=== PATIENT | male | born 1955 | race Caucasian/White ===

== ENCOUNTER → 2020-02-05 15:03 | Outpatient (BNVA) | payer BC, SELFPAY | PROVIDERS: Family Provider Family Medicine; PCP Family Medicine; Visit Provider Nurse Practitioner Family | DX: I50.9 Heart failure, unspecified (principal); J44.9 Chronic obstructive pulmonary disease, unspecified; R09.02 Hypoxemia; J98.11 Atelectasis | CPT/HCPCS: 71046; 80053; 85025 ==

== ENCOUNTER → 2020-03-11 09:00 | Outpatient (BNVA) | payer MEDICARE, SELFPAY | PROVIDERS: Family Provider Family Medicine; PCP Family Medicine; Visit Provider Nurse Practitioner Family | DX: I50.9 Heart failure, unspecified (principal); J44.9 Chronic obstructive pulmonary disease, unspecified | CPT/HCPCS: 80053; 80061 ==

== ENCOUNTER → 2020-03-19 08:54 | Outpatient (BNVA) | payer BC, MEDICARE, SELFPAY | PROVIDERS: Family Provider Family Medicine; PCP Family Medicine; Visit Provider Nurse Practitioner Family | DX: R73.09 Other abnormal glucose (principal) | CPT/HCPCS: 83036 ==

== ENCOUNTER → 2020-06-26 09:47 | Outpatient (BNVA) | payer MEDICARE, SELFPAY | PROVIDERS: Family Provider Family Medicine; PCP Family Medicine; Visit Provider Family Medicine | DX: J44.9 Chronic obstructive pulmonary disease, unspecified (principal); I50.9 Heart failure, unspecified; R06.02 Shortness of breath; R09.02 Hypoxemia | CPT/HCPCS: 36415; 80053; 85025 ==

== ENCOUNTER 2020-10-31 14:25 | Inpatient (IN) | payer MEDICARE, MEDICAID, SELFPAY ==
[2020-10-31] VITALS (8 sets, daily range): BP systolic 121–149; BP diastolic 65–108; PULSE 87–101; RESP 15–21; TEMP 36.8; O2SAT 93–100; BMI 44.3
--- NOTE | 2020-10-31 14:56 | PC.NURSE ---
UA collected and sent to lab.
[2020-10-31] MEDS: vancomycin 1,500 MG/300 ML PIGGYBACK 200 MG IV (15:46)
[2020-10-31 15:57] LABS: Basophils # 0.1 10^3/uL (0.0-0.1); Basophils % 1.4 %; Eosinophils # 0.3 10^3/uL (0.0-0.8); Eosinophils % 5.6 %; Hematocrit 31.1 % (42.0-52.0); Hemoglobin 8.8 g/dL (11.7-16.6); Lymphocytes # 1.1 10^3/uL (0.8-4.8); Lymphocytes % 22.2 %; Mean Corpuscular HGB Conc 28.3 g/dL (30.0-36.0); Mean Platelet Volume 9.7 fL (7.4-10.4); Monocytes # 0.7 10^3/uL (0.2-0.9); Neutrophils # 2.74 10^3/uL (1.8-7.7); Nucleated Red Blood Cells % 0 %; Platelet Count 332 10^3/cmm (130-400); Red Blood Count 3.14 10^6/uL (4.1-5.3); Red Cell Distribution Width 18.6 % (12.1-15.1)
--- NOTE | 2020-10-31 16:23 | ED_ITS ---
HPI - Wound/Laceration General: Chief Complaint: Wound/Laceration Stated Complaint: BLE PAIN/ CELLULITIS Time Seen by Provider: 10/31/20 14:26 Source: patient Mode of arrival: EMS Limitations: no limitations History of Present Illness: HPI narrative: Patient is a 65-year-old male who is a assisted resident and has bilateral lower extremity wounds that mixed pressure ulcers versus venous ulcers. He has recently been in the hospital for cellulitis. The wound care nurse practitioner evaluated the patient yesterday at the assisted and his wounds appear to be worsening. He is in a lot of pain and they are unable to do proper wound dressing. He denies a fever, admits to severe lower extremity pain, swelling, weeping of his wounds. He is here for wound evaluation and possible admission and debridement in the OR Associated symptoms: Denies chills, fever(s), nausea or vomiting Review of Systems General: Reports: 10 or more systems reviewed and unremarkable except in HPI and below Const: Denies: fever(s), chills or body aches Eyes: Denies: change in vision or blurry vision ENMT: Denies: throat pain, enlarged tonsils, odynophagia, hoarseness, mouth pain or swelling of lips/tongue Card: Denies: palpitations, irregular heart rhythm, edema or swelling of feet/ankles Resp: Denies: dyspnea, productive cough or non-productive cough GI: Denies: abdominal pain, nausea or vomiting : Denies: flank pain, dysuria, urinary frequency, urinary urgency or urinary hesitancy Musc: Denies: neck pain, back pain or extremity swelling Skin/Breast: Denies: rash, pruritus or erythema Neuro: Denies: headache(s), numbness in extremities or weakness in extremities Endo: Denies: polyuria, polydipsia or tired all the time PFSH ED PFSH: Medical History (Reviewed 10/31/20 @ 17:27 by Taina Bear MD, [facility] [place]) CHF (congestive heart failure) DVT (deep venous thrombosis) Hypoxia Social History (Reviewed 10/31/20 @ 17:27 by Taina Bear MD, [facility] [place]) Smoking and tobacco status: former smoker Quit status (tobacco): has quit using tobacco Year quit tobacco: 2019 Alcohol intake: never Physical Exam Const: COMMON NORMALS: no acute distress, average body habitus, patient oriented x3, no limitations, healthy appearing, alert and well nourished HENMT: COMMON NORMALS: normocephalic, atraumatic and moist oral mucous membranes HEAD & SCALP: normocephalic and atraumatic Neck/C-Spine: COMMON NORMALS: no meningeal signs and no JVD Resp: COMMON NORMALS: normal respiratory effort, No retractions, No use of accessory muscles, clear to auscultation bilaterally and percussion normal AUSCULTATION: clear to auscultation bilaterally PERCUSSION: percussion normal Cardio: COMMON NORMALS: no JVD, regular rate, regular rhythm, S1 normal heart sound present, S2 normal heart sound present, No gallops present (Cardio), No clicks present (Cardio), No murmurs present (Cardio), No rub (Cardio) and Peripheral pulses 2+ throughout RATE: regular rate RHYTHM: regular rhythm HEART SOUNDS: S1 normal heart sound present and S2 normal heart sound present PERIPHERAL PULSES: Peripheral pulses 2+ throughout GI: COMMON NORMALS: Normal to inspection, nondistended, normoactive bowel sounds present, Soft to palpation, non-tender, No hepatosplenomegaly present, no masses and no bruits PALPATION: Yes Soft to palpation and Yes No hepatosplenomegaly present Extremity: COMMON NORMALS: full ROM, capillary refill normal and no calf tenderness OTHER: Both lower extremities edematous with venous stasis changes. He has extensive wounds to the posterior lower legs that are weeping. He has extreme tenderness even to light touch. The legs are warm. Neuro: COMMON NORMALS: patient oriented x3 SENSORIUM/ORIENTATION: Yes alert MENINGEAL SIGNS: Yes no meningeal signs Skin: COMMON NORMALS: no rashes or lesions noted, no wounds, turgor normal, no jaundice, no petechiae and no mottling GENERAL SKIN EXAM: no rashes or lesions noted and turgor normal Course Consultations: Consultation #1: Discussed the patient with Dr. Bowie, sanitizer and he will evaluate the patient and if he is appropriate will take him to the OR for debridement. Time: 15:43 Consultation #2: Discussed the patient with Dr. Larsen, hospitalist and he kindly accepted the patient to his service. Time: 16:46 Vital Signs: Vital signs: Vital Signs Temperature 98.2 F 10/31/20 14:27 Pulse Rate 87 10/31/20 17:00 Respiratory Rate 20 H 10/31/20 17:00 Blood Pressure 124/108 10/31/20 17:00 Pulse Oximetry 100 10/31/20 17:00 MDM - Wound/Laceration MDM Narrative: Medical decision making narrative: 65-year-old male with chronic leg ulcers and cellulitis. He is being admitted to the hospital for further evaluation and management. Medical Records: Attestation: I reviewed the patient's medical records. Lab Data: Attestation: I reviewed the patient's lab results. Labs: Lab Results 10/31/20 10/31/20 10/31/20 Range/Units 15:27 15:27 15:27 WBC 5.0 (4.0-10.0) 10^3/ uL RBC 3.14 L (4.1-5.3) 10^6/u L Hgb 8.8 L (11.7-16.6) g/dL Hct 31.1 L (42.0-52.0) % MCV 99.0 H (80-94) fL MCH 28.0 (28.0-34.0) pg MCHC 28.3 L (30.0-36.0) g/dL RDW 18.6 H (12.1-15.1) % Plt Count 332 (130-400) 10^3/c mm MPV 9.7 (7.4-10.4) fL Neut % (Auto) 55.0 % Lymph % (Auto) 22.2 % [place] % (Auto) 14.0 % Eos % (Auto) 5.6 % Baso % (Auto) 1.4 % Neut # (Auto) 2.74 (1.8-7.7) 10^3/u L Lymph # (Auto) 1.1 (0.8-4.8) 10^3/u L [place] # (Auto) 0.7 (0.2-0.9) 10^3/u L Eos # (Auto) 0.3 (0.0-0.8) 10^3/u L Baso # (Auto) 0.1 (0.0-0.1) 10^3/u L Nucleated RBC % (a uto) 0 % Nucleated RBCs # 0.0 /100WBC Sodium 138 (136-145) mmol/L Potassium 3.5 (3.5-5.1) mmol/L Chloride 98 (98-107) mmol/L Carbon Dioxide 31 H (22-29) mmol/L Anion Gap 12.5 (5-19) BUN 10 (8-23) mg/dL Creatinine 0.8 (0.7-1.2) mg/dL GFR Calculation 97.6 (90-130) mL/min Glucose 137 H (65-115) mg/dL Calculated Osmolal ity 287 (285-295) mOsm/k g Lactate 2.2 (0.5-2.2) mmol/L Calcium 8.0 L (8.5-10.5) mg/dL Total Bilirubin 0.2 (0.15-1.2) mg/dL AST 18 (0-40) U/L ALT 14 (0-41) U/L Alkaline Phosphata se 60 (40-130) IU/L C-Reactive Protein 26.5 H (0.0-4.9) mg/L Total Protein 6.7 (6.6-8.7) g/dL Albumin 2.2 L (3.5-5.2) g/dL Globulin 4.5 (1.3-4.6) g/dL Discharge Plan Discharge Patient Disposition: Admitted As Inpatient Clinical Impression: Cellulitis and abscess of lower extremity, Decubitus ulcer Condition: Stable Prescriptions: No Action aspirin [Adult Aspirin Regimen] 81 mg tablet,delayed release (DR/EC) 81 mg PO DAILY RF: 0 Triad Wound Dressing Paste 1 applic TOPICAL BID Qty: 1 RF: 2 pantoprazole 40 mg tablet,delayed release (DR/EC) 40 mg PO DAILY Qty: 30 RF: 11 bumetanide 2 mg tablet 2 mg PO DAILY Qty: 30 RF: 11 budesonide-formoterol 160-4.5 mcg/actuation HFA aerosol inhaler 2 puff INHALATION BID Qty: 10.2 RF: 11 acetaminophen 325 mg Tablet 650 mg PO Q4H PRN (Reason: Pain) RF: 0 Cipro 250 mg Tablet 750 mg PO BID RF: 0 Milk of Magnesia 400 mg/5 mL Suspension 30 ml PO DAILY PRN (Reason: Constipation) RF: 0 Dulcolax (bisacodyl) 10 mg Suppository 10 mg MA DAILY PRN (Reason: Constipation) RF: 0 Fleet Enema 19-7 gram/118 mL Enema 118 ml MA DAILY PRN (Reason: Constipation) RF: 0 bisacodyl 5 mg Tablet 20 mg PO DAILY PRN (Reason: Constipation) RF: 0 tramadol 50 mg tablet 50 mg PO BID PRN (Reason: Pain) RF: 0 hydrocodone-acetaminophen 5-325 mg Tablet 1 - 2 tab PO BID PRN (Reason: Pain) RF: 0 Referrals: Willie Mario DO [Primary Care Provider] - Coding Level of Care Code ED Disability Coordinator for g Han
[2020-10-31 16:51] LABS: Alanine Aminotransferase 14 U/L (0-41); Albumin Level 2.2 g/dL (3.5-5.2); Alkaline Phosphatase 60 IU/L (40-130); Anion Gap 12.5 (5-19); Aspartate Amino Transferase 18 U/L (0-40); Blood Urea Nitrogen 10 mg/dL (8-23); C Reactive Protein 26.5 mg/L (0.0-4.9); Carbon Dioxide 31 mmol/L (22-29); Chloride 98 mmol/L (98-107); Globulin 4.5 g/dL (1.3-4.6); Glomerular Filtration Rate 97.6 mL/min (90-130); Glucose 137 mg/dL (65-115); Osmolality Calculated 287 mOsm/kg (285-295); Potassium 3.5 mmol/L (3.5-5.1); Sodium 138 mmol/L (136-145); Total Bilirubin 0.2 mg/dL (0.15-1.2); Total Protein 6.7 g/dL (6.6-8.7)
[2020-10-31 16:52] LABS: Lactate (Lactic Acid level) 2.2 mmol/L (0.5-2.2)
--- NOTE | 2020-10-31 17:33 | P.HP_ITS ---
Providers/Chief Complaint Primary Care Provider: Willie Mario DO Chief Complaint: BLE PAIN/ CELLULITIS History of Present Illness Willie Perez is a 65 year old male, resident of nursing facility was brought to ER for severe bilateral lower extremity pains and swelling as well as venous ulcers. Patient reports that pain is still severe and he cannot get his both legs up. He was able to walk minimal distance last Tuesday with help. Reports that his legs been swollen for the last 1 year or so. Reports that in the last 1 month it became severe. He admits drinking large amount of fluid. Reports that his diuretics being changed multiple times without significant improvement. He denies being diabetic. Reports having heart failure but denies previous cardiac intervention. He has chronic 3-1/2 L of oxygen dependent COPD and quit smoking approximately [address] Bear discussed case with Dr. Bowie who will see patient in a.m. for evaluation for debridement. Review of Systems Narrative: Except as mentioned in HPI Const: Denies: fever(s) or chills Eyes: Denies: change in vision ENMT: Denies: throat pain or change in hearing Card: Reports: edema; Denies: chest pain or lightheadedness Resp: Reports: dyspnea (Chronic, with exertion. Cannot lay flat as he gets immediately short of br); Denies: productive cough GI: Denies: abdominal pain, nausea, vomiting, dysphagia, diarrhea, constipation, hematochezia or melena : Denies: difficulty urinating Musc: Denies: joint pain or joint swelling Skin/Breast: Denies: rash or erythema Neuro: Denies: headache(s) or weakness in extremities Psych: Denies: depression or suicidal ideation Endo: Denies: excessive sweating Best/Lymph: Denies: easy bleeding or tender lymph nodes All/Imm: Denies: throat swelling Medications/Allergies Home Medications Medication Instructions Recorded Confirmed Last Taken Type aspirin 81 mg tablet,delayed 81 mg PO DAILY 09/26/19 10/31/20 Unknown History release wound dressings 1 applic TOPICAL BID #1 tube 03/03/20 10/31/20 Unknown Rx budesonide-formoterol HFA 160 2 puff INHALATION BID #10.2 gm 05/13/20 10/31/20 Unknown Rx mcg-4.5 mcg/actuation aerosol inhaler bumetanide 2 mg tablet 2 mg PO DAILY #30 tab 02/08/21 03/05/21 Unknown Rx pantoprazole 40 mg tablet,delayed 40 mg PO DAILY #30 tab 10/06/20 10/31/20 Unkn own Rx release acetaminophen 650 mg PO Q4H PRN 10/31/20 10/31/20 Unknown History bisacodyl 20 mg PO DAILY PRN 10/31/20 10/31/20 Unknown History bisacodyl [Dulcolax (bisacodyl)] 10 mg [place] DAILY PRN 10/31/20 10/31/20 Unknown History ciprofloxacin HCl [Cipro] 750 mg PO BID 10/31/20 10/31/20 Unknown History hydrocodone-acetaminophen 1 - 2 tab PO BID PRN 10/31/20 10/31/20 10/31/20 Histor y magnesium hydroxide [Milk of 30 ml PO DAILY PRN 10/31/20 10/31/20 Unknown History Magnesia] sodium phosphates [Fleet Enema] 118 ml [place] DAILY PRN 10/31/20 10/31/20 Unknown History tramadol 50 mg PO BID PRN 10/31/20 10/31/20 Unknown History Allergies Allergy/AdvReac Type Severity Reaction Status Date / Time No Known Allergies Allergy Verified 10/06/20 10:03 PFSH Acute PFSH: Medical History (Updated 10/31/20 @ 17:45 by Chai Larsen MD) Bleeding ulcer CHF (congestive heart failure) Chronic respiratory failure with hypoxia COPD (chronic obstructive pulmonary disease) DVT (deep venous thrombosis) Hypoxia Morbid obesity with BMI of 40.0-44.9, adult Family History (Updated 10/31/20 @ 17:39 by Chai Larsen MD) Mother Diabetes Father Cancer skin Social History Smoking and tobacco status: former smoker Quit status (tobacco): has quit using tobacco Year quit tobacco: 2019 Alcohol intake: never Vitals/I&O/Wt Last Vital Signs Temp 98.2 F 10/31/20 14:27 Pulse 87 10/31/20 17:00 Resp 20 H 10/31/20 17:00 BP 124/108 10/31/20 17:00 Pulse Ox 100 10/31/20 17:00 Weight last 48 hrs Weight 136.078 kg Physical Exam Const: COMMON NORMALS: no acute distress, patient oriented x3 and alert HENMT: COMMON NORMALS: normocephalic and atraumatic HEAD & SCALP: normocephalic and atraumatic Eye: COMMON NORMALS: EOMs intact bilaterally, conjunctivae normal and no scleral icterus CONJUNCTIVA: Yes conjunctivae normal Neck/C-Spine: COMMON NORMALS: no lymphadenopathy and no meningeal signs Lymph: LYMPHATIC: no lymphadenopathy noted Chest: COMMONS NORMALS: normal palpation of entire chest wall Resp: COMMON NORMALS: No use of accessory muscles and clear to auscultation bilaterally (But overall decreased air movement throughout.) AUSCULTATION: clear to auscultation bilaterally Cardio: COMMON NORMALS: regular rate, regular rhythm and No murmurs present (Cardio) RATE: regular rate RHYTHM: regular rhythm OTHER: 3+ lower extremity edema bilaterally GI: COMMON NORMALS: Soft to palpation and non-tender PALPATION: Yes Soft to palpation RECTAL EXAM: Yes deferred : COMMON NORMALS: Yes no CVA tenderness BLADDER/KIDNEY EXAM: Yes no CVA tenderness Back/Pelvis: COMMON NORMALS: no CVA tenderness and thoracic and lumbar spine normal to inspection Extremity: COMMON NORMALS: normal to inspection and capillary refill normal Neuro: COMMON NORMALS: patient oriented x3 and no focal motor deficits SENSORIUM/ORIENTATION: Yes alert MENINGEAL SIGNS: Yes no meningeal signs Psych: COMMON NORMALS: mental status grossly normal, Normal thought process present and cooperative THOUGHT PROCESS: Normal thought process present Skin: NARRATIVE SKIN EXAM: Both lower extremities are very swollen with chronic stasis dermatitis changes and superficial large venous ulcers mostly in the calf areas. Some concerning left heel ulcer noted. Data : 10/31/20 15:27 10/31/20 15:27 Micro: Microbiology 10/31/20 15:47 Blood Culture - Preliminary Blood SPECIMEN COLLECTED 10/31/20 15:27 Blood Culture - Preliminary Blood SPECIMEN COLLECTED A&P Assessment and plan (1) COPD (chronic obstructive pulmonary disease): Not in exacerbation Status: Acute Qualifiers: COPD type: unspecified COPD Qualified Code(s): J44.9 - Chronic obstructive pulmonary disease, unspecified (2) Venous stasis ulcers of both lower extremities: Status: Acute (3) Chronic respiratory failure with hypoxia: Status: Acute (4) CHF (congestive heart failure): Status: Acute Qualifiers: Heart failure type: unspecified Heart failure chronicity: chronic Qualified Code(s): I50.9 - Heart failure, unspecified (5) Morbid obesity with BMI of 40.0-44.9, adult: Status: Acute (6) History of bleeding ulcers: Status: Acute Additional A&P Information PLAN: Given patient's severe pain and extensive swelling we will admit patient for close monitoring and treatment including IV diuresis. We will perform bilateral lower extremity venous and arterial ultrasounds and echocardiogram I have discussed extensively regarding importance of fluid restriction as this appears to be the major problem. Patient voiced understanding. At this point I do not see any evidence of cellulitis requiring antibiotics. Hold aspirin and continue Protonix. Attestations Medical Necessity Statement*: Patient with severe bilateral lower extremity swelling and pain requires close inpatient monitoring and treatment including IV diuresis. I expect patient will require more than 2 midnights. Time Spent in Patient Care: Greater than 35 minutes Coding Level of Care Code Acute Planer Operator / Grader for [facility] Fwd Diagnoses COPD (chronic obstructive pulmonary disease) J44.9 COPD type: unspecified COPD Venous stasis ulcers of both lower extremities I83.019; I83.029; L97.919; L97.929 Chronic respiratory failure with hypoxia J96.11 CHF (congestive heart failure) I50.9 Heart failure type: unspecified Heart failure chronicity: chronic Morbid obesity with BMI of 40.0-44.9, adult E66.01; Z68.41 History of bleeding ulcers Z87.11
[2020-10-31] MEDS: acetaminophen 500 mg Tablet 1000 MG PO (18:42)
[2020-10-31] MEDS: potassium chloride ER 20 mEq Tablet PO (19:34)
[2020-10-31] MEDS: HYDROcodone-acetaminophen 5-325 mg Tablet 2 TAB PO (19:35)
[2020-10-31] MEDS: FUROsemide 10 mg/mL SDV 10mL 60 MG IVP (19:36)
[2020-10-31] MEDS: sennosides 8.6 mg Tablet 17.2 MG PO (20:29)
--- NOTE | 2020-10-31 21:56 | PC.NURSE ---
Chronic pain in the lower extremities, patient explained pain to be at baseline around 12/06
[2020-11-01] VITALS (10 sets, daily range): BP systolic 115–138; BP diastolic 55–83; PULSE 82–95; RESP 18–22; TEMP 36.8–37.1; O2SAT 94–98
[2020-11-01] MEDS: acetaminophen 325 mg Tablet 650 MG PO (04:41)
[2020-11-01] MEDS: FUROsemide 10 mg/mL SDV 10mL 60 MG IVP ×2 (06:16→18:42)
--- NOTE | 2020-11-01 06:45 | PC.NURSE ---
Dressing change provided to patient's LEs with assist of SHARON
[2020-11-01 06:49] LABS: Basophils # 0.1 10^3/uL (0.0-0.1); Basophils % 1.6 %; Eosinophils # 0.3 10^3/uL (0.0-0.8); Eosinophils % 5.4 %; Hematocrit 28.7 % (42.0-52.0); Lymphocytes # 1.3 10^3/uL (0.8-4.8); Mean Corpuscular HGB Conc 27.9 g/dL (30.0-36.0); Mean Corpuscular Hemoglobin 27.3 pg (28.0-34.0); Mean Platelet Volume 9.3 fL (7.4-10.4); Monocytes # 0.7 10^3/uL (0.2-0.9); Monocytes % 12.5 %; Neutrophils # 3.08 10^3/uL (1.8-7.7); Neutrophils % 55.1 %; Nucleated Red Blood Cells % 0 %; Platelet Count 326 10^3/cmm (130-400); Red Blood Count 2.93 10^6/uL (4.1-5.3); Red Cell Distribution Width 18.6 % (12.1-15.1); White Blood Count 5.6 10^3/uL (4.0-10.0)
[2020-11-01 07:14] LABS: NT Pro B Type Natriuretic Pept 194 pg/mL (0-125); Procalcitonin 0.14 ng/mL (0-0.5); Thyroid Stimulating Hormone 3.07 uIU/mL (0.27-4.20)
--- NOTE | 2020-11-01 07:17 | PM.CONSULT ---
Providers/Reason For Consult Consulting Physican/Specialty*: Mike Bowie D.P.M. Reason for Consult*: Venous insufficiency and venous ulceration bilateral legs Attending Physician: Chai Larsen MD Primary Care Provider: Willie Mario DO History of Present Illness History of Present Illness Willie Perez is a 65 year old male with venous stasis ulcerations bilateral legs with increasing pain, he was directed to the emergency department from his [facility] in [place]. Patient states that usp has been performing leg wraps and that prior to his admission to a usp he had home health doing wraps on his legs 3 times a week. He endorses severe pain to his left and right legs. Patient denies any nausea, vomiting, fever, chills or chest pain at this time. Review of Systems General: Reports: 10 or more systems reviewed and unremarkable except in HPI and below Const: Denies: fever(s) or chills Card: Denies: chest pain or palpitations Resp: Denies: productive cough GI: Denies: abdominal pain, nausea or vomiting : Denies: flank pain Musc: Reports: extremity swelling, joint pain, joint stiffness, limited range of motion and deformity Skin/Breast: Reports: skin tenderness, sores, nail changes and change in hair; Denies: rash Neuro: Reports: difficulty walking; Denies: numbness in extremities Psych: Denies: suicidal ideation Best/Lymph: Denies: easy bruising Meds/Allergies Home Medications and Allergies Home Medications Medication Instructions Recorded Confirmed Last Taken Type aspirin 81 mg tablet,delayed 81 mg PO DAILY 09/26/19 10/31/20 Unknown History release wound dressings 1 applic TOPICAL BID #1 tube 03/03/20 10/31/20 Unknown Rx budesonide-formoterol HFA 160 2 puff INHALATION BID #10.2 gm 05/13/20 10/31/20 Unknown Rx mcg-4.5 mcg/actuation aerosol inhaler bumetanide 2 mg tablet 2 mg PO DAILY #30 tab 10/06/20 10/31/20 Unknown Rx pantoprazole 40 mg tablet,delayed 40 mg PO DAILY #30 tab 10/06/20 10/31/20 Unknown Rx release acetaminophen 650 mg PO Q4H PRN 10/31/20 10/31/20 Unknown History bisacodyl 20 mg PO DAILY PRN 10/31/20 10/31/20 Unknown History bisacodyl [Dulcolax (bisacodyl)] 10 mg [place] DAILY PRN 10/31/20 10/31/20 Unknown History ciprofloxacin HCl [Cipro] 750 mg PO BID 10/31/20 10/31/20 Unknown History hydrocodone-acetaminophen 1 - 2 tab PO BID PRN 10/31/20 10/31/20 10/31/20 History magnesium hydroxide [Milk of 30 ml PO DAILY PRN 10/31/20 10/31/20 Unknown History Magnesia] sodium phosphates [Fleet Enema] 118 ml [place] DAILY PRN 10/31/20 10/31/20 Unknown History tramadol 50 mg PO BID PRN 10/31/20 10/31/20 Unknown History Allergies Allergy/AdvReac Type Severity Reaction Status Date / Time No Known Allergies Allergy Verified 10/06/20 10:03 Current Medications Current Medications Generic Name Dose Route Start Last Admin Trade Name Freq PRN Reason Stop Dose Admin Acetaminophen 650 mg 10/31/20 19:16 11/01/20 04:41 Acetaminophen 325 Mg Tablet PO 650 mg Q4H PRN Administration Pain Hydrocodone Bitart/Acetaminophen 2 tab 10/31/20 19:16 10/31/20 19:35 Hydrocodone-Acetaminophen 5-325 Mg Tablet PO 2 tab BID PRN Administration Pain Furosemide 60 mg 10/31/20 19:16 11/01/20 06:16 Furosemide 10 Mg/Ml Sdv 10ml IVP 60 mg Q12H TAYLOR Administration Potassium Chloride 20 meq 10/31/20 19:16 10/31/20 19:34 Potassium Chloride Er 20 Meq Tablet PO 20 meq BID TAYLOR Administration Fluticasone/Salmeterol 1 puff 10/31/20 20:00 10/31/20 20:59 Fluticasone-Salmeterol 500-50 Diskus INHALATION 1 puff BID.RESPIRATORY TAYLOR Administration Senna 17.2 mg 10/31/20 21:00 10/31/20 20:29 Sennosides 8.6 Mg Tablet PO 17.2 mg BEDTIME TAYLOR Administration PFSH Acute PFSH: Medical History (Updated 10/31/20 @ 17:45 by Chai Larsen MD) Bleeding ulcer CHF (congestive heart failure) Chronic respiratory failure with hypoxia COPD (chronic obstructive pulmonary disease) DVT (deep venous thrombosis) Hypoxia Morbid obesity with BMI of 40.0-44.9, adult Family History (Updated 10/31/20 @ 17:40 by Chai Larsen MD) Mother Diabetes Father Cancer skin Social History Smoking and tobacco status: former smoker Quit status (tobacco): has quit using tobacco Year quit tobacco: 2019 Alcohol intake: never Vitals/I&O/Wt Last Vital Signs Temp 98.8 F 11/01/20 04:00 Pulse 82 11/01/20 04:00 Resp 22 H 11/01/20 04:00 BP 138/80 11/01/20 04:00 Pulse Ox 97 11/01/20 04:00 10/31/20 11/01/20 11/01/20 22:59 06:59 14:59 Intake Total 540 / 540 340 / 880 Output Total 1250 / 1250 260 / 1510 300 / 300 Balance -710 / -710 80 / -630 -300 / -300 Weight last 48 hrs Weight 300 lb Physical Exam Narrative: EXAM NARRATIVE: GENERAL: Patient is alert and oriented ?3 and in no acute distress. The following is a focused bilateral lower extremity exam. VASCULAR: Dorsalis pedis palpable posterior tibial arteries palpable. Capillary refill time less than 3 seconds to the distal hallux bilaterally. Calf is supple and nontender proximally and distally. Decreased hair growth at legs and feet bilaterally, +2 pitting edema to the lower extremities. NEUROLOGICAL: Protective sensation intact 10/10 sites, tested with Antler Shruthi monofilament to bilateral feet. DERMATOLOGICAL: Patient has geographic ulcerations at the posterior legs bilaterally limited to breakdown of skin with epithelialized margin, serous drainage, no proximal lymphangitic streaking or warmth or purulence appreciated. He has indurated skin and chronic skin pigmentation changes of bilateral legs in a gaiter distribution consistent with hemosiderin deposits. Dry skin feet at feet bilaterally. MUSCULOSKELETAL: Visit tenderness to palpation of bilateral legs. Able to wiggle toes on command. Muscle strength 5 out of 5 in all 3 cardinal planes. Data Micro: Micro: Microbiology 10/31/20 15:47 Blood Culture - Pr eliminary Blood SPECIMEN [facility] 10/31/20 15:27 Blood Culture - Pr eliminary Blood SPECIMEN [facility] A&P Additional A&P Information Mr. Perez is a 65-year-old male with congestive heart and peripheral vascular disease he has venous insufficiency and venous ulcerations bilateral legs that are clinically stable. He is afebrile, no leukocytosis. I evaluated bilateral leg venous ulcerations these are extensive in size and limited to breakdown of skin without clinical signs of infection, performed mechanical debridement of the wounds this required 2 mg of morphine IV push in order for patient to tolerate this, he had pain during debridement and dressing changes. I performed mechanical debridement to bilateral leg wounds, I did not appreciate any purulence or full-thickness wound down to fat layer. Pictures loaded and exam portion. Dressing change consisted of Unna boot, Kerlix, ABD pad, 4 x 4 and Ayden wrap. I recommend decongestive therapy and continuation of compression therapy at the lower extremities this is something that can be managed at his nursing facility, I do not have any indications for surgical debridement during his hospitalization patient okay for transfer from podiatry standpoint. Consult Attestations Medical Necessity Statement: This insufficiency Coding Level of Care Code Acute Hospice Spiritual Care Coordinator for Gretta Short
[2020-11-01 07:26] LABS: Alanine Aminotransferase 11 U/L (0-41); Albumin Level 2.3 g/dL (3.5-5.2); Alkaline Phosphatase 53 IU/L (40-130); Anion Gap 11.4 (5-19); Aspartate Amino Transferase 14 U/L (0-40); Blood Urea Nitrogen 12 mg/dL (8-23); Calcium 8.1 mg/dL (8.5-10.5); Carbon Dioxide 32 mmol/L (22-29); Chloride 98 mmol/L (98-107); Glomerular Filtration Rate 113.9 mL/min (90-130); Glucose 98 mg/dL (65-115); Magnesium 1.7 mg/dL (1.7-2.3); Osmolality Calculated 286 mOsm/kg (285-295); Potassium 3.4 mmol/L (3.5-5.1); Sodium 138 mmol/L (136-145); Total Bilirubin 0.2 mg/dL (0.15-1.2); Total Protein 6.3 g/dL (6.6-8.7)
[2020-11-01] MEDS: morphine 4 mg/mL SDV 1 mL 2 MG IVP (08:13)
[2020-11-01] MEDS: pantoprazole DR 40 mg Tablet PO ×2 (08:14→18:42)
[2020-11-01] MEDS: potassium chloride ER 20 mEq Tablet PO ×2 (08:14→18:42)
--- NOTE | 2020-11-01 12:17 | P.PN_ITS ---
Subjective Subjective: Interval history: Patient had mechanical debridement today but did not require surgical debridement. He denies any shortness of breath or chest pain this morning. He had no episodes of GI bleed after he had his bleeding ulcer cauterized approximate 3 months ago. He understands risks and benefits of anticoagulation including potentially life-threatening GI bleed and okay to continue with treatment of blood clot that was found in his left popliteal vein. He is eating okay Vitals/I&O/Wt Last Vital Signs Temp 98.5 F 11/01/20 11:21 Pulse 92 11/01/20 11:21 Resp 18 11/01/20 11:21 BP 135/73 11/01/20 11:21 Pulse Ox 97 11/01/20 11:21 10/31/20 11/01/20 11/01/20 22:59 06:59 14:59 Intake Total 540 / 540 340 / 880 Output Total 1250 / 1250 260 / 1510 1075 / 1075 Balance -710 / -710 80 / -630 -1075 / -1075 Weight last 48 hrs Weight 136.078 kg Physical Exam Narrative: EXAM NARRATIVE: Lungs are clear and heart is regular. Abdomen is soft and nontender with positive bowel sounds. Data : 11/01/20 06:33 11/01/20 06:33 Micro: Microbiology 10/31/20 15:47 Blood Culture - Preliminary Blood SPECIMEN COLLECTED 10/31/20 15:27 Blood Culture - Preliminary Blood SPECIMEN COLLECTED A&P Assessment and plan (1) COPD (chronic obstructive pulmonary disease): Not in exacerbation Status: Acute Qualifiers: COPD type: unspecified COPD Qualified Code(s): J44.9 - Chronic obstructive pulmonary disease, unspecified (2) Venous stasis ulcers of both lower extremities: Status: Acute (3) Chronic respiratory failure with hypoxia: Status: Acute (4) CHF (congestive heart failure): Status: Acute Qualifiers: Heart failure type: unspecified Heart failure chronicity: chronic Qualified Code(s): I50.9 - Heart failure, unspecified (5) Morbid obesity with BMI of 40.0-44.9, adult: Status: Acute (6) History of bleeding ulcers: Status: Acute (7) Macrocytic anemia: Appears to be chronic and likely after recent episode of GI bleed Status: Acute (8) DVT (deep venous thrombosis): Left popliteal vein Status: Acute Additional A&P Information PLAN: Continue aggressive diuresis. Start patient on Lovenox, therapeutic anticoagulation for DVT. Monitor vitals and hemoglobin/platelets. We will proceed with initial anemia work-up. Should patient show evidence of GI bleed then we will have to proceed with IVC filter placement Attestations Medical Necessity Statement*: Patient with DVT and severe bilateral lower extremity swelling as well as risk for GI bleed requires close inpatient monitoring and treatment until deemed safe for discharge. 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
[2020-11-01] MEDS: HYDROcodone-acetaminophen 5-325 mg Tablet 2 TAB PO (12:29)
[2020-11-01] MEDS: enoxaparin 40 mg/0.4 mL Syringe SUBCUT (12:29)
[2020-11-01] MEDS: enoxaparin 100 mg/mL Syringe SUBCUT (12:29)
--- NOTE | 2020-11-01 19:16 | USR_ITS ---
PROCEDURE INFORMATION: Exam: US Duplex Lower Extremity Arteries Exam date and time: 11/01/2020 6:21 AM Age: 65 years old Clinical indication: Other: Lower extremity ulcerations; Additional info: Swelling and venous ulcers TECHNIQUE: Imaging protocol: Real-time ultrasound scan of the arteries of the bilateral lower extremities with 2-D chandra scale, color Doppler flow and spectral waveform analysis. Images documented and saved. COMPARISON: No relevant prior studies available. FINDINGS: Right common femoral artery: No occlusion or significant stenosis. Borderline waveform pattern possibly technical. Right superficial femoral artery: No occlusion or significant stenosis. Normal waveform. Right popliteal artery: Abnormal monophasic waveform. Flow velocity 136.7 cm/second. Right calf/foot arteries: Monophasic abnormal waveform posterior tibial artery and dorsalis pedis artery. Left common femoral artery: No occlusion or significant stenosis. Normal waveform. Left superficial femoral artery: No occlusion or significant stenos. Biphasic waveform within the mid superficial femoral artery. Left popliteal artery: No occlusion. Dampened monophasic waveform. Peak flow velocity 78.9 cm/second. Left calf/foot arteries: Abnormal dampened monophasic waveform pattern in the posterior tibial and dorsalis pedis distribution distally with turbulence of flow. Soft tissues: Dressings position over the distal lower extremities. Ankle brachial indices are unable to be obtained. US/[place] [id number] IMPRESSION: 1. Abnormal monophasic waveform pattern distally from the level of the popliteal arteries involving posterior tibial and dorsalis pedis distribution implies significant peripheral atherosclerotic small-vessel occlusive changes. 2. There is no significant flow velocity discrepancies or flow velocity elevation the proximal to mid left lower extremity to suggest significant occlusive changes. 3. Questionable partially dampened flow borderline monophasic versus biphasic waveform pattern in the right common femoral artery. This finding could be technical with no dominant vessel narrowing or atherosclerotic plaque demonstrated on cine color flow series..
--- NOTE | 2020-11-01 19:16 | USCV_ITS ---
Willie Perez Age: 65 Gender: M : 1955 Exam Date: 11/01/2020 10:14 Ordering Phys: Chai Larsen MD Technologist: Myranda Duran Exam Location: [facility] [place] Indication: CHF BP: 138 / 80 HR: 94 Rhythm: Sinus Technical Quality: Very technically difficult study MEASUREMENTS (Male / Female) Normal Values 2D ECHO LV Diastolic Diameter PLAX 2.9 cm 4.2 - 5.9 / 3.9 - 5.3 cm LV Systolic Diameter PLAX 1.8 cm LV Chamber Size 3.8 cm IVS Diastolic Thickness 1.5 cm 0.6 - 1.0 / 0.6 - 0.9 cm IVS Systolic Thickness 1.8 cm LVPW Diastolic Thickness 1.3 cm 0.6 - 1.0 / 0.6 - 0.9 cm LVPW Systolic Thickness 1.3 cm RV Chamber Size 2.9 cm LVOT Diameter 2.0 cm LV Ejection Fraction 2D Teich 68.5 % LA Diameter 3.3 cm LA Width 3.2 cm LA Height 6.1 cm RA Width 3.7 cm RA Height 4.8 cm Aorta at Sinotubular Diameter 2.9 cm M-MODE Aortic Annulus Diameter 3.5 cm LA Ao Ratio MM 1.2 DOPPLER AV Peak Velocity 124.0 cm/s LVOT Peak Velocity 101.0 cm/s AV Area Cont Eq vti 2.7 cm squared AV Area Cont Eq pk 2.6 cm squared MV Area PHT 2.1 cm squared Mitral E to A Ratio 0.6 MV E' Velocity 29.0 cm/s Mitral E to MV E' Ratio 5.9 Mitral E to LV E' Lateral Ratio 5.9 Mitral E to LV E' Septal Ratio 5.9 TV Peak E Velocity 33.0 cm/s FINDINGS Left Ventricle Normal left ventricular cavity size. Normal left ventricular systolic function. Left ventricular ejection fraction is estimated at 60 %. Right Ventricle The right ventricle is normal in size and function. Right Atrium The right atrium is normal in size. Left Atrium The left atrium is normal in size. Mitral Valve Structurally normal mitral valve without significant stenosis or prolapse. There is no mitral regurgitation. Aortic Valve Aortic valve not well visualized. Tricuspid Valve Tricuspid valve not well visualized. Pulmonic Valve Pulmonic valve not well visualized. Pericardium Normal pericardium without effusion. Aorta Normal ascending aorta dimension. CONCLUSIONS 1-Normal left ventricular cavity size. Normal left ventricular systolic function. Left ventricular ejection fraction is estimated at 60 %. 2-Structurally normal mitral valve without significant stenosis or prolapse. There is no mitral regurgitation. 3-Rest of other valves including aortic, tricuspid and pulmonic were not visualized may be normal 4-There is no pericardial effusion. 5-There are no prior echocardiogram studies to compare. Sara Dixon MD (Electronically Signed) Final Date: 01 November 2020 16:32 S
--- NOTE | 2020-11-01 19:16 | USR_ITS ---
PROCEDURE INFORMATION: Exam: US Duplex Lower Extremity Veins, Bilateral Exam date and time: 11/01/2020 6:21 AM Age: 65 years old Clinical indication: Swelling (edema) of limb; Lower extremity, bilateral TECHNIQUE: Imaging protocol: Real-time duplex ultrasound of the extremities with 2-D chandra scale, color Doppler flow and spectral waveform analysis with image documentation. Complete exam focused on the bilateral lower extremity veins. COMPARISON: No relevant prior studies available. FINDINGS: Right deep veins: No deep venous thrombosis in the visualized right common femoral, profunda femoris, superficial femoral, popliteal, or peroneal veins. Right superficial veins: Saphenofemoral junction is patent without thrombus. Left deep veins: No deep venous thrombosis in the visualized left common femoral, profunda femoris, or superficial femoral veins. Deep venous thrombosis in the left popliteal vein. Left superficial veins: Superficial thrombus in the left saphenous vein. Lymph nodes: Fatty replaced left inguinal lymph node. Soft tissues: Subcutaneous edema. US/CV venous duplex [facility] [id number] IMPRESSION: 1. No deep venous thrombosis in the visualized right lower extremity. 2. Deep venous thrombosis in the left popliteal vein.
[2020-11-01] MEDS: sennosides 8.6 mg Tablet 17.2 MG PO (20:37)
[2020-11-02] VITALS (7 sets, daily range): BP systolic 113–119; BP diastolic 62–70; PULSE 85–101; RESP 16–18; TEMP 36.7–37; O2SAT 94–98
[2020-11-02] MEDS: enoxaparin 100 mg/mL Syringe SUBCUT ×2 (01:35→14:43)
[2020-11-02] MEDS: enoxaparin 40 mg/0.4 mL Syringe SUBCUT ×2 (01:35→14:44)
[2020-11-02] MEDS: FUROsemide 10 mg/mL SDV 10mL 60 MG IVP (06:20)
[2020-11-02 06:21] LABS: Basophils # 0.1 10^3/uL (0.0-0.1); Basophils % 0.9 %; Eosinophils # 0.4 10^3/uL (0.0-0.8); Eosinophils % 5.5 %; Hematocrit 31.2 % (42.0-52.0); Hemoglobin 8.5 g/dL (11.7-16.6); Lymphocytes # 1.4 10^3/uL (0.8-4.8); Lymphocytes % 21.3 %; Mean Corpuscular HGB Conc 27.2 g/dL (30.0-36.0); Mean Corpuscular Hemoglobin 27.3 pg (28.0-34.0); Mean Corpuscular Volume 100.3 fL (80-94); Mean Platelet Volume 9.7 fL (7.4-10.4); Monocytes # 0.7 10^3/uL (0.2-0.9); Monocytes % 11.3 %; Neutrophils # 3.84 10^3/uL (1.8-7.7); Neutrophils % 60.1 %; Nucleated Red Blood Cells % 0 %; Platelet Count 346 10^3/cmm (130-400); Red Blood Count 3.11 10^6/uL (4.1-5.3); Red Cell Distribution Width 18.6 % (12.1-15.1); White Blood Count 6.4 10^3/uL (4.0-10.0)
[2020-11-02 06:52] LABS: Alanine Aminotransferase 11 U/L (0-41); Albumin Level 2.5 g/dL (3.5-5.2); Alkaline Phosphatase 55 IU/L (40-130); Anion Gap 14.4 (5-19); Aspartate Amino Transferase 16 U/L (0-40); Blood Urea Nitrogen 13 mg/dL (8-23); Carbon Dioxide 30 mmol/L (22-29); Chloride 100 mmol/L (98-107); Globulin 3.6 g/dL (1.3-4.6); Glomerular Filtration Rate 113.9 mL/min (90-130); Glucose 101 mg/dL (65-115); Magnesium 1.9 mg/dL (1.7-2.3); Osmolality Calculated 290 mOsm/kg (285-295); Potassium 4.4 mmol/L (3.5-5.1); Sodium 140 mmol/L (136-145); Total Bilirubin 0.2 mg/dL (0.15-1.2); Total Protein 6.1 g/dL (6.6-8.7)
[2020-11-02] MEDS: pantoprazole DR 40 mg Tablet PO (09:54)
[2020-11-02] MEDS: potassium chloride ER 20 mEq Tablet PO (09:54)
--- NOTE | 2020-11-02 11:34 | PM.DCS ---
Discharge Providers Date of Admission: 10/31/20 16:54 Date of Discharge: November 02, 2020 Attending Provider at Admission: Chai Larsen MD Attending Provider at Discharge: Chai Larsen MD Primary Care Provider: Willie Mario DO Diagnoses at Discharge Discharge Diagnosis (1) COPD (chronic obstructive pulmonary disease): Status: Acute Qualifiers: COPD type: unspecified COPD Qualified Code(s): J44.9 - Chronic obstructive pulmonary disease, unspecified (2) Venous stasis ulcers of both lower extremities: Status: Acute (3) Chronic respiratory failure with hypoxia: Status: Acute (4) CHF (congestive heart failure): Status: Acute Qualifiers: Heart failure type: unspecified Heart failure chronicity: chronic Qualified Code(s): I50.9 - Heart failure, unspecified (5) Morbid obesity with BMI of 40.0-44.9, adult: Status: Acute (6) History of bleeding ulcers: Status: Acute (7) Macrocytic anemia: Status: Acute (8) DVT (deep venous thrombosis): Status: Acute Reason for Visit Reason for Visit: BLE PAIN/ CELLULITIS Hospital Course Hospital Course Patient presented with severe bilateral lower extremity pain secondary to swelling. Patient had venous ulcers that were mechanically debrided. He had aggressive diuresis and his lower extremities swelling nicely improved and this morning patient denies any pain. He was found to have left popliteal vein DVT. He was started on anticoagulation with Lovenox and tolerated it well. His hemoglobin remained stable. We had discussion regarding risks and benefits of anticoagulation including potentially life-threatening GI bleed. Patient agreed to proceed. He did have previous history of bleeding ulcer therefore I will switch patient to Eliquis but without initial 10 mg twice daily for a week. He will be discharged on 5 mg twice daily. I will request repeat lab work in several days to make sure his numbers within normal limit. I will also increase his Bumex to twice daily and add potassium. CMP in 3 days will also be requested for check with results sent to primary care physician. Because of high risk of GI bleed I will increase Protonix to twice daily for now. We have discussed that if patient shows evidence of GI bleed then we will have to consider placing IVC filter. Patient voiced understanding and agreed with treatment plan. Outpatient follow-up with Dr. Bowie will be requested. Ultimately we need to make sure his lower extremities are not swollen. Patient will need to have fluid restriction to avoid bilateral lower extremity swelling. This morning patient reports that his lower extremities are not in pain anymore. He denies any shortness of breath or chest pain. Has good appetite and oral intake. Had normal bowel movement earlier today without evidence of melena or hematochezia. Physical Exam Narrative: EXAM NARRATIVE: Lungs are clear and heart is regular. Abdomen soft and nontender with positive bowel sounds. Lower extremities are dressed. Discharge Data Data Completed and Pending: Completed Studies During Hospitalization Category Date Time [place] [id number] Rout ine Ultrasound 11/01/20 19:16 Completed CV echo complete* [id number] Routine Ultrasound 11/01/20 19:16 [place] [id number] Routin e Ultrasound 11/01/20 19:16 Completed Pending at discharge Category Date Time Status Blood Culture Sta t Lab 10/31/20 15:47 Results Complete Blood Co unt w/Auto AM LABS Lab 11/03/20 04:00 Ordered Comprehensive Met abolic Panel AM LA BS Lab 11/02/20 05:47 Results Comprehensive Met abolic Panel AM LA BS Lab 11/03/20 04:00 Ordered Ferritin Timed Lab 11/02/20 05:47 Results Folate Level AM L ABS Lab 11/02/20 05:47 Received Magnesium AM LABS Lab 11/02/20 05:47 Results Magnesium AM LABS Lab 11/03/20 04:00 Ordered Total Iron Bindin g Capacity Timed Lab 11/02/20 05:47 Results Vitamin B12 Timed Lab 11/02/20 05:47 Results Labs from last 24 hours 11/02/20 11/02/20 11/02/20 05:47 05:47 05:47 WBC 6.4 RBC 3.11 L Hgb 8.5 L Hct 31.2 L MCV 100.3 H MCH 27.3 L MCHC 27.2 L RDW 18.6 H Plt Count 346 MPV 9.7 Neut % (Auto) 60.1 Lymph % (Auto) 21.3 [place] % (Auto) 11.3 Eos % (Auto) 5.5 Baso % (Auto) 0.9 Neut # (Auto) 3.84 Lymph # (Auto) 1.4 [place] # (Auto) 0.7 Eos # (Auto) 0.4 Baso # (Auto) 0.1 Nucleated RBC % (a uto) 0 Nucleated RBCs # 0.0 Sodium 140 Potassium 4.4 Chloride 100 Carbon Dioxide 30 H Anion Gap 14.4 BUN 13 Creatinine 0.7 GFR Calculation 113.9 Glucose 101 Calculated Osmolal ity 290 Calcium 8.0 L Magnesium 1.9 Iron Pending TIBC Pending % Saturation Pending Unsat Iron Binding Pending Ferritin Pending Total Bilirubin 0.2 AST 16 ALT 11 Alkaline Phosphata se 55 Total Protein 6.1 L Albumin 2.5 L Globulin 3.6 Vitamin B12 Pending Folate Pending Vitals: Last Vital Signs Temp 98.3 F 11/02/20 08:00 Pulse 86 11/02/20 08:03 Resp 18 11/02/20 08:02 BP 113/70 11/02/20 08:00 Pulse Ox 95 11/02/20 08:02 Discharge Plan Discharge Patient Disposition: Xfer SNF Condition: Stable Prescriptions: New apixaban 5 mg tablet 5 mg PO BID Qty: 60 RF: 0 potassium chloride [Klor-Con M20] 20 mEq Tablet,Er Particles/Crystals 20 meq PO BID Qty: 60 RF: 0 pantoprazole 40 mg Tablet,Delayed Release (Dr/Ec) 40 mg PO BID Qty: 60 RF: 0 Continued aspirin [Adult Aspirin Regimen] 81 mg tablet,delayed release (DR/EC) 81 mg PO DAILY RF: 0 Triad Wound Dressing Paste 1 applic TOPICAL BID Qty: 1 RF: 2 budesonide-formoterol 160-4.5 mcg/actuation HFA aerosol inhaler 2 puff INHALATION BID Qty: 10.2 RF: 11 acetaminophen 325 mg Tablet 650 mg PO Q4H PRN (Reason: Pain) RF: 0 Milk of Magnesia 400 mg/5 mL Suspension 30 ml PO DAILY PRN (Reason: Constipation) RF: 0 Dulcolax (bisacodyl) 10 mg Suppository 10 mg ND DAILY PRN (Reason: Constipation) RF: 0 Fleet Enema 19-7 gram/118 mL Enema 118 ml ND DAILY PRN (Reason: Constipation) RF: 0 bisacodyl 5 mg Tablet 20 mg PO DAILY PRN (Reason: Constipation) RF: 0 tramadol 50 mg tablet 50 mg PO BID PRN (Reason: Pain) RF: 0 hydrocodone-acetaminophen 5-325 mg Tablet 1 - 2 tab PO BID PRN (Reason: Pain) RF: 0 Changed bumetanide 2 mg tablet 2 mg PO BID Qty: 60 RF: 11 Discontinued pantoprazole 40 mg tablet,delayed release (DR/EC) 40 mg PO DAILY Qty: 30 RF: 11 Cipro 250 mg Tablet 750 mg PO BID RF: 0 Discharge Orders: Discharge Order (Routine); Ordered 11/02/20 Ordered By: Chai Larsen Other Ambulatory Orders: Complete Blood Count w/Auto (Routine) Timeframe: 3 Days Location: Determined by Patient Ordered By: Chai Larsen Comprehensive Metabolic Panel (Routine) Timeframe: 3 Days Facility: [facility] - Location: Lab - Main Lab Ordered By: Chai Larsen Referrals: Mike Bowie DPM [Physician] - 1 week Willie Mario DO [Primary Care Provider] - 4-7 days Discharge Diet: Advance as tolerated Discharge Activity: Increase activity as tolerated Activity Restrictions/Additional Instructions: Please call your doctor or present to emergency department if your condition worsens or you develop diarrhea, lightheadedness, fatigue or see blood in your stool or black stool. Please limit fluid intake to 6605-4559 mL per day. Please discuss with your doctor to review initial anemia work-up labs as they are still pending. 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
[2020-11-02 13:24] LABS: Folate Level 10.4 ng/mL (4.5-32.2)
[2020-11-02 14:14] LABS: Ferritin 265 ng/mL (30-400); Iron 26 ug/dL (59-158); Percent Saturation 14.2 % (20-50); Total Iron Binding Capacity 182 mcg/dl; Unsaturated Iron Binding 156 ug/dL (112-347)
[2020-11-02 14:29] LABS: Vitamin B12 239 pg/mL (232-1245)
--- NOTE | 2020-11-03 20:01 | PC.RESP ---
Pulmonary Rehab information sent to patient.
== END 2020-11-02 16:40 | disposition skilled nursing facility (03) | DRG 593 ==
LOC: ER 17:34 → MEDSURG 17:38
PROVIDERS: Admitting Provider Internal Medicine; Emergency Provider Family Medicine; Family Provider Family Medicine; PCP Family Medicine; Visit Provider Internal Medicine
DX: L97.921 Non-pressure chronic ulcer of unspecified part of left lower leg limited to breakdown of skin (principal); J96.11 Chronic respiratory failure with hypoxia; Z68.41 Body mass index [BMI] 40.0-44.9, adult; I82.432 Acute embolism and thrombosis of left popliteal vein; L97.911 Non-pressure chronic ulcer of unspecified part of right lower leg limited to breakdown of skin; I87.8 Other specified disorders of veins; I50.9 Heart failure, unspecified; Z99.81 Dependence on supplemental oxygen; J44.9 Chronic obstructive pulmonary disease, unspecified; Z87.891 Personal history of nicotine dependence; Z86.718 Personal history of other venous thrombosis and embolism; E66.01 Morbid (severe) obesity due to excess calories; I73.9 Peripheral vascular disease, unspecified; D53.9 Nutritional anemia, unspecified; Z79.82 Long term (current) use of aspirin; Z79.891 Long term (current) use of opiate analgesic
CPT/HCPCS: 36415; 80053; 82607; 82728; 82746; 83540; 83550; 83605; 83735; 83880; 84145; 84443; 85025; 86140; 87040; 93306; 93925; 93970; 94640; 96372; 97161; 97167; 99285; J1650; J1940; J2270; J3370

== ENCOUNTER 2020-11-04 13:45 | Outpatient (CLI) | payer MEDICARE, SELFPAY | END 2020-11-04 13:46 | disposition home or self-care (01) | LOC: WOUND 13:46 | PROVIDERS: Family Provider Family Medicine; PCP Family Medicine; Visit Provider Thoracic Surgery (Cardiothoracic Vascular Surgery) | DX: L89.893 Pressure ulcer of other site, stage 3 (principal) | CPT/HCPCS: 99214 ==

== ENCOUNTER 2021-01-14 18:19 | Emergency (ER) | payer MEDICARE, MEDICAID, SELFPAY ==
[2021-01-14 18:35] VITALS: BP 163/69; PULSE 65; RESP 15; TEMP 36.3; O2SAT 99; BMI 41.5
--- NOTE | 2021-01-14 18:36 | XRR_ITS ---
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 Views: 3 or more views. COMPARISON: [place] [id number] 11/01/2020 6:37 AM FINDINGS: Bones/joints: There is severe osteopenia. There is hallux valgus and metatarsus adductus. The outer cortical line of the posterior calcaneus deep to the ulcer is indistinct concerning for early bony destruction of osteomyelitis. No bony destruction or definite osteomyelitis is identified in the remaining foot. There is sclerosis of the calcaneus in flattening of Boehler's angle compatible probable old calcaneal fracture. No acute fracture or dislocation. There is calcaneal enthesopathy. Soft tissues: There is diffuse soft tissue edema. There is a large ulcer posterior to the calcaneus. XR/XR foot LT min 3V* [id number] IMPRESSION: 1. The outer cortical line of the posterior calcaneus deep to the ulcer is indistinct concerning for early bony destruction of osteomyelitis. A large ulcer is present posterior to the calcaneus. 2. No acute fracture or dislocation.
--- NOTE | 2021-01-14 18:38 | W.ED.WOUNDLC ---
HPI - Wound/Laceration General: Chief Complaint: Wound/Laceration Stated Complaint: LEFT HEEL WOUND Time Seen by Provider: 01/14/21 18:23 History of Present Illness: HPI narrative: Patient is a 65-year-old male comes to the ED via EMS for left heel wound. Patient has a past medical history of COPD, heart failure, diabetes and peripheral neuropathy. Patient had a DVT in his left leg approximately a month ago and they put him on apixaban. Patient also states that he is on 2 L of oxygen via nasal cannula continuously at skilled nursing. He currently lives in a skilled nursing in [place]. The wound on his left heel started approximately 5 months ago and he has wound care that comes in to the skilled nursing treat wound. Today the left heel wound continued to bleed and they were unable to stop it from bleeding at the skilled nursing so they sent him here to the ED for further evaluation. Associated symptoms: Denies chills, fever(s), nausea or vomiting Review of Systems Const: Denies: fever(s), chills or fatigue Eyes: Denies: change in vision or eye discomfort ENMT: Denies: throat pain, odynophagia, nasal discharge or nasal congestion Card: Denies: chest pain, palpitations, edema, swelling of feet/ankles, dyspnea on exertion or orthopnea Resp: Denies: dyspnea, productive cough or non-productive cough GI: Denies: abdominal pain, nausea, vomiting, diarrhea, constipation or hematochezia : Denies: flank pain, difficulty urinating, dysuria or hematuria Musc: Denies: neck pain, back pain or extremity swelling Skin/Breast: Reports: non-healing lesions (Chronic diabetic ulcer on left foot just above heel.); Denies: rash Neuro: Denies: headache(s), numbness in extremities or weakness in extremities PFS ED PFSH: Medical History Bleeding ulcer CHF (congestive heart failure) Chronic respiratory failure with hypoxia COPD (chronic obstructive pulmonary disease) DVT (deep venous thrombosis) History of bleeding ulcers Hypoxia Morbid obesity with BMI of 40.0-44.9, adult Family History Mother Diabetes Father Cancer skin Social History Smoking and tobacco status: former smoker Quit status (tobacco): has quit using tobacco Year quit tobacco: 2019 Former quit date comment: Hx of 2 PPD x 50 Years Second hand smoke exposure: Yes Smoking risk assessment/counseling performed?: Yes Alcohol intake: never Counseling given: No Counseling given: No Caregiver/support person: Yes Lives independently: No Housing: Alf Marital status: Current occupational status: disabled Pets and animals: No History of recent travel: No Current gender identity: Male Physical Exam Const: COMMON NORMALS: no acute distress, patient oriented x3 and alert GENERAL APPEARANCE: cooperative and comfortable NUTRITIONAL APPEARANCE: obese HENMT: COMMON NORMALS: normocephalic HEAD & SCALP: normocephalic MOUTH: Normal oral and palatal mucosa present THROAT: posterior oropharynx normal and uvula midline Neck/C-Spine: COMMON NORMALS: supple GENERAL: Yes normal visual inspection Resp: COMMON NORMALS: normal respiratory effort, No retractions, No use of accessory muscles and clear to auscultation bilaterally AUSCULTATION: clear to auscultation bilaterally Cardio: COMMON NORMALS: regular rate, regular rhythm, S1 normal heart sound present, S2 normal heart sound present, No gallops present (Cardio), No clicks present (Cardio), No murmurs present (Cardio) and Peripheral pulses 2+ throughout RATE: regular rate RHYTHM: regular rhythm HEART SOUNDS: S1 normal heart sound present and S2 normal heart sound present PERIPHERAL PULSES: Peripheral pulses 2+ throughout GI: COMMON NORMALS: Normal to inspection, nondistended, normoactive bowel sounds present, Soft to palpation, non-tender and no masses PALPATION: Yes Soft to palpation : COMMON NORMALS: Yes no CVA tenderness BLADDER/KIDNEY EXAM: Yes no CVA tenderness Back/Pelvis: COMMON NORMALS: no CVA tenderness Extremity: NARRATIVE EXTREMITY EXAM: Left foot?pressure ulcer stage III on back of left lower extremity just superior to heel. There is some surrounding warmth but no erythema of the skin. It is nontender to palpation. No active bleeding or purulent drainage. GENERAL: Yes normal exam except as noted and Yes edema (2+ bilateral lower extremity edema up to knee.) Neuro: COMMON NORMALS: patient oriented x3 and moves all extremities SENSORIUM/ORIENTATION: Yes alert Skin: NARRATIVE SKIN EXAM: Left foot?pressure ulcer stage III on back of left lower extremity just superior to heel. There is some surrounding warmth but no erythema of the skin. It is nontender to palpation. No active bleeding or purulent drainage. GENERAL SKIN EXAM: dry skin Course Consultations: Consultation #1: I contacted Dr. Monteiro about patient case and the x-ray of left foot findings of some early bone destruction indicating osteomyelitis. She recommended to have patient follow-up outpatient with Dr. Bowie to evaluate left foot ulcer. Time: 22:01 Vital Signs: Vital signs: Vital Signs Temperature 98.8 F 01/14/21 21:01 Pulse Rate 53 L 01/15/21 03:25 Respiratory Rate 15 01/15/21 03:25 Blood Pressure 144/85 01/15/21 03:25 Pulse Oximetry 96 01/15/21 03:25 MDM - Wound/Laceration MDM Narrative: Medical decision making narrative: Patient is a 65-year-old male comes to the ED with chronic diabetic ulcer on left heel. Patient's past medical history of heart failure, COPD and type 2 diabetes with peripheral neuropathy. Patient lives at skilled nursing in [place] and wound care comes to the skilled nursing to help manage ulcer. Patient was sent here to the ED due to worsening ulcer and continued active bleeding. Patient denies any fever, chills, nausea/vomiting. Here in the ED patient is ulcer on left foot is a stage III diabetic pressure ulcer. There is some surrounding warmth to the ulcer and no purulent drainage or bleeding seen. White blood cell count 9.8 and hemoglobin 10.8 which is an increase from 8.5 on November 12, 2020. CMP unremarkable. CRP 5.6. X-ray of left foot showed some early bone destruction showing signs of osteomyelitis. I contacted Dr. Monteiro told her about patient case she recommended patient have outpatient follow-up with Dr. Bowie and wound care. While here in the ED patient was given IV vancomycin. I placed an order with case management for patient to be referred to the [facility] Dr. Bowie and wound care to help manage ulcer and early development of osteomyelitis. Patient was discharged and sent with a prescription for clindamycin. Return to ED precautions given. Patient understood agree with plan. Lab Data: Attestation: I reviewed the patient's lab results. Labs: Lab Results 01/14/21 01/14/21 Range/Units 19:42 19:42 WBC 9.8 (4.0-10.0) 10^3/ uL RBC 4.03 L (4.1-5.3) 10^6/u L Hgb 10.8 L (11.7-16.6) g/dL Hct 36.2 L (42.0-52.0) % MCV 89.8 (80-94) fL MCH 26.8 L (28.0-34.0) pg MCHC 29.8 L (30.0-36.0) g/dL RDW 18.2 H (12.1-15.1) % Plt Count 254 (130-400) 10^3/c mm MPV 10.4 (7.4-10.4) fL Neut % (Auto) 68.2 % Lymph % (Auto) 19.7 % Garrett % (Auto) 8.9 % Eos % (Auto) 1.8 % Baso % (Auto) 0.5 % Neut # (Auto) 6.65 (1.8-7.7) 10^3/u L Lymph # (Auto) 1.9 (0.8-4.8) 10^3/u L Garrett # (Auto) 0.9 (0.2-0.9) 10^3/u L Eos # (Auto) 0.2 (0.0-0.8) 10^3/u L Baso # (Auto) 0.1 (0.0-0.1) 10^3/u L Nucleated RBC % (a uto) 0 % Nucleated RBCs # 0.0 /100WBC Sodium 142 (136-145) mmol/L Potassium 4.6 (3.5-5.1) mmol/L Chloride 106 (98-107) mmol/L Carbon Dioxide 26 (22-29) mmol/L Anion Gap 14.6 (5-19) BUN 16 (8-23) mg/dL Creatinine 0.8 (0.7-1.2) mg/dL GFR Calculation 97.6 (90-130) mL/min Glucose 113 (65-115) mg/dL Calculated Osmolal ity 296 H (285-295) mOsm/k g Calcium 8.8 (8.5-10.5) mg/dL Total Bilirubin 0.2 (0.15-1.2) mg/dL AST 13 (0-40) U/L ALT 14 (0-41) U/L Alkaline Phosphata se 50 (40-130) IU/L C-Reactive Protein 5.6 H (0.0-4.9) mg/L Total Protein 6.8 (6.6-8.7) g/dL Albumin 3.7 (3.5-5.2) g/dL Globulin 3.1 (1.3-4.6) g/dL Imaging Data^: Xray Ortho: Attestation: I personally reviewed and interpreted this imaging study as follows: Radiologist's impression: [employer] [place] [address] XRay Report Signed Patient: Willie Perez Unit #: [id number] : 1955 Age/Sex: 65 / M ADM Date: 01/14/21 Loc: ER Room/Bed: Attending Dr: Ordering Provider/Ordering MD: Sung Price Date of Service: 01/14/21 Procedure(s): XR foot LT min 3V* [id number] Accession Number(s): [id number] Report Number: [id number] PROCEDURE INFORMATION: Exam: XR Left Foot Exam date and time: 01/14/2021 7:10 PM Age: 65 years old Clinical indication: Swelling, leg or foot; Patient HX: Diabetic ulcer on left heel, swelling, edema; Additional info: Diabetic ulcer on heel TECHNIQUE: Imaging protocol: XR Left foot. Views: 3 or more views. COMPARISON: [place] [id number] 11/01/2020 6:37 AM FINDINGS: Bones/joints: There is severe osteopenia. There is hallux valgus and metatarsus adductus. The outer cortical line of the posterior calcaneus deep to the ulcer is indistinct concerning for early bony destruction of osteomyelitis. No bony destruction or definite osteomyelitis is identified in the remaining foot. There is sclerosis of the calcaneus in flattening of Boehler's angle compatible probable old calcaneal fracture. No acute fracture or dislocation. There is calcaneal enthesopathy. Soft tissues: There is diffuse soft tissue edema. There is a large ulcer posterior to the calcaneus. XR/XR foot LT min 3V* [id number] IMPRESSION: 1. The outer cortical line of the posterior calcaneus deep to the ulcer is indistinct concerning for early bony destruction of osteomyelitis. A large ulcer is present posterior to the calcaneus. 2. No acute fracture or dislocation. Dictated By: Deanne Mcgee Signed By: Deanne Mcgee Signed Date/Time: 01/14/211955 DD/ 52 Discharge Plan Discharge Patient Disposition: Home Clinical Impression: Osteomyelitis Qualifiers: Osteomyelitis type: unspecified type Osteomyelitis location: foot Laterality: left Qualified Code(s): M86.9 - Osteomyelitis, unspecified Decubitus ulcer Qualifiers: Pressure injury location: heel Pressure injury stage: stage 3 Laterality: left Qualified Code(s): L89.623 - Pressure ulcer of left heel, stage 3 Condition: Stable Prescriptions: New clindamycin HCl 150 mg capsule 300 mg PO QID 10 Days Qty: 80 RF: 0 No Action aspirin [Adult Aspirin Regimen] 81 mg tablet,delayed release (DR/EC) 81 mg PO DAILY@0800 RF: 0 Triad Wound Dressing Paste 1 applic TOPICAL BID Qty: 1 RF: 2 sertraline 50 mg tablet 50 mg PO DAILY@0800 RF: 0 ascorbic acid (vitamin C) 500 mg tablet 500 mg PO DAILY@0800 RF: 0 cholecalciferol (vitamin D3) 125 mcg (5,000 unit) capsule 125 mcg PO DAILY@0800 RF: 0 zinc 50 mg tablet 50 mg PO DAILY@0800 RF: 0 hydrocodone-acetaminophen 10-325 mg tablet 1 tab PO Q4H PRN (Reason: Pain) RF: 0 acetaminophen 325 mg Tablet 650 mg PO Q4H PRN (Reason: Pain) RF: 0 magnesium hydroxide [Milk of Magnesia] 400 mg/5 mL Suspension 30 ml PO DAILY PRN (Reason: Constipation) RF: 0 bisacodyl [Dulcolax (bisacodyl)] 10 mg Suppository 10 mg KS DAILY PRN (Reason: Constipation) RF: 0 Fleet Enema 19-7 gram/118 mL Enema 118 ml KS DAILY PRN (Reason: Constipation) RF: 0 bisacodyl 5 mg Tablet 20 mg PO DAILY PRN (Reason: Constipation) RF: 0 tramadol 50 mg tablet 50 mg PO BID PRN (Reason: Pain) RF: 0 Ventolin HFA 90 mcg/actuation Hfa Aerosol Inhaler 2 puff INHALATION Q6H PRN (Reason: Shortness Of Breath) RF: 0 bumetanide 2 mg tablet 2 mg PO BID@0800,1700 RF: 0 Klor-Con M20 20 mEq tablet,ER particles/crystals 20 meq PO BID@0800,1700 RF: 0 pantoprazole 40 mg tablet,delayed release (DR/EC) 40 mg PO BID@0800,1700 RF: 0 budesonide-formoterol 160-4.5 mcg/actuation HFA aerosol inhaler 2 puff INHALATION BID@0800,1700 RF: 0 apixaban 5 mg tablet 5 mg PO BID@0800,1700 RF: 0 Discharge Orders: Discharge ED (Routine); Ordered 01/14/21 Ordered By: Sung Price Referrals: Willie Mario DO [Primary Care Provider] - Discharge Diet: Regular Discharge Activity: Increase activity as tolerated Patient Instructions: Osteomyelitis (ED), Diabetic Foot Ulcers (ED) Activity Restrictions/Additional Instructions: Follow-up with medical provider as directed. Case management will be contacting you in the next several days to set up an appointment with the [facility] Dr. Bowie. Take medications as prescribed. Return to the ER or your medical provider if condition worsens. Please read and understand discharge instructions. Thank you for choosing [facility] for your healthcare needs today. Please realize this is an emergency room and that we are providing you with a medical screening exam and this may not be complete and all inclusive of all the testing and or work up that you may need to determine your ailment or severity of your illness. It is very important that you follow up as instructed or that you return to the Emergency Department should you have concerns or if your condition changes or worsens in any way. Coding Level of Care Code ED Combination Presser for Gretta Fwd Exam Comprehensive
[2021-01-14 20:04] LABS: Basophils # 0.1 10^3/uL (0.0-0.1); Basophils % 0.5 %; Eosinophils # 0.2 10^3/uL (0.0-0.8); Eosinophils % 1.8 %; Hematocrit 36.2 % (42.0-52.0); Hemoglobin 10.8 g/dL (11.7-16.6); Lymphocytes # 1.9 10^3/uL (0.8-4.8); Lymphocytes % 19.7 %; Mean Corpuscular HGB Conc 29.8 g/dL (30.0-36.0); Mean Corpuscular Hemoglobin 26.8 pg (28.0-34.0); Mean Corpuscular Volume 89.8 fL (80-94); Mean Platelet Volume 10.4 fL (7.4-10.4); Monocytes # 0.9 10^3/uL (0.2-0.9); Monocytes % 8.9 %; Neutrophils # 6.65 10^3/uL (1.8-7.7); Neutrophils % 68.2 %; Nucleated Red Blood Cells % 0 %; Platelet Count 254 10^3/cmm (130-400); Red Blood Count 4.03 10^6/uL (4.1-5.3); Red Cell Distribution Width 18.2 % (12.1-15.1); White Blood Count 9.8 10^3/uL (4.0-10.0)
[2021-01-14 20:23] LABS: Alanine Aminotransferase 14 U/L (0-41); Albumin Level 3.7 g/dL (3.5-5.2); Alkaline Phosphatase 50 IU/L (40-130); Anion Gap 14.6 (5-19); Aspartate Amino Transferase 13 U/L (0-40); Blood Urea Nitrogen 16 mg/dL (8-23); C Reactive Protein 5.6 mg/L (0.0-4.9); Calcium 8.8 mg/dL (8.5-10.5); Carbon Dioxide 26 mmol/L (22-29); Chloride 106 mmol/L (98-107); Globulin 3.1 g/dL (1.3-4.6); Glomerular Filtration Rate 97.6 mL/min (90-130); Glucose 113 mg/dL (65-115); Osmolality Calculated 296 mOsm/kg (285-295); Potassium 4.6 mmol/L (3.5-5.1); Sodium 142 mmol/L (136-145); Total Bilirubin 0.2 mg/dL (0.15-1.2); Total Protein 6.8 g/dL (6.6-8.7)
[2021-01-14 21:01] VITALS: BP 122/78; PULSE 70; RESP 18; TEMP 37.1; O2SAT 100
[2021-01-14] MEDS: vancomycin 1,500 MG/300 ML PIGGYBACK 200 MG IV (21:20)
[2021-01-15 01:54] VITALS: BP 136/79; PULSE 54; RESP 16; O2SAT 95
[2021-01-15 03:25] VITALS: BP 144/85; PULSE 53; RESP 15; O2SAT 96
[2021-01-15 05:05] VITALS: BP 163/78; PULSE 56; RESP 14; O2SAT 96
--- NOTE | 2021-01-15 07:34 | PC.NURSE ---
pt given breakfast tray. pt is alert and oriented at this time. no needs at this time. call light within reach
--- NOTE | 2021-01-15 10:21 | DCPLANNER ---
information technology audit manager had message to schedule a follow up appointment for patient with ortho. information technology audit manager called the ortho clinic, spoke with Berna, gave clinic patients information. information technology audit manager was told that patients information would be printed and reviewed. Clinic will call patient with appointment information.
--- NOTE | 2021-01-15 10:42 | DCPLANNER ---
manager land had message to schedule a follow up appointment with Wound Care. manager land called Wound Care, spoke with Yola, gave clinic patients information. manager land was told that patient is having Wound Care, completed in house at the [facility].
--- NOTE | 2021-01-20 15:18 | DCPLANNER ---
Patient had a follow up appointment scheduled for 01.19.[address] Bowie at [facility] - patient did attend appointment.
== END 2021-01-15 10:38 | disposition home or self-care (01) ==
PROVIDERS: Emergency Provider Physician Assistant; PCP Family Medicine
DX: L89.623 Pressure ulcer of left heel, stage 3 (principal); M86.9 Osteomyelitis, unspecified; Z79.82 Long term (current) use of aspirin; I50.9 Heart failure, unspecified; J44.9 Chronic obstructive pulmonary disease, unspecified; Z87.891 Personal history of nicotine dependence
CPT/HCPCS: 73630; 80053; 85025; 86140; 87040; 96365; 99283; J3370

== ENCOUNTER → 2021-01-19 12:25 | Outpatient (BNVA) | payer MEDICARE, SELFPAY | PROVIDERS: PCP Family Medicine; Referring Provider Physician Assistant; Visit Provider Podiatrist Foot & Ankle Surgery | DX: L97.422 Non-pressure chronic ulcer of left heel and midfoot with fat layer exposed (principal); I73.9 Peripheral vascular disease, unspecified | CPT/HCPCS: 87070; 87075; 87205 ==

== ENCOUNTER 2021-04-06 10:44 | Outpatient (CLI) | payer MEDICARE, MEDICAID, SELFPAY ==
--- NOTE | 2021-04-06 10:53 | CT_ITS ---
WS: [id number] LDCT LUNG CANCER SCREENING TECHNIQUE: Noncontrast CT of the chest with coronal and sagittal reformatted images. CLINICAL INFORMATION: Z87.891 - Personal history of nicotine dependenc COMPARISON: None. DLP: 51.81 mGy.cm DIvol: 1.[address] scans at [facility] use at least one of these dose optimization techniques: automat ed exposure control; mA and/or kV adjustment per patient size (includes targeted exams where dose is matched to clinical indication); or iterative reconstruction. FINDINGS: Some images are limited due to body habitus. Mild chronic emphysematous changes. No acute pulmonary infiltrates. No focal pneumonia or pleural flu id. Subsegmental atelectasis in the lung bases and lingula. Noncalcified nodule left lower lobe measu ring 5 mm. Noncalcified nodule right upper lobe measuring 5 mm. Moderate thoracic kyphosis. Chronic appearing anterior wedging in the mid and upper thoracic spine. No mediastinal or hilar lymphadenopathy. Mild coronary calcification. Small esophageal hiatal hernia. CT/CT lung screening [id number] IMPRESSION: LUNG-RADS: 3-Probably Benign FOLLOW UP: 6 Month LDCT
== END 2021-04-06 10:45 | disposition home or self-care (01) ==
PROVIDERS: PCP Family Medicine; Visit Provider Internal Medicine Critical Care Medicine
DX: Z12.2 Encounter for screening for malignant neoplasm of respiratory organs (principal); Z87.891 Personal history of nicotine dependence
CPT/HCPCS: 71271

== ENCOUNTER → 2023-08-03 14:12 | Outpatient (BNVA) | payer MEDICARE, MEDICAID, SELFPAY | PROVIDERS: PCP Nurse Practitioner Family; Visit Provider Nurse Practitioner Family | DX: R35.0 Frequency of micturition (principal) | CPT/HCPCS: 81000; 81003; 87086 ==

== ENCOUNTER → 2023-09-08 08:40 | Outpatient (BNVA) | payer MEDICARE, MEDICAID, SELFPAY | PROVIDERS: PCP Nurse Practitioner Family; Visit Provider Dermatology | DX: D48.5 Neoplasm of uncertain behavior of skin (principal); I87.2 Venous insufficiency (chronic) (peripheral); R22.0 Localized swelling, mass and lump, head | CPT/HCPCS: 11104; 99203 ==

== ENCOUNTER → 2023-09-22 08:18 | Outpatient (BNVA) | payer MEDICARE, MEDICAID, SELFPAY | PROVIDERS: PCP Nurse Practitioner Family; Visit Provider Dermatology | DX: D23.4 Other benign neoplasm of skin of scalp and neck (principal); L72.0 Epidermal cyst; R22.41 Localized swelling, mass and lump, right lower limb; D48.5 Neoplasm of uncertain behavior of skin; Z48.02 Encounter for removal of sutures; D22.5 Melanocytic nevi of trunk; I87.2 Venous insufficiency (chronic) (peripheral) | CPT/HCPCS: 11102; 99213 ==

== ENCOUNTER → 2023-11-14 08:36 | Outpatient (BNVA) | payer MEDICARE, MEDICAID, SELFPAY | PROVIDERS: PCP Nurse Practitioner Family; Visit Provider Dermatology | DX: D23.9 Other benign neoplasm of skin, unspecified (principal); C44.01 Basal cell carcinoma of skin of lip | CPT/HCPCS: 13152; 17311; 99212 ==

== ENCOUNTER → 2023-11-24 15:48 | Outpatient (BNVA) | payer MEDICARE, MEDICAID, SELFPAY | PROVIDERS: PCP Nurse Practitioner Family; Visit Provider Nurse Practitioner Family | DX: R05.9 Cough, unspecified (principal) | CPT/HCPCS: 87420 ==

== ENCOUNTER 2024-08-06 15:30 | Inpatient (IN) | payer MEDICARE, MEDICAID, SELFPAY ==
[2024-08-06] VITALS (9 sets, daily range): BP systolic 102–123; BP diastolic 59–85; PULSE 86–95; RESP 18–22; TEMP 36.7; O2SAT 91–94; BMI 41.5
--- NOTE | 2024-08-06 15:38 | XR_ITS ---
WS: [id number] Exam: XR hip LT 2-3V wo/w pel* [id number] Date/Time of Exam: 08/06/2024 3:41 PM Reason For Exam: injury There is a comminuted fracture of the upper metadiaphysis of the femur. Displaced butterfly fragment along the medial aspect of the fracture. No other fractures are seen. Severe degeneration of the hip joint with [id number] and marked deformity of the femoral head. IMPRESSION1. Displaced comminuted fracture of the proximal metadiaphysis of the femur.
--- NOTE | 2024-08-06 15:38 | XR_ITS ---
WS: [id number] Exam: XR knee LT 3V* [id number] Date/Time of Exam: 08/06/2024 3:41 PM Reason For Exam: injury No obvious acute fracture however some images are underpenetrated for optimal detail. Mild degenerati ve change of the medial joint compartment. No obvious joint effusion. IMPRESSION1. No obvious fracture however some images underpenetrated for good detail.
--- NOTE | 2024-08-06 15:53 | ED_ITS ---
HPI - Extremity Problem General: Chief complaint: Extremity Injury, Lower Stated complaint: left leg pain Time Seen by Provider: 08/06/24 15:31 Source: patient and EMS Mode of arrival: EMS Limitations: no limitations History of Present Illness: 69-year-old male who is here from [facility] patient is typically bedbound they were transferring him and he fell when on his left hip on Tuesday has been having left hip pain since then. States that pain sharp he rates an 8 out of 10 denies any other injuries denies hitting his head. Associated symptoms: Deny chest pain, fever(s) or rash Related Data Home Medications Medication Instructions Recorded Confirmed aspirin 81 mg tablet,delayed 81 mg PO DAILY@0800 09/26/19 04/18/24 release (Adult Aspirin Regimen) acetaminophen 325 mg tablet 650 mg PO Q4H PRN Pain 10/31/20 04/18/24 bisacodyl 10 mg rectal suppository 10 mg [place] DAILY PRN Constipation 10/31/20 04/18/24 (Dulcolax (bisacodyl)) bisacodyl 5 mg tablet 20 mg PO DAILY PRN Constipation 10/31/20 04/18/24 cholecalciferol (vitamin D3) 125 125 mcg PO DAILY@0800 12/10/20 04/18/24 mcg (5,000 unit) capsule sertraline 50 mg tablet 50 mg PO DAILY@0800 12/10/20 04/18/24 albuterol sulfate 90 mcg/actuation 2 puff inhalation Q6H PRN 01/14/21 04/18/24 aerosol inhaler (Ventolin HFA) Shortness Of Breath apixaban 5 mg tablet 5 mg PO BID@0800,1700 01/14/21 04/18/24 budesonide-formoterol HFA 160 2 puff inhalation BID@0800,1700 01/14/21 04/18/24 mcg-4.5 mcg/actuation aerosol inhaler bumetanide 2 mg tablet 2 mg PO BID@0800,1700 01/14/21 04/18/24 potassium chloride 20 mEq 20 meq PO BID@0800,1700 01/14/21 04/18/24 tablet,extended release(part/cryst) (Klor-Con M) bismuth subsalicylate 262 mg/15 mL 524 mg PO DAILY PRN 07/10/23 04/18/24 oral suspension (Pepto-Bismol) famotidine 20 mg tablet (Pepcid) 20 mg PO DAILY 07/10/23 04/18/24 loperamide 2 mg tablet 2 mg PO .COMPLEX PRN 07/10/23 04/18/24 (Anti-Diarrheal (loperamide)) menthol 4 % topical gel (Biofreeze 1 applic topical Q6H PRN 07/10/23 04/18/24 (menthol)) multivitamin 1 tab PO DAILY 07/10/23 04/18/24 sodium phosphates 19 gram-7 118 ml [place] DAILY PRN 07/10/23 04/18/24 gram/118 mL enema Previous Rx's Medication Instructions Recorded tiotropium bromide 18 mcg capsule 1 cap inhalation DAILY #30 03/11/21 with inhalation device (Spiriva inhalations with HandiHaler) hydrocodone 5 mg-acetaminophen 325 See Rx Instructions PO Q8H PRN 08/03/24 mg tablet pain 30 days #180 tabs Allergies Allergy/AdvReac Type Severity Reaction Status Date / Time No Known Allergies Allergy Verified 11/08/23 16:09 Review of Systems Const: Denies: fever(s), chills, body aches or change in appetite ENMT: Denies: throat pain or dental pain Card: Denies: chest pain Resp: Denies: dyspnea GI: Denies: abdominal pain, nausea, vomiting or diarrhea Musc: Reports: extremity pain; Denies: neck pain or back pain Skin/Breast: Denies: rash Neuro: Denies: headache(s) PFSH ED PFSH: Medical History Muscle weakness (generalized) Personal history of other venous thrombosis and embolism Personal history of COVID-19 Duodenal ulcer, unspecified as acute or chronic, without hemorrhage or perforation 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 History of bleeding ulcers Morbid obesity with BMI of 40.0-44.9, adult Chronic respiratory failure with hypoxia COPD (chronic obstructive pulmonary disease) Bleeding ulcer DVT (deep venous thrombosis) Hypoxia CHF (congestive heart failure) Family History Mother Diabetes Father Cancer skin Social History Smoking and tobacco/nicotine status: unknown if used tobacco/nicotine Quit status (tobacco/nicotine): has quit using Year quit tobacco: 2019 Former quit date comment: Hx of 2 PPD x 50 Years Second hand smoke exposure: Yes Alcohol intake: never Substance/Drug Use: never Caregiver/support person: Yes Lives independently: No Housing: Shelter Marital status: Current occupational status: disabled Pets and animals: No Do you think of yourself as: Straight/Heterosexual Current gender identity: Male Physical Exam Const: COMMON NORMALS: no acute distress, patient oriented x3 and healthy appearing HENMT: COMMON NORMALS: normocephalic and atraumatic HEAD & SCALP: normocephalic and atraumatic Eye: COMMON NORMALS: conjunctivae normal CONJUNCTIVA: Yes conjunctivae normal Neck/C-Spine: COMMON NORMALS: full ROM and supple Chest: COMMONS NORMALS: normal inspection of the chest Resp: COMMON NORMALS: normal respiratory effort, No retractions, No use of accessory muscles and clear to auscultation bilaterally AUSCULTATION: clear to auscultation bilaterally Cardio: COMMON NORMALS: regular rate, regular rhythm and No murmurs present (Cardio) RATE: regular rate RHYTHM: regular rhythm GI: COMMON NORMALS: Normal to inspection, nondistended, normoactive bowel sounds present, Soft to palpation, non-tender and no masses PALPATION: Yes Soft to palpation Extremity: NARRATIVE EXTREMITY EXAM: Obvious deformity to left hip and femur tender to touch Neuro: COMMON NORMALS: patient oriented x3, moves all extremities and no focal motor deficits Psych: COMMON NORMALS: mental status grossly normal, Normal thought process pr esent and cooperative THOUGHT PROCESS: Normal thought process present Skin: COMMON NORMALS: no rashes or lesions noted and no wounds GENERAL SKIN EXAM: no rashes or lesions noted Course Vital Signs: Vital signs: Vital Signs Temperature 98.0 F 08/06/24 15:33 Pulse Rate 95 08/06/24 15:33 Respiratory Rate 18 08/06/24 15:33 Blood Pressure 117/61 08/06/24 15:33 Pulse Oximetry 92 08/06/24 15:33 Oxygen Delivery Me thod Nasal Cannula 08/06/24 15:33 Oxygen Flow Rate 2 08/06/24 15:33 MDM - Extremity (Nontraumatic) Medical Decision Making Patient presents here with a left proximal femur fracture from a fall I spoke to hospitalist and orthopedist will admit at this time Medical Records I reviewed the patient's medical records. XR interpretation done by ED provider, pending radiology final review EKG Data EKG 1: I personally reviewed and interpreted this EKG as follows: EKG interpretation date: 08/06/24 EKG interpretation time: 16:07 Interpretation: nsr hr [address] elevation qrs 127 qtc 428 Discharge Plan Discharge Patient Disposition: Admitted As Inpatient Clinical Impression: Femur fracture, left Condition: Stable Prescriptions: No Action aspirin [Adult Aspirin Regimen] 81 mg tablet,delayed release (DR/EC) 81 mg PO DAILY@0800 Spiriva with HandiHaler 18 mcg capsule, w/inhalation device 1 cap inhalation DAILY Qty: 30 3RF Rx Instructions: puncture 1 cap using device; one dose = 2 inhalations sertraline 50 mg tablet 50 mg PO DAILY@0800 cholecalciferol (vitamin D3) 125 mcg (5,000 unit) capsule 125 mcg PO DAILY@0800 Biofreeze (menthol) 4 % gel 1 applic topical Q6H PRN bismuth subsalicylate [Pepto-Bismol] 262 mg/15 mL suspension 524 mg PO DAILY PRN sodium phosphates 19-7 gram/118 mL enema 118 ml [place] DAILY PRN loperamide [Anti-Diarrheal (loperamide)] 2 mg tablet 2 mg PO .COMPLEX PRN Rx Instructions: 2 mg orally give 2 tab for diarreah and one tab for lose stool -max 4 in one day PRN; until patient has gone 12 hours without a bowel movement famotidine [Pepcid] 20 mg tablet 20 mg PO DAILY multivitamin Tablet 1 tab PO DAILY hydrocodone-acetaminophen 5-325 mg tablet See Rx Instructions PO Q8H PRN (Reason: pain) 30 Days Qty: 180 0RF Rx Instructions: 1-2 tabs PO q8h as needed for pain. acetaminophen 325 mg Tablet 650 mg PO Q4H PRN (Reason: Pain) bisacodyl [Dulcolax (bisacodyl)] 10 mg Suppository 10 mg [place] DAILY PRN (Reason: Constipation) bisacodyl 5 mg Tablet 20 mg PO DAILY PRN (Reason: Constipation) Ventolin HFA 90 mcg/actuation Hfa Aerosol Inhaler 2 puff INHALATION Q6H PRN (Reason: Shortness Of Breath) bumetanide 2 mg tablet 2 mg PO BID@0800,1700 Klor-Con M20 20 mEq tablet,ER particles/crystals 20 meq PO BID@0800,1700 budesonide-formoterol 160-4.5 mcg/actuation HFA aerosol inhaler 2 puff INHALATION BID@0800,1700 apixaban 5 mg tablet 5 mg PO BID@0800,1700 Referrals: Odalis Stewart ADOBE FLEX DEVELOPER [Primary Care Provider] - Coding Level of Care Code ED Closet Organizer for Gretta Short
--- NOTE | 2024-08-06 15:58 | XRR_ITS ---
PROCEDURE INFORMATION: Exam: XR Chest Exam date and time: 08/06/2024 4:08 PM Age: 69 years old Clinical indication: Injury or trauma; Fall; Blunt trauma (contusions or hematomas) TECHNIQUE: Imaging protocol: Radiologic exam of the chest. Views: 1 view. COMPARISON: CT lung screening [id number] 04/06/2021 12:29 PM FINDINGS: Lungs: Patchy bibasilar opacities. No focal consolidation. Pleural spaces: Unremarkable. No pleural effusion. No pneumothorax. Heart/Mediastinum: Heart appears prominent, though accentuated by low lung volumes and portable technique. Vasculature: Atherosclerotic aortic calcifications. Bones/joints: Unremarkable. XR/XR chest 1V portable [id number] IMPRESSION: Bibasilar atelectasis. Otherwise no definite acute findings.
--- NOTE | 2024-08-06 15:58 | ECG_ITS ---
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
--- NOTE | 2024-08-06 16:10 | CTR_ITS ---
PROCEDURE INFORMATION: Exam: CT Left Lower Extremity, Thigh Exam date and time: 08/06/2024 4:48 PM Age: 69 years old Clinical indication: Injury or trauma; Fall; Blunt trauma; Thigh or upper leg; Left; Injury date: 08/04/2024 TECHNIQUE: Imaging protocol: CT of the left lower extremity without contrast was performed. Exam focused on the thigh. Radiation optimization: All CT scans at this facility use at least one of these dose optimization techniques: automated exposure control; mA and/or kV adjustment per patient size (includes targeted exams where dose is matched to clinical indication); or iterative reconstruction. COMPARISON: CT pelvis wo con [id number] 08/06/2024 4:45 PM RADIATION DOSE METRICS: Total DLP (mGy-cm): 1287.91 FINDINGS: Bones/joints: Redemonstrated comminuted fracture of the proximal femoral diaphysis with a proximally 1 shaft width medial/posterior displacement of the distal fragment relative the proximal femur. Approximately 6 cm foreshortening. Severe degenerative changes of the left hip. No dislocation. The knee appears grossly intact. Ill-defined hematoma in the anterior compartment musculature of the thigh surrounding the femur fracture. Mild subcutaneous soft tissue edema and fat stranding along the lateral and anterior thigh. Ill-defined complex collections in the lateral soft tissues of the hip and upper thigh likely represent small posttraumatic hematomas. Soft tissues: Partially visualized lower abdominal ventral hernia. Vasculature: Vascular calcifications. CT/CT femur LT wo con* [id number] IMPRESSION: Displaced comminuted proximal femoral diaphysis fracture with surrounding intramuscular hematoma and mild subcutaneous fat stranding/edema.
[2024-08-06 16:40] LABS: Basophils # 0.1 10^3/uL (0.0-0.1); Basophils % 0.6 %; Eosinophils # 0.3 10^3/uL (0.0-0.8); Eosinophils % 1.9 %; Hematocrit 31.7 % (37-53); Lymphocytes % 7.1 %; Mean Corpuscular HGB Conc 30.9 g/dL (30-55); Mean Corpuscular Hemoglobin 27.4 pg (27-33); Mean Corpuscular Volume 88.5 fl (82-101); Mean Platelet Volume 9.9 fL (7.4-10.4); Monocytes # 1.5 10^3/uL (0.2-0.9); Monocytes % 10.7 %; Neutrophils # 10.82 10^3/uL (1.8-7.7); Nucleated Red Blood Cells % 0 %; Platelet Count 284 10^3/cmm (157-399); Red Blood Count 3.58 10^6/uL (3.85-5.65); Red Cell Distribution Width 18.7 % (12.1-15.1); White Blood Count 13.88 10^3/uL (3.29-11.43)
--- NOTE | 2024-08-06 16:44 | CTR_ITS ---
PROCEDURE INFORMATION: Exam: CT Pelvis Without Contrast, Skeleton Exam date and time: 08/06/2024 4:45 PM Age: 69 years old Clinical indication: Injury or trauma; Fall; Blunt trauma (contusions or hematomas); Left; Hip; Injury date: 08/04/2024 TECHNIQUE: Imaging protocol: Computed tomography of the pelvis without contrast. Exam focused on the skeleton. Radiation optimization: All CT scans at this facility use at least one of these dose optimization techniques: automated exposure control; mA and/or kV adjustment per patient size (includes targeted exams where dose is matched to clinical indication); or iterative reconstruction. COMPARISON: CR XR hip LT 2-3V wo/w pel* [id number] 08/06/2024 3:47 PM RADIATION DOSE METRICS: Total DLP (mGy-cm): 914.64 FINDINGS: Vasculature: Scattered vascular calcifications. Bones/joints: Partially imaged left proximal femur fracture, better assessed on accompanying CT lower extremity, reported separately. Severe degenerative changes of the left hip with joint space narrowing and subcortical sclerosis and cystic changes. Moderate to severe degenerative changes of the right hip similar findings. Diffuse osseous demineralization. Areas of hematoma again seen within the musculature of the left thigh surrounding the femur fracture. Soft tissues: Diastasis recti within the visualized anterior abdominal wall with a lower abdominal ventral hernia containing nonobstructed loops of colon and fat. The hernia measures 6.2 x 9.7 x 7.9 cm with the neck measuring [address]/CT pelvis wo con [id number] IMPRESSION: 1. Proximal left femur fracture partially imaged and better assessed on accompanying CT lower extremity, reported separately. 2. Otherwise no acute findings within the pelvis. 3. Severe left and moderate to severe right hip degenerative changes. 4. Lower abdominal ventral hernia containing nonobstructed colonic loops.
--- NOTE | 2024-08-06 16:48 | PM.HP ---
Providers/Chief Complaint Primary Care Provider: Odalis Stewart NP Chief Complaint: left leg pain History of Present Illness Willie Perez is a 69 year old male resident of [facility], history of preserved action fraction heart failure, DVT, on Eliquis, bedbound secondary to lower extremity edema, gets compression stockings compression wraps, presented after sustaining a fall on Tuesday. Patient is stating that he tried to get up by the bedside to clean himself in order to get ready for his dinner on Tuesday night when he lost balance and fell. He did not seek medical attention right away, patient is not sure about his medications but stating that he probably got his medications as scheduled. He has not experienced any chest pain, syncope, recent diarrhea or urinary frequency or incontinence. In the ER he has been diagnosed with proximal left femur fracture, Dr. Monteiro consulted. Patient not complaining of active pain, does not want Cage catheter placement stating that he would use urinal Patient has umbilical hernia without any active signs of obstruction. Review of records: Patient is DNR I called [facility] from [facility] to get more information: As per the nursing staff patient is very resistant to care, he does have sacral ulcers, nursing staff mostly helps him to change position, he is a Lisbet lift dependent resident at [place], As per the nursing staff his last dose of Eliquis was in the morning today 8 AM 08/06/2024 Review of Systems Const: Denies: fever(s) Eyes: Denies: change in vision ENMT: Denies: throat pain Card: Denies: chest pain Resp: Denies: dyspnea GI: Denies: abdominal pain : Denies: flank pain Musc: Denies: neck pain Medications/Allergies Home Medications Medication Instructions Recorded Confirmed Last Taken Type aspirin 81 mg tablet,delayed 81 mg PO DAILY@0800 09/26/19 04/18/24 01/14/21 History release (Adult Aspirin Regimen) acetaminophen 325 mg tablet 650 mg PO Q4H PRN Pain 10/31/20 04/18/24 01/03/21 History bisacodyl 10 mg rectal suppository 10 mg [place] DAILY PRN Constipation 10/31/20 04/18/24 Unknown History (Dulcolax (bisacodyl)) bisacodyl 5 mg tablet 20 mg PO DAILY PRN Constipation 10/31/20 04/18/24 Unknown History cholecalciferol (vitamin D3) 125 125 mcg PO DAILY@0800 12/10/20 04/18/24 01/14/21 History mcg (5,000 unit) capsule sertraline 50 mg tablet 50 mg PO DAILY@0800 12/10/20 04/18/24 01/14/21 History albuterol sulfate 90 mcg/actuation 2 puff inhalation Q6H PRN 01/14/21 04/18/24 Unknown History aerosol inhaler (Ventolin HFA) Shortness Of Breath apixaban 5 mg tablet 5 mg PO BID@0800,1700 01/14/21 04/18/24 01/14/21 History budesonide-formoterol HFA 160 2 puff inhalation BID@0800,1700 01/14/21 04/18/24 01/14/21 History mcg-4.5 mcg/actuation aerosol inhaler bumetanide 2 mg tablet 2 mg PO BID@0800,1700 01/14/21 04/18/24 01/14/21 History potassium chloride 20 mEq 20 meq PO BID@0800,1700 01/14/21 04/18/24 01/14/21 History tablet,extended release(part/cryst) (Klor-Con M) tiotropium bromide 18 mcg capsule 1 cap inhalation DAILY #30 03/11/21 04/18/24 Unknown Rx with inhalation device (Spiriva inhalations with HandiHaler) bismuth subsalicylate 262 mg/15 mL 524 mg PO DAILY PRN 07/10/23 04/18/24 Unknown History oral suspension (Pepto-Bismol) famotidine 20 mg tablet (Pepcid) 20 mg PO DAILY 07/10/23 04/18/24 Unknown History loperamide 2 mg tablet 2 mg PO .COMPLEX PRN 07/10/23 04/18/24 Unknown History (Anti-Diarrheal (loperamide)) menthol 4 % topical gel (Biofreeze 1 applic topical Q6H PRN 07/10/23 04/18/24 Unknown History (menthol)) multivitamin 1 tab PO DAILY 07/10/23 04/18/24 Unknown History sodium phosphates 19 gram-7 118 ml [place] DAILY PRN 07/10/23 04/18/24 Unknown History gram/118 mL enema hydrocodone 5 mg-acetaminophen 325 See Rx Instructions PO Q8H PRN 08/03/24 Unknown Rx mg tablet pain 30 days #180 tabs Allergies Allergy/AdvReac Type Severity Reaction Status Date / Time No Known Allergies Allergy Verified 11/08/23 16:09 PFSH Acute PFSH: Medical History Muscle weakness (generalized) Personal history of other venous thrombosis and embolism Personal history of COVID-19 Duodenal ulcer, unspecified as acute or chronic, without hemorrhage or perforation 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 [facility] (current) use of aspirin History of bleeding ulcers Morbid obesity with BMI of 40.0-44.9, adult Chronic respiratory failure with hypoxia COPD (chronic obstructive pulmonary disease) Bleeding ulcer DVT (deep venous thrombosis) Hypoxia CHF (congestive heart failure) Family History Mother Diabetes Father Cancer skin Social History Smoking and tobacco/nicotine status: unknown if used tobacco/nicotine Quit status (tobacco/nicotine): has quit using Year quit tobacco: 2018 Former quit date comment: Hx of 2 PPD x 50 Years Second hand smoke exposure: Yes Alcohol intake: never Substance/Drug Use: never Caregiver/support person: Yes Lives independently: No Housing: Custodial Marital status: Current occupational status: disabled Pets and animals: No Do you think of yourself as: Straight/Heterosexual Current gender identity: Male Vitals/I&O/Wt Last Vital Signs Temp 98.0 F 08/06/24 15:33 Pulse 95 08/06/24 15:33 Resp 18 08/06/24 15:33 BP 117/61 08/06/24 15:33 Pulse Ox 92 08/06/24 15:33 O2 Del Method Nasal Cannula 08/06/24 15:33 O2 Flow Rate 2 08/06/24 15:33 Weight last 48 hrs Weight 131.542 kg Physical Exam Narrative: Morbidly obese Sign of fluid overload present Compression stockings S1, S2 variable Awake and alert Nonfocal neuroexam No active pain Currently on 2 L GCS 15 No neurovascular compromise of lower extremity I do not see change of color of toes bilaterally Data 08/06/24 16:37 08/06/24 16:37 A&P Assessment and plan (1) Major depressive disorder, recurrent, moderate: (2) CHF (congestive heart failure): Qualifiers: Heart failure type: unspecified Heart failure chronicity: chronic Qualified Code(s): I50.9 - Heart failure, unspecified (3) PVD (peripheral vascular disease): (4) DVT (deep venous thrombosis): (5) Morbid obesity with BMI of 40.0-44.9, adult: (6) Femur fracture, left: Qualifiers: Encounter type: initial encounter Fracture type: closed (7) Chronic osteoarthritis: (8) Decubitus ulcer: Qualifiers: Laterality: left Pressure injury location: heel Pressure injury stage: stage 3 Qualified Code(s): L89.623 - Pressure ulcer of left heel, stage 3 (9) Venous stasis ulcers of both lower extremities: (10) COPD (chronic obstructive pulmonary disease): Qualifiers: COPD type: unspecified COPD Qualified Code(s): J44.9 - Chronic obstructive pulmonary disease, unspecified (11) Obstructive sleep apnea (adult) (pediatric): (12) DNR (do not resuscitate): Plan Mechanical fall:- Proximal left femur fracture History of present ejection fraction heart failure without significant decompensation at this point Sleep apnea and COPD, use 2 L of oxygen at nighttime Patient is not sure about his last dose of Eliquis We will keep him n.p.o., Dr. Alfonso planning to intervene by tomorrow Patient does not want Cage catheter placement Opioids with bowel regimen Patient has compression wraps on his legs bilaterally As per the [facility] patient received Eliquis last dose was in the morning around 8 AM I will inform Dr. Monteiro Continue 2 L of oxygen for chronic hypoxia Hold off on Eliquis would use SCDs Lisbet lift dependent at the [facility] DNR/DNI as per the records Attestations Medical Necessity Statement*: More than 2 midnights anticipated Diagnoses Major depressive disorder, recurrent, moderate F33.1 Chronic congestive heart failure, unspecified heart failure type I50.9 Heart failure type: unspecified Heart failure chronicity: chronic PVD (peripheral vascular disease) I73.9 DVT (deep venous thrombosis) I82.409 Morbid obesity with BMI of 40.0-44.9, adult E66.01; Z68.41 Femur fracture, left S72.92XA Encounter type: initial encounter Fracture type: closed Chronic osteoarthritis M19.90 Decubitus ulcer L89.623 Laterality: left Pressure injury location: heel Pressure injury stage: stage 3 Venous stasis ulcers of both lower extremities I83.019; I83.029; L97.919; L97.929 Chronic obstructive pulmonary disease, unspecified COPD type J44.9 COPD type: unspecified COPD Obstructive sleep apnea (adult) (pediatric) G47.33 DNR (do not resuscitate) Z66
[2024-08-06 16:55] LABS: INR 1.33 (0.8-1.2)
[2024-08-06 16:58] LABS: Alanine Aminotransferase 15 U/L (0-41); Albumin Level 3.1 g/dL (3.5-5.2); Alkaline Phosphatase 67 U/L (40-130); Anion Gap 15.4 (5-19); Aspartate Amino Transferase 28 U/L (0-40); Blood Urea Nitrogen 31 mg/dL (8-23); Calcium 8.9 mg/dL (8.5-10.5); Carbon Dioxide 26 mmol/L (22-29); Chloride 95 mmol/L (98-107); Creatinine Clr Calc Pharmacy 81.4633; Globulin 3.7 g/dL (1.3-4.6); Glomerular Filtration Rate 60.4 mL/min (90-130); Glucose 149 mg/dL (65-115); Osmolality Calculated 283 mOsm/kg (285-295); Potassium 4.4 mmol/L (3.5-5.1); Sodium 132 mmol/L (136-145); Total Bilirubin 0.4 mg/dL (0.15-1.2); Total Protein 6.8 g/dL (6.6-8.7)
[2024-08-06] MEDS: HYDROmorphone 1 mg/mL INJ 1 mL IVP (17:57)
[2024-08-06 18:12] LABS: Add Urine Microscopic? NO
[2024-08-06 18:18] LABS: Bilirubin Urine Negative (Negative); Blood Urine Negative (Negative); Glucose Urine UA Negative (Normal); Ketones Urine Negative (Negative); Leukocyte Esterase Urine Negative (Negative); Nitrate Urine Negative (Negative); Protein Urine Negative (Negative); Specific Gravity, Urine 1.015 (1.005-1.030); Urine Appearance Clear (CLEAR); Urine Color Yellow (Yellow); pH Urine 5.5 (5-7)
[2024-08-06 18:19] LABS: Add Urine Culture? No; Charge for UA Resulting for Rev
[2024-08-07] VITALS (54 sets, daily range): BP systolic 63–178; BP diastolic 43–99; PULSE 67–103; RESP 14–31; TEMP 35.9–36.4; O2SAT 90–100
--- NOTE | 2024-08-07 | XR_ITS ---
WS: [id number] Exam: XR hip LT 2-3V wo/w pel* [id number] Date/Time of Exam: 08/07/2024 12:00 AM Reason For Exam: LEX PICS Intraoperative C-arm images of the LEFT hip are submitted for evaluation. Images depict internal fixa tion involving a comminuted fracture of the upper femur with an intramedullary tracy and femoral neck s crew. Images obtained for intraoperative purposes.
[2024-08-07 03:37] LABS: Basophils # 0.1 10^3/uL (0.0-0.1); Basophils % 0.5 %; Eosinophils # 0.6 10^3/uL (0.0-0.8); Eosinophils % 4.3 %; Hematocrit 28.6 % (37-53); Lymphocytes % 7.3 %; Mean Corpuscular HGB Conc 31.1 g/dL (30-55); Mean Corpuscular Hemoglobin 27.8 pg (27-33); Mean Corpuscular Volume 89.4 fl (82-101); Mean Platelet Volume 9.7 fL (7.4-10.4); Monocytes # 1.4 10^3/uL (0.2-0.9); Monocytes % 10.5 %; Neutrophils # 9.98 10^3/uL (1.8-7.7); Neutrophils % 75.8 %; Nucleated Red Blood Cells % 0 %; Platelet Count 263 10^3/cmm (157-399); Red Cell Distribution Width 18.6 % (12.1-15.1); White Blood Count 13.18 10^3/uL (3.29-11.43)
[2024-08-07 03:59] LABS: Anion Gap 14.2 (5-19); Blood Urea Nitrogen 31 mg/dL (8-23); Calcium 8.7 mg/dL (8.5-10.5); Carbon Dioxide 27 mmol/L (22-29); Chloride 100 mmol/L (98-107); Creatinine Clr Calc Pharmacy 81.4633; Glomerular Filtration Rate 60.4 mL/min (90-130); Glucose 163 mg/dL (65-115); Magnesium 2.2 mg/dL (1.7-2.3); Osmolality Calculated 294 mOsm/kg (285-295); Potassium 4.2 mmol/L (3.5-5.1); Sodium 137 mmol/L (136-145)
[2024-08-07] MEDS: morphine 4 mg/mL SDV 1 mL 2 MG IVP (06:31)
[2024-08-07] MEDS: ondansetron 2 mg/ML SDV 2 mL 4 MG IVP (06:31)
--- NOTE | 2024-08-07 06:39 | PC.NURSE ---
Pt refused catheter stated he will use the urinal. Pt was informed he would have to have one place prior to surgery.
--- NOTE | 2024-08-07 08:35 | PC.NURSE ---
attempt to place catheter was made, when catheter tip was inserted pt started yelling and said 'i cant take that, pull it out'. pt was educated on the need for catheter for surgery. pt states 'cant they just do it over there, just put me out'.
--- NOTE | 2024-08-07 08:58 | P.PN_ITS ---
Subjective 2 Subjective: Edward reports he is having some pain. He suffered a mechanical fall with a left hip fracture. No chest discomfort. Medications: Reviewed: Yes Vitals/I&O/Wt Last Vital Signs Temp 98.0 F 08/06/24 15:33 Pulse 95 08/07/24 06:37 Resp 18 08/07/24 06:37 BP 104/62 08/07/24 06:37 Pulse Ox 92 08/07/24 06:37 O2 Del Method Nasal Cannula 08/07/24 06:37 O2 Flow Rate 2 08/07/24 06:37 Weight last 48 hrs Weight 131.542 kg Physical Exam 2 Narrative: General Exam is a white male, reporting some hip pain Neck is supple Cardiovascular regular rate and rhythm Lungs clear Abdomen soft, obese, hernias noted Extremities 1+ edema bilaterally, dressings in place Data 08/07/24 03:32 08/07/24 03:32 A&P Assessment and plan (1) Femur fracture, left: Hip surgery anticipated today Appreciate orthopedic consultation I was called by anesthesia. They have ended up giving him some blood for acute postoperative blood anemia, complicated by chronic anemia. Hold anticoagulation currently Qualifiers: Encounter type: initial encounter Fracture type: closed (2) DVT (deep venous thrombosis): Patient with history of DVT, currently on apixaban Will resume anticoagulation as soon as possible (3) CHF (congestive heart failure): Currently compensated Qualifiers: Heart failure type: unspecified Heart failure chronicity: chronic Qualified Code(s): I50.9 - Heart failure, unspecified (4) COPD (chronic obstructive pulmonary disease): Budesonide twice daily DuoNeb every 6 hours as needed Qualifiers: COPD type: unspecified COPD Qualified Code(s): J44.9 - Chronic obstructive pulmonary disease, unspecified Plan Multiple other comorbidities, complicating hospital course Allow natural SCDs for DVT prophylaxis, pharmacologic will have to be held secondary to anemia initially but will resume as soon as possible. Attestations 2 Medical Necessity Statement*: Needs continued hospitalization for definitive care of his hip fracture. Diagnoses Femur fracture, left S72.92XA Encounter type: initial encounter Fracture type: closed DVT (deep venous thrombosis) I82.409 Chronic congestive heart failure, unspecified heart failure type I50.9 Heart failure type: unspecified Heart failure chronicity: chronic Chronic obstructive pulmonary disease, unspecified COPD type J44.9 COPD type: unspecified COPD Time Spent (min) 32
[2024-08-07] MEDS: sodium chloride 0.9% 1,000 ML 30 ML IV (10:13)
[2024-08-07] MEDS: acetaminophen 1,000 MG/100 ML PIGGYBACK 400 MG IV (10:17)
[2024-08-07] MEDS: gabapentin 300 mg Capsule PO (10:18)
[2024-08-07] MEDS: CELEcoxib 200 mg Capsule 400 MG PO (10:19)
--- NOTE | 2024-08-07 10:35 | ANES.PREANE2 ---
Pre-Anesthetic Assessment Height/Weight: Height 5 ft 10 in Weight 290 lb Temp Pulse Resp BP Pulse Ox O2 Del Method O2 Flow Rate 97.4 F L 92 18 140/75 93 Nasal Cannula 3 08/07/24 09:48 08/07/24 09:48 08/07/24 09:48 08/07/24 09:48 08/07/24 09:48 08/07/24 09:48 08/07/24 09:48 Preop Diagnosis: Femoral fracture Operation Date: 08/07/24 13:50 Proposed Procedures p Trochanteric Femoral Nail(Left) - Justine Alfonso MD Was Beta Gopal taken within 24 hours: N/A Was Clonidine taken within 24 hours: N/A Social No alcohol and No tobacco Quit smoking a few years ago Exam alert, oriented x 3, clear to auscultation bilaterally and regular rate & rhythm Airway Submandibular: within normal limits Cervical ROM: within normal limits Mallampati: Class III Comments: Comments: Multiple missing teeth, patient has thick phlegm in the back of his throat Anesthetic Plan ASA status: 3 Anesthesia: General Other: No prior issues with anesthesia NPO since yesterday History of sleep apnea and COPD, uses 2 L O2 at nighttime Not sure about his last dose of Eliquis, on chronic blood thinners for prior DVTs Patient is bedbound Labs reviewed, hemoglobin 8.9 this morning EKG sinus rhythm Plan for general anesthesia Medications/Allergies Home Medications Medication Instructions Recorded Confirmed Last Taken Type aspirin 81 mg tablet,delayed 81 mg PO DAILY@0800 09/26/19 08/07/24 08/06/24 History release (Adult Aspirin Regimen) acetaminophen 325 mg tablet 650 mg PO Q4H PRN Pain 10/31/20 08/07/24 01/03/21 History bisacodyl 10 mg rectal suppository 10 mg MA DAILY PRN Constipation 10/31/20 08/07/24 Unknown History (Dulcolax (bisacodyl)) bisacodyl 5 mg tablet 20 mg PO DAILY PRN Constipation 10/31/20 08/07/24 Unknown History cholecalciferol (vitamin D3) 125 125 mcg PO DAILY@0800 12/10/20 08/07/24 08/06/24 History mcg (5,000 unit) capsule sertraline 50 mg tablet 50 mg PO DAILY@0800 12/10/20 08/07/2408/06/24 History albuterol sulfate 90 mcg/actuation 2 puff inhalation Q6H PRN 01/14/21 08/07/24 08/06/24 History aerosol inhaler (Ventolin HFA) Shortness Of Breath apixaban 5 mg tablet 5 mg PO BID@0800,1700 01/14/21 08/07/24 08/06/24 History bumetanide 2 mg tablet 2 mg PO BID@0800,1700 01/14/21 08/07/24 08/06/24 History potassium chloride 20 mEq 20 meq PO BID@0800,1700 01/14/21 08/07/24 08/06/24 History tablet,extended release(part/cryst) (Klor-Con M) tiotropium bromide 18 mcg capsule 1 cap inhalation DAILY #30 03/11/21 08/07/24 08/06/24 Rx with inhalation device (Spiriva inhalations with HandiHaler) bismuth subsalicylate 262 mg/15 mL 524 mg PO DAILY PRN Nausea 07/10/23 08/07/24 Unknown History oral suspension (Pepto-Bismol) loperamide 2 mg tablet 2 mg PO .COMPLEX PRN Diarrhea 07/10/23 08/07/24 Unknown History (Anti-Diarrheal (loperamide)) multivitamin 1 tab PO DAILY 07/10/23 08/07/24 08/06/24 History sodium phosphates 19 gram-7 118 ml MA DAILY PRN Constipation 07/10/23 08/07/24 Unknown History gram/118 mL enema clotrimazole-betamethasone 1 1 applic topical BID PRN rash 08/07/24 08/07/24 Unknown History %-0.05 % topical cream fluticasone propionate 115 2 puff inhalation Q6H PRN wheezing 08/07/24 08/07/24 Unknown History mcg-salmeterol 21 mcg/actuation HFA inhaler (Advair HFA) hydrocodone 5 mg-acetaminophen 325 1 - 2 tab PO Q8H PRN pain 08/07/24 08/07/24 08/06/24 History mg tablet lidocaine 4 % topical cream 1 applic topical DAILY PRN Pain 08/07/24 08/07/24 Unknown History magnesium hydroxide 400 mg/5 mL 30 ml PO Q24H PRN constipation 08/07/24 08/07/24 Unknown History oral suspension (Milk of Magnesia) medroxyprogesterone 5 mg tablet 5 mg PO DAILY 08/07/24 08/07/24 08/06/24 History menthol 4 % topical gel (Biofreeze 1 applic topical QID PRN knee pain 08/07/24 08/07/24 Unknown History (menthol)) tramadol 50 mg tablet 50 mg PO Q12H PRN peripheral 08/07/24 08/07/24 Unknown History vascular disease Allergies Allergy/AdvReac Type Severity Reaction Status Date / Time No Known Allergies Allergy Verified 11/08/23 16:09 Current Medications Generic Name Dose Route Start Last Admin Trade Name Freq PRN Reason Stop Dose Admin Sodium Chloride 1,000 mls @ 30 mls/hr 08/07/24 09:45 08/07/24 10:13 Sodium Chloride 0.9% IV 08/08/24 09:44 30 mls/hr .Q24H TAYLOR Administration Morphine Sulfate 2 mg 08/06/24 21:32 08/07/24 06:31 Morphine 4 Mg/Ml Sdv 1 Ml IVP 2 mg Q4H PRN Administration SEVERE PAIN Ondansetron HCl 4 mg 08/06/24 21:32 08/07/24 06:31 Ondansetron 2 Mg/Ml Sdv 2 Ml IVP 4 mg Q6H PRN Administration NAUSEA AND VOMITING PFSH Anesthesia Medical History Muscle weakness (generalized) Personal history of other venous thrombosis and embolism Personal history of COVID-19 Duodenal ulcer, unspecified as acute or chronic, without hemorrhage or perforation History of falling FDC (current) use of inhaled steroids FDC (current) use of aspirin History of bleeding ulcers Morbid obesity with BMI of 40.0-44.9, adult Chronic respiratory failure with hypoxia COPD (chronic obstructive pulmonary disease) Bleeding ulcer DVT (deep venous thrombosis) Hypoxia CHF (congestive heart failure) Family History Mother Diabetes Father Cancer skin Social History Smoking and tobacco/nicotine status: unknown if used tobacco/nicotine Quit status (tobacco/nicotine): has quit using Year quit tobacco: 2019 Former quit date comment: Hx of 2 PPD x 50 Years Second hand smoke exposure: Yes Alcohol intake: never Substance/Drug Use: never Caregiver/support person: Yes Lives independently: No Housing: Correction Marital status: Current occupational status: disabled Pets and animals: No Do you think of yourself as: Straight/Heterosexual Current gender identity: Male Data Anesthesia 08/07/24 03:32 08/07/24 03:32 Short CBC 08/06/24 08/07/24 Range/Units 16:37 03:32 WBC 13.88 H 13.18 H (3.29-11.43) 10^3/uL Hgb 9.80 L 8.90 L (11.27-16.99) g/dL Hct 31.7 L 28.6 L (37-53) % MCV 88.5 89.4 (82-101) fl Plt Count 284 263 (157-399) 10^3/cmm Neut % (Auto) 78.0 75.8 % Neut # (Auto) 10.82 H 9.98 H (1.8-7.7) 10^3/uL BMP 08/06/24 08/07/24 16:37 03:32 Sodium 132 L 137 Potassium 4.4 4.2 Chloride 95 L 100 Carbon Dioxide 26 27 BUN 31 H 31 H Creatinine 1.2 1.2 Glucose 149 H 163 H Calcium 8.9 8.7 Liver Function 08/06/24 Range/Units 16:37 Total Bilirubin 0.4 (0.15-1.2) mg/dL AST 28 (0-40) U/L ALT 15 (0-41) U/L Alkaline Phosphatase 67 (40-130) U/L Albumin 3.1 L (3.5-5.2) g/dL Urine 08/06/24 Range/Units 18:00 Urine Color Yellow (Yellow) Urine Appearance Clear (CLEAR) Urine pH 5.5 (5-7) Ur Specific [place] 1.015 (1.005-1.030) Urine Protein Negative (Negative) Urine Glucose (UA) Negative (Normal) Urine Ketones Negative (Negative) Urine Nitrate Negative (Negative) Urine Bilirubin Negative (Negative) Ur Leukocyte Esterase Negative (Negative) Coags 08/06/24 16:37 PT 16.90 H INR 1.33 H Cardiac Studies: Echocardiogram Ultrasound 11/01/20
--- NOTE | 2024-08-07 11:00 | PM.CONSULT ---
Providers/Reason For Consult Consulting Physician/Specialty*: Justine Alfonso MD Reason for Consult*: Left subtrochanteric hip fracture, comminuted Requesting Physician: Chepe Randhawa MD Attending Physician: Michael Arias MD Primary Care Provider: Odalis Stewart NP History of Present Illness History of Present Illness Willie Perez is a 69 year old male who normally resides at [facility]. He has multiple medical issues including heart failure, DVT for which she is on Eliquis, lymphedema which causes him to be bedbound. He is chronically treated with compression stockings and compression wraps. Patient attempted to get himself up to the bedside to clean himself to get ready for dinner on and and he lost his balance and fell. He did not ask for medical attention right away, and he is uncertain but feels that he received his medications as scheduled. He was diagnosed with a comminuted subtrochanteric femur fracture and I was consulted. He presents for surgical intervention with regards to this fracture. Review of Systems Const: Denies: fever(s), chills, body aches or change in appetite Eyes: Denies: change in vision ENMT: Denies: throat pain, enlarged tonsils or dental pain Card: Denies: chest pain Resp: Denies: dyspnea GI: Denies: abdominal pain, nausea, vomiting or diarrhea : Denies: flank pain Musc: Reports: extremity pain; Denies: neck pain or back pain Skin/Breast: Denies: rash Neuro: Denies: headache(s) All/Imm: Denies: acute wheezing Medications/Allergies Home Medications Medication Instructions Recorded Confirmed Last Taken Type aspirin 81 mg tablet,delayed 81 mg PO DAILY@0800 09/26/19 08/07/24 08/06/24 History release (Adult Aspirin Regimen) acetaminophen 325 mg tablet 650 mg PO Q4H PRN Pain 10/31/20 08/07/24 01/03/21 History bisacodyl 10 mg rectal suppository 10 mg FL DAILY PRN Constipation 10/31/20 08/07/24 Unknown History (Dulcolax (bisacodyl)) bisacodyl 5 mg tablet 20 mg PO DAILY PRN Constipation 10/31/20 08/07/24 Unknown History cholecalciferol (vitamin D3) 125 125 mcg PO DAILY@0800 12/10/20 08/07/24 08/06/24 History mcg (5,000 unit) capsule sertraline 50 mg tablet 50 mg PO DAILY@0800 12/10/20 08/07/24 08/06/24 History albuterol sulfate 90 mcg/actuation 2 puff inhalation Q6H PRN 01/14/21 08/07/24 08/06/24 History aerosol inhaler (Ventolin HFA) Shortness Of Breath apixaban 5 mg tablet 5 mg PO BID@0800,1700 01/14/21 08/07/24 08/06/24 History bumetanide 2 mg tablet 2 mg PO BID@0800,1700 01/14/21 08/07/24 08/06/24 History potassium chloride 20 mEq 20 meq PO BID@0800,1700 01/14/21 08/07/24 08/06/24 History tablet,extended release(part/cryst) (Klor-Con M) tiotropium bromide 18 mcg capsule 1 cap inhalation DAILY #30 03/11/21 08/07/24 08/06/24 Rx with inhalation device (Spiriva inhalations with HandiHaler) bismuth subsalicylate 262 mg/15 mL 524 mg PO DAILY PRN Nausea 07/10/23 08/07/24 Unknown History oral suspension (Pepto-Bismol) loperamide 2 mg tablet 2 mg PO .COMPLEX PRN Diarrhea 07/10/23 08/07/24 Unknown History (Anti-Diarrheal (loperamide)) multivitamin 1 tab PO DAILY 07/10/23 08/07/24 08/06/24 History sodium phosphates 19 gram-7 118 ml FL DAILY PRN Constipation 07/10/23 08/07/24 Unknown History gram/118 mL enema clotrimazole-betamethasone 1 1 applic topical BID PRN rash 08/07/24 08/07/24 Unknown History %-0.05 % topical cream fluticasone propionate 115 2 puff inhalation Q6H PRN wheezing 08/07/24 08/07/24 Unknown History mcg-salmeterol 21 mcg/actuation HFA inhaler (Advair HFA) hydrocodone 5 mg-acetaminophen 325 1 - 2 tab PO Q8H PRN pain 08/07/24 08/07/24 08/06/24 History mg tablet lidocaine 4 % topical cream 1 applic topical DAILY PRN Pain 08/07/24 08/07/24 Unknown History magnesium hydroxide 400 mg/5 mL 30 ml PO Q24H PRN constipation 08/07/24 08/07/24 Unknown History oral suspension (Milk of Magnesia) medroxyprogesterone 5 mg tablet 5 mg PO DAILY 08/07/24 08/07/24 08/06/24 History menthol 4 % topical gel (Biofreeze 1 applic topical QID PRN knee pain 08/07/24 08/07/24 Unknown History (menthol)) tramadol 50 mg tablet 50 mg PO Q12H PRN peripheral 08/07/24 08/07/24 Unknown History vascular disease Allergies Allergy/AdvReac Type Severity Reaction Status Date / Time No Known Allergies Allergy Verified 11/08/23 16:09 Current Medications Generic Name Dose Route Start Last Admin Trade Name Freq PRN Reason Stop Dose Admin Sodium Chloride 1,000 mls @ 30 mls/hr 08/07/24 09:45 08/07/24 10:13 Sodium Chloride 0.9% IV 08/08/24 09:44 30 mls/hr .Q24H TAYLOR Administration Morphine Sulfate 2 mg 08/06/24 21:32 08/07/24 06:31 Morphine 4 Mg/Ml Sdv 1 Ml IVP 2 mg Q4H PRN Administration SEVERE PAIN Ondansetron HCl 4 mg 08/06/24 21:32 08/07/24 06:31 Ondansetron 2 Mg/Ml Sdv 2 Ml IVP 4 mg Q6H PRN Administration NAUSEA AND VOMITING PFSH Acute PFSH: Medical History Muscle weakness (generalized) Personal history of other venous thrombosis and embolism Personal history of COVID-19 Duodenal ulcer, unspecified as acute or chronic, without hemorrhage or perforation 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 History of bleeding ulcers Morbid obesity with BMI of 40.0-44.9, adult Chronic respiratory failure with hypoxia COPD (chronic obstructive pulmonary disease) Bleeding ulcer DVT (deep venous thrombosis) Hypoxia CHF (congestive heart failure) Family History Mother Diabetes Father Cancer skin Social History Smoking and tobacco/nicotine status: unknown if used tobacco/nicotine Quit status (tobacco/nicotine): has quit using Year quit tobacco: 2019 Former quit date comment: Hx of 2 PPD x 50 Years Second hand smoke exposure: Yes Alcohol intake: never Substance/Drug Use: never Caregiver/support person: Yes Lives independently: No Housing: Intermediate Marital status: Current occupational status: disabled Pets and animals: No Do you think of yourself as: Straight/Heterosexual Current gender identity: Male Dietary Habits: Current diet type/program: regular Caffeine: Yes Caffeine intake frequency: coffee Number of coffee servings: 1 Vitals/I&O/Wt Last Vital Signs Temp 97.4 F L 08/07/24 09:48 Pulse 92 08/07/24 09:48 Resp 18 08/07/24 09:48 BP 140/75 08/07/24 09:48 Pulse Ox 93 08/07/24 09:48 O2 Del Method Nasal Cannula 08/07/24 09:48 O2 Flow Rate 3 08/07/24 09:48 Weight last 48 hrs Weight 290 lb Physical Exam Const: COMMON NORMALS: no acute distress, patient oriented x3 and alert GENERAL APPEARANCE: comfortable NUTRITIONAL APPEARANCE: obese ORIENTATION/CONSCIOUSNESS: Yes awake HENMT: COMMON NORMALS: normocephalic and atraumatic HEAD & SCALP: normocephalic and atraumatic Eye: GENERAL EYE: appearance normal, both eyes and all related structures Chest: COMMONS NORMALS: normal inspection of the chest Resp: COMMON NORMALS: normal respiratory effort EFFORT & INSPECTION: Yes able to speak in complete sentences and Yes symmetric chest movement Extremity: NARRATIVE EXTREMITY EXAM: Patient extremities are wrapped in compression wraps. There is lymphedema, and the patient describes weeping from his legs routinely. Any range of motion is painful. The left lower extremity is externally rotated and is not moved. The patient is able to move his toes. Neuro: COMMON NORMALS: patient oriented x3 SENSORIUM/ORIENTATION: Yes alert Psych: COMMON NORMALS: mental status grossly normal APPEARANCE: Yes grossly normal ATTITUDE: Yes calm and Yes engaged ATTENTION/CONCENTRATION: Yes attention grossly intact Skin: COMMON NORMALS: no rashes or lesions noted GENERAL SKIN EXAM: no rashes or lesions noted Data 08/07/24 03:32 08/07/24 03:32 Xray Ortho: My impression: X-rays are interpreted by me. The images demonstrate comminuted subtrochanteric left femur fracture. There is a large soft tissue envelope. The bones are osteopenic with very thin cortices. A&P Assessment and plan (1) Subtrochanteric fracture of left femur: This morbidly obese patient with history of lymphedema and 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 Patient states the injury occurred on August 04, but he neglected to tell anybody or seek medical attention until yesterday, August 06. On evaluation, there is a comminuted subtrochanteric femur fracture which is displaced. On physical examination, the patient is morbidly obese. The thigh is very large and grossly edematous. He has chronic lymphedema as well. Qualifiers: Encounter type: initial encounter Fracture type: closed Fracture alignment: displaced Qualified Code(s): S72.22XA - Displaced subtrochanteric fracture of left femur, initial encounter for closed fracture (2) Chronic embolism and thrombosis of left femoral vein: (3) Obesity, Class III, BMI 40-49.9 (morbid obesity): Consult Attestations Medical Necessity Statement: Per hospitalist team Coding Level of Care Code Acute Code for Chg Fwd Diagnoses Closed displaced subtrochanteric fracture of left femur, initial encounter S72.22XA Encounter type: initial encounter Fracture type: closed Fracture alignment: displaced Chronic embolism and thrombosis of left femoral vein I82.512 Obesity, Class III, BMI 40-49.9 (morbid obesity) E66.01
[2024-08-07] MEDS: ceFAZolin 3,000 MG in sodium chloride 0.9% (plus) 100 ML 200 MG IV (11:26)
[2024-08-07] MEDS: VANCOMYCIN ADD-Vantage 1,000 MG in 0.9% NaCl ADD-Vantage 250 ML 250 MG IV (13:43)
[2024-08-07] MEDS: ceFAZolin 1,000 mg SDV 1000 MG IRRIGATION (14:14)
[2024-08-07 15:05] LABS: ABG PCO2 44.8 mmHg (35-45); Alveolar-Arterial Oxygen Gradi 15.6 mmHg (5-10); Arterial Blood Gas Hematocrit 24.7 % (42-52); Base Excess ABG -10.8 mmol/L (-2.0-2.0); Blood Gas Operator Identificat CAK; Blood Gas Sample Site ALINE; Blood Gas Sample Type Arterial; Carboxyhemoglobin 1.1 %THgb (0.4-20.1); HCO3 ABG 16.8 mmol/L (22-26); HGB O2 Sat 98.1 % (95-100); Methemoglobin 0.6 % (0.4-1.5); Oxygen Device VENT; Oxygen Saturation ABG > 99.1; PO2 FiO2 Ratio Arterial Blood 483; Potassium Level - ABG 4.6 mmol/L (3.5-5.0); Total Hemoglobin 8.1 g/dL (14-18)
[2024-08-07] MEDS: ceFAZolin 2,000 mg SDV 2000 MG IVP (15:46)
[2024-08-07] MEDS: ceFAZolin 1,000 mg SDV 1000 MG IVP (15:47)
[2024-08-07 15:55] LABS: ABG PH Result 7.18 (7.35-7.45)
--- NOTE | 2024-08-07 16:00 | ANES.PROC ---
Anesthesia Procedures Procedure/Date: 08/08/24 Central Venous Insert: Time Out Performed: Yes Consent: requested by attending/covering physician Central Line: New Anesthesia monitors: pulse oximetry, EKG, BP cuff and oxygen Vein cannulated: left internal jugular Ultrasound used: to identify patency to vessel and to visualize needle entry to vein Post procedure: Obtain Chest X-Ray
--- NOTE | 2024-08-07 16:44 | ANE.PACU2 ---
Inpatient post-anesthesia follow up: Airway intact: Yes (ETT in place) Vital signs: Temperature 99.4 F Pulse Rate 110 Respiratory Rate 19 Blood Pressure 107/59 Pulse Oximetry 92 Oxygen Delivery Me thod Mechanical Ventila tion Oxygen Flow Rate 3 Fraction of Inspir ed Oxygen 30 Hydration adequate: Yes Nausea and vomiting: No Pain level: Other (intubated and sedated)
[2024-08-07] MEDS: norepinephrine 4 MG/250 ML BAG 75 MG IV ×3 (17:00→23:45)
--- NOTE | 2024-08-07 17:02 | XRR_ITS ---
PROCEDURE INFORMATION: Exam: XR Chest Exam date and time: 08/07/2024 5:13 PM Age: 69 years old Clinical indication: Device placement; Other: Og; Additional info: Og placement TECHNIQUE: Imaging protocol: Radiologic exam of the chest. Views: 1 view. COMPARISON: CR (CHEST, ) 08/06/2024 4:08 PM FINDINGS: Tubes, catheters and devices: Interval placement of an endotracheal tube with the tip 5.8 cm above the paul. Interval placement of a left internal jugular central line with the tip in the upper superior vena cava. Interval placement of an enteric tube, the tip of the enteric tube is not included in the image. However, the tube is seen extending into the fundus of the stomach. Lungs: Patchy bilateral lower lobe atelectasis. Pleural spaces: Interval development of small bilateral pleural effusions. Heart/Mediastinum: Stable moderate enlargement of the cardiac silhouette. Mediastinal contours are unremarkable. Vasculature: Stable vascular calcifications in the aorta. Bones/joints: Unremarkable for age. XR/XR chest 1V portable [id number] IMPRESSION: 1. Patchy bilateral lower lobe atelectasis. 2. Interval development of small bilateral pleural effusions. 3. Interval placement of an endotracheal tube with the tip 5.8 cm above the paul. 4. Interval placement of a left internal jugular central line with the tip in the upper superior vena cava. 5. Interval placement of an enteric tube, the tip of the enteric tube is not included in the image. However, the tube is seen extending into the fundus of the stomach. 6. Incidental/nonacute findings are listed in the report.
[2024-08-07] MEDS: vasopressin 40 UNIT/100 ML PREMIX IV (17:04)
--- NOTE | 2024-08-07 17:07 | PM.OP ---
Operative Report Date of procedure: August 07, 2024 Pre-op diagnosis: Left subtrochanteric with extension into the proximal femoral shaft with long spiral femoral shaft fracture Post-op diagnosis: Left subtrochanteric with extension into the proximal femoral shaft with long spiral femoral shaft fracture Post-op findings: Fracture was irreducible with traction. The patient had to be transferred from the regular fracture table to the [place] table secondary to his size and instability of the table. Once he was transferred to the [place] table, with traction, we were still unable to reduce the fracture. The decision had to be made at that point to open the fracture site. Attempt was made for open reduction internal fixation. Even with traction, we could not acquire the full length to the fracture. There was noted to be large clots as though the fracture was older than described upon presentation to the emergency department. Procedure done: Open reduction internal fixation left subtrochanteric and proximal third femur fracture, complicated by morbid obesity, with intramedullary fixation of both fractures following open reduction and placement of bone clamps to hold the fracture during the reduction along the proximal femur Implants: [employer] gamma nail system with a long gamma 3 nail left size 13 mm x 400 mm x 125 degree, proximal lag screw size 10.5 mm x 105 mm, distal locking screw size 5 mm x 55 mm Specimens removed/disposition: None Pathology: None Surgeon: Justine Alfonso MD Parts Salesman: Rosalind Stiles, nurse practitioner, whose services were required for positioning, retraction during this complex surgical procedure, fracture reduction, and closure. Anesthesia: General (Intubated, ASA 3) Estimated blood loss (mL): 2,150 IV fluids (mL): 2,000 (Crystalloid +500 mL of albumin) Urine output (mL): 200 Complications: None Findings: Morbid obesity, sacral decubitus ulcer, large pannus with skin breakdown in the folds of the pannus, lymphedema with venous stasis ulcerations. Long spiral irreducible left femur fracture Brief History: This 69-year-old gentleman who resides at [facility] presented through the emergency department after a fall which he reported occurring on August 04. The patient states he did not immediately seek medical help. He presented to the emergency department yesterday, August 06, and was admitted for definitive treatment. He was admitted to the medical service as he has multiple medical comorbidities including heart failure, DVT for which he is on Eliquis, lymphedema which causes him to be bedbound and which is treated chronically with compression stockings and wraps. Upon entry to the operating room, he was found to have a sacral decubitus ulcer as well as significant skin breakdown along the fatty skin folds of his abdomen and pannus. Preoperatively, risks and complications of the surgery were discussed with the patient. Consents were signed and questions were answered. Procedure: Patient is brought to the operating theater. After undergoing adequate general anesthesia with intubation, ASA 3, the patient was transferred to the fracture table, positioned on the table and fluoroscopic guidance obtained throughout the surgical procedure. There was significant difficulty positioning the patient on the table secondary to the patient's size. The patient was felt to be unsafe on the standard fracture table. There was discussion regarding possible transfer to a larger facility secondary to the fracture table and how the patient fitted on this table. Plans, however, prior to transfer were to try to place him on the [place] table for greater stability. We transferred to the [place] table, we were unable to fully reduce the fracture closed, or for that fact open, but he was felt to be more stable and the surgical procedure proceeded. Patient was prepped and draped after attempt was made at reduction using a supplemental crutch as well as significant traction. We also utilized the femoral straight pin making machine operator as part of the [place] table and were unable to reduce the fracture. We were unable to get the fracture into an acceptable position and spite of multiple reduction attempts. For this reason, the decision was made to proceed with open reduction internal fixation of the subtrochanteric fracture utilizing the gamma trochanteric nail and also proceeding with open reduction at the fracture site which was a long spiral fracture of the proximal femur. The patient had significant soft tissues, and the fracture was marked using fluoroscopy prior to prepping and draping. Prior to the commencement of the surgical procedure, a surgical pause was performed. At the time of the surgical pause, we confirmed the site and side of surgery as well as preoperative surgical markings and appropriate and timely administration of IV antibiotics, Ancef 3 g. Availability of equipment was also confirmed. This included cerclage wires as well as the long gamma trochanteric nail and appropriate reduction clamps for the open reduction internal fixation. Fluoroscopy was used to confirm the fracture was appropriately reduced in both AP and lateral planes. Cerclage wires were available but were not used during the surgical procedure. Attention was initially addressed to the femoral shaft fracture. Attempt at manipulation had been accomplished with the use of traction and rotation, but the fracture fragments were so widely and impacted into the muscle, it was felt that we could not reduce this fracture without opening it. Also, we could not obtain length either open or closed. The extents of the fracture were marked, and an incision was made over the patient's lateral femur. Dissection continued through skin and soft tissues using a scalpel hemostasis was obtained using electrocautery. There was substantial soft tissue envelope causing significant difficulty in reduction and an exposure. Both surgical technicians from the operating room were required for retraction of the soft tissues. The bone was isolated with some difficulty. We were then able to place Gustavo and [place] clamps over the fracture site. With these, we were able to partially reduce the fracture, but full length could not be obtained and spite of traction from the [place] table and direct visualization and manipulation. These clamps were left in place during the remainder of the procedure. An incision was then made slightly above the greater trochanter to allow access to the greater trochanter. An awl was used to enter the greater trochanter and a guidewire was subsequently placed. Once the guidewire was confirmed to be in appropriate position in AP and lateral planes, reaming was accomplished over this to allow for the proximal diameter of the nail. Guidewire was then removed and a long guidewire was placed through the proximal femur, across the fracture site, and down to the knee. This wire was passed with significant difficulty. This was visualized fluoroscopically during this process. After the guidewire was noted to be in appropriate position, reaming was begun. We reamed initially for a size 11 nail which was to a size 13, but we had not achieved chatter until we had minimal chatter at size 13. Therefore, the decision was made to go to a size 13 now requiring reaming to a size 15. This reaming was accomplished without difficulty. Reamer was monitored as it passed through the fracture site. The wire lengths was measured prior to reaming, and the appropriate length nail was 400 mm. Therefore, after reaming, the chosen nail was a 13 mm x 400 mm x 125 degree gamma 3 long left trochanteric nail. This nail was placed into appropriate position with positioning being confirmed in AP and lateral planes on the x-ray. It passed with some difficulty. Guidewire was then passed through the jigging system into the femoral head. We wanted to be center or slightly inferior and posterior to center. With the nail in place, the fracture was noted to be stable following intramedullary tracy placement. Once the guidewire was in appropriate position and this position was confirmed by x-ray. This was then measured and we chose a 10.5 mm x 105 mm lag screw. We reamed to allow for the lag screw to be placed. The 105 mm lag screw was then passed into the femoral head through the trochanteric nail. This was passed uneventfully and again position was confirmed in AP and lateral planes. The set screw was then placed in position, and tightened completely. Once the screw was in position, we confirmed appropriate placement of the components, and we removed the jigging system. Perfect little shell tribe technique was used to determine appropriate placement for the distal screw. This was placed in position without difficulty. Screw length was determined by depth gauge measurement and confirmed with fluoroscopy. The appropriate length screw was then obtained and placed in position without difficulty. Attention was then directed to closure. The hip was copiously irrigated with normal saline with antibiotics. Following this it was dried and closed. Tensor fascia more was closed proximally with 0 Vicryl in an interrupted fashion. Subcutaneous tissues were closed with combination of 0 Vicryl and 2-0 Monocryl, and the skin was closed with skin shazia. This was then covered with Silverlon dressing. The patient was removed from the fracture table and transferred to the ICU as intraoperatively, he required pressors and other significant medical treatments. There were no specimens obtained. Related Problem List Diagnoses (1) Subtrochanteric fracture of left femur: (2) Chronic embolism and thrombosis of left femoral vein:
--- NOTE | 2024-08-07 17:12 | PC.NURSE ---
spoke with to update on patients current condition and obtain admission information.
--- NOTE | 2024-08-07 17:13 | W.PM.EVENTAC ---
Event Note Event Note: Received patient back from surgery. Had significant blood loss. Got 3 units of blood and currently transfusing a fourth secondary to significant hypotension. Consistent with hemorrhagic shock. Placed on norepinephrine, vasopressin. These are maxed out on adding epinephrine. Checking an ABG to determine if bicarb is needed. Chest x-ray reviewed. Appropriate central line placement, endotracheal tube will advance a couple of centimeters. No significant decub on the back. No evidence of infection currently. Will repeat hemoglobin following this next transfusion. Check ABG. Overall, ICU care was provided in this patient acutely ill with chance of significant worsening and . 70 minutes of additional care, all ICU, at bedside. Discussed case with and she confirms that it is okay to do what we are currently doing, but would not want CPR done which the patient has had this preference as well. ABG has returned and will give some bicarb, 1 amp secondary to low blood pressure. Hold pharmacologic DVT prophylaxis until tomorrow, to reevaluate secondary to concern of blood loss and ongoing transfusion.
[2024-08-07 17:33] LABS: ABG PCO2 42.9 mmHg (35-45); Arterial Blood Gas Hematocrit 27.5 % (42-52); Base Excess ABG -18.7 mmol/L (-2.0-2.0); Blood Gas Sample Type Arterial; HCO3 ABG 11.2 mmol/L (22-26)
[2024-08-07 17:34] LABS: ABG PH Result 7.02 (7.35-7.45); Blood Gas Operator Identificat WALCI; Oxygen Device VENT; PO2 FiO2 Ratio Arterial Blood 334
[2024-08-07] MEDS: sodium bicarbonate 8.4% 1 mEq/mL 50mL Syr 100 MEQ IVP (17:42)
--- NOTE | 2024-08-07 18:01 | PC.NURSE ---
RBC was brought down in a cooler by anesthesia team. RBC was given emergently to the patient.
--- NOTE | 2024-08-07 18:06 | PC.NURSE ---
Patient was brought down from the OR with Levophed at a rate of 20 mcg/min. MAR was updated to reflect that. Patient had to emergently have vasopressin titrated up to 0.1 due to MAP not being above 60 MAR was updated to reflect this.
[2024-08-07 18:07] LABS: Blood Gas Sample Site ARTLINE
[2024-08-07 18:09] LABS: Hematocrit 27.8 % (37-53)
[2024-08-07 18:27] LABS: INR 1.86 (0.8-1.2)
[2024-08-07] MEDS: EPINEPHrine 2.5 MG in sodium chloride 0.9% 250 ML 6.06 MG IV (18:34)
[2024-08-07] MEDS: sodium bicarbonate 8.4% 1 mEq/mL 50mL Syr 50 MEQ IVP (18:59)
[2024-08-07] MEDS: sodium chloride 0.9% 1,000 ML 999 ML IV (19:50)
[2024-08-07] MEDS: hydrocortisone 100 mg/2 mL SDV IVP (20:06)
[2024-08-07] MEDS: budesonide 0.5 mg/2 mL Neb INHALATION (20:16)
[2024-08-07 20:53] LABS: Hematocrit 28.4 % (37-53)
[2024-08-07] MEDS: ceFAZolin 3,000 MG in sodium chloride 0.9% (100 ml) 100 ML 200 MG IV (21:03)
[2024-08-07 21:36] LABS: ABG PCO2 38.6 mmHg (35-45); Arterial Blood Gas Hematocrit 28.7 % (42-52); Base Excess ABG -14.1 mmol/L (-2.0-2.0); Blood Gas Operator Identificat JDB; Blood Gas Sample Site Not specified; Blood Gas Sample Type Arterial; HCO3 ABG 13.7 mmol/L (22-26); Oxygen Device VENT; PO2 FiO2 Ratio Arterial Blood 250
[2024-08-07 21:37] LABS: ABG PH Result 7.16 (7.35-7.45)
[2024-08-07] MEDS: sodium bicarbonate 150 MEQ in dextrose 5% 1,000 ML 100 MEQ IV ×2 (23:06→23:08)
[2024-08-07] MEDS: vasopressin 40 UNIT/100 ML PREMIX 15 UNIT IV (23:26)
[2024-08-07] MEDS: fentaNYL 1,000 MCG/100 ML BAG 2.5 MCG IV (23:27)
[2024-08-08] VITALS (86 sets, daily range): BP systolic 73–140; BP diastolic 37–77; PULSE 94–116; RESP 17–24; TEMP 36.4–39.4; O2SAT 90–100
[2024-08-08 01:27] LABS: Lactate (Lactic Acid level) 13.2 mmol/L (0.5-2.2)
[2024-08-08] MEDS: EPINEPHrine 2.5 MG in sodium chloride 0.9% 250 ML 36.36 MG IV (02:45)
[2024-08-08] MEDS: norepinephrine 4 MG/250 ML BAG 75 MG IV ×7 (02:50→21:03)
[2024-08-08 04:42] LABS: ABG PCO2 34.5 mmHg (35-45); ABG PH Result 7.26 (7.35-7.45); Arterial Blood Gas Hematocrit 12.3 % (42-52); Base Excess ABG -10.4 mmol/L (-2.0-2.0); Blood Gas Operator Identificat JDB; Blood Gas Sample Site Not specified; Blood Gas Sample Type Arterial; HCO3 ABG 15.6 mmol/L (22-26); Oxygen Device VENT; PO2 ABG 87.9 mmHg (80.0-100.0); PO2 FiO2 Ratio Arterial Blood 219
[2024-08-08 05:03] LABS: Basophils # 0.1 10^3/uL (0.0-0.1); Basophils % 0.4 %; Eosinophils # 0.1 10^3/uL (0.0-0.8); Eosinophils % 0.3 %; Hematocrit 26.4 % (37-53); Lymphocytes # 1.6 10^3/uL (0.8-4.8); Lymphocytes % 4.6 %; Mean Corpuscular HGB Conc 32.2 g/dL (30-55); Mean Corpuscular Hemoglobin 28.9 pg (27-33); Mean Corpuscular Volume 89.8 fl (82-101); Monocytes % 5.8 %; Neutrophils # 28.25 10^3/uL (1.8-7.7); Neutrophils % 84.3 %; Nucleated Red Blood Cells # 0.2 /100WBC; Nucleated Red Blood Cells % 0.5 %; Platelet Count 267 10^3/cmm (157-399); Red Blood Count 2.94 10^6/uL (3.85-5.65); Red Cell Distribution Width 17.4 % (12.1-15.1)
[2024-08-08] MEDS: ceFAZolin 3,000 MG in sodium chloride 0.9% (100 ml) 100 ML 200 MG IV ×2 (05:05→15:11)
[2024-08-08] MEDS: vasopressin 40 UNIT/100 ML PREMIX 15 UNIT IV ×2 (05:06→11:11)
[2024-08-08 05:08] LABS: White Blood Count 33.56 10^3/uL (3.29-11.43)
[2024-08-08 05:31] LABS: Alanine Aminotransferase 168 U/L (0-41); Albumin Level 2.3 g/dL (3.5-5.2); Alkaline Phosphatase 64 U/L (40-130); Anion Gap 28.9 (5-19); Aspartate Amino Transferase 288 U/L (0-40); Blood Urea Nitrogen 37 mg/dL (8-23); Calcium 7.3 mg/dL (8.5-10.5); Carbon Dioxide 14 mmol/L (22-29); Chloride 105 mmol/L (98-107); Creatinine Clr Calc Pharmacy 51.4505; Globulin 2.1 g/dL (1.3-4.6); Glomerular Filtration Rate 35.5 mL/min (90-130); Glucose 395 mg/dL (65-115); Magnesium 2.2 mg/dL (1.7-2.3); Osmolality Calculated 321 mOsm/kg (285-295); Potassium 4.9 mmol/L (3.5-5.1); Sodium 143 mmol/L (136-145); Total Protein 4.4 g/dL (6.6-8.7)
--- NOTE | 2024-08-08 06:20 | USCV_ITS ---
Willie Perez Age: 69 Gender: M : 1955 Exam Date: 08/08/2024 22:12 Ordering Phys: Michael Arias MD Technologist: AMARILIS [place]am Location[place] [facility] [place]ication: hypotension, s/p LEFT hip ORIF, morbid obesity, on ventilator in ICU-10. BP: 108 / 77 HR: 100 Rhythm: Sinus Technical Quality: Technically difficult study MEASUREMENTS (Male / Female) Normal Values 2D ECHO LV Diastolic Diameter PLAX 4.6 cm 4.2 - 5.9 / 3.9 - 5.3 cm IVS Diastolic Thickness 1.7 cm 0.6 - 1.0 / 0.6 - 0.9 cm IVS Systolic Thickness 2.2 cm LVPW Diastolic Thickness 1.2 cm 0.6 - 1.0 / 0.6 - 0.9 cm LVPW Systolic Thickness 2.1 cm LVOT Diameter 2.1 cm LV Ejection Fraction 2D Teich 56.2 % LV Ejection Fraction MOD 4C 59.5 % LV Ejection Fraction MOD 2C 61.9 % LV Ejection Fraction 2C AL 61.1 % LA Diameter 3.3 cm Aorta at Sinotubular Diameter 2.9 cm IVC Diameter 1.9 cm M-MODE LA Ao Ratio MM 1.0 AV Cusp Separation MM 3.0 cm DOPPLER AV Peak Velocity 148.0 cm/s LVOT Peak Velocity 100.0 cm/s AV Area Cont Eq vti 2.7 cm squared AV Area Cont Eq pk 2.4 cm squared MV Peak Velocity 79.0 cm/s MV Area PHT 3.7 cm squared Mitral E to A Ratio 0.7 TV Peak E Velocity 77.0 cm/s PV Peak Velocity 166.0 cm/s FINDINGS Left Ventricle Technically limited quality echocardiogram because of poor ultrasonic windows. Grossly LV systolic function is normal. Right Ventricle Grossly normal Right Atrium Grossly normal Left Atrium Dilated Mitral Valve Grossly normal. Aortic Valve Grossly normal Tricuspid Valve Not well visualized Pulmonic Valve Not well visualized Pericardium Normal Aorta Normal in size IVC Appears to be normal CONCLUSIONS Technically limited quality echocardiogram because of poor ultrasonic windows. Grossly LV systolic function is normal. No gross valvular abnormalities. Sid Rao MD (Electronically Signed) Final Date: 09 August 2024 08:02 S
--- NOTE | 2024-08-08 06:20 | ECG_ITS ---
[facility] Test Date: 2024-08-08 Pat Name: Willie Perez Department: Room: ICU10 Gender: Male Sample Paster: : 1955 Requested By: Michael Philippe Order Number: [id number] William MD: Sid Rao M.D. Measurements Intervals [place] Rate: 115 P: 38 [place]: 167 QRS: -24 QRSD: 89 T: 66 QT: 336 QTc: 465 Interpretive Statements SINUS TACHYCARDIA BORDERLINE LEFT AXIS DEVIATION [QRS AXIS < -20] LOW QRS VOLTAGE IN PRECORDIAL LEADS [QRS DEFLECTION < 1.0 mV IN CHEST LEADS] PATTERN CONSISTENT WITH PULMONARY DISEASE Compared to ECG 08/06/2024 16:07:42 Low QRS voltage now present Sinus rhythm no longer present Myocardial infarct finding no longer present Electronically Signed On 08-10-2024 22:20:21 [employer] by Sid Rao M.D. [id number]
--- NOTE | 2024-08-08 07:00 | XRR_ITS ---
PROCEDURE INFORMATION: Exam: XR Chest Exam date and time: 08/08/2024 5:46 AM Age: 69 years old Clinical indication: Other: Resp failure TECHNIQUE: Imaging protocol: Radiologic exam of the chest. Views: 1 view. COMPARISON: CR (CHEST, ) 08/07/2024 5:13 PM FINDINGS: Tubes, catheters and devices: Stable life support device positioning. Lungs: Unremarkable. No consolidation. Pleural spaces: Unremarkable. No pleural effusion. No pneumothorax. Heart/Mediastinum: Unremarkable. No cardiomegaly. Bones/joints: Unremarkable. XR/XR chest 1V portable [id number] IMPRESSION: No acute chest pathology identified.
[2024-08-08] MEDS: budesonide 0.5 mg/2 mL Neb INHALATION ×2 (07:38→21:01)
--- NOTE | 2024-08-08 08:08 | PC.OT ---
OT EVAL HELD DUE TO INTUBATION. WILL CONTINUE TO FOLLOW CHART AND EVALUATE WHEN APPROPRIATE.
[2024-08-08] MEDS: linezolid premix 600 MG/300 ML PREMIX 300 MG IV ×2 (08:46→17:43)
[2024-08-08] MEDS: albumin 25 G/100 ML BAG 60 G IV ×3 (08:46→22:16)
[2024-08-08] MEDS: sertraline 50 mg Tablet PO (08:47)
[2024-08-08] MEDS: piperacillin-tazobactam 3.375 GM in sodium chloride 0.9% (plus) 50 ML IV ×3 (08:47→22:16)
[2024-08-08] MEDS: sennosides-docusate Tablet 1 TAB PO (08:47)
[2024-08-08] MEDS: EPINEPHrine 2.5 MG in sodium chloride 0.9% 250 ML 60.6 MG IV (09:08)
--- NOTE | 2024-08-08 10:43 | P.PN_ITS ---
Subjective 2 Subjective: Alert this morning. Communicative. Maxed out on epinephrine, vasopressin, norepinephrine. Decreased urine output. Medications: Reviewed: Yes Vitals/I&O/Wt Last Vital Signs Temp 99.4 F 08/08/24 09:06 Pulse 112 H 08/08/24 09:30 Resp 18 08/08/24 08:49 BP 105/73 08/08/24 09:30 Pulse Ox 99 08/08/24 09:30 O2 Del Method Mechanical Ventilation 08/08/24 07:38 O2 Flow Rate 3 08/07/24 09:48 FiO2 40 08/08/24 08:49 08/07/24 08/08/24 08/08/24 22:59 06:59 14:59 Intake Total 2332.657 / 3232.657 1214.413 / 4447.070 787.858 / 787.858 Output Total 350 / 350 300 / 650 Balance 1982.657 / 2882.657 914.413 / 3797.070 787.858 / 787.858 Weight last 48 hrs Weight 132 kg Weight 131.542 kg Physical Exam 2 Narrative: General Exam alert and communicative Neck is supple Cardiovascular regular rate and rhythm Lungs clear Abdomen soft, obese, hernias noted Stage I decub on sacrum Extremities dressing left hip, some soft tissue fullness Wound noted lower extremities, left likely with some exposed tendon Urinary Catheter Management: Cage: Cath Placed During This Visit: yes Reason for Continuing Indwelling Catheter: Accurate Measurement of Urinary Output in Critically Ill Patients Urinary Catheter Date of Insertion: 08/07/24 Urinary Catheter Time of Insertion: 11:45 Data 08/08/24 04:25 08/08/24 04:25 Micro: Microbiology 08/08/24 09:22 Blood Culture - Preliminary Blood SPECIMEN COLLECTED 08/08/24 08:11 Blood Culture - Preliminary Blood SPECIMEN COLLECTED A&P Assessment and plan (1) Femur fracture, left: Postoperative day #1 Acute postoperative blood loss anemia Hypotension following surgery with significant metabolic acidosis During surgery received several liters of fluid, ultimately 4 units of blood including that given in the ICU, albumin, bicarb Qualifiers: Encounter type: initial encounter Fracture type: closed (2) Acute blood loss as cause of postoperative anemia: Patient has significant acute blood loss anemia. As he had his fracture on Tuesday, some of the blood evacuated with surgery did appear to be old blood. He has received 4 units of packed red blood cells. Hemoglobin this afternoon Check INR in the morning (3) Hypotension: Significant hypotension following surgery. Multifactorial. Check cortisol level Check TSH Continue hydrocortisone Currently maximum doses of epinephrine, norepinephrine, vasopressin. Will wean as tolerated Continue bicarb drip Continue albumin Check echocardiogram EKG reviewed. Sinus tachycardia, left axis deviation. Nonspecific ST-T wave changes (4) Metabolic acidosis: Significant metabolic acidosis Currently on a bicarb drip Continue to monitor with BMP, repeat this afternoon (5) Respiratory failure: Came back from the OR with respiratory failure Not stable for extubation currently secondary to his metabolic acidosis Continue to monitor Chest x-ray ABG tomorrow (6) Acute kidney injury: Acute kidney injury secondary to hypotension Continue to monitor output through Cage Creatinine tomorrow (7) Transaminitis: Significant transaminitis secondary to hypotension Repeat tomorrow (8) Leukocytosis: significant leukocytosis Empiric linezolid, Zosyn Blood cultures (9) DVT (deep venous thrombosis): Patient with past history of DVT. On apixaban previously. Initiate heparin tonight. Will want to make sure he is significantly stabilized prior to reintroducing apixaban (10) CHF (congestive heart failure): Will likely have significant fluid overload following degree of quantity blood products and fluid received. Continue to monitor. Qualifiers: Heart failure type: unspecified Heart failure chronicity: chronic Qualified Code(s): I50.9 - Heart failure, unspecified (11) COPD (chronic obstructive pulmonary disease): Continue to monitor. Qualifiers: COPD type: unspecified COPD Qualified Code(s): J44.9 - Chronic obstructive pulmonary disease, unspecified Plan Elevated glucose. This was not significantly elevated on admission, around 150. Will check hemoglobin A1c. Doubt DKA but will keep in mind. Likely an effect of stress response as well as hydrocortisone. Will add mild sliding scale insulin and continue to monitor closely. Multiple other medical problems as outlined in past medical history including COPD DNR Will initiate heparin this afternoon for DVT prophylaxis as does not appear to be currently actively losing blood. Attestations 2 Medical Necessity Statement*: The high probability of a clinically significant, sudden or life threatening deterioration of the patient's [renal, neurologic, respiratory, orthopedic, vascular] system(s) required my full and direct attention, intervention and personal management. The critical care time is as shown. This time is in addition to time spent performing any reported procedures but includes the following: [x] Data and vital sign review and interpretation [x] Patient assessment, examination and intervention [x] Documentation [x] Medication orders and management Critical Care Time: Critical Care Time (min): 42 Coding Level of Care Code Critical Care >/= 30 minutes Critical care time (in minutes): 42 The high probability of a clinically significant, sudden or life threatening deterioration, as referenced in this documentation, required my full and direct attention, intervention and personal management. The critical care time shown is in addition to time spent performing any reported separately billable procedures and includes the following: [x] Data and vital sign review and interpretation [x ] Patient assessment, examination and intervention [x] Medication orders and management [x] Patient/Family updates as able [x] Care Coordination and Documentation. Diagnoses Femur fracture, left S72.92XA Encounter type: initial encounter Fracture type: closed Acute blood loss as cause of postoperative anemia D62 Hypotension I95.9 Metabolic acidosis E87.20 Respiratory failure J96.90 Acute kidney injury N17.9 Transaminitis R74.01 Leukocytosis D72.829 DVT (deep venous thrombosis) I82.409 Chronic congestive heart failure, unspecified heart failure type I50.9 Heart failure type: unspecified Heart failure chronicity: chronic Chronic obstructive pulmonary disease, unspecified COPD type J44.9 COPD type: unspecified COPD
[2024-08-08] MEDS: heparin 5,000 unit/mL INJ 1 mL 5000 UNIT SUBCUT (11:13)
[2024-08-08] MEDS: hydrocortisone 100 mg/2 mL SDV IVP ×2 (11:13→18:17)
[2024-08-08] MEDS: insulin lispro 100 unit/1 mL SUBCUT ×3 (11:17→21:15)
[2024-08-08 11:21] LABS: Glucose Point of Care 393 mg/dL (70-110)
--- NOTE | 2024-08-08 12:02 | PC.SOCIAL ---
IMM Update Pg. 2 of IMM updated. Initialed, dated, and timed, copy provided at bedside, patient intubated at this time.
[2024-08-08 12:25] LABS: Thyroid Stimulating Hormone 2.21 uIU/mL (0.27-4.20)
--- NOTE | 2024-08-08 12:46 | PC.NURSE ---
MTS referral done.
--- NOTE | 2024-08-08 14:28 | P.PN_ITS ---
Subjective 2 Subjective: Patient continues this time in the ICU. He is being monitored by the medical service. He continues to have some drainage from his incision, particularly when he is moved. I have advised staff that this is normal given the type of incision and fracture that the patient had. They will continue to work with him and monitor for increased bleeding or other issues of concern. Medications: Reviewed: Yes Vitals/I&O/Wt Last Vital Signs Temp 99.4 F 08/08/24 09:06 Pulse 112 H 08/08/24 12:30 Resp 21 H 08/08/24 13:22 BP 106/68 08/08/24 12:30 Pulse Ox 93 08/08/24 13:22 O2 Del Method Mechanical Ventilation 08/08/24 07:38 O2 Flow Rate 3 08/07/24 09:48 FiO2 30 08/08/24 13:22 08/07/24 08/08/24 08/08/24 22:59 06:59 14:59 Intake Total 2332.657 / 3232.657 1214.413 / 4447.070 1334.286 / 1334.286 Output Total 350 / 350 300 / 650 Balance 1982.657 / 2882.657 914.413 / 3797.070 1334.286 / 1334.286 Weight last 48 hrs Weight 291 lb 0.163 oz Weight 290 lb Physical Exam 2 Const: COMMON NORMALS: no acute distress, patient oriented x3 and alert G ENERAL APPEARANCE: comfortable NUTRITIONAL APPEARANCE: obese O RIENTATION/CONSCIOUSNESS: Yes awake HENMT: COMMON NORMALS: normocephalic and atraumatic HEAD & SCALP: n ormocephalic and atraumatic Eye: GENERAL EYE: appearance normal, both eyes and all related structures Chest: COMMONS NORMALS: normal inspection of the chest Resp: COMMON NORMALS: normal respiratory effort EFFORT & INSPECTION: Yes able to speak in complete sentences and Yes symmetric chest movement Extremity: NARRATIVE EXTREMITY EXAM: Patient's bilateral lower extremities demonstrate changes of significant venous stasis. There is an ulcer on the anterior aspect of the left ankle which is the operative leg. There are multiple blisters and areas where the skin is open. There is no obvious evidence of infection, however. Dressings have been changed and reinforced. The patient is still intubated. Neuro: COMMON NORMALS: patient oriented x3 SENSORIUM/ORIENTATION: Yes alert Psych: COMMON NORMALS: mental status grossly normal APPEARANCE: Yes grossly normal ATTITUDE: Yes calm and Yes engaged ATTENTION/CONCENTRATION: Yes attention grossly intact Skin: COMMON NORMALS: no rashes or lesions noted GENERAL SKIN EXAM: no rashes or lesions noted Urinary Catheter Management: Cage: Cath Placed During This Visit: yes Reason for Continuing Indwelling Catheter: Accurate Measurement of Urinary Output in Critically Ill Patients Urinary Catheter Date of Insertion: 08/07/24 Urinary Catheter Time of Insertion: 11:45 Data 08/09/24 04:41 08/09/24 04:41 Micro: Microbiology 08/07/24 16:45 Gram Stain - Final Sputum - Endotracheal Tube Aspirate Sputum Culture - Preliminary 08/08/24 09:22 Blood Culture - Preliminary Blood SPECIMEN COLLECTED 08/08/24 08:11 Blood Culture - Preliminary Blood SPECIMEN COLLECTED A&P Assessment and plan (1) Subtrochanteric fracture of left femur: This morbidly obese patient with history of lymphedema and 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 Patient states the injury occurred on August 04, but he neglected to tell anybody or seek medical attention until yesterday, August 06. The patient underwent open reduction internal fixation of his very complex subtrochanteric fracture. He was transferred to the ICU directly from the operating room secondary to multiple medical issues. He continues to be monitored, and his therapy is very limited secondary to his medical comorbidities. He remains intubated at this time. Qualifiers: Encounter type: initial encounter Fracture type: closed Fracture alignment: displaced Qualified Code(s): S72.22XA - Displaced subtrochanteric fracture of left femur, initial encounter for closed fracture (2) Chronic embolism and thrombosis of left femoral vein: Attestations 2 Medical Necessity Statement*: Per hospitalist team. Coding Level of Care Code Acute Code for [facility] Fwd Diagnoses Closed displaced subtrochanteric fracture of left femur, initial encounter S72.22XA Encounter type: initial encounter Fracture type: closed Fracture alignment: displaced Chronic embolism and thrombosis of left femoral vein I82.512
[2024-08-08 15:04] LABS: Estmated Average Glucose 105; Hemoglobin A1C 5.3 % (4.0-6.0)
[2024-08-08] MEDS: sodium bicarbonate 150 MEQ in dextrose 5% 1,000 ML 100 MEQ IV (15:12)
[2024-08-08 15:26] LABS: Cortisol Random 27.82 ug/dL (2.47-19.5)
[2024-08-08 17:17] LABS: Basophils % 0.2 %; Lymphocytes # 1.4 10^3/uL (0.8-4.8); Lymphocytes % 7.4 %; Mean Corpuscular HGB Conc 32.1 g/dL (30-55); Mean Corpuscular Hemoglobin 28.4 pg (27-33); Mean Corpuscular Volume 88.5 fl (82-101); Mean Platelet Volume 11.1 fL (7.4-10.4); Monocytes # 1.8 10^3/uL (0.2-0.9); Monocytes % 9.3 %; Neutrophils # 15.39 10^3/uL (1.8-7.7); Neutrophils % 80.9 %; Nucleated Red Blood Cells # 0.2 /100WBC; Nucleated Red Blood Cells % 0.9 %; Platelet Count 188 10^3/cmm (157-399); Red Blood Count 2.18 10^6/uL (3.85-5.65); Red Cell Distribution Width 17.6 % (12.1-15.1); White Blood Count 19.01 10^3/uL (3.29-11.43)
[2024-08-08] MEDS: acetaminophen 500 mg Tablet PO (17:25)
[2024-08-08 17:30] LABS: Anion Gap 16.5 (5-19); Blood Urea Nitrogen 43 mg/dL (8-23); Calcium 6.9 mg/dL (8.5-10.5); Carbon Dioxide 27 mmol/L (22-29); Chloride 102 mmol/L (98-107); Glomerular Filtration Rate 37.8 mL/min (90-130); Glucose 275 mg/dL (65-115); Osmolality Calculated 313 mOsm/kg (285-295); Potassium 4.5 mmol/L (3.5-5.1); Sodium 141 mmol/L (136-145)
[2024-08-08 17:47] LABS: Glucose Point of Care 323 mg/dL (70-110)
[2024-08-08 17:51] LABS: Hematocrit 19.3 % (37-53)
--- NOTE | 2024-08-08 18:19 | PC.NURSE ---
Patient saturated two island dressings in about [address] Alfonso aware and gave instructions to change and reinforce dressings as needed.
[2024-08-08] MEDS: pantoprazole 40 mg SDV IVP (18:50)
--- NOTE | 2024-08-08 19:50 | PC.NURSE ---
Bed used to turn patient, for pressure relief on buttocks. Still on iv pressors for maintaining blood pressure- poor activity tolerance. Abrasion noted to buttocks with old healed pressure injury noted.
[2024-08-08] MEDS: ipratropium-albuterol 3 mL Neb INHALATION (21:01)
[2024-08-08] MEDS: fentaNYL 1,000 MCG/100 ML BAG 5 MCG IV (21:02)
[2024-08-08 21:29] LABS: Glucose Point of Care 332 mg/dL (70-110)
[2024-08-09] VITALS (85 sets, daily range): BP systolic 83–160; BP diastolic 34–109; PULSE 64–97; RESP 14–23; TEMP 37.3–38.9; O2SAT 95–100
[2024-08-09] MEDS: hydrocortisone 100 mg/2 mL SDV 50 MG IVP ×2 (00:34→07:46)
[2024-08-09] MEDS: norepinephrine 4 MG/250 ML BAG 75 MG IV ×2 (00:36→03:45)
[2024-08-09 03:29] LABS: ABG PCO2 42.1 mmHg (35-45); ABG PH Result 7.46 (7.35-7.45); Arterial Blood Gas Hematocrit 20.1 % (42-52); Base Excess ABG 5.5 mmol/L (-2.0-2.0); Blood Gas Sample Site A-LINE; Blood Gas Sample Type Arterial; HCO3 ABG 29.8 mmol/L (22-26); PO2 ABG 71.5 mmHg (80.0-100.0)
[2024-08-09 03:30] LABS: Blood Gas Operator Identificat ED; Oxygen Device VENT; PO2 FiO2 Ratio Arterial Blood 204
[2024-08-09] MEDS: sodium bicarbonate 150 MEQ in dextrose 5% 1,000 ML 100 MEQ IV (03:30)
--- NOTE | 2024-08-09 05:16 | PC.NURSE ---
Patient with poor tolerance to any activity ie lowering head of bed to pull patient up or assisted turn on bed. Requiring use of pressor agents to maintain bp.
[2024-08-09] MEDS: acetaminophen 500 mg Tablet PO (05:31)
[2024-08-09] MEDS: piperacillin-tazobactam 3.375 GM in sodium chloride 0.9% (plus) 50 ML IV (05:32)
[2024-08-09] MEDS: albumin 25 G/100 ML BAG 60 G IV ×3 (05:33→22:20)
[2024-08-09] MEDS: linezolid premix 600 MG/300 ML PREMIX 300 MG IV ×2 (05:33→17:18)
[2024-08-09 05:39] LABS: Basophils % 0.1 %; Lymphocytes # 1.3 10^3/uL (0.8-4.8); Lymphocytes % 9.6 %; Mean Corpuscular HGB Conc 31.9 g/dL (30-55); Mean Corpuscular Hemoglobin 28.8 pg (27-33); Mean Corpuscular Volume 90.4 fl (82-101); Mean Platelet Volume 11.2 fL (7.4-10.4); Monocytes # 1.5 10^3/uL (0.2-0.9); Monocytes % 11.1 %; Neutrophils # 10.49 10^3/uL (1.8-7.7); Neutrophils % 77.4 %; Nucleated Red Blood Cells # 0.1 /100WBC; Nucleated Red Blood Cells % 0.9 %; Platelet Count 151 10^3/cmm (157-399); Red Blood Count 2.08 10^6/uL (3.85-5.65); White Blood Count 13.57 10^3/uL (3.29-11.43)
[2024-08-09 05:48] LABS: INR 1.56 (0.8-1.2)
[2024-08-09 05:58] LABS: Hematocrit 18.8 % (37-53)
[2024-08-09 06:00] LABS: Lactate (Lactic Acid level) 1.9 mmol/L (0.5-2.2)
[2024-08-09 06:15] LABS: Alanine Aminotransferase 23 U/L (0-41); Albumin Level 2.9 g/dL (3.5-5.2); Alkaline Phosphatase 51 U/L (40-130); Anion Gap 15.8 (5-19); Aspartate Amino Transferase 212 U/L (0-40); Blood Urea Nitrogen 45 mg/dL (8-23); Calcium 7.1 mg/dL (8.5-10.5); Carbon Dioxide 28 mmol/L (22-29); Chloride 101 mmol/L (98-107); Creatinine Clr Calc Pharmacy 61.6493; Globulin 1.5 g/dL (1.3-4.6); Glomerular Filtration Rate 43.3 mL/min (90-130); Glucose 226 mg/dL (65-115); Osmolality Calculated 311 mOsm/kg (285-295); Potassium 3.8 mmol/L (3.5-5.1); Sodium 141 mmol/L (136-145); Total Bilirubin 3.7 mg/dL (0.15-1.2); Total Protein 4.4 g/dL (6.6-8.7)
--- NOTE | 2024-08-09 07:00 | XRR_ITS ---
PROCEDURE INFORMATION: Exam: XR Chest Exam date and time: 08/09/2024 7:06 AM Age: 69 years old Clinical indication: Shortness of breath; Additional info: Resp failure TECHNIQUE: Imaging protocol: Radiologic exam of the chest. Views: 1 view. COMPARISON: CR (CHEST, ) 08/08/2024 5:46 AM FINDINGS: Tubes, catheters and devices: Endotracheal tube is present with its tip 4.7 cm above the paul. Nasogastric tube is present with its tip overlying the fundus of the stomach. Central venous catheter seen on the left with its tip overlying the distal left brachiocephalic vein/SVC junction. Lungs: There may be minimal central vascular congestion. Hazy opacity at the left lung base may reflect a small amount of pleural fluid and atelectasis. Pleural spaces: Suspect small left pleural effusion. No pneumothorax is identified. Heart/Mediastinum: The heart is enlarged. There is calcified plaque involving the aorta. Bones/joints: Unremarkable. XR/XR chest 1V portable [id number] IMPRESSION: 1. Cardiomegaly with minimal central vascular congestion. 2. Hazy opacity at the left lung base may reflect a small amount of layering pleural fluid and atelectasis.
--- NOTE | 2024-08-09 07:17 | CT_ITS ---
WS: [id number] CT CHEST, ABDOMEN AND PELVIS NONCONTRAST. HISTORY: fever TECHNIQUE: Contiguous 5 mm axial imaging performed through the chest, abdomen and pelvis without IV c ontrast, oral contrast has not been provided. Coronal and sagittal reformats chest. Coronal and sagit tima reformats through the abdomen and pelvis. All CT scans at [facility] use at least one of these dose optimization techniques: automated exposure control; mA and/or kV adjustment per patient s ize (includes targeted exams where dose is matched to clinical indication); or iterative reconstructi on. CONTRAST: Omnipaque 350; 100 mL IV. DLP: 2468.02 mGy.cm COMPARISON: Pelvis CT 08/06/[address]: Patient is intubated. Breathing motion artifact. There is also a nasogastric tube terminati ng in the stomach. Bilateral subsegmental atelectasis at the lung bases. Very small bilateral pleural effusions. No pneumothorax. Heart is normal size to slightly enlarged. No adenopathy appreciated. Mi ld atherosclerosis aorta. Abdomen CT: Extensive streak artifact through the chest, abdomen and pelvis from patient's body habit us. Liver is slightly enlarged. Normal size spleen. Gallbladder is not identified. May've been surgically removed or contracted. There is an isodense area adjacent to the adjacent liver which could be a flu id-filled gallbladder. No adjacent inflammation. Bile ducts are obscured by body habitus. Mild atroph y of the pancreas. No renal obstruction. Mild atherosclerosis aorta. No ascites or adenopathy. No GI tract obstruction. No colitis identified. Large infraumbilical abdomi nal wall hernia contains a loop of GI tract. This does appear to be part of the colon. No fluid in th e hernia sac. No definite strangulation. Pelvic CT: No free fluid in the pelvis. Cage catheter in a nondistended bladder. Postsurgical air an d edema in the soft tissues surrounding the LEFT hip from the recent surgery. Patient's undergone rep air of the LEFT femur fracture since the prior exam. Advanced degenerative changes at each hip joint. Multiple compression fractures in the mid thoracic s pine without retropulsion. CT/[place] [id number] IMPRESSION: 1. Quality of this examination is compromised by body habitus. 2. Bibasilar atelectasis with very small bilateral pleural effusions. 3. Endotracheal tube in good position. 4. Nasogastric tube in good position. 5. Gallbladder not identified. May be surgically absent, contracted or isodens e to the adjacent liver. 6. No GI tract obstruction. 7. Infraumbilical hernia containing a loop of colon with no obstruction at thi s time. 8. No ascites or free air identified.
--- NOTE | 2024-08-09 07:17 | CT_ITS ---
WS: [id number] CT LEFT FOOT, NONCONTRAST HISTORY: include left ankle, exposed tendon Technique: All CT scans at [facility] use at least one of these dose optimization techniques: automated exposure control; mA and/or kV adjustment per patient size (includes targeted exams where dose is matched to clinical indication); or iterative reconstruction. DLP: 172.97 mGy.cm COMPARISON: None available. Bones are extensively osteopenic. Partial healed fracture mid fifth metatarsal diaphysis. Mild flatte joshua of the normal arch of the foot. Additional deformities involving the second through fourth metat arsal heads may be from prior healed fractures. Hammertoe deformities. Subtalar joint space narrowing . Large calcaneal spur. Large amount soft tissue edema surrounding the foot and visualized ankle. There is air in the soft ti ssues anterior, adjacent to the anterior tibialis tendon. The extensor hallucis longus and extensor d igitorum longus tendons are noted surrounded by edema but remain intact. CT/CT foot LT wo con* [id number] IMPRESSION: 1. Superficial soft tissue defect with air closely associated with the anterio r tibialis tendon. Edema associated with the soft tissue laceration. The tendon does not appear to be completely torn by noncontrast CT. 2. Severe osteopenia. 3. Partially healed fracture mid fifth metatarsal diaphysis.
[2024-08-09 07:19] LABS: Glucose Point of Care 264 mg/dL (70-110)
[2024-08-09] MEDS: norepinephrine 4 MG/250 ML BAG 67.5 MG IV (07:27)
[2024-08-09] MEDS: sertraline 50 mg Tablet PO (07:46)
[2024-08-09] MEDS: sennosides-docusate Tablet 1 TAB PO (07:46)
[2024-08-09] MEDS: insulin lispro 100 unit/1 mL SUBCUT ×4 (07:46→20:39)
[2024-08-09] MEDS: ipratropium-albuterol 3 mL Neb INHALATION ×2 (08:51→20:43)
[2024-08-09] MEDS: budesonide 0.5 mg/2 mL Neb INHALATION ×2 (08:51→20:43)
[2024-08-09] MEDS: meropenem 1,000 mg SDV 1000 MG IVP ×2 (09:48→16:36)
[2024-08-09] MEDS: norepinephrine 4 MG/250 ML BAG 60 MG IV (11:03)
--- NOTE | 2024-08-09 11:25 | PC.OT ---
OT EVALUATION HELD PATIENT IS STILL ON VENT
--- NOTE | 2024-08-09 11:52 | P.PN_ITS ---
Subjective 2 Subjective: Has weaned off pressor further. Has developed significant fever. Some oozing from left hip incision site. Patient alert on ventilator. Medications: Reviewed: Yes Vitals/I&O/Wt Last Vital Signs Temp 101.1 F H 08/09/24 08:11 Pulse 80 08/09/24 09:30 Resp 17 08/09/24 11:28 BP 157/75 08/09/24 09:30 Pulse Ox 95 08/09/24 11:28 O2 Del Method Mechanical Ventilation 08/09/24 08:00 O2 Flow Rate 3 08/07/24 09:48 FiO2 35 08/09/24 11:28 08/08/24 08/09/24 08/09/24 22:59 06:59 14:59 Intake Total 1645.792 / 4180.078 1811.525 / 5991.603 880.292 / 880.292 Output Total 350 / 350 400 / 750 Balance 1295.792 / 3830.078 1411.525 / 5241.603 880.292 / 880.292 Weight last 48 hrs Weight 133.719 kg Weight 132 kg Physical Exam 2 Narrative: General Exam alert and communicative Neck is supple Cardiovascular regular rate and rhythm Lungs clear Abdomen soft, obese, hernias noted Stage I decub on sacrum Extremities dressing left hip, some soft tissue fullness Wound noted lower extremities, left with some exposed tendon and some erythema surrounding but no obvious pus Urinary Catheter Management: Cage: Cath Placed During This Visit: yes Reason for Continuing Indwelling Catheter: Accurate Measurement of Urinary Output in Critically Ill Patients Urinary Catheter Date of Insertion: 08/07/24 Urinary Catheter Time of Insertion: 11:45 Data 08/09/24 04:41 08/09/24 04:41 Micro: Microbiology 08/08/24 09:22 Blood Culture - Preliminary Blood NEGATIVE TO DATE 08/08/24 08:11 Blood Culture - Preliminary Blood NEGATIVE TO DATE 08/07/24 16:45 Gram Stain - Final Sputum - Endotracheal Tube Aspirate Sputum Culture - Preliminary A&P Assessment and plan (1) Femur fracture, left: Postoperative day #2 Acute postoperative blood loss anemia Hypotension following surgery with significant metabolic acidosis During surgery received several liters of fluid, ultimately 4 units of blood including that given in the ICU, albumin, bicarb Qualifiers: Encounter type: initial encounter Fracture type: closed (2) Acute blood loss as cause of postoperative anemia: Patient has significant acute blood loss anemia. As he had his fracture on Tuesday, some of the blood evacuated with surgery did appear to be old blood. He has received 4 units of packed red blood cells near OR time. Has received 2 more units over the last 24 hours Check hemoglobin this afternoon following transfusion this morning INR improved (3) Hypotension: Significant hypotension following surgery. Multifactorial. Cortisol level not low, TSH normal Stop hydrocortisone at this point Epinephrine and vasopressin is off. Continue to wean norepinephrine. Discontinue bicarbonate drip Continue albumin for now Echocardiogram pending (4) Metabolic acidosis: Significant metabolic acidosis Currently on a bicarb drip. Discontinue at this time. Continue to monitor with BMP, repeat this afternoon (5) Respiratory failure: Came back from the OR with respiratory failure Some fluid overload and fever today. IV antibiotics added consisting of linezolid and Zosyn. Changed to meropenem. Chest x-ray ABG tomorrow (6) Acute kidney injury: Acute kidney injury secondary to hypotension Continue to monitor output through Cage Improving (7) Transaminitis: Significant transaminitis secondary to hypotension Enzymes improved, bilirubin higher. Suspect he will be recovering from this. INR high but correcting (8) Leukocytosis: significant leukocytosis Empiric linezolid, Zosyn Blood cultures Now with fever. Cultures negative to date. CT chest abdomen pelvis as well as left foot. CT of lower extremity demonstrates some edema, soft tissue defect but no pus. Chest abdomen pelvis with bibasilar atelectasis with small effusions, no real acute findings. Cannot rule out pneumonia (9) DVT (deep venous thrombosis): Patient with past history of DVT. On apixaban previously. Initiate heparin tonight. Will want to make sure he is significantly stabilized prior to reintroducing apixaban (10) CHF (congestive heart failure): Will likely have significant fluid overload following degree of quantity blood products and fluid received. Continue to monitor. Reducing fluids as tolerated Qualifiers: Heart failure type: unspecified Heart failure chronicity: chronic Qualified Code(s): I50.9 - Heart failure, unspecified (11) COPD (chronic obstructive pulmonary disease): Continue to monitor. Qualifiers: COPD type: unspecified COPD Qualified Code(s): J44.9 - Chronic obstructive pulmonary disease, unspecified Plan Elevated glucose. This was not significantly elevated on admission, around 150. Will check hemoglobin A1c. Doubt DKA but will keep in mind. Likely an effect of stress response as well as hydrocortisone. Will add mild sliding scale insulin and continue to monitor closely. Multiple other medical problems as outlined in past medical history including COPD Left ankle exposed tendon. Will consult podiatry. DNR Will initiate heparin this afternoon for DVT prophylaxis as does not appear to be currently actively losing blood. Attestations 2 Medical Necessity Statement*: Needs continued hospital stay for IV antibiotics secondary to fever, Critical Care Time: The high probability of a clinically significant, sudden or life threatening deterioration of the patient's [renal, infectious disease, hepatic] system(s) required my full and direct attention, intervention and personal management. The critical care time is as shown. This time is in addition to time spent performing any reported procedures but includes the following: [x] Data and vital sign review and interpretation [x] Patient assessment, examination and intervention [x] Documentation [x] Medication orders and management Critical Care Time (min): 40 Coding Level of Care Code Critical Care >/= 30 minutes Critical care time (in minutes): 40 The high probability of a clinically significant, sudden or life threatening deterioration, as referenced in this documentation, required my full and direct attention, intervention and personal management. The critical care time shown is in addition to time spent performing any reported separately billable procedures and includes the following: [x] Data and vital sign review and interpretation [x ] Patient assessment, examination and intervention [x] Medication orders and management [x] Patient/Family updates as able [x] Care Coordination and Documentation. Diagnoses Femur fracture, left S72.92XA Encounter type: initial encounter Fracture type: closed Acute blood loss as cause of postoperative anemia D62 Hypotension I95.9 Metabolic acidosis E87.20 Respiratory failure J96.90 Acute kidney injury N17.9 Transaminitis R74.01 Leukocytosis D72.829 DVT (deep venous thrombosis) I82.409 Chronic congestive heart failure, unspecified heart failure type I50.9 Heart failure type: unspecified Heart failure chronicity: chronic Chronic obstructive pulmonary disease, unspecified COPD type J44.9 COPD type: unspecified COPD
--- NOTE | 2024-08-09 12:26 | XR_ITS ---
WS: [id number] Exam: XR ankle LT min 3V* [id number] Date/Time of Exam: 08/09/2024 12:41 PM Reason For Exam: L ankle wound Comparison 01/14/2021. No acute ankle fracture. Mild degenerative change. Osteopenia. Soft tissue swelling about the ankle. Incidentally noted is a recent appearing midshaft fracture of the fifth metatarsal. XR/XR ankle LT min 3V* [id number] IMPRESSION: 1. No acute ankle fracture. Soft tissue swelling osteopenia. 2. Recent appearing midshaft fracture of the fifth metatarsal.
[2024-08-09] MEDS: FUROsemide 10 mg/mL SDV 2mL 20 MG IVP (12:28)
--- NOTE | 2024-08-09 12:31 | PM.CONSULT ---
Providers/Reason For Consult Consulting Physician/Specialty*: Mike Bowie D.P.M. Reason for Consult*: Left lower extremity wounds Attending Physician: Michael Arias MD Primary Care Provider: Odalis Stewart NP History of Present Illness History of Present Illness Willie Perez is a 69 year old male presenting with evaluation and management of lower extremity wounds. The presentation of these conditions follows a history of left hip fracture after a fall during a transfer on August 06, 2024. The subsequent open reduction and internal fixation of the left subtrochanteric and proximal third femur fracture was performed on August 07, 2024. The patient is currently bedbound in a usp. The patient's past medical history is significant for chronic venous insufficiency with venous ulceration, morbid obesity, and lower extremity edema. There is also a history of deep vein thrombosis, for which he is on long-term anticoagulation therapy with Eliquis. Additional relevant medical conditions include heart failure with preserved ejection fraction, obstructive sleep apnea, and coronary artery disease. Notably, the patient has a decubitus ulcer and ulcers on the left leg. Review of Systems General: Reports: 10 or more systems reviewed and unremarkable except in HPI and below Const: Denies: fever(s) or chills Eyes: Denies: change in vision Card: Denies: chest pain or palpitations Resp: Denies: dyspnea or productive cough GI: Denies: abdominal pain, nausea or vomiting : Denies: flank pain Musc: Reports: extremity swelling, joint stiffness and deformity Skin/Breast: Reports: erythema, sores, changes in skin color, dry skin, nail changes and change in hair Neuro: Reports: numbness in extremities, sensory changes and difficulty walking Psych: Denies: suicidal ideation Endo: Denies: change in body appearance Best/Lymph: Denies: tender lymph nodes Medications/Allergies Home Medications Medication Instructions Recorded Confirmed Last Taken Type aspirin 81 mg tablet,delayed 81 mg PO DAILY@0800 09/26/19 08/07/24 08/06/24 History release (Adult Aspirin Regimen) acetaminophen 325 mg tablet 650 mg PO Q4H PRN Pain 10/31/20 08/07/24 01/03/21 History bisacodyl 10 mg rectal suppository 10 mg MT DAILY PRN Constipation 10/31/20 08/07/24 Unknown History (Dulcolax (bisacodyl)) bisacodyl 5 mg tablet 20 mg PO DAILY PRN Constipation 10/31/20 08/07/24 Unknown History cholecalciferol (vitamin D3) 125 125 mcg PO DAILY@0800 12/10/20 08/07/24 08/06/24 History mcg (5,000 unit) capsule sertraline 50 mg tablet 50 mg PO DAILY@0800 12/10/20 08/07/24 08/06/24 History albuterol sulfate 90 mcg/actuation 2 puff inhalation Q6H PRN 01/14/21 08/07/24 08/06/24 History aerosol inhaler (Ventolin HFA) Shortness Of Breath apixaban 5 mg tablet 5 mg PO BID@0800,1700 01/14/21 08/07/24 08/06/24 History bumetanide 2 mg tablet 2 mg PO BID@0800,1700 01/14/21 08/07/24 08/06/24 History potassium chloride 20 mEq 20 meq PO BID@0800,1700 01/14/21 08/07/24 08/06/24 History tablet,extended release(part/cryst) (Klor-Con M) tiotropium bromide 18 mcg capsule 1 cap inhalation DAILY #30 03/11/21 08/07/24 08/06/24 Rx with inhalation device (Spiriva inhalations with HandiHaler) bismuth subsalicylate 262 mg/15 mL 524 mg PO DAILY PRN Nausea 07/10/23 08/07/24 Unknown History oral suspension (Pepto-Bismol) loperamide 2 mg tablet 2 mg PO .COMPLEX PRN Diarrhea 07/10/23 08/07/24 Unknown History (Anti-Diarrheal (loperamide)) multivitamin 1 tab PO DAILY 07/10/23 08/07/24 08/06/24 History sodium phosphates 19 gram-7 118 ml MT DAILY PRN Constipation 07/10/23 08/07/24 Unknown History gram/118 mL enema clotrimazole-betamethasone 1 1 applic topical BID PRN rash 08/07/24 08/07/24 Unknown History %-0.05 % topical cream fluticasone propionate 115 2 puff inhalation Q6H PRN wheezing 08/07/24 08/07/24 Unknown History mcg-salmeterol 21 mcg/actuation HFA inhaler (Advair HFA) hydrocodone 5 mg-acetaminophen 325 1 - 2 tab PO Q8H PRN pain 08/07/24 08/07/24 08/06/24 History mg tablet lidocaine 4 % topical cream 1 applic topical DAILY PRN Pain 08/07/24 08/07/24 Unknown History magnesium hydroxide 400 mg/5 mL 30 ml PO Q24H PRN constipation 08/07/24 08/07/24 Unknown History oral suspension (Milk of Magnesia) medroxyprogesterone 5 mg tablet 5 mg PO DAILY 08/07/24 08/07/24 08/06/24 History menthol 4 % topical gel (Biofreeze 1 applic topical QID PRN knee pain 08/07/24 08/07/24 Unknown History (menthol)) tramadol 50 mg tablet 50 mg PO Q12H PRN peripheral 08/07/24 08/07/24 Unknown History vascular disease Allergies Allergy/AdvReac Type Severity Reaction Status Date / Time No Known Allergies Allergy Verified 11/08/23 16:09 Current Medications Generic Name Dose Route Start Last Admin Trade Name Freq PRN Reason Stop Dose Admin Acetaminophen 500 mg 08/06/24 21:32 08/09/24 05:31 Acetaminophen 500 Mg Tablet PO 500 mg Q4H PRN Administration fever Albuterol/Ipratropium 3 ml 08/06/24 21:32 08/09/24 08:51 Ipratropium-Albuterol 3 Ml Neb INHALATION 3 ml Q6H PRN Administration SHORTNESS OF BREATH Budesonide 0.5 mg 08/07/24 20:00 08/09/24 08:51 Budesonide 0.5 Mg/2 Ml Neb INHALATION 0.5 mg BID.RESPIRATORY TAYLOR Administration Fentanyl 1,000 mcg in 100 mls @ 0 mls/hr 08/07/24 17:15 08/09/24 11:04 Sublimaze IV 75 mcg/hr .Q0M TAYLOR 7.5 mls/hr Titration Protocol Per Protocol Norepinephrine Bitartrate 4 mg in 250 mls @ 0 mls/hr 08/07/24 17:15 08/09/24 11:03 Levophed IV 16 mcg/min .Q0M TAYLOR 60 mls/hr Administration Protocol Per Protocol Linezolid 600 mg in 300 mls @ 300 mls/hr 08/08/24 06:30 08/09/24 07:02 Zyvox Premix IV Infused Q12H TAYLOR Infusion Protocol Albumin Human 25 g in 100 mls @ 60 mls/hr 08/08/24 06:30 08/09/24 05:33 Albumin IV 60 mls/hr Q8H TAYLOR Administration Insulin Human Lispro 0 unit 08/08/24 12:00 08/09/24 12:28 Insulin Lispro 100 Unit/1 Ml SUBCUT 4 unit WM&BEDTIME TAYLOR Administration Protocol Meropenem 1,000 mg 08/09/24 08:15 08/09/24 09:48 Meropenem 1,000 Mg Sdv IVP 1,000 mg Q8H TAYLOR Administration Protocol Ondansetron HCl 4 mg 08/06/24 21:32 08/07/24 06:31 Ondansetron 2 Mg/Ml Sdv 2 Ml IVP 4 mg Q6H PRN Administration NAUSEA AND VOMITING Pantoprazole Sodium 40 mg 08/08/24 18:45 08/08/24 18:50 Pantoprazole 40 Mg Sdv IVP 40 mg Q24H TAYLOR Administration Senna/Docusate Sodium 1 tab 08/07/24 09:00 08/09/24 07:46 Sennosides-Docusate Tablet PO 1 tab DAILY TAYLOR Administration Sertraline HCl 50 mg 08/08/24 08:00 08/09/24 07:46 Sertraline 50 Mg Tablet PO 50 mg DAILY@0800 TAYLOR Administration PFSH Acute PFSH: Medical History Muscle weakness (generalized) Personal history of other venous thrombosis and embolism Personal history of COVID-19 Duodenal ulcer, unspecified as acute or chronic, without hemorrhage or perforation 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 FPC (current) use of aspirin History of bleeding ulcers Morbid obesity with BMI of 40.0-44.9, adult Chronic respiratory failure with hypoxia COPD (chronic obstructive pulmonary disease) Bleeding ulcer DVT (deep venous thrombosis) Hypoxia CHF (congestive heart failure) Family History Mother Diabetes Father Cancer skin Social History Smoking and tobacco/nicotine status: unknown if used tobacco/nicotine Quit status (tobacco/nicotine): has quit using Year quit tobacco: 2019 Former quit date comment: Hx of 2 PPD x 50 Years Second hand smoke exposure: Yes Alcohol intake: never Substance/Drug Use: never Caregiver/support person: Yes Lives independently: No Housing: Longterm Marital status: Current occupational status: disabled Pets and animals: No Do you think of yourself as: Straight/Heterosexual Current gender identity: Male Vitals/I&O/Wt Last Vital Signs Temp 101.1 F H 08/09/24 08:11 Pulse 80 08/09/24 09:30 Resp 17 08/09/24 11:28 BP 157/75 08/09/24 09:30 Pulse Ox 95 08/09/24 11:28 O2 Del Method Mechanical Ventilation 08/09/24 08:00 O2 Flow Rate 3 08/07/24 09:48 FiO2 35 08/09/24 11:28 08/08/24 08/09/24 08/09/24 22:59 06:59 14:59 Intake Total 1645.792 / 4180.078 1811.525 / 5991.603 880.292 / 880.292 Output Total 350 / 350 400 / 750 Balance 1295.792 / 3830.078 1411.525 / 5241.603 880.292 / 880.292 Weight last 48 hrs Weight 294 lb 12.8 oz Weight 291 lb 0.163 oz Physical Exam Narrative: - Vascular- Diminished pedal pulses, diminished dorsalis pedis, and posterior tibial arteries bilaterally; pitting edema in bilateral lower extremity graded as +1; capillary refill time <5 seconds in distal hallux bilaterally. - Neurological- Diminished protective sensation in lower extremities. - Dermatological- Wound on left anterior ankle measuring 1.3 cm x 1.7 cm with exposed tibialis anterior tendon; bruising around wound; no purulent drainage or erythema. Stable, healing wound on left posterior leg. Chronic skin pigmentation changes consistent with hemosiderin staining in a gaiter distribution bilateral legs. - Musculoskeletal- No crepitus with palpation of soft tissues in bilateral lower extremity. Urinary Catheter Management: Cage: Cath Placed During This Visit: yes Reason for Continuing Indwelling Catheter: Accurate Measurement of Urinary Output in Critically Ill Patients Urinary Catheter Date of Insertion: 08/07/24 Urinary Catheter Time of Insertion: 11:45 Data 08/09/24 14:46 08/09/24 04:41 Micro: Microbiology 08/08/24 09:22 Blood Culture - Preliminary Blood NEGATIVE TO DATE 08/08/24 08:11 Blood Culture - Preliminary Blood NEGATIVE TO DATE 08/07/24 16:45 Gram Stain - Final Sputum - Endotracheal Tube Aspirate Sputum Culture - Preliminary A&P Assessment and plan (1) Chronic venous insufficiency: (2) Open wound of left ankle with tendon involvement: Qualifiers: Encounter type: initial encounter Qualified Code(s): S91.002A - Unspecified open wound, left ankle, initial encounter; S96.902A - Unspecified injury of unspecified muscle and tendon at ankle and foot level, left foot, initial encounter Plan 69-year-old male with a history of chronic venous insufficiency and obesity, presenting with lower extremity wounds. The primary site of concern is the left anterior ankle wound with tendon exposure, but presently shows no signs of infection. The patient's condition is likely exacerbated by his chronic venous insufficiency and immobility. Given the appearance of the exposed tendon and surrounding tissue, there is no current indication for surgical debridement. At the time of this examination, specific attention was given to the wound on his left anterior ankle, which measures 1.3 x 1.7 cm, with exposure of the tibialis anterior tendon. The tendon appears viable with appropriate coloration and no signs of devitalization. The surrounding tissue is bruised but without purulent drainage, erythema, cellulitis, or lymphangitic streaking. A secondary wound on the left posterior leg is noted as stable and healing without acute signs of infection. Wound care recommendations: - Change wound dressing once daily as instructed using hydrofera blue and Kerlix. Order placed for wound care dressings in patient's chart and discussed with his nurse in the ICU. - Watch for signs of infection, such as increasing redness, heat, swelling, or drainage. Coding Level of Care Code Acute Code for Chg Fwd Diagnoses Chronic venous insufficiency I87.2 Open wound of left ankle with tendon involvement, initial encounter S91.002A; S96.902A Encounter type: initial encounter
[2024-08-09 12:42] LABS: Glucose Point of Care 189 mg/dL (70-110)
--- NOTE | 2024-08-09 13:10 | PM.PN ---
Subjective Subjective: Patient is still intubated in the ICU. He is having dressing changes and wound care will become involved. He is to have a CT today for elevated temperature. CT will be of the abdomen chest and pelvis. Dressings are being reinforced. Medications: Reviewed: Yes Vitals/I&O/Wt Last Vital Signs Temp 101.1 F H 08/09/24 08:11 Pulse 72 08/09/24 12:30 Resp 17 08/09/24 11:28 BP 135/43 08/09/24 12:30 Pulse Ox 98 08/09/24 12:30 O2 Del Method Mechanical Ventilation 08/09/24 08:00 O2 Flow Rate 3 08/07/24 09:48 FiO2 35 08/09/24 11:28 08/08/24 08/09/24 08/09/24 22:59 06:59 14:59 Intake Total 1645.792 / 4180.078 1811.525 / 5991.603 880.292 / 880.292 Output Total 350 / 350 400 / 750 Balance 1295.792 / 3830.078 1411.525 / 5241.603 880.292 / 880.292 Weight last 48 hrs Weight 294 lb 12.8 oz Weight 291 lb 0.163 oz Physical Exam Const: COMMON NORMALS: no acute distress, patient oriented x3 and alert GENERAL APPEARANCE: comfortable NUTRITIONAL APPEARANCE: obese ORIENTATION/CONSCIOUSNESS: Yes awake HENMT: COMMON NORMALS: normocephalic and atraumatic HEAD & SCALP: normocephalic and atraumatic Eye: GENERAL EYE: appearance normal, both eyes and all related structures Chest: COMMONS NORMALS: normal inspection of the chest Resp: COMMON NORMALS: normal respiratory effort EFFORT & INSPECTION: Yes able to speak in complete sentences and Yes symmetric chest movement Extremity: NARRATIVE EXTREMITY EXAM: Patient's bilateral lower extremities demonstrate changes of significant venous stasis. There is an ulcer on the anterior aspect of the left ankle which is the operative leg. There are multiple blisters and areas where the skin is open. There is no obvious evidence of infection, however. Dressings have been changed and reinforced. The patient is still intubated. Neuro: COMMON NORMALS: patient oriented x3 SENSORIUM/ORIENTATION: Yes alert Psych: COMMON NORMALS: mental status grossly normal APPEARANCE: Yes grossly normal ATTITUDE: Yes calm and Yes engaged ATTENTION/CONCENTRATION: Yes attention grossly intact Skin: COMMON NORMALS: no rashes or lesions noted GENERAL SKIN EXAM: no rashes or lesions noted Urinary Catheter Management: Cage: Cath Placed During This Visit: yes Reason for Continuing Indwelling Catheter: Accurate Measurement of Urinary Output in Critically Ill Patients Urinary Catheter Date of Insertion: 08/07/24 Urinary Catheter Time of Insertion: 11:45 Data 08/09/24 04:41 08/09/24 04:41 Micro: Microbiology 08/07/24 16:45 Gram Stain - Final Sputum - Endotracheal Tube Aspirate Sputum Culture - Preliminary 08/08/24 09:22 Blood Culture - Preliminary Blood NEGATIVE TO DATE 08/08/24 08:11 Blood Culture - Preliminary Blood NEGATIVE TO DATE A&P Assessment and plan (1) Subtrochanteric fracture of left femur: This morbidly obese patient with history of lymphedema and 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 Patient states the injury occurred on August 04, but he neglected to tell anybody or seek medical attention until yesterday, August 06. The patient underwent open reduction internal fixation of his very complex subtrochanteric fracture. He was transferred to the ICU directly from the operating room secondary to multiple medical issues. He continues to be monitored, and his therapy is very limited secondary to his medical comorbidities. He remains intubated at this time. There has been very little change in his status orthopedically. Qualifiers: Encounter type: initial encounter Fracture type: closed Fracture alignment: displaced Qualified Code(s): S72.22XA - Displaced subtrochanteric fracture of left femur, initial encounter for closed fracture (2) Chronic embolism and thrombosis of left femoral vein: Attestations Medical Necessity Statement*: Per medical service. Coding Level of Care Code Acute Code for [facility] Fwd Diagnoses Closed displaced subtrochanteric fracture of left femur, initial encounter S72.22XA Encounter type: initial encounter Fracture type: closed Fracture alignment: displaced Chronic embolism and thrombosis of left femoral vein I82.512
[2024-08-09] MEDS: fentaNYL 1,000 MCG/100 ML BAG 7.5 MCG IV (14:38)
[2024-08-09 15:27] LABS: Hematocrit 19.7 % (37-53)
[2024-08-09] MEDS: sodium chloride 0.9% 100 mL Bag 50 ML IV (16:33)
[2024-08-09 16:36] LABS: Glucose Point of Care 178 mg/dL (70-110)
[2024-08-09] MEDS: pantoprazole 40 mg SDV IVP (17:18)
[2024-08-09] MEDS: norepinephrine 4 MG/250 ML BAG 30 MG IV (17:18)
[2024-08-09 20:31] LABS: Glucose Point of Care 159 mg/dL (70-110)
[2024-08-09 22:06] LABS: Hematocrit 21.2 % (37-53)
[2024-08-10] VITALS (109 sets, daily range): BP systolic 94–148; BP diastolic 41–73; PULSE 57–91; RESP 11–21; TEMP 36.6–37.7; O2SAT 90–100
[2024-08-10] MEDS: fentaNYL 1,000 MCG/100 ML BAG 7.5 MCG IV (00:05)
[2024-08-10] MEDS: meropenem 1,000 mg SDV 1000 MG IVP ×4 (00:20→23:20)
[2024-08-10] MEDS: ipratropium-albuterol 3 mL Neb INHALATION ×2 (02:26→07:57)
[2024-08-10 02:35] LABS: ABG PCO2 41.5 mmHg (35-45); ABG PH Result 7.46 (7.35-7.45); Arterial Blood Gas Hematocrit 19.9 % (42-52); Base Excess ABG 5.1 mmol/L (-2.0-2.0); Blood Gas Operator Identificat ED; Blood Gas Sample Site A-LINE; Blood Gas Sample Type Arterial; HCO3 ABG 29.4 mmol/L (22-26); Oxygen Device VENT; PO2 ABG 86.2 mmHg (80.0-100.0); PO2 FiO2 Ratio Arterial Blood 246
[2024-08-10 03:24] LABS: Basophils % 0.1 %; Eosinophils # 0.1 10^3/uL (0.0-0.8); Eosinophils % 0.6 %; Lymphocytes # 1.3 10^3/uL (0.8-4.8); Lymphocytes % 13.2 %; Mean Corpuscular HGB Conc 32.5 g/dL (30-55); Mean Corpuscular Hemoglobin 29.1 pg (27-33); Mean Corpuscular Volume 89.4 fl (82-101); Mean Platelet Volume 10.9 fL (7.4-10.4); Monocytes % 9.8 %; Neutrophils # 7.44 10^3/uL (1.8-7.7); Neutrophils % 74.4 %; Nucleated Red Blood Cells # 0.1 /100WBC; Nucleated Red Blood Cells % 0.6 %; Platelet Count 108 10^3/cmm (157-399); Red Blood Count 2.27 10^6/uL (3.85-5.65); Red Cell Distribution Width 16.2 % (12.1-15.1)
[2024-08-10 03:56] LABS: Alanine Aminotransferase 21 U/L (0-41); Alkaline Phosphatase 51 U/L (40-130); Anion Gap 14.1 (5-19); Aspartate Amino Transferase 149 U/L (0-40); Blood Urea Nitrogen 35 mg/dL (8-23); Calcium 7.4 mg/dL (8.5-10.5); Carbon Dioxide 29 mmol/L (22-29); Chloride 103 mmol/L (98-107); Creatinine Clr Calc Pharmacy 89.6717; Globulin 1.5 g/dL (1.3-4.6); Glomerular Filtration Rate 66.8 mL/min (90-130); Glucose 137 mg/dL (65-115); Magnesium 2.1 mg/dL (1.7-2.3); Osmolality Calculated 306 mOsm/kg (285-295); Potassium 3.1 mmol/L (3.5-5.1); Sodium 143 mmol/L (136-145); Total Bilirubin 5.8 mg/dL (0.15-1.2); Total Protein 4.5 g/dL (6.6-8.7)
[2024-08-10 04:02] LABS: Hematocrit 20.3 % (37-53)
[2024-08-10] MEDS: albumin 25 G/100 ML BAG 60 G IV ×3 (05:40→19:30)
[2024-08-10] MEDS: linezolid premix 600 MG/300 ML PREMIX 300 MG IV ×2 (05:40→18:06)
[2024-08-10] MEDS: norepinephrine 4 MG/250 ML BAG 15 MG IV (05:40)
[2024-08-10] MEDS: sodium chloride 0.9% 50 mL Bag IV (05:41)
--- NOTE | 2024-08-10 07:00 | XR_ITS ---
WS: [id number] Exam: XR chest 1V portable [id number] Date/Time of Exam: 08/10/2024 7:08 AM Reason For Exam: resp failure Comparison 08/09/2024 at 7:06 a.m. Endotracheal tube ends about 6 cm above the paul in good position. A left-sided IJ catheter ends in the lower one third of the SVC. An enteric tube is looped in the expected region of the stomach. The re is consolidating infiltrate in the LEFT retrocardiac region there is also mild patchy infiltrate i n the RIGHT basal region. The heart is enlarged but unchanged in size. The mediastinum is normal in c ontour. Bony elements are intact. Increased pulmonary vascularity. IMPRESSION1. Consolidating infiltrate in the LEFT lower lobe as well as patchy infiltrate in the RIGH T lower lobe. Little change since previous exam. 2. ET tube, enteric tube and IJ central line all in satisfactory location.
[2024-08-10 07:21] LABS: Glucose Point of Care 186 mg/dL (70-110)
[2024-08-10] MEDS: budesonide 0.5 mg/2 mL Neb INHALATION ×2 (07:57→20:37)
[2024-08-10] MEDS: potassium chloride oral liq 20 mEq/15 mL UDC 40 MEQ PO (08:37)
[2024-08-10] MEDS: FUROsemide 10 mg/mL SDV 4mL 40 MG IVP (08:37)
[2024-08-10] MEDS: lidocaine 1% 5 ML in potassium chloride premix 100 ML 26.25 ML IV (08:37)
[2024-08-10] MEDS: sertraline 50 mg Tablet PO (08:38)
[2024-08-10] MEDS: insulin lispro 100 unit/1 mL SUBCUT (08:38)
[2024-08-10] MEDS: sennosides-docusate Tablet 1 TAB PO (08:38)
--- NOTE | 2024-08-10 09:04 | PC.SOCIAL ---
IMM Update pg 2 of IMM Updated and reviewed w/ patients via phone. Copy left @ bedside and copy dated, initialed and placed in chart.
--- NOTE | 2024-08-10 09:49 | P.PN_ITS ---
Subjective 2 Subjective: Awake and alert this morning. Still having some oozing from his left hip. On some pain medication continuous while on the ventilator. 1 unit of blood ordered by bronc buster for this morning. Hemoglobin was less than 7. Medications: Reviewed: Yes Vitals/I&O/Wt Last Vital Signs Temp 99.5 F 08/10/24 08:55 Pulse 68 08/10/24 08:55 Resp 14 08/10/24 08:55 BP 128/49 08/10/24 08:55 Pulse Ox 96 08/10/24 08:55 O2 Del Method Mechanical Ventilation 08/10/24 08:00 O2 Flow Rate 3 08/07/24 09:48 FiO2 35 08/10/24 08:01 08/09/24 08/10/24 08/10/24 22:59 06:59 14:59 Intake Total 2162.25 / 3616.292 707.208 / 4323.500 508.50 / 508.50 Output Total 950 / 950 1075 / 2025 500 / 500 Balance 1212.25 / 2666.292 -367.792 / 2298.500 8.50 / 8.50 Weight last 48 hrs Weight 134.218 kg Weight 133.719 kg Physical Exam 2 Narrative: General Exam alert and communicative Neck is supple Cardiovascular regular rate and rhythm Lungs clear Abdomen soft, obese, hernias noted Stage I decub on sacrum Extremities dressing left hip, some soft tissue fullness Wound noted lower extremities, left with some exposed tendon and some erythema surrounding but no obvious pus Urinary Catheter Management: Cage: Cath Placed During This Visit: yes Reason for Continuing Indwelling Catheter: Accurate Measurement of Urinary Output in Critically Ill Patients Urinary Catheter Date of Insertion: 08/07/24 Urinary Catheter Time of Insertion: 11:45 Data 08/10/24 02:39 08/10/24 02:39 Micro: Microbiology 08/07/24 16:45 Gram Stain - Final Sputum - Endotracheal Tube Aspirate Sputum Culture - Preliminary 08/08/24 09:22 Blood Culture - Preliminary Blood NEGATIVE TO DATE 08/08/24 08:11 Blood Culture - Preliminary Blood NEGATIVE TO DATE A&P Assessment and plan (1) Femur fracture, left: Postoperative day #3 Acute postoperative blood loss anemia Hypotension following surgery with significant metabolic acidosis During surgery received several liters of fluid, ultimately 4 units of blood including that given in the ICU, albumin, bicarb Qualifiers: Encounter type: initial encounter Fracture type: closed (2) Acute blood loss as cause of postoperative anemia: Patient has significant acute blood loss anemia. As he had his fracture on Tuesday, some of the blood evacuated with surgery did appear to be old blood. He has received 4 units of packed red blood cells near OR time. Has received 4 more units since surgery Check hemoglobin this afternoon following transfusion this morning Recheck INR tomorrow INR was correcting, concerned about giving FFP in this patient with history of DVT and on prior anticoagulation with apixaban (3) Hypotension: Significant hypotension following surgery. Multifactorial. Cortisol level not low, TSH normal Hydrocortisone was stopped Epinephrine and vasopressin is off. Norepinephrine nearly weaned off Bicarbonate drip discontinued on the Change albumin to every 12 hours Echocardiogram poor quality, probably normal EF (4) Metabolic acidosis: Significant metabolic acidosis has resolved Now off bicarbonate drip (5) Respiratory failure: Came back from the OR with respiratory failure Some fluid overload and fever today. IV antibiotics added consisting of meropenem and Zosyn. Cultures negative to date. Fevers decreasing Does have some evidence of pneumonia on chest x-ray Possible extubation today (6) Acute kidney injury: Acute kidney injury secondary to hypotension Continue to monitor output through Cage Resolved (7) Transaminitis: Significant transaminitis secondary to hypotension Enzymes improved, bilirubin higher. Suspect he will be recovering from this. INR high but correcting (8) Leukocytosis: Improving Empiric linezolid, meropenem Blood cultures negative to date Less episodes of fever. Cultures negative to date. CT chest abdomen pelvis as well as left foot. CT of lower extremity demonstrates some edema, soft tissue defect but no pus. Chest abdomen pelvis with bibasilar atelectasis with small effusions, no real acute findings. Likely this is attributed to pneumonia. Does have significant open wound with tendon involvement left lower extremity but doubt this is driving fever. Podiatry consult noted (9) DVT (deep venous thrombosis): Patient with past history of DVT. On apixaban previously. Initiate heparin subcutaneous or Lovenox when able, with plan to eventually restart Eliquis. Does still have some postoperative oozing and needing blood transfusion and therefore have not restarted anticoagulation (10) CHF (congestive heart failure): Will likely have significant fluid overload following degree of quantity blood products and fluid received. Continue to monitor. Reduce fluids. Lasix 40 mg IV today Qualifiers: Heart failure type: unspecified Heart failure chronicity: chronic Qualified Code(s): I50.9 - Heart failure, unspecified (11) COPD (chronic obstructive pulmonary disease): Continue to monitor. Qualifiers: COPD type: unspecified COPD Qualified Code(s): J44.9 - Chronic obstructive pulmonary disease, unspecified Plan Hypoglycemia, supplement Elevated glucose. Improved. Hemoglobin A1c not elevated Multiple other medical problems as outlined in past medical history including COPD Left ankle exposed tendon. Appreciate podiatry consult DNR Initiate heparin subcutaneous or other anticoagulation when not requiring transfusion secondary to postoperative oozing Attestations 2 Medical Necessity Statement*: Needs continued hospital stay secondary respiratory failure requiring ventilation, hypotension, pneumonia requiring IV antibiotics Critical Care Time: The high probability of a clinically significant, sudden or life threatening deterioration of the patient's [renal, hepatic, respiratory, infectious disease] system(s) required my full and direct attention, intervention and personal management. The critical care time is as shown. This time is in addition to time spent performing any reported procedures but includes the following: [x] Data and vital sign review and interpretation [x] Patient assessment, examination and intervention [x] Documentation [x] Medication orders and management Critical Care Time (min): 39 Coding Level of Care Code Critical Care >/= 30 minutes Critical care time (in minutes): 39 The high probability of a clinically significant, sudden or life threatening deterioration, as referenced in this documentation, required my full and direct attention, intervention and personal management. The critical care time shown is in addition to time spent performing any reported separately billable procedures and includes the following: [x] Data and vital sign review and interpretation [x ] Patient assessment, examination and intervention [x] Medication orders and management [x] Patient/Family updates as able [x] Care Coordination and Documentation. Diagnoses Femur fracture, left S72.92XA Encounter type: initial encounter Fracture type: closed Acute blood loss as cause of postoperative anemia D62 Hypotension I95.9 Metabolic acidosis E87.20 Respiratory failure J96.90 Acute kidney injury N17.9 Transaminitis R74.01 Leukocytosis D72.829 DVT (deep venous thrombosis) I82.409 Chronic congestive heart failure, unspecified heart failure type I50.9 Heart failure type: unspecified Heart failure chronicity: chronic Chronic obstructive pulmonary disease, unspecified COPD type J44.9 COPD type: unspecified COPD
--- NOTE | 2024-08-10 11:07 | PC.OT ---
HOLD OT EVAL PER DR ORDERS; WILL ATTEMPT AGAIN AT LATER TIME.
--- NOTE | 2024-08-10 11:23 | PC.NURSE ---
Patient was successfully extubated at 1102 by RT.
[2024-08-10 12:00] LABS: Glucose Point of Care 132 mg/dL (70-110)
--- NOTE | 2024-08-10 12:10 | P.PN_ITS ---
Subjective 2 Subjective: Patient is extubated and in his room. He is aware and communicating appropriately. He will be returning to his nursing facility at time of discharge. He is to remain touchdown weightbearing and will work with physical therapy as tolerated. Medications: Reviewed: Yes Vitals/I&O/Wt Last Vital Signs Temp 99.5 F 08/10/24 08:55 Pulse 71 08/10/24 12:00 Resp 14 08/10/24 12:00 BP 121/44 08/10/24 12:00 Pulse Ox 96 08/10/24 12:00 O2 Del Method Nasal Cannula 08/10/24 12:00 O2 Flow Rate 4 08/10/24 12:00 FiO2 35 08/10/24 11:00 08/09/24 08/10/24 08/10/24 22:59 06:59 14:59 Intake Total 2162.25 / 3616.292 707.208 / 4323.500 526.417 / 526.417 Output Total 950 / 950 1075 / 2025 500 / 500 Balance 1212.25 / 2666.292 -367.792 / 2298.500 26.417 / 26.417 Weight last 48 hrs Weight 295 lb 14.4 oz Weight 294 lb 12.8 oz Physical Exam 2 Const: COMMON NORMALS: no acute distress, patient oriented x3 and alert G ENERAL APPEARANCE: comfortable NUTRITIONAL APPEARANCE: obese O RIENTATION/CONSCIOUSNESS: Yes awake HENMT: COMMON NORMALS: normocephalic and atraumatic HEAD & SCALP: n ormocephalic and atraumatic Eye: GENERAL EYE: appearance normal, both eyes and all related structures Chest: COMMONS NORMALS: normal inspection of the chest Resp: COMMON NORMALS: normal respiratory effort EFFORT & INSPECTION: Yes able to speak in complete sentences and Yes symmetric chest movement Extremity: NARRATIVE EXTREMITY EXAM: Patient's bilateral lower extremities demonstrate changes of significant venous stasis. There is an ulcer on the anterior aspect of the left ankle which is the operative leg. There are multiple blisters and areas where the skin is open. There is no obvious evidence of infection, however. Dressings have been changed and reinforced. The patient has been extubated. Treatment for the ankle wound is being determined by Dr. Bowie, and this is not evaluated. Femoral incision, although leaking serous drainage, looks good without evidence of infection. Neuro: COMMON NORMALS: patient oriented x3 SENSORIUM/ORIENTATION: Yes alert Psych: COMMON NORMALS: mental status grossly normal APPEARANCE: Yes grossly normal ATTITUDE: Yes calm and Yes engaged ATTENTION/CONCENTRATION: Yes attention grossly intact Skin: COMMON NORMALS: no rashes or lesions noted GENERAL SKIN EXAM: no rashes or lesions noted Urinary Catheter Management: Cage: Cath Placed During This Visit: yes Reason for Continuing Indwelling Catheter: Accurate Measurement of Urinary Output in Critically Ill Patients Urinary Catheter Date of Insertion: 08/07/24 Urinary Catheter Time of Insertion: 11:45 Data 08/10/24 14:25 08/10/24 02:39 Micro: Microbiology 08/07/24 16:45 Gram Stain - Final Sputum - Endotracheal Tube Aspirate Sputum Culture - Preliminary 08/08/24 09:22 Blood Culture - Preliminary Blood NEGATIVE TO DATE 08/08/24 08:11 Blood Culture - Preliminary Blood NEGATIVE TO DATE A&P Assessment and plan (1) Femur fracture, left: Patient remains in the ICU after open reduction internal fixation of his subtrochanteric and femoral shaft fractures. He is extubated at this time, but was intubated until today. The patient has had limited ability to work with physical therapy. This will begin as tolerated and per hospitalist clearance. Plan is that he would return to [facility] as that is his normal place of residence. He is to be touchdown weightbearing only. He will also need to be taught transfers. Qualifiers: Encounter type: initial encounter Fracture type: closed Fracture alignment: displaced Femur location: shaft Fracture morphology: spiral Qualified Code(s): S72.342A - Displaced spiral fracture of shaft of left femur, initial encounter for closed fracture (2) Subtrochanteric fracture of left femur: Qualifiers: Encounter type: initial encounter Fracture type: closed Fracture alignment: displaced Qualified Code(s): S72.22XA - Displaced subtrochanteric fracture of left femur, initial encounter for closed fracture (3) Chronic venous insufficiency: (4) Chronic embolism and thrombosis of left femoral vein: Attestations 2 Medical Necessity Statement*: Per hospitalist team. Coding Level of Care Code Acute Code for [facility] Fwd Diagnoses Closed displaced spiral fracture of shaft of left femur, initial encounter S72.342A Encounter type: initial encounter Fracture type: closed Fracture alignment: displaced Femur location: shaft Fracture morphology: spiral Closed displaced subtrochanteric fracture of left femur, initial encounter S72.22XA Encounter type: initial encounter Fracture type: closed Fracture alignment: displaced Chronic venous insufficiency I87.2 Chronic embolism and thrombosis of left femoral vein I82.512
--- NOTE | 2024-08-10 14:36 | PC.NURSE ---
Addendum entered by Vic Cowart RN 08/10/24 16:40: witness the waste Original Note: DEON Ho witnessed this nurse waist: Fentanyl- 16.458
[2024-08-10 14:45] LABS: Hematocrit 25.1 % (37-53)
[2024-08-10] MEDS: HYDROmorphone 1 mg/mL INJ 1 mL 0.4 MG IVP ×2 (15:49→23:20)
[2024-08-10 17:30] LABS: Glucose Point of Care 131 mg/dL (70-110)
[2024-08-10 17:45] LABS: MRSA PCR OZH (swab) MRSA Detected (Negative)
[2024-08-10] MEDS: pantoprazole 40 mg SDV IVP (18:06)
[2024-08-10 19:35] LABS: Glucose Point of Care 107 mg/dL (70-110)
[2024-08-11] VITALS (61 sets, daily range): BP systolic 86–136; BP diastolic 46–96; PULSE 58–93; RESP 11–23; TEMP 36.2–37; O2SAT 88–100
[2024-08-11 04:00] LABS: Basophils % 0.3 %; Eosinophils # 0.3 10^3/uL (0.0-0.8); Eosinophils % 4.7 %; Hematocrit 25.8 % (37-53); Lymphocytes % 15.6 %; Mean Corpuscular HGB Conc 32.2 g/dL (30-55); Mean Corpuscular Hemoglobin 30.1 pg (27-33); Mean Corpuscular Volume 93.5 fl (82-101); Mean Platelet Volume 10.9 fL (7.4-10.4); Monocytes # 0.5 10^3/uL (0.2-0.9); Monocytes % 7.3 %; Neutrophils # 4.38 10^3/uL (1.8-7.7); Neutrophils % 68.5 %; Nucleated Red Blood Cells # 0.1 /100WBC; Nucleated Red Blood Cells % 1.4 %; Platelet Count 98 10^3/cmm (157-399); Red Blood Count 2.76 10^6/uL (3.85-5.65); Red Cell Distribution Width 16.6 % (12.1-15.1)
[2024-08-11 04:20] LABS: INR 1.11 (0.8-1.2)
[2024-08-11 04:31] LABS: Alanine Aminotransferase 41 U/L (0-41); Albumin Level 3.3 g/dL (3.5-5.2); Alkaline Phosphatase 59 U/L (40-130); Anion Gap 12.7 (5-19); Aspartate Amino Transferase 147 U/L (0-40); Blood Urea Nitrogen 32 mg/dL (8-23); Calcium 8.2 mg/dL (8.5-10.5); Carbon Dioxide 30 mmol/L (22-29); Chloride 105 mmol/L (98-107); Creatinine Clr Calc Pharmacy 109.8235; Globulin 1.8 g/dL (1.3-4.6); Glomerular Filtration Rate 84.2 mL/min (90-130); Glucose 149 mg/dL (65-115); Magnesium 2.2 mg/dL (1.7-2.3); Osmolality Calculated 308 mOsm/kg (285-295); Potassium 3.7 mmol/L (3.5-5.1); Sodium 144 mmol/L (136-145); Total Bilirubin 3.9 mg/dL (0.15-1.2); Total Protein 5.1 g/dL (6.6-8.7)
--- NOTE | 2024-08-11 05:20 | PC.NURSE ---
Patient was offered bed bath and refused. Patient has also refused turning tonight.
[2024-08-11] MEDS: linezolid premix 600 MG/300 ML PREMIX 300 MG IV ×2 (05:58→18:33)
[2024-08-11 08:01] LABS: Glucose Point of Care 113 mg/dL (70-110)
[2024-08-11] MEDS: albumin 25 G/100 ML BAG 60 G IV ×2 (08:27→19:37)
[2024-08-11] MEDS: sennosides-docusate Tablet 1 TAB PO (08:27)
[2024-08-11] MEDS: sertraline 50 mg Tablet PO (08:27)
[2024-08-11] MEDS: meropenem 1,000 mg SDV 1000 MG IVP ×3 (08:27→23:23)
[2024-08-11] MEDS: budesonide 0.5 mg/2 mL Neb INHALATION ×2 (09:10→19:54)
[2024-08-11] MEDS: ipratropium-albuterol 3 mL Neb INHALATION (09:10)
[2024-08-11] MEDS: HYDROmorphone 1 mg/mL INJ 1 mL 0.4 MG IVP (09:14)
[2024-08-11 11:22] LABS: Glucose Point of Care 136 mg/dL (70-110)
[2024-08-11 12:31] LABS: Vitamin B12 468 pg/mL (232-1245)
[2024-08-11] MEDS: pantoprazole 40 mg SDV IVP ×2 (14:00→23:23)
--- NOTE | 2024-08-11 14:43 | PM.PN ---
Subjective Subjective: Hospital course, labs appreciated. On examination patient lying comfortably in bed, awake and alert. Off pressors. Levophed weaned off around 2 AM. Otherwise has remained hemodynamically stable and afebrile. Currently on minimal oxygen supplementation of up to 1 to 2 L to maintain saturation. Nursing staff noticing superficial peeling of skin on minimal touch along with oozing from the skin. Medications: Reviewed: Yes Vitals/I&O/Wt Last Vital Signs Temp 97.3 F L 08/11/24 12:00 Pulse 80 08/11/24 13:00 Resp 14 08/11/24 13:00 BP 112/55 08/11/24 13:00 Pulse Ox 91 08/11/24 13:00 O2 Del Method Nasal Cannula 08/11/24 13:00 O2 Flow Rate 1.5 08/11/24 13:00 FiO2 35 08/10/24 11:00 08/10/24 08/11/24 08/11/24 22:59 06:59 14:59 Intake Total 845 / 1371.417 112.875 / 1484.292 Output Total 250 / 1450 350 / 1800 Balance 595 / -78.583 -237.125 / -315.708 Weight last 48 hrs Weight 133.719 kg Weight 134.218 kg Physical Exam Narrative: General: No acute distress, AO x3, chronically sick appearing, morbidly obese HEENT: PERRLA, pupils bilaterally equal and reactive Chest: Normal vesicular breath sounds, decreased air entry all over lung sarah CVS: S1-S2 regular, no murmurs, no tachycardia, no gallops, no rubs Abdomen: Soft, nontender, no organomegaly, bowel sounds present Neuro: No focal deficits, no facial deformity, AO x3, power not assessed Skin: Multiple wounds present all over the body of different stage, multiple superficial skin tear Extremity: Skin changes seen on the right leg associated with poor circulation, left leg surgically bandaged with minimal soakage Cage in place Urinary Catheter Management: Cage: Cath Placed During This Visit: yes Reason for Continuing Indwelling Catheter: Accurate Measurement of Urinary Output in Critically Ill Patients Urinary Catheter Date of Insertion: 08/07/24 Urinary Catheter Time of Insertion: 11:45 Data 08/11/24 03:49 08/11/24 03:49 Micro: Microbiology 08/07/24 16:45 Gram Stain - Final Sputum - Endotracheal Tube Aspirate Sputum Culture - Preliminary A&P Assessment and plan (1) Femur fracture, left: Postoperative day #4, Complicated with acute postoperative blood loss anemia Hemorrhagic shock with shock liver and kidney failure. Now resolving. Post 4 unit of blood transfusion. Qualifiers: Encounter type: initial encounter Femur location: shaft Fracture alignment: displaced Fracture morphology: spiral Fracture type: closed Qualified Code(s): S72.342A - Displaced spiral fracture of shaft of left femur, initial encounter for closed fracture (2) Acute blood loss as cause of postoperative anemia: Post monitor blood transfusion. Hold off on home dose of anticoagulation. Given concerns for massive transfusion we will consider giving FFP. INR of 1.11. Not given FFP they will now concerns for history of DVT in the past and currently off anticoagulation. Patient continues to have worsening thrombocytopenia. INR normal today. Transfuse 1 unit of FFP. (3) Hypotension: Resolved. Off pressors. Most likely in setting of hemorrhagic shock. Continue with albumin every 12 hours Echocardiogram poor quality, probably normal EF. Keep mean artery pressure over 65. Levophed accordingly. (4) Metabolic acidosis: Resolved. (5) Respiratory failure: Resolved. MRSA swab positive. Continue with IV meropenem and linezolid. Supplementation keeping saturation over 90%. Pulmicort twice daily, DuoNeb every 6 hours. Repeat x-ray in AM. Check proBNP and Pro-Mikey in AM. Plan for Lasix depending on hemodynamics and x-ray in AM. Aggressive pulmonary toilet with I-S and Acapella. Extubated /13. (6) Acute kidney injury: Acute kidney injury secondary to hypotension Continue to monitor output through Cage Resolved (7) Transaminitis: Significant transaminitis secondary to hypotension Resolving. Abnormality. Continue to monitor daily. (8) Leukocytosis: Antibiotics as above. Monitor cultures. Most likely reactive in setting of shock. Resolved today. CT chest abdomen pelvis as well as left foot. CT of lower extremity demonstrates some edema, soft tissue defect but no pus. Chest abdomen pelvis with bibasilar atelectasis with small effusions, no real acute findings. Likely this is attributed to pneumonia. Does have significant open wound with tendon involvement left lower extremity but doubt this is driving fever. Podiatry consult noted (9) DVT (deep venous thrombosis): Patient with past history of DVT. On apixaban previously. Initiate heparin subcutaneous or Lovenox when able, with plan to eventually restart Eliquis. Does still have some postoperative oozing and needing blood transfusion and therefore have not restarted anticoagulation (10) CHF (congestive heart failure): Will likely have significant fluid overload following degree of quantity blood products and fluid received. Continue to monitor. Hold fluids. proBNP and x-ray in a.m. for possible Lasix. Patient overall 11 L positive Qualifiers: Heart failure type: unspecified Heart failure chronicity: chronic Qualified Code(s): I50.9 - Heart failure, unspecified (11) COPD (chronic obstructive pulmonary disease): Continue to monitor. Qualifiers: COPD type: unspecified COPD Qualified Code(s): J44.9 - Chronic obstructive pulmonary disease, unspecified Plan CODE STATUS: DNR/DNI. skilled nursing resident Dysphagia level 7 cardiac diet. Advance as per speech evaluation Physical therapy. SCD for DVT prophylaxis. Hold off on medical prophylaxis given anemia requiring blood transfusion Attestations Medical Necessity Statement*: Requires further hospitalization for postoperative care post-ORIF complicated by hemorrhagic shock, multiorgan failure, respiratory failure requiring multiple blood transfusion, postextubation care Critical Care Time: The high probability of a clinically significant, sudden or life threatening deterioration of the patient's [cardiac, renal, hematological] system(s) required my full and direct attention, intervention and personal management. The critical care time is as shown. This time is in addition to time spent performing any reported procedures but includes the following: [x] Data and vital sign review and interpretation [x] Patient assessment, examination and intervention [x] Documentation [x] Medication orders and management Critical Care Time (min): 60 Coding Level of Care Code Critical Care >/= 30 minutes Critical care time (in minutes): 60 The high probability of a clinically significant, sudden or life threatening deterioration, as referenced in this documentation, required my full and direct attention, intervention and personal management. The critical care time shown is in addition to time spent performing any reported separately billable procedures and includes the following: [x] Data and vital sign review and interpretation [x] Patient assessment, examination and intervention [x] Medication orders and management [x] Patient/Family updates as able [x] Care Coordination and Documentation. Diagnoses Closed displaced spiral fracture of shaft of left femur, initial encounter S72.342A Encounter type: initial encounter Femur location: shaft Fracture alignment: displaced Fracture morphology: spiral Fracture type: closed Acute blood loss as cause of postoperative anemia D62 Hypotension I95.9 Metabolic acidosis E87.20 Respiratory failure J96.90 Acute kidney injury N17.9 Transaminitis R74.01 Leukocytosis D72.829 DVT (deep venous thrombosis) I82.409 Chronic congestive heart failure, unspecified heart failure type I50.9 Heart failure type: unspecified Heart failure chronicity: chronic Chronic obstructive pulmonary disease, unspecified COPD type J44.9 COPD type: unspecified COPD
[2024-08-11 18:41] LABS: Glucose Point of Care 107 mg/dL (70-110)
[2024-08-11 19:45] LABS: Glucose Point of Care 144 mg/dL (70-110)
[2024-08-11] MEDS: insulin lispro 100 unit/1 mL SUBCUT (20:12)
[2024-08-12] VITALS (24 sets, daily range): BP systolic 91–125; BP diastolic 54–100; PULSE 63–86; RESP 14–24; TEMP 36.6–37.3; O2SAT 85–98
[2024-08-12] MEDS: HYDROmorphone 1 mg/mL INJ 1 mL 0.4 MG IVP ×4 (00:08→21:06)
[2024-08-12 05:32] LABS: Basophils % 0.2 %; Eosinophils # 0.4 10^3/uL (0.0-0.8); Eosinophils % 6.1 %; Hematocrit 26.5 % (37-53); Lymphocytes # 1.1 10^3/uL (0.8-4.8); Lymphocytes % 16.2 %; Mean Corpuscular HGB Conc 30.9 g/dL (30-55); Mean Corpuscular Hemoglobin 29.4 pg (27-33); Mean Platelet Volume 10.4 fL (7.4-10.4); Monocytes # 0.5 10^3/uL (0.2-0.9); Monocytes % 8.1 %; Neutrophils # 4.41 10^3/uL (1.8-7.7); Neutrophils % 67.3 %; Nucleated Red Blood Cells # 0.1 /100WBC; Nucleated Red Blood Cells % 0.8 %; Platelet Count 108 10^3/cmm (157-399); Red Blood Count 2.79 10^6/uL (3.85-5.65); Red Cell Distribution Width 16.5 % (12.1-15.1); White Blood Count 6.55 10^3/uL (3.29-11.43)
[2024-08-12] MEDS: linezolid premix 600 MG/300 ML PREMIX 300 MG IV ×2 (05:43→17:51)
--- NOTE | 2024-08-12 06:00 | XRR_ITS ---
PROCEDURE INFORMATION: Exam: XR Chest Exam date and time: 08/12/2024 8:49 AM Age: 69 years old Clinical indication: Dyspnea and shortness of breath; Additional info: Resp failure TECHNIQUE: Imaging protocol: Radiologic exam of the chest. Views: 1 view. COMPARISON: CR XR chest 1V portable [id number] 08/10/2024 7:22 AM FINDINGS: Tubes, catheters and devices: Central venous catheter tip projects over the superior vena cava. Interval removal of the ET tube. Lungs: Hazy bibasilar opacities. Pleural spaces: Blunting of the costophrenic angles is suggestive of small pleural effusions. Heart/Mediastinum: Heart size not optimally evaluated with a single AP view of the chest. Bones/joints: Unremarkable. XR/XR chest 1V portable [id number] IMPRESSION: 1. Hazy bibasilar opacities are nonspecific. Differential includes atelectasis, pulmonary edema, and/or pneumonia. 2. Blunting of the costophrenic angles is suggestive of small pleural effusions.
[2024-08-12 06:05] LABS: NT Pro B Type Natriuretic Pept 5408 pg/mL (0-125); Procalcitonin 0.38 ng/mL (0-0.5)
--- NOTE | 2024-08-12 06:08 | PC.NURSE ---
Patient continues to refuse repositioning, education provided on the importance of turning and preventing pressure injuries. Patient verbalized understanding but states it is too uncomfortable to be moved.
[2024-08-12 06:15] LABS: Folate Level 14.1 ng/mL (4.5-32.2)
[2024-08-12 06:26] LABS: Alanine Aminotransferase 26 U/L (0-41); Albumin Level 3.3 g/dL (3.5-5.2); Alkaline Phosphatase 62 U/L (40-130); Anion Gap 13.9 (5-19); Aspartate Amino Transferase 63 U/L (0-40); Blood Urea Nitrogen 27 mg/dL (8-23); Calcium 8.2 mg/dL (8.5-10.5); Carbon Dioxide 30 mmol/L (22-29); Chloride 107 mmol/L (98-107); Chol HDL Ratio 5.25 mg/dL (1.0-5.00); Cholesterol 84 mg/dL (0-200); Creatinine Clr Calc Pharmacy 124.0574; Globulin 1.7 g/dL (1.3-4.6); Glomerular Filtration Rate 96.4 mL/min (90-130); Glucose 104 mg/dL (65-115); HDL Cholesterol 16 mg/dL (60-100); LDL Cholesterol Calculated 44 mg/dL (50-129); Magnesium 2.1 mg/dL (1.7-2.3); Osmolality Calculated 309 mOsm/kg (285-295); Potassium 3.9 mmol/L (3.5-5.1); Sodium 147 mmol/L (136-145); Total Bilirubin 2.5 mg/dL (0.15-1.2); Triglycerides 119 mg/dL (0-150); VLDL Cholestrol Calculation 24 mg/dL (0-30)
[2024-08-12] MEDS: albumin 25 G/100 ML BAG 60 G IV ×2 (07:20→20:52)
[2024-08-12] MEDS: sertraline 50 mg Tablet PO (07:37)
[2024-08-12 07:50] LABS: Glucose Point of Care 131 mg/dL (70-110)
[2024-08-12] MEDS: budesonide 0.5 mg/2 mL Neb INHALATION (08:37)
[2024-08-12] MEDS: sennosides-docusate Tablet 1 TAB PO (08:55)
[2024-08-12] MEDS: meropenem 1,000 mg SDV 1000 MG IVP ×3 (08:55→23:28)
--- NOTE | 2024-08-12 11:18 | PC.NURSE ---
Nurse has concerns about positioning, turning frequency/efficacy, and wound cleanliness. Patient usually refuses repositioning, and when he does verbalize he will allow a turn, he still resists nurses attempts by holding onto and pushing against bed rails. Sometimes simply moving a linen without touching the patient will result in him screaming out in pain. Nurse has been unable to assess backside because of this so far today. Incisions on his right hip/leg are located slightly posterior making dressing changes difficult as they require a turn. Patient has oozing from incision sites and weeping from around the skin which causes the dressings to become frequently saturated. Nurse has explained risks of infection related to the saturated dressings staying in place for an extended period of time due to him not allowing care, risk of bed sores from lack of activity, and risk of pneumonia. Nurse asked the patient allow us to move him more frequently and effectively. Nurse has tried pain medication before turning, using the beds tilt feature to help with turns, and try to do multiple tasks at once to eliminate unnecessary turning, but patient continues to be resistant. WHen asked if there is anything else we can do to help him participate in care more, he says you should just kill me . Physician notified of concerns.
--- NOTE | 2024-08-12 11:31 | P.PN_ITS ---
Subjective 2 Subjective: Patient seen and examined with nursing staff was contacted by hospitalist just for evaluation as patient has saturated some dressings. Patient currently resting in ICU. Dressings inspected Vitals/I&O/Wt Last Vital Signs Temp 98.9 F 08/12/24 09:00 Pulse 73 08/12/24 09:00 Resp 18 08/12/24 09:00 BP 119/58 08/12/24 09:00 Pulse Ox 93 08/12/24 09:00 O2 Del Method Nasal Cannula 08/12/24 08:37 O2 Flow Rate 2 08/12/24 08:37 FiO2 35 08/10/24 11:00 08/11/24 08/12/24 08/12/24 22:59 06:59 14:59 Intake Total 736 / 1096 480 / 1576 Output Total 500 / 500 600 / 1100 125 / 125 Balance 236 / 596 -120 / 476 -125 / -125 Weight last 48 hrs Weight 298 lb 1.6 oz Weight 294 lb 12.8 oz Physical Exam 2 Narrative: Examination of the left lower extremity demonstrates normal postoperative swelling and ecchymosis around the left thigh postoperative dressing does have some spot serosanguineous drainage appreciated we did peel this back there was no signs of infection no purulent drainage no foul smell, no erythema. Compartments are soft compressible he is able to wiggle the toes. Left lower extremity is warm well-perfused. Urinary Catheter Management: Cage: Cath Placed During This Visit: yes Reason for Continuing Indwelling Catheter: Accurate Measurement of Urinary Output in Critically Ill Patients Urinary Catheter Date of Insertion: 08/07/24 Urinary Catheter Time of Insertion: 11:45 Data 08/12/24 05:16 08/12/24 05:16 Micro: Microbiology 08/07/24 16:45 Gram Stain - Final Sputum - Endotracheal Tube Aspirate Sputum Culture - Final Haemophilus Influenzae A&P Assessment and plan (1) Femur fracture, left: Patient's status post ORIF subtrochanteric and femoral shaft fracture by my partner Dr. Alfonso. Was contacted over the weekend just for evaluation as patient had some dressing saturations overnight. Was contacted by hospitalist for evaluation I went and saw and evaluated the patient dressings at this point time had spot drainage of serosanguineous fluid. This appears to be normal for the postoperative period as well as given patient's body habitus and BMI. There is no signs of infection his dressing was changed and recommendations for dressing of 4 x 4's ABDs and foam tape if this does continue to saturate. We will continue to follow peripherally if there is any questions pertaining patient's care for free to contact orthopedics. Patient set to follow-up with Dr. Naty rg per recommendations. All questions answered. Qualifiers: Encounter type: initial encounter Femur location: shaft Fracture alignment: displaced Fracture morphology: spiral Fracture type: closed Qualified Code(s): S72.342A - Displaced spiral fracture of shaft of left femur, initial encounter for closed fracture (2) Subtrochanteric fracture of left femur: Qualifiers: Encounter type: initial encounter Fracture type: closed Fracture alignment: displaced Qualified Code(s): S72.22XA - Displaced subtrochanteric fracture of left femur, initial encounter for closed fracture (3) Chronic venous insufficiency: (4) Chronic embolism and thrombosis of left femoral vein: Attestations 2 Medical Necessity Statement*: Ongoing care status post ORIF left subtrochanteric femur shaft fracture Coding Level of Care Code Acute Code for [facility] Fwd Diagnoses Closed displaced spiral fracture of shaft of left femur, initial encounter S72.342A Encounter type: initial encounter Femur location: shaft Fracture alignment: displaced Fracture morphology: spiral Fracture type: closed Closed displaced subtrochanteric fracture of left femur, initial encounter S72.22XA Encounter type: initial encounter Fracture type: closed Fracture alignment: displaced Chronic venous insufficiency I87.2 Chronic embolism and thrombosis of left femoral vein I82.512 Time Spent (min) 10
[2024-08-12] MEDS: pantoprazole 40 mg SDV IVP ×2 (12:31→23:28)
[2024-08-12 12:38] LABS: Glucose Point of Care 131 mg/dL (70-110)
[2024-08-12] MEDS: sodium chloride 0.9% 500 ML IV (13:40)
--- NOTE | 2024-08-12 14:36 | P.PN_ITS ---
Subjective 2 Subjective: No acute events overnight. Has remained stable and afebrile. Has maintained a mean artery pressure in last 24 hours. Off pressors. Remains on 1 to 2 L of supplementation. Nursing staff having difficulty in maintaining mandated surgical site because of patient's pain and tendency to soaked through bandage multiple times during the day. Vitals/I&O/Wt Last Vital Signs Temp 98.9 F 08/12/24 09:00 Pulse 73 08/12/24 09:00 Resp 14 08/12/24 14:29 BP 119/58 08/12/24 09:00 Pulse Ox 98 08/12/24 14:29 O2 Del Method Nasal Cannula 08/12/24 08:37 O2 Flow Rate 2 08/12/24 08:37 FiO2 35 08/10/24 11:00 08/11/24 08/12/24 08/12/24 22:59 06:59 14:59 Intake Total 736 / 1096 480 / 1576 Output Total 500 / 500 600 / 1100 125 / 125 Balance 236 / 596 -120 / 476 -125 / -125 Weight last 48 hrs Weight 135.216 kg Weight 133.719 kg Physical Exam 2 Narrative: General: No acute distress, AO x3, chronically sick appearing, morbidly obese HEENT: PERRLA, pupils bilaterally equal and reactive Chest: Normal vesicular breath sounds, decreased air entry all over lung sarah CVS: S1-S2 regular, no murmurs, no tachycardia, no gallops, no rubs Abdomen: Soft, nontender, no organomegaly, bowel sounds present Neuro: No focal deficits, no facial deformity, AO x3, power not assessed Skin: Multiple wounds present all over the body of different stage, multiple superficial skin tear Extremity: Skin changes seen on the right leg associated with poor circulation, left leg surgically bandaged with minimal soakage Cage in place Urinary Catheter Management: Cage: Cath Placed During This Visit: yes Reason for Continuing Indwelling Catheter: Accurate Measurement of Urinary Output in Critically Ill Patients Urinary Catheter Date of Insertion: 08/07/24 Urinary Catheter Time of Insertion: 11:45 Data 08/12/24 05:16 08/12/24 05:16 Micro: Microbiology 08/07/24 16:45 Gram Stain - Final Sputum - Endotracheal Tube Aspirate Sputum Culture - Final Haemophilus Influenzae A&P Assessment and plan (1) Femur fracture, left: Postoperative day #4, Complicated with acute postoperative blood loss anemia Hemorrhagic shock with shock liver and kidney failure. Now resolving. Post 4 unit of blood transfusion. Qualifiers: Encounter type: initial encounter Femur location: shaft Fracture alignment: displaced Fracture morphology: spiral Fracture type: closed Qualified Code(s): S72.342A - Displaced spiral fracture of shaft of left femur, initial encounter for closed fracture (2) Acute blood loss as cause of postoperative anemia: Post monitor blood transfusion. Hold off on home dose of anticoagulation. Given concerns for massive transfusion we will consider giving FFP. INR of 1.11. Not given FFP they will now concerns for history of DVT in the past and currently off anticoagulation. Patient continues to have worsening thrombocytopenia. INR normal today. Transfuse 1 unit of FFP. (3) Hypotension: Resolved. Off pressors. Most likely in setting of hemorrhagic shock. Continue with albumin every 12 hours Echocardiogram poor quality, probably normal EF. Keep mean artery pressure over 65. Levophed accordingly. (4) Metabolic acidosis: Resolved. (5) Respiratory failure: Resolved. MRSA swab positive. Continue with IV meropenem and linezolid. Supplementation keeping saturation over 90%. Pulmicort twice daily, DuoNeb every 6 hours. Repeat x-ray in AM. Check proBNP and Pro-Mikey in AM. Plan for Lasix depending on hemodynamics and x-ray in AM. Aggressive pulmonary toilet with I-S and Acapella. Extubated /. (6) Acute kidney injury: Acute kidney injury secondary to hypotension Continue to monitor output through Cage Resolved (7) Transaminitis: Significant transaminitis secondary to hypotension Resolving. Abnormality. Continue to monitor daily. (8) Leukocytosis: Antibiotics as above. Monitor cultures. Most likely reactive in setting of shock. Resolved today. CT chest abdomen pelvis as well as left foot. CT of lower extremity demonstrates some edema, soft tissue defect but no pus. Chest abdomen pelvis with bibasilar atelectasis with small effusions, no real acute findings. Likely this is attributed to pneumonia. Does have significant open wound with tendon involvement left lower extremity but doubt this is driving fever. Podiatry consult noted (9) DVT (deep venous thrombosis): Patient with past history of DVT. On apixaban previously. Initiate heparin subcutaneous or Lovenox when able, with plan to eventually restart Eliquis. Does still have some postoperative oozing and needing blood transfusion and therefore have not restarted anticoagulation (10) CHF (congestive heart failure): Will likely have significant fluid overload following degree of quantity blood products and fluid received. Continue to monitor. Hold fluids. proBNP and x-ray in a.m. for possible Lasix. Patient overall 11 L positive Qualifiers: Heart failure chronicity: chronic Heart failure type: unspecified Qualified Code(s): I50.9 - Heart failure, unspecified (11) COPD (chronic obstructive pulmonary disease): Continue to monitor. Qualifiers: COPD type: unspecified COPD Qualified Code(s): J44.9 - Chronic obstructive pulmonary disease, unspecified Plan CODE STATUS: DNR/DNI. [facility] resident Dysphagia level 7 cardiac diet. Advance as per speech evaluation Physical therapy. SCD for DVT prophylaxis. Hold off on medical prophylaxis given anemia requiring blood transfusion Plan for today: Will request patient to be evaluated by orthopedic team again given concerns for soakage through surgical wound. Blood culture negative. Sputum culture growing haemophilus. Continue with IV meropenem for now. Patient on minimal oxygen supplementation. Continue with antibiotics to finish a 5-day course. Continue with diuretic 0.4 every 4 as needed. If needed will add Flexeril. Hesitant to add for now given concerns for recent RUDI. Patient has significant anasarca. IV Lasix 40 mg one-time. Does have mild hypernatremia today. Will encourage patient to increase oral intake. Continue with albumin. Lasix as above. Repeat BMP in evening. Transfer to [facility] floor. Attestations 2 Medical Necessity Statement*: Requires further hospitalization for management of postoperative care, post-ORIF in a patient to develop postoperative anemia, multiorgan failure in setting of hemorrhagic shock anasarca requiring IV diuresis Diagnoses Closed displaced spiral fracture of shaft of left femur, initial encounter S72.342A Encounter type: initial encounter Femur location: shaft Fracture alignment: displaced Fracture morphology: spiral Fracture type: closed Acute blood loss as cause of postoperative anemia D62 Hypotension I95.9 Metabolic acidosis E87.20 Respiratory failure J96.90 Acute kidney injury N17.9 Transaminitis R74.01 Leukocytosis D72.829 DVT (deep venous thrombosis) I82.409 Chronic congestive heart failure, unspecified heart failure type I50.9 Heart failure chronicity: chronic Heart failure type: unspecified Chronic obstructive pulmonary disease, unspecified COPD type J44.9 COPD type: unspecified COPD
[2024-08-12 15:34] LABS: Glucose Point of Care 132 mg/dL (70-110)
[2024-08-12] MEDS: nystatin powder 15 gm Btl 1 APPLIC TOPICAL (17:40)
[2024-08-12] MEDS: FUROsemide 10 mg/mL SDV 4mL 40 MG IVP (17:41)
[2024-08-12 20:40] LABS: Glucose Point of Care 117 mg/dL (70-110)
[2024-08-12 20:54] LABS: Blood Urea Nitrogen 26 mg/dL (8-23); Calcium 8.5 mg/dL (8.5-10.5); Carbon Dioxide 32 mmol/L (22-29); Chloride 105 mmol/L (98-107); Creatinine Clr Calc Pharmacy 124.0574; Glomerular Filtration Rate 96.4 mL/min (90-130); Glucose 116 mg/dL (65-115); Osmolality Calculated 312 mOsm/kg (285-295); Sodium 148 mmol/L (136-145)
--- NOTE | 2024-08-12 21:11 | PC.NURSE ---
Patient educated of need to be turned and repositioned in order for wound on back side to heal. Patient states that it hurts his hips and legs to turn. Patient given PRN Dialudid prior to being turned. Patient yelled when being turned.
--- NOTE | 2024-08-12 21:24 | PC.NURSE ---
Addendum entered by Kirsten Archer RN 08/12/24 21:27: PRN Oxycodone ordered. Original Note: Dr. Mclaughlin contacted for the following: Patient's last blood pressure was 121/78. He yells when you do anything: lift his leg, turn him, wound care, ect. He is oriented and says his whole body just hurts. All his has is PRN IV Dialudid. Could we try something oral PRN for pain?
[2024-08-13] VITALS (8 sets, daily range): BP systolic 102–121; BP diastolic 52–74; PULSE 67–81; RESP 16–20; TEMP 36.4–37.2; O2SAT 94–98
[2024-08-13] MEDS: oxyCODONE 5 mg IR Tab/Cap PO (03:14)
--- NOTE | 2024-08-13 04:24 | PC.NURSE ---
Addendum entered by Kirsten Archer RN 08/13/24 04:34: Correction: Silverlon, not silvercel Patient also has skin tear to right elbow. Optifoam placed. Original Note: Dressings to left hip changed due to being saturated. Two silvercel and two optifoams replaced. Two optifoams to left arm c/d/i and left in place. Dressing to left lower leg has small amount of drainage on dressing. Dressing left in place. Under breasts, abdominal fold/groin/panus area, and buttocks excoriated. Patient currently has interdry under abdominal fold. This was left in place. Smear BM cleansed. Patient's linens changed. Catheter care completed. Stage 2 pressure injury noted to right buttock. Barrier cream applied. Catheter care completed. Bilateral heels elevated on pillows. Patient refuses q2hour turns. Patient educated on the importance of q2hour turns to promote healing of wounds and prevent new wounds.
[2024-08-13] MEDS: linezolid premix 600 MG/300 ML PREMIX 300 MG IV ×2 (05:00→18:21)
[2024-08-13 06:23] LABS: Basophils % 0.4 %; Eosinophils # 0.3 10^3/uL (0.0-0.8); Eosinophils % 5.3 %; Hematocrit 26.4 % (37-53); Lymphocytes # 0.9 10^3/uL (0.8-4.8); Lymphocytes % 17.1 %; Mean Corpuscular HGB Conc 29.9 g/dL (30-55); Mean Corpuscular Hemoglobin 29.7 pg (27-33); Mean Corpuscular Volume 99.2 fl (82-101); Mean Platelet Volume 10.8 fL (7.4-10.4); Monocytes # 0.5 10^3/uL (0.2-0.9); Monocytes % 8.6 %; Neutrophils # 3.63 10^3/uL (1.8-7.7); Neutrophils % 66.8 %; Nucleated Red Blood Cells % 0 %; Platelet Count 122 10^3/cmm (157-399); Red Blood Count 2.66 10^6/uL (3.85-5.65); Red Cell Distribution Width 18.7 % (12.1-15.1); White Blood Count 5.44 10^3/uL (3.29-11.43)
[2024-08-13 06:41] LABS: Alanine Aminotransferase 16 U/L (0-41); Albumin Level 3.3 g/dL (3.5-5.2); Alkaline Phosphatase 53 U/L (40-130); Anion Gap 14.7 (5-19); Aspartate Amino Transferase 34 U/L (0-40); Blood Urea Nitrogen 26 mg/dL (8-23); Calcium 8.4 mg/dL (8.5-10.5); Carbon Dioxide 30 mmol/L (22-29); Chloride 103 mmol/L (98-107); Creatinine Clr Calc Pharmacy 123.8734; Globulin 1.7 g/dL (1.3-4.6); Glomerular Filtration Rate 112.5 mL/min (90-130); Glucose 162 mg/dL (65-115); Osmolality Calculated 306 mOsm/kg (285-295); Potassium 3.7 mmol/L (3.5-5.1); Sodium 144 mmol/L (136-145); Total Bilirubin 1.9 mg/dL (0.15-1.2)
[2024-08-13 06:50] LABS: Glucose Point of Care 152 mg/dL (70-110)
[2024-08-13] MEDS: budesonide 0.5 mg/2 mL Neb INHALATION ×2 (08:39→19:42)
[2024-08-13] MEDS: insulin lispro 100 unit/1 mL SUBCUT ×2 (09:00→11:59)
[2024-08-13] MEDS: sertraline 50 mg Tablet PO (09:01)
[2024-08-13] MEDS: sennosides-docusate Tablet 1 TAB PO (09:01)
[2024-08-13] MEDS: albumin 25 G/100 ML BAG 60 G IV ×2 (09:02→21:54)
[2024-08-13] MEDS: meropenem 1,000 mg SDV 1000 MG IVP ×3 (09:02→23:37)
[2024-08-13] MEDS: nystatin powder 15 gm Btl 1 APPLIC TOPICAL ×2 (09:03→18:22)
[2024-08-13] MEDS: acetaZOLAMIDE 250 mg Tablet PO (09:11)
[2024-08-13 11:29] LABS: Glucose Point of Care 142 mg/dL (70-110)
[2024-08-13] MEDS: pantoprazole 40 mg SDV IVP ×2 (11:59→23:37)
[2024-08-13] MEDS: ondansetron 2 mg/ML SDV 2 mL 4 MG IVP (12:36)
--- NOTE | 2024-08-13 13:12 | P.PN_ITS ---
Subjective 2 Subjective: No acute events overnight. Has remained stable and afebrile. Has maintained a mean artery pressure in last 24 hours. Off pressors. Remains on 1 to 2 L of supplementation. Nursing staff having difficulty in maintaining mandated surgical site because of patient's pain and tendency to soaked through bandage multiple times during the day. Medications: Reviewed: Yes Vitals/I&O/Wt Last Vital Signs Temp 97.6 F 08/13/24 08:45 Pulse 70 08/13/24 08:45 Resp 17 08/13/24 08:45 BP 106/52 08/13/24 08:45 Pulse Ox 94 08/13/24 08:45 O2 Del Method Room Air 08/13/24 08:45 O2 Flow Rate 3 08/13/24 08:39 FiO2 35 08/10/24 11:00 08/12/24 08/13/24 08/13/24 22:59 06:59 14:59 Intake Total 803.417 / 803.417 300 / 1103.417 220 / 220 Output Total 925 / 1425 400 / 1825 675 / 675 Balance -121.583 / -621.583 -100 / -721.583 -455 / -455 Weight last 48 hrs Weight 134.853 kg Weight 135.216 kg Physical Exam 2 Narrative: General: No acute distress, AO x3, chronically sick appearing, morbidly obese HEENT: PERRLA, pupils bilaterally equal and reactive Chest: Normal vesicular breath sounds, decreased air entry all over lung sarah CVS: S1-S2 regular, no murmurs, no tachycardia, no gallops, no rubs Abdomen: Soft, nontender, no organomegaly, bowel sounds present Neuro: No focal deficits, no facial deformity, AO x3, power not assessed Skin: Multiple wounds present all over the body of different stage, multiple superficial skin tear Extremity: Skin changes seen on the right leg associated with poor circulation, left leg surgically bandaged with minimal soakage Cage in place Urinary Catheter Management: Cage: Cath Placed During This Visit: yes Reason for Continuing Indwelling Catheter: Other Urinary Catheter Date of Insertion: 08/07/24 Urinary Catheter Time of Insertion: 11:45 Data 08/13/24 06:00 08/13/24 06:00 Micro: Microbiology 08/08/24 09:22 Blood Culture - Final Blood NO GROWTH AFTER 5 DAYS 08/08/24 08:11 Blood Culture - Final Blood NO GROWTH AFTER 5 DAYS A&P Assessment and plan (1) Femur fracture, left: Postoperative day #4, Complicated with acute postoperative blood loss anemia Hemorrhagic shock with shock liver and kidney failure. Now resolving. Post 4 unit of blood transfusion. Qualifiers: Encounter type: initial encounter Femur location: shaft Fracture alignment: displaced Fracture morphology: spiral Fracture type: closed Qualified Code(s): S72.342A - Displaced spiral fracture of shaft of left femur, initial encounter for closed fracture (2) Acute blood loss as cause of postoperative anemia: Post monitor blood transfusion. Hold off on home dose of anticoagulation. Given concerns for massive transfusion we will consider giving FFP. INR of 1.11. Not given FFP they will now concerns for history of DVT in the past and currently off anticoagulation. Patient continues to have worsening thrombocytopenia. INR normal today. Transfuse 1 unit of FFP. (3) Hypotension: Resolved. Off pressors. Most likely in setting of hemorrhagic shock. Continue with albumin every 12 hours Echocardiogram poor quality, probably normal EF. Keep mean artery pressure over 65. Levophed accordingly. (4) Metabolic acidosis: Resolved. (5) Respiratory failure: Resolved. MRSA swab positive. Continue with IV meropenem and linezolid. Supplementation keeping saturation over 90%. Pulmicort twice daily, DuoNeb every 6 hours. Repeat x-ray in AM. Check proBNP and Pro-Mikey in AM. Plan for Lasix depending on hemodynamics and x-ray in AM. Aggressive pulmonary toilet with I-S and Acapella. Extubated 08/10. (6) Acute kidney injury: Acute kidney injury secondary to hypotension Continue to monitor output through Cage Resolved (7) Transaminitis: Significant transaminitis secondary to hypotension Resolving. Abnormality. Continue to monitor daily. (8) Leukocytosis: Antibiotics as above. Monitor cultures. Most likely reactive in setting of shock. Resolved today. CT chest abdomen pelvis as well as left foot. CT of lower extremity demonstrates some edema, soft tissue defect but no pus. Chest abdomen pelvis with bibasilar atelectasis with small effusions, no real acute findings. Likely this is attributed to pneumonia. Does have significant open wound with tendon involvement left lower extremity but doubt this is driving fever. Podiatry consult noted (9) DVT (deep venous thrombosis): Patient with past history of DVT. On apixaban previously. Initiate heparin subcutaneous or Lovenox when able, with plan to eventually restart Eliquis. Does still have some postoperative oozing and needing blood transfusion and therefore have not restarted anticoagulation (10) CHF (congestive heart failure): Will likely have significant fluid overload following degree of quantity blood products and fluid received. Continue to monitor. Hold fluids. proBNP and x-ray in a.m. for possible Lasix. Patient overall 11 L positive Qualifiers: Heart failure type: unspecified Heart failure chronicity: chronic Qualified Code(s): I50.9 - Heart failure, unspecified (11) COPD (chronic obstructive pulmonary disease): Continue to monitor. Qualifiers: COPD type: unspecified COPD Qualified Code(s): J44.9 - Chronic obstructive pulmonary disease, unspecified Plan CODE STATUS: DNR/DNI. [facility] resident Dysphagia level 7 cardiac diet. Advance as per speech evaluation Physical therapy. SCD for DVT prophylaxis. Hold off on medical prophylaxis given anemia requiring blood transfusion Plan for today: Hemodynamically has remained stable. Hemoglobin has remained stable. Target hemoglobin more than 7. Hemoglobin down to 7.9 today from 8.2 yesterday. For now we will continue to monitor. Will transfuse if trends below 7. Platelet count improving. Continue with meropenem given concerns for haemophilus influenza and sputum culture. Will plan to transition over to oral Augmentin on discharge to finish a 14-day course. Continue with oxycodone IR along with IV Dilaudid for pain. Received Lasix yesterday. As mild contraction alkalosis. Will add Diamox 250 mg one-time. Will receive 1 more dose of Lasix 40 mg today. Repeat BMP in the morning. Will request wound care directions from both orthopedic and podiatry team. Attestations 2 Medical Necessity Statement*: Requires further hospitalization for postoperative care in a patient who underwent ORIF complicated by multiorgan failure in setting of hemorrhagic shock while further wound care is done, anaa Diagnoses Closed displaced spiral fracture of shaft of left femur, initial encounter S72.342A Encounter type: initial encounter Femur location: shaft Fracture alignment: displaced Fracture morphology: spiral Fracture type: closed Acute blood loss as cause of postoperative anemia D62 Hypotension I95.9 Metabolic acidosis E87.20 Respiratory failure J96.90 Acute kidney injury N17.9 Transaminitis R74.01 Leukocytosis D72.829 DVT (deep venous thrombosis) I82.409 Chronic congestive heart failure, unspecified heart failure type I50.9 Heart failure type: unspecified Heart failure chronicity: chronic Chronic obstructive pulmonary disease, unspecified COPD type J44.9 COPD type: unspecified COPD
[2024-08-13] MEDS: FUROsemide 10 mg/mL SDV 4mL 40 MG IVP (14:23)
--- NOTE | 2024-08-13 14:40 | PC.SOCIAL ---
IMM Updated. Updated pt on IMM. No questions voiced. Provided pt a copy. Initialed, dated, & timed copy in chart.
--- NOTE | 2024-08-13 15:45 | PC.OT ---
OT EVALUATION ATTEMPTED IN P.M. PATIENT SLEEPING BUT EASILY AWAKENS. OFFERED ADLS AND PATIENT DECLINED TO PARTICIPATE IN SKILLED OT TREATMENT THIS AFTERNOON.
[2024-08-13 16:38] LABS: Glucose Point of Care 136 mg/dL (70-110)
--- NOTE | 2024-08-13 16:50 | P.PN_ITS ---
Subjective 2 Subjective: Patient is seen in his room. His dressing is dry at the moment. He is neurologically intact. Medications: Reviewed: Yes Vitals/I&O/Wt Last Vital Signs Temp 98.3 F 08/13/24 16:00 Pulse 81 08/13/24 16:00 Resp 16 08/13/24 16:00 BP 118/72 08/13/24 16:00 Pulse Ox 97 08/13/24 16:00 O2 Del Method Room Air 08/13/24 08:45 O2 Flow Rate 3 08/13/24 08:39 FiO2 35 08/10/24 11:00 08/13/24 08/13/24 08/13/24 06:59 14:59 22:59 Intake Total 300 / 1103.417 220 / 220 Output Total 400 / 1825 675 / 675 Balance -100 / -721.583 -455 / -455 Weight last 48 hrs Weight 297 lb 4.8 oz Weight 298 lb 1.6 oz Physical Exam 2 Const: COMMON NORMALS: no acute distress, patient oriented x3 and alert G ENERAL APPEARANCE: comfortable NUTRITIONAL APPEARANCE: obese O RIENTATION/CONSCIOUSNESS: Yes awake HENMT: COMMON NORMALS: normocephalic and atraumatic HEAD & SCALP: n ormocephalic and atraumatic Eye: GENERAL EYE: appearance normal, both eyes and all related structures Chest: COMMONS NORMALS: normal inspection of the chest Resp: COMMON NORMALS: normal respiratory effort EFFORT & INSPECTION: Yes able to speak in complete sentences and Yes symmetric chest movement Extremity: NARRATIVE EXTREMITY EXAM: Patient's bilateral lower extremities demonstrate changes of significant venous stasis. There is an ulcer on the anterior aspect of the left ankle which is the operative leg. There are multiple blisters and areas where the skin is open. There is no obvious evidence of infection, however. Dressings have been changed and reinforced. The patient has been extubated. Treatment for the ankle wound is being determined by Dr. Bowie, and this is not evaluated. Femoral incision, although leaking serous drainage, looks good without evidence of infection. Neuro: COMMON NORMALS: patient oriented x3 SENSORIUM/ORIENTATION: Yes alert Psych: COMMON NORMALS: mental status grossly normal APPEARANCE: Yes grossly normal ATTITUDE: Yes calm and Yes engaged ATTENTION/CONCENTRATION: Yes attention grossly intact Skin: COMMON NORMALS: no rashes or lesions noted GENERAL SKIN EXAM: no rashes or lesions noted Urinary Catheter Management: Cage: Cath Placed During This Visit: yes Reason for Continuing Indwelling Catheter: Other Urinary Catheter Date of Insertion: 08/07/24 Urinary Catheter Time of Insertion: 11:45 Data 08/14/24 06:05 08/14/24 06:05 Micro: Microbiology 08/08/24 09:22 Blood Culture - Final Blood NO GROWTH AFTER 5 DAYS 08/08/24 08:11 Blood Culture - Final Blood NO GROWTH AFTER 5 DAYS A&P Assessment and plan (1) Femur fracture, left: Patient has been transferred to the floor following his open reduction internal fixation of the subtrochanteric and femoral shaft fractures. The patient was in the intensive care unit following initial surgical procedure. The patient dressing is saturated at time secondary to the nature of the fracture. Dressings will be changed as needed. The plan is that the patient would return to [facility] where he lives. He will need to be touchdown weightbearing. He will need to learn transfers with touchdown weightbearing. Dressings may be reinforced as needed. Qualifiers: Encounter type: initial encounter Femur location: shaft Fracture alignment: displaced Fracture morphology: spiral Fracture type: closed Qualified Code(s): S72.342A - Displaced spiral fracture of shaft of left femur, initial encounter for closed fracture (2) Subtrochanteric fracture of left femur: Qualifiers: Encounter type: initial encounter Fracture type: closed Fracture alignment: displaced Qualified Code(s): S72.22XA - Displaced subtrochanteric fracture of left femur, initial encounter for closed fracture (3) Chronic venous insufficiency: (4) Chronic embolism and thrombosis of left femoral vein: Attestations 2 Medical Necessity Statement*: Per hospitalist team Coding Level of Care Code Acute Code for [facility] Fwd Diagnoses Closed displaced spiral fracture of shaft of left femur, initial encounter S72.342A Encounter type: initial encounter Femur location: shaft Fracture alignment: displaced Fracture morphology: spiral Fracture type: closed Closed displaced subtrochanteric fracture of left femur, initial encounter S72.22XA Encounter type: initial encounter Fracture type: closed Fracture alignment: displaced Chronic venous insufficiency I87.2 Chronic embolism and thrombosis of left femoral vein I82.512
[2024-08-13] MEDS: ipratropium-albuterol 3 mL Neb INHALATION (19:42)
[2024-08-13 21:25] LABS: Glucose Point of Care 133 mg/dL (70-110)
[2024-08-14] VITALS: BP 101/57; PULSE 79; RESP 22; TEMP 37.1; O2SAT 93
[2024-08-14 03:55] VITALS: BP 114/50; PULSE 69; RESP 22; TEMP 36.9; O2SAT 99
[2024-08-14] MEDS: linezolid premix 600 MG/300 ML PREMIX 300 MG IV (06:06)
[2024-08-14 06:20] LABS: Basophils % 0.4 %; Eosinophils # 0.3 10^3/uL (0.0-0.8); Hematocrit 26.6 % (37-53); Lymphocytes # 0.8 10^3/uL (0.8-4.8); Mean Corpuscular HGB Conc 30.1 g/dL (30-55); Mean Corpuscular Hemoglobin 30.4 pg (27-33); Mean Corpuscular Volume 101.1 fl (82-101); Mean Platelet Volume 10.5 fL (7.4-10.4); Monocytes # 0.5 10^3/uL (0.2-0.9); Monocytes % 8.8 %; Neutrophils # 3.76 10^3/uL (1.8-7.7); Neutrophils % 70.1 %; Nucleated Red Blood Cells % 0 %; Platelet Count 116 10^3/cmm (157-399); Red Blood Count 2.63 10^6/uL (3.85-5.65); Red Cell Distribution Width 18.9 % (12.1-15.1); White Blood Count 5.36 10^3/uL (3.29-11.43)
[2024-08-14 06:38] LABS: Alanine Aminotransferase 14 U/L (0-41); Albumin Level 3.5 g/dL (3.5-5.2); Alkaline Phosphatase 55 U/L (40-130); Anion Gap 12.8 (5-19); Aspartate Amino Transferase 28 U/L (0-40); Blood Urea Nitrogen 23 mg/dL (8-23); Calcium 8.5 mg/dL (8.5-10.5); Carbon Dioxide 30 mmol/L (22-29); Chloride 106 mmol/L (98-107); Creatinine Clr Calc Pharmacy 110.1097; Globulin 1.9 g/dL (1.3-4.6); Glomerular Filtration Rate 84.2 mL/min (90-130); Glucose 123 mg/dL (65-115); Osmolality Calculated 305 mOsm/kg (285-295); Potassium 3.8 mmol/L (3.5-5.1); Sodium 145 mmol/L (136-145); Total Bilirubin 1.9 mg/dL (0.15-1.2); Total Protein 5.4 g/dL (6.6-8.7)
[2024-08-14 07:14] LABS: Glucose Point of Care 162 mg/dL (70-110)
[2024-08-14 07:54] VITALS: BP 119/63; PULSE 63; RESP 16; TEMP 36.9; O2SAT 97
[2024-08-14] MEDS: budesonide 0.5 mg/2 mL Neb INHALATION (08:08)
[2024-08-14 08:10] VITALS: PULSE 62; RESP 16; O2SAT 97
[2024-08-14] MEDS: sertraline 50 mg Tablet PO (08:29)
[2024-08-14] MEDS: insulin lispro 100 unit/1 mL SUBCUT (08:29)
[2024-08-14] MEDS: sennosides-docusate Tablet 1 TAB PO (08:29)
[2024-08-14] MEDS: meropenem 1,000 mg SDV 1000 MG IVP (08:29)
[2024-08-14] MEDS: albumin 25 G/100 ML BAG 60 G IV (08:30)
[2024-08-14] MEDS: nystatin powder 15 gm Btl 1 APPLIC TOPICAL (08:31)
--- NOTE | 2024-08-14 09:34 | PC.NURSE ---
at approx. 0920 this nurse and clerk carrier entered pts room to turn him and change linens. pt adamantly refused both. educ pt on benefits of turning and risks of not turning. pt still refused.
[2024-08-14 10:45] LABS: Glucose Point of Care 96 mg/dL (70-110)
[2024-08-14 11:43] VITALS: BP 126/76; PULSE 58; RESP 18; TEMP 36.6; O2SAT 95
[2024-08-14 12:08] LABS: SARS Covid-2 Antigen Negative (Negative)
--- NOTE | 2024-08-14 12:09 | PM.DCS ---
Discharge Providers Date of Admission: 08/06/24 17:42 Date of Discharge: August 14, 2024 Attending Provider at Admission: Sara Mclaughlin MD Attending Provider at Discharge: Brice Funes MD Consults: Cardiology: Dr. Alfonso Podiatry: Dr. Bowie Primary Care Provider: Odalis Stewart NP Diagnoses at Discharge Discharge Diagnosis (1) Femur fracture, left: Status: Acute Qualifiers: Encounter type: initial encounter Femur location: shaft Fracture alignment: displaced Fracture morphology: spiral Fracture type: closed Qualified Code(s): S72.342A - Displaced spiral fracture of shaft of left femur, initial encounter for closed fracture (2) Subtrochanteric fracture of left femur: Status: Acute Qualifiers: Encounter type: initial encounter Fracture type: closed Fracture alignment: displaced Qualified Code(s): S72.22XA - Displaced subtrochanteric fracture of left femur, initial encounter for closed fracture (3) Chronic venous insufficiency: Status: Acute (4) Chronic embolism and thrombosis of left femoral vein: Status: Acute Reason for Visit Reason for Visit: left leg pain Brief History: History as per HPI: Willie Perez is a 69 year old male resident of [facility], history of preserved action fraction heart failure, DVT, on Eliquis, bedbound secondary to lower extremity edema, gets compression stockings compression wraps, presented after sustaining a fall on Tuesday. Patient is stating that he tried to get up by the bedside to clean himself in order to get ready for his dinner on Tuesday night when he lost balance and fell. He did not seek medical attention right away, patient is not sure about his medications but stating that he probably got his medications as scheduled. He has not experienced any chest pain, syncope, recent diarrhea or urinary frequency or incontinence. In the ER he has been diagnosed with proximal left femur fracture, Dr. Monteiro consulted. Patient not complaining of active pain, does not want Cage catheter placement stating that he would use urinal Patient has umbilical hernia without any active signs of obstruction. Hospital Course Hospital Course Patient was admitted to the hospital and underwent ORIF on 08/07. His hospitalization was complicated by him developing hemorrhagic shock postoperatively requiring multiple pressors, up to 4 units of PRBC transfusion and 1 unit of FFP transfusion. His home anticoagulation was withheld. Due to hemorrhagic shock patient developed acute kidney injury and acute liver injury which gradually improved. Gradually patient has been coming of vasopressors and was eventually extubated on 08/10. During hospitalization blood culture remain negative though sputum culture was positive for haemophilus. His antibiotics were tapered accordingly. He was also seen by podiatry during hospitalization for open wound of left ankle with tendon involvement. Wound care was done as per the directions from podiatry team. CT of the lower limb was done which showed superficial soft tissue defect at left anterior ankle associated with air close related to tibialis anterior tendon which is suggestive of benign cavernous wound rather than infectious process as per podiatry team. Patient has been hemodynamically stable, on 1 to 2 L of oxygen supplementation for last 2 to 3 days and has been improving gradually with stable hemoglobin, renal and liver functions. His overall care is further complicated by morbid obesity, baseline poor mobility as patient is Lisbet dependent at baseline with third spacing and generalized oozing from his wounds and body. Dressings have been wound care has been done as per orthopedic recommendations. Given significant oozing from the body, baseline health and mobility patient is at high risk of developing infection. He has been discharged back to SNF for further rehabitation on oral Augmentin to finish a 14-day course. Physical Exam Narrative: General: No acute distress, AO x3, chronically sick appearing, morbidly obese HEENT: PERRLA, pupils bilaterally equal and reactive Chest: Normal vesicular breath sounds, decreased air entry all over lung sarah CVS: S1-S2 regular, no murmurs, no tachycardia, no gallops, no rubs Abdomen: Soft, nontender, no organomegaly, bowel sounds present Neuro: No focal deficits, no facial deformity, AO x3, power not assessed Skin: Multiple wounds present all over the body of different stage, multiple superficial skin tear Extremity: Skin changes seen on the right leg associated with poor circulation, left leg surgically bandaged with minimal soakage Cage in place Urinary Catheter Management: Cage: Cath Placed During This Visit: yes Reason for Continuing Indwelling Catheter: Acute Urinary Retention or Obstruction Urinary Catheter Date of Insertion: 08/07/24 Urinary Catheter Time of Insertion: 11:45 Discharge Data Studies Completed and Pending Completed Studies During Hospitalization Category Date Time Status CT chest abdomen pelvis [[place] [id number] Cat Scan 08/09/24 07:17 Completed ] Routine CT femur LT wo con* [id number] Stat Cat Scan 08/06/24 16:[address] foot LT wo con* [id number] Routine Cat Scan 08/09/24 07:[address] pelvis wo con [id number] Stat Cat Scan 08/06/24 16:44 Completed XR ankle LT min 3V* [id number] Routine Exams 08/09/24 12:26 Completed XR chest 1V portable [id number] QAM Exams 08/12/24 06:00 Completed XR chest 1V portable [id number] Routine Exams 08/08/24 07:00 Completed XR chest 1V portable [id number] Routine Exams 08/09/24 07:00 Completed XR chest 1V portable [id number] Routine Exams 08/10/24 07:00 Completed XR chest 1V portable [id number] Stat Exams 08/06/24 15:58 Completed XR chest 1V portable [id number] Stat Exams 08/07/24 17:02 Completed XR hip LT 2-3V wo/w pel* [id number] Routine Exams 08/07/24 00:00 Completed XR hip LT 2-3V wo/w pel* [id number] Stat Exams 08/06/24 15:38 Completed XR knee LT 3V* [id number] Stat Exams 08/06/24 15:38 Completed CV. echo complete* [id number] Routine Ultrasound 08/08/24 06:20 Completed Radiology Impressions Femur CT 08/06/24 16:10 IMPRESSION: Displaced comminuted proximal femoral diaphysis fracture with surrounding intramuscular hematoma and mild subcutaneous fat stranding/edema. Pelvis CT 08/06/24 16:44 IMPRESSION: 1. Proximal left femur fracture partially imaged and better assessed on accompanying CT lower extremity, reported separately. 2. Otherwise no acute findings within the pelvis. 3. Severe left and moderate to severe right hip degenerative changes. 4. Lower abdominal ventral hernia containing nonobstructed colonic loops. Chest/Abdomen/Pelvis CT 08/09/24 07:17 IMPRESSION: 1. Quality of this examination is compromised by body habitus. 2. Bibasilar atelectasis with very small bilateral pleural effusions. 3. Endotracheal tube in good position. 4. Nasogastric tube in good position. 5. Gallbladder not identified. May be surgically absent, contracted or isodense to the adjacent liver. 6. No GI tract obstruction. 7. Infraumbilical hernia containing a loop of colon with no obstruction at this time. 8. No ascites or free air identified. Foot CT 08/09/24 07:17 IMPRESSION: 1. Superficial soft tissue defect with air closely associated with the anterior tibialis tendon. Edema associated with the soft tissue laceration. The tendon does not appear to be completely torn by noncontrast CT. 2. Severe osteopenia. 3. Partially healed fracture mid fifth metatarsal diaphysis. Ankle X-Ray 08/09/24 12:26 IMPRESSION: 1. No acute ankle fracture. Soft tissue swelling osteopenia. 2. Recent appearing midshaft fracture of the fifth metatarsal. Chest X-Ray 08/12/24 06:00 IMPRESSION: 1. Hazy bibasilar opacities are nonspecific. Differential includes atelectasis, pulmonary edema, and/or pneumonia. 2. Blunting of the costophrenic angles is suggestive of small pleural effusions. Echocardiogram: CONCLUSIONS Technically limited quality echocardiogram because of poor ultrasonic windows. Grossly LV systolic function is normal. No gross valvular abnormalities. Sid Rao MD (Electronically Signed) Final Date: 09 August 2024 08:02 Laboratory Results WBC 5.36 10^3/uL (3.29-11.43) 08/14/24 06:05 RBC 2.63 10^6/uL (3.85-5.65) L 08/14/24 06:05 Hgb 8.00 g/dL (11.27-16.99) L 08/14/24 06:05 Hct 26.6 % (37-53) L 08/14/24 06:05 MCV 101.1 fl (82-101) H 08/14/24 06:05 MCH 30.4 pg (27-33) 08/14/24 06:05 MCHC 30.1 g/dL (30-55) 08/14/24 06:05 RDW 18.9 % (12.1-15.1) H 08/14/24 06:05 Plt Count 116 10^3/cmm (157-399) L 08/14/24 06:05 MPV 10.5 fL (7.4-10.4) H 08/14/24 06:05 Neut % (Auto) 70.1 % 08/14/24 06:05 Lymph % (Auto) 14.0 % 08/14/24 06:05 Shasta % (Auto) 8.8 % 08/14/24 06:05 Eos % (Auto) 5.0 % 08/14/24 06:05 Baso % (Auto) 0.4 % 08/14/24 06:05 Neut # (Auto) 3.76 10^3/uL (1.8-7.7) 08/14/24 06:05 Lymph # (Auto) 0.8 10^3/uL (0.8-4.8) 08/14/24 06:05 Shasta # (Auto) 0.5 10^3/uL (0.2-0.9) 08/14/24 06:05 Eos # (Auto) 0.3 10^3/uL (0.0-0.8) 08/14/24 06:05 Baso # (Auto) 0.0 10^3/uL (0.0-0.1) 08/14/24 06:05 Nucleated RBC % (auto) 0 % 08/14/24 06:05 Nucleated RBCs # 0.0 /100WBC 08/14/24 06:05 PT 14.70 SECONDS (12.1-14.9) 08/11/24 03:49 INR 1.11 (0.8-1.2) 08/11/24 03:49 Specimen Type Arterial 08/10/24 02:24 Sample Site A-line 08/10/24 02:24 ABG pH 7.46 (7.35-7.45) H 08/10/24 02:24 ABG pCO2 41.5 mmHg (35-45) 08/10/24 02:24 ABG pO2 86.2 mmHg (80.0-100.0) 08/10/24 02:24 ABG PO2/FiO2 Ratio 246 08/10/24 02:24 ABG HCO3 29.4 mmol/L (22-26) H 08/10/24 02:24 ABG O2 Saturation > 99.1 08/07/24 14:54 ABG Base Excess 5.1 mmol/L (-2.0-2.0) H 08/10/24 02:24 Carroll Test N/a 08/10/24 02:24 A-a O2 Gradient 15.6 mmHg (5-10) H 08/07/24 14:54 Hematocrit 19.9 % (42-52) L 08/10/24 02:24 Hgb O2 Saturation 98.1 % (95-100) 08/07/24 14:54 Carboxyhemoglobin 1.1 %THgb (0.4-20.1) 08/07/24 14:54 Methemoglobin 0.6 % (0.4-1.5) 08/07/24 14:54 Total Hemoglobin 8.1 g/dL (14-18) L 08/07/24 14:54 Sodium 135.0 mmol/L (131-143) 08/07/24 14:54 Potassium 4.6 mmol/L (3.5-5.0) 08/07/24 14:54 Glucose 396.0 mg/dL (70-115) H 08/07/24 14:54 Ionized Calcium 1.0 mmol/L (1.1-1.4) L 08/07/24 14:54 O2 Delivery Device Vent 08/10/24 02:24 FiO2 35.0 % 08/10/24 02:24 Tidal Volume 0.50 08/10/24 02:24 PEEP 6.0 cmH20 08/10/24 02:24 Beef Grader ID Ed 08/10/24 02:24 Sodium 145 mmol/L (136-145) 08/14/24 06:05 Potassium 3.8 mmol/L (3.5-5.1) 08/14/24 06:05 Chloride 106 mmol/L (98-107) 08/14/24 06:05 Carbon Dioxide 30 mmol/L (22-29) H 08/14/24 06:05 Anion Gap 12.8 (5-19) 08/14/24 06:05 BUN 23 mg/dL (8-23) 08/14/24 06:05 Creatinine 0.9 mg/dL (0.7-1.2) 08/14/24 06:05 GFR Calculation 84.2 mL/min (90-130) L 08/14/24 06:05 Glucose 123 mg/dL (65-115) H 08/14/24 06:05 POC Glucose 96 mg/dL (70-110) 08/14/24 10:41 Estimat Average Glucose 105 08/08/24 04:25 Hemoglobin A1c 5.3 % (4.0-6.0) 08/08/24 04:25 Calculated Osmolality 305 mOsm/kg (285-295) H 08/14/24 06:05 Lactate 1.9 mmol/L (0.5-2.2) 08/09/24 04:41 Calcium 8.5 mg/dL (8.5-10.5) 08/14/24 06:05 Magnesium 2.0 mg/dL (1.7-2.3) 08/14/24 06:05 Total Bilirubin 1.9 mg/dL (0.15-1.2) H 08/14/24 06:05 AST 28 U/L (0-40) 08/14/24 06:05 ALT 14 U/L (0-41) 08/14/24 06:05 Alkaline Phosphatase 55 U/L (40-130) 08/14/24 06:05 NT-Pro-B Natriuret Pep 5408 pg/mL (0-125) H 08/12/24 05:16 Total Protein 5.4 g/dL (6.6-8.7) L 08/14/24 06:05 Albumin 3.5 g/dL (3.5-5.2) 08/14/24 06:05 Globulin 1.9 g/dL (1.3-4.6) 08/14/24 06:05 Triglycerides 119 mg/dL (0-150) 08/12/24 05:16 Cholesterol 84 mg/dL (0-200) 08/12/24 05:16 LDL Cholesterol, Calc 44 mg/dL (50-129) L 08/12/24 05:16 Total VLDL Cholesterol 24 mg/dL (0-30) 08/12/24 05:16 HDL Cholesterol 16 mg/dL (60-100) L 08/12/24 05:16 Cholesterol/HDL Ratio 5.25 mg/dL (1.0-5.00) H 08/12/24 05:16 Vitamin B12 468 pg/mL (232-1245) 08/11/24 03:49 Folate 14.1 ng/mL (4.5-32.2) 08/12/24 05:16 Procalcitonin 0.38 ng/mL (0-0.5) 08/12/24 05:16 TSH 2.21 uIU/mL (0.27-4.20) 08/08/24 04:25 Random Cortisol 27.82 ug/dL (2.47-19.5) H 08/08/24 04:25 Urine Color Yellow (Yellow) 08/06/24 18:00 Urine Appearance Clear (CLEAR) 08/06/24 18:00 Urine pH 5.5 (5-7) 08/06/24 18:00 Ur Specific Britt 1.015 (1.005-1.030) 08/06/24 18:00 Urine Protein Negative (Negative) 08/06/24 18:00 Urine Glucose (UA) Negative (Normal) 08/06/24 18:00 Urine Ketones Negative (Negative) 08/06/24 18:00 Urine Blood Negative (Negative) 08/06/24 18:00 Urine Nitrate Negative (Negative) 08/06/24 18:00 Urine Bilirubin Negative (Negative) 08/06/24 18:00 Urine Urobilinogen 1.0 mg/dL (Negative) 08/06/24 18:00 Ur Leukocyte Esterase Negative (Negative) 08/06/24 18:00 Amorphous Sediment Not Reportable 08/06/24 18:00 Nasal MRSA (PCR) Mrsa detected (Negative) A 08/10/24 13:53 SARS-CoV-2 Ag (Rapid) Negative (Negative) 08/14/24 11:33 Blood Type O Positive 08/11/24 15:21 Rho(D) Type Rh positive 08/11/24 15:21 Antibody Screen Negative 08/11/24 15:21 Crossmatch See Detail 08/07/24 10:45 Vitals Last Vital Signs Temp 97.8 F 08/14/24 11:43 Pulse 58 L 08/14/24 11:43 Resp 18 08/14/24 11:43 BP 126/76 08/14/24 11:43 Pulse Ox 95 08/14/24 11:43 O2 Del Method Nasal Cannula 08/14/24 11:43 O2 Flow Rate 2 08/14/24 08:10 FiO2 35 08/10/24 11:00 Discharge Plan Discharge Patient Disposition: Xfer SNF Condition: Stable Prescriptions: New amoxicillin-pot clavulanate 875-125 mg tablet 1 tab PO BID Qty: 20 0RF Continued aspirin [Adult Aspirin Regimen] 81 mg tablet,delayed release (DR/EC) 81 mg PO DAILY@0800 Spiriva with HandiHaler 18 mcg capsule, w/inhalation device 1 cap inhalation DAILY Qty: 30 3RF Rx Instructions: puncture 1 cap using device; one dose = 2 inhalations sertraline 50 mg tablet 50 mg PO DAILY@0800 cholecalciferol (vitamin D3) 125 mcg (5,000 unit) capsule 125 mcg PO DAILY@0800 bismuth subsalicylate [Pepto-Bismol] 262 mg/15 mL suspension 524 mg PO DAILY PRN (Reason: Nausea) sodium phosphates 19-7 gram/118 mL enema 118 ml MN DAILY PRN (Reason: Constipation ) loperamide [Anti-Diarrheal (loperamide)] 2 mg tablet 2 mg PO .COMPLEX PRN (Reason: Diarrhea) Rx Instructions: 2 mg orally give 2 tab for diarrhea and one tab for lose stool -max 4 in one day PRN; until patient has gone 12 hours without a bowel movement multivitamin Tablet 1 tab PO DAILY acetaminophen 325 mg Tablet 650 mg PO Q4H PRN (Reason: Pain) bisacodyl [Dulcolax (bisacodyl)] 10 mg Suppository 10 mg MN DAILY PRN (Reason: Constipation) bisacodyl 5 mg Tablet 20 mg PO DAILY PRN (Reason: Constipation) albuterol sulfate [Ventolin HFA] 90 mcg/actuation Hfa Aerosol Inhaler 2 puff INHALATION Q6H PRN (Reason: Shortness Of Breath) bumetanide 2 mg tablet 2 mg PO BID@0800,1700 potassium chloride [Klor-Con M20] 20 mEq tablet,ER particles/crystals 20 meq PO BID@0800,1700 fluticasone propion-salmeterol [Advair HFA] 115-21 mcg/actuation HFA aerosol inhaler 2 puff inhalation Q6H PRN (Reason: wheezing ) Biofreeze (menthol) 4 % Gel 1 applic TOPICAL QID PRN (Reason: knee pain ) hydrocodone-acetaminophen 5-325 mg tablet 1 - 2 tab PO Q8H PRN (Reason: pain) clotrimazole-betamethasone 1-0.05 % cream 1 applic TOPICAL BID PRN (Reason: rash ) medroxyprogesterone 5 mg tablet 5 mg PO DAILY lidocaine 4 % Cream 1 applic TOPICAL DAILY PRN (Reason: Pain) tramadol 50 mg tablet 50 mg PO Q12H PRN (Reason: peripheral vascular disease ) magnesium hydroxide [Milk of Magnesia] 400 mg/5 mL Suspension 30 ml PO Q24H PRN (Reason: constipation ) Held apixaban 5 mg tablet 5 mg PO BID@0800,1700 Hold Instructions: Resume on 08/28/24. Discharge Orders: Discharge Order (Routine); Ordered 08/14/24 Ordered By: Brice Funes Referrals: Justine Alfonso MD [Physician] - 3 weeks Odalis Stewart NP [Primary Care Provider] - 7-10 days Discharge Diet: As Directed Discharge Activity: Increase activity as tolerated Patient Instructions: Acute Wound Care (DC), Opioid Safety, Post Anesthesia Care Activity Restrictions/Additional Instructions: Dysphagia level 7 diet. Repeat CBC, CMP in 1 week. Change dressing as needed. You may place a compression dressing over the wound if needed. Patient is to remain touchdown weightbearing only for transfers. Dressings to anterior ankle per podiatry service. Remove shzaia 2 weeks from date of surgery. Steri-Strip. Discharge Attestations Time Spent in Discharge Care*: greater than 30 min Specific Discharge Activities: educating patient, discussing with pcp/other providers, discussing with registered nurse hh case manager/social workers/dc planners, documenting/other paperwork and evaluating patient/reviewing data Status at Discharge: Cognitive status at discharge: cognitively intact, Behavioral status at discharge: cooperative, Functional status at discharge: bed bound, Overall status at discharge: patient is back to baseline Quality Metrics Clinical Quality Measures [ No reported AMI, CVA or VTE this stay] Coding Level of Care Code 23927 Total time (in minutes) for Discharge: 70 Diagnoses Closed displaced spiral fracture of shaft of left femur, initial encounter S72.342A Encounter type: initial encounter Femur location: shaft Fracture alignment: displaced Fracture morphology: spiral Fracture type: closed Closed displaced subtrochanteric fracture of left femur, initial encounter S72.22XA Encounter type: initial encounter Fracture type: closed Fracture alignment: displaced Chronic venous insufficiency I87.2 Chronic embolism and thrombosis of left femoral vein I82.512
[2024-08-14] MEDS: pantoprazole 40 mg SDV IVP (12:25)
--- NOTE | 2024-08-14 15:13 | PC.OT ---
OT TREATMENT HELD DUE TO SCHEDULED PATIENT D/C
[2024-08-14 15:19] VITALS: BP 109/65; PULSE 63; RESP 16; TEMP 36.8; O2SAT 97
[2024-08-14 16:40] LABS: Glucose Point of Care 110 mg/dL (70-110)
== END 2024-08-14 17:55 | disposition skilled nursing facility (03) | DRG 480 ==
LOC: ER 17:27 → ER IP 17:43 → MEDSURG 08-07 11:24 → ICU 08-07 15:17 → MEDSURG 08-12 14:30
PROVIDERS: Internal Medicine; Specialist; Admitting Provider Internal Medicine; Emergency Provider Emergency Medicine; PCP Nurse Practitioner Family; Visit Provider Student in an Organized Health Care Education/Training Program
PROC: 0QS906Z Reposition Left Femoral Shaft with Intramedullary Internal Fixation Device, Open Approach (ICD-10-PCS; CPT 27245; principal; 2024-08-07 13:20)
DX: S72.22XA Displaced subtrochanteric fracture of left femur, initial encounter for closed fracture (principal); J96.90 Respiratory failure, unspecified, unspecified whether with hypoxia or hypercapnia; L89.623 Pressure ulcer of left heel, stage 3; T81.19XA Other postprocedural shock, initial encounter; K72.00 Acute and subacute hepatic failure without coma; L97.328 Non-pressure chronic ulcer of left ankle with other specified severity; I82.512 Chronic embolism and thrombosis of left femoral vein; I50.30 Unspecified diastolic (congestive) heart failure; N17.9 Acute kidney failure, unspecified; Z68.41 Body mass index [BMI] 40.0-44.9, adult; F33.1 Major depressive disorder, recurrent, moderate; D62 Acute posthemorrhagic anemia; E87.20 Acidosis, unspecified; E87.0 Hyperosmolality and hypernatremia; W19.XXXA Unspecified fall, initial encounter; S72.342A Displaced spiral fracture of shaft of left femur, initial encounter for closed fracture; Y92.129 Unspecified place in nursing home as the place of occurrence of the external cause; I87.2 Venous insufficiency (chronic) (peripheral); K42.9 Umbilical hernia without obstruction or gangrene; Y83.8 Other surgical procedures as the cause of abnormal reaction of the patient, or of later complication, without mention of misadventure at the time of the procedure; Y79.3 Surgical instruments, materials and orthopedic devices (including sutures) associated with adverse incidents; Y92.234 Operating room of hospital as the place of occurrence of the external cause; E66.01 Morbid (severe) obesity due to excess calories; I73.9 Peripheral vascular disease, unspecified; J44.9 Chronic obstructive pulmonary disease, unspecified; Z66 Do not resuscitate; R06.81 Apnea, not elsewhere classified; I89.0 Lymphedema, not elsewhere classified; E16.2 Hypoglycemia, unspecified; B96.3 Hemophilus influenzae [H. influenzae] as the cause of diseases classified elsewhere; Z79.01 Long term (current) use of anticoagulants; Z74.01 Bed confinement status; Z99.81 Dependence on supplemental oxygen; Z87.891 Personal history of nicotine dependence; Z79.82 Long term (current) use of aspirin
CPT/HCPCS: 36415; 36416; 36430; 36592; 36600; 51702; 71045; 71250; 72192; 73502; 73562; 73610; 73700; 74176; 76000; 80048; 80051; 80053; 80061; 81003; 82330; 82533; 82607; 82746; 82803; 82805; 82962; 83036; 83605; 83735; 83880; 84145; 84443; 85014; 85018; 85025; 85610; 86850; 86900; 86920; 86927; 87040; 87070; 87077; 87205; 87426; 92523; 92610; 93005; 93306; 94002; 94003; 94640; 94799; 96372; 96374; 96376; 97110; 97161; 97165; 99285; C1713; J0131; J0171; J0690; J1171; J1644; J1720; J1815; J1940; J2020; J2185; J2270; J2371; J2405; J2470; J2543; J2598; J2704; J3010; J3370; J3480; J3490; J7030; J7040; J7050; J7070; J7626; P9016; P9017; P9040; P9045; P9046

== ENCOUNTER 2024-08-20 10:32 | Inpatient (IN) | payer MEDICARE, MEDICAID, SELFPAY ==
[2024-08-20] VITALS (72 sets, daily range): BP systolic 72–138; BP diastolic 43–78; PULSE 66–94; RESP 14–31; TEMP 36.2–37.3; O2SAT 83–100; BMI 41.5
--- NOTE | 2024-08-20 10:56 | XRR_ITS ---
PROCEDURE INFORMATION: Exam: XR Chest Exam date and time: 08/20/2024 11:11 AM Age: 69 years old Clinical indication: Cough and dyspnea; Patient HX: Left hip, post op infection; Additional info: Dyspnea/cough TECHNIQUE: Imaging protocol: Radiologic exam of the chest. Views: 1 view. COMPARISON: CR (CHEST, ) 08/12/2024 8:49 AM FINDINGS: Tubes, catheters and devices: None. Lungs: Mild bilateral perihilar and basilar interstitial lung opacities, suggesting pulmonary edema versus infiltrates. The peripheral lungs are otherwise clear. No consolidation. Linear density identified within bilateral lower lungs. Improvement of bilateral lung opacities is demonstrated. Pleural spaces: Minimal volume of pleural fluid is demonstrated within the right side. No other pleural effusion or pneumothorax identified. Heart/Mediastinum: Cardiac silhouette appears [id number] enlarged. Vasculature: Tortuous and ectatic aorta is demonstrated. Mild atherosclerotic calcification demonstrated within the aorta. Bones/joints: Diffusely decreased bone density. Generalized bony degenerative changes. Soft tissues: This study is limited by patient's body habitus. XR/XR chest 1V portable [id number] IMPRESSION: 1. [id number] enlarged cardiac silhouette. 2. Mild interstitial pulmonary edema versus infiltrates. 3. Linear bilateral lower chest pulmonary atelectasis, or scarring. 4. Minimal right pleural effusion.
--- NOTE | 2024-08-20 10:56 | ECG_ITS ---
[facility] Test Date: 2024-08-20 Pat Name: Willie Perez Department: Room: Gender: Male Pharmacy Technician Per Diem: : 1955 Requested By: Chadwick Giang Order Number: [id number] William MD: Sid Rao M.D. Measurements Intervals [place] Rate: 92 P: 50 VT: 156 QRS: 5 QRSD: 89 T: 49 QT: 370 QTc: 459 Interpretive Statements SINUS RHYTHM Compared to ECG 08/08/2024 08:11:46 Sinus tachycardia no longer present Electronically Signed On 08-20-2024 20:03:57 MEATCUTTER by Sid Rao M.D. [email or web address]
--- NOTE | 2024-08-20 10:57 | PC.PHAR ---
Pt is from [facility]
--- NOTE | 2024-08-20 11:01 | W.ED.GENADLT ---
HPI - General Adult General: Chief complaint: General Medical Stated complaint: post op infection Time Seen by Provider: 08/20/24 10:51 History of Present Illness: 69-year-old male presents to the emergency room concerned about swelling and skin breakdown on his left hip. About 2 weeks ago patient had a hip fracture had open reduction internal fixation and now has skin breakdown and swelling in that area no reported fever sweats or chills. Patient is on apixaban. Associated symptoms: Deny chest pain, dyspnea or rash Related Data Home Medications Medication Instructions Recorded Confirmed aspirin 81 mg tablet,delayed 81 mg PO DAILY@0800 09/26/19 08/20/24 release (Adult Aspirin Regimen) acetaminophen 325 mg tablet 650 mg PO Q4H PRN Pain or elevated 10/31/20 08/20/24 temp bisacodyl 10 mg rectal suppository 10 mg NE DAILY PRN Constipation 10/31/20 08/20/24 (Dulcolax (bisacodyl)) bisacodyl 5 mg tablet 20 mg PO DAILY PRN Constipation 10/31/20 08/20/24 cholecalciferol (vitamin D3) 125 125 mcg PO DAILY@0800 12/10/20 08/20/24 mcg (5,000 unit) capsule albuterol sulfate 90 mcg/actuation 2 puff inhalation Q6H PRN 01/14/21 08/20/24 aerosol inhaler (Ventolin HFA) Shortness Of Breath apixaban 5 mg tablet 5 mg PO BID@0800,1700 01/14/21 08/20/24 bumetanide 2 mg tablet 2 mg PO BID@0800,1700 01/14/21 08/20/24 potassium chloride 20 mEq 20 meq PO BID@0800,1700 01/14/21 08/20/24 tablet,extended release(part/cryst) (Klor-Con M) bismuth subsalicylate 262 mg/15 mL 524 mg PO DAILY PRN Nausea 07/10/23 08/20/24 oral suspension (Pepto-Bismol) loperamide 2 mg tablet 2 mg PO .COMPLEX PRN Diarrhea 07/10/23 08/20/24 (Anti-Diarrheal (loperamide)) multivitamin 1 tab PO QAM 07/10/23 08/20/24 sodium phosphates 19 gram-7 118 ml NE DAILY PRN Constipation 07/10/23 08/20/24 gram/118 mL enema clotrimazole-betamethasone 1 1 applic topical BID PRN rash 08/07/24 08/20/24 %-0.05 % topical cream fluticasone propionate 115 2 puff inhalation Q6H PRN wheezing 08/07/24 08/20/24 mcg-salmeterol 21 mcg/actuation HFA inhaler (Advair HFA) hydrocodone 5 mg-acetaminophen 325 See Rx Instructions .Route 08/07/24 08/20/24 mg tablet .COMPLEX PRN pain magnesium hydroxide 400 mg/5 mL 30 ml PO Q24H PRN constipation 08/07/24 08/20/24 oral suspension (Milk [employer]) medroxyprogesterone 5 mg tablet 5 mg PO QAM 08/07/24 08/20/24 menthol 4 % topical gel (Biofreeze 1 applic topical QID PRN knee pain 08/07/24 08/20/24 (menthol)) tramadol 50 mg tablet 50 mg PO Q12H PRN pain from 08/07/24 08/20/24 peripheral vascular disease ammonium lactate 12 % topical cream 1 applic topical Q8H PRN Dry Skin 08/20/24 08/20/24 dextran 70-hypromellose eye drops 1 drp ophthalmic (eye) Q4H PRN 08/20/24 08/20/24 in a dropperette (Artificial Tears cataract surgery (PF) drops in a dropperette) eucalyptus-menthol oral mucosal 3.1 mg mucous membrane Q1H PRN 08/20/24 08/20/24 lozenge Cough hydrocodone 10 mg-acetaminophen 1 tab PO Q6H PRN Pain (Scale Score 08/20/24 08/20/24 325 mg tablet 1-3) sertraline 100 mg tablet 100 mg PO QAM 08/20/24 08/20/24 Previous Rx's Medication Instructions Recorded tiotropium bromide 18 mcg capsule 1 cap inhalation DAILY #30 03/11/21 with inhalation device (Spiriva inhalations with HandiHaler) amoxicillin 875 mg-potassium 1 tab PO BID #20 tabs 08/14/24 clavulanate 125 mg tablet Allergies Allergy/AdvReac Type Severity Reaction Status Date / Time No Known Allergies Allergy Verified 08/20/24 10:54 Review of Systems Const: Denies: fever(s) or chills Card: Denies: chest pain Resp: Denies: dyspnea GI: Denies: abdominal pain : Denies: dysuria, urinary frequency or urinary urgency Musc: Denies: neck pain or back pain Skin/Breast: Denies: rash PFSH ED PFSH: Medical History (Updated 08/20/24 @ 19:22 by Brice Funes MD) Edema GI bleed due to NSAIDs Open wound of left ankle with tendon involvement Subtrochanteric fracture of left femur Obstructive sleep apnea (adult) (pediatric) Muscle weakness (generalized) Personal history of other venous thrombosis and embolism Personal history of COVID-19 Duodenal ulcer, unspecified as acute or chronic, without hemorrhage or perforation History of falling assisted (current) 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 History of bleeding ulcers Morbid obesity with BMI of 40.0-44.9, adult Chronic respiratory failure with hypoxia COPD (chronic obstructive pulmonary disease) Bleeding ulcer DVT (deep venous thrombosis) Hypoxia CHF (congestive heart failure) Surgical History (Updated 08/20/24 @ 19:22 by Brice Funes MD) History of amputation of finger right hand Family History Mother Diabetes Father Cancer skin Social History Smoking and tobacco/nicotine status: former use of tobacco/nicotine Quit status (tobacco/nicotine): has quit using Year quit tobacco: 2019 Former quit date comment: Hx of 2 PPD x 50 Years Second hand smoke exposure: Yes Alcohol intake: never Substance/Drug Use: never Caregiver/support person: Yes Lives independently: No Housing: Long-Term Marital status: Current occupational status: disabled Pets and animals: No Do you think of yourself as: Straight/Heterosexual Current gender identity: Male Physical Exam Const: GENERAL APPEARANCE: cooperative ORIENTATION/CONSCIOUSNESS: Yes awake, Yes oriented to person, Yes oriented to place and Yes oriented to time HENMT: COMMON NORMALS: normocephalic, atraumatic and hearing grossly normal bilaterally HEAD & SCALP: normocephalic and atraumatic Resp: COMMON NORMALS: normal respiratory effort, No retractions, No use of accessory muscles and clear to auscultation bilaterally AUSCULTATION: clear to auscultation bilaterally Cardio: COMMON NORMALS: regular rate, regular rhythm and No murmurs present (Cardio) RATE: regular rate RHYTHM: regular rhythm GI: COMMON NORMALS: Soft to palpation and No hepatosplenomegaly present AUSCULTATION: Yes normoactive bowel sounds PALPATION: Yes Soft to palpation, No Tenderness to palpation present (GI), No Guarding due to palpation present (GI) and Yes No hepatosplenomegaly present Extremity: OTHER: Large fluctuant area on the left hip. There is necrosis of skin suspect due to the pressure in the thigh there is superficial sloughing of the skin. Neuro: SENSORIUM/ORIENTATION: Yes oriented to person, Yes oriented to place and Yes oriented to time Skin: COMMON NORMALS: no rashes or lesions noted GENERAL SKIN EXAM: no rashes or lesions noted Procedures Central Line Placement Right IJ: Time Out Performed: Yes Patient Placed on Monitor/Pulse Ox: Yes MD Prep: mask, gown and gloves Central Line Prep: Chlorhexidine scrub Local Anesthetic: lidocaine 1% Amount of anesthesia used (mL): 5 Ultrasound Used for Placement: Yes Central Line Lumen Inserted: triple Post Procedure: sutured in place, good blood return, all ports aspirated, flushed, capped and sterile dressing applied Post Procedure X-Ray: tip of catheter in good position Patient Tolerated Procedure: well Complications: none Additional Comments: Placement of right IJ after failed attempt at the right subclavian. Was able to cannulate the right IJ and advanced the wire however the wire advanced with significant difficulty. Was able to advance the wire by having the patient inhale and simultaneously advancing the wire after approximately 4 advances as he inhaled each time the wire then moved freely and was able to complete placement of the central line. Chest x-ray done shows no pneumothorax good positioning of the central line. Right SC: Time Out Performed: Yes Patient Placed on Monitor/Pulse Ox: Yes MD Prep: mask, gown and gloves Central Line Prep: Chlorhexidine scrub Local Anesthetic: lidocaine 1% Amount of anesthesia used (mL): 3 Ultrasound Used for Placement: Yes Patient Tolerated Procedure: well Complications: other (Unable to advance wire) Additional Comments: Right subclavian vessel easily visualized on ultrasound but is collapsing with respiration. As patient exhales the vein completely collapses. Was able to cannulate the vein with a needle on 3 separate occasions however was not able to advance the wire and lost placement with the needle as the patient exhaled. Ultimately subclavian approach abandoned and placed a central line in the right IJ Course Vital Signs: Vital signs: Vital Signs Temperature 98.7 F 08/24/24 04:00 Pulse Rate 73 08/24/24 05:44 Respiratory Rate 19 H 08/24/24 04:00 Blood Pressure 133/72 08/24/24 04:00 Pulse Oximetry 93 08/24/24 04:00 Oxygen Delivery Me thod Nasal Cannula 08/24/24 04:00 Oxygen Flow Rate 3 08/24/24 04:00 MDM - General Adult Medical Decision Making CT shows a 10 x 35 cm hematoma. Will admit. Discussed with hospitalist orthopedics consulted. Medical Records I reviewed the patient's medical records. Lab Data I reviewed the patient's lab results. 08/24/24 04:34 08/24/24 04:[address] 08/20/24 11:13 IMPRESSION: 1. Large high density forming collection extends over a length of 35 cm x 10 cm anterior posterior. Collection begins in the lateral upper thigh at the level of the ilium to the distal femoral diaphysis. No foci of air in the collection this is most likely hematoma. 2. Status post intramedullary tracy fixation of a comminuted fracture of the proximal diaphysis. Fracture by 2.7 cm. Chest X-Ray 08/20/24 14:40 IMPRESSION: 1. The right internal jugular vein central venous catheter with the distal tip projecting into the proximal to mid right atrium. 2. Stable cardiomegaly. Abdomen/Pelvis CT 08/20/24 17:50 IMPRESSION: 1. Consolidation versus atelectasis in the posterior aspect of the right lung base. 2. Ventral hernia in the right anterior lower abdominal wall containing a portion of the cecum and appendix measuring 21 mm at the neck. This is similar to the prior examination. 3. Intramedullary tracy with proximal interlocking screw spanning a displaced fracture of the proximal left femur redemonstrated. Extensive subcutaneous fat stranding in the left groin and lateral to the left hip partially visualized within the field of view. 4. No abscess in the abdomen or pelvis. Laboratory Results WBC 21.36 10^3/uL (3.29-11.43) H 08/20/24 11:11 RBC 2.42 10^6/uL (3.85-5.65) L 08/20/24 11:11 Hgb 7.30 g/dL (11.27-16.99) L 08/20/24 11:11 Hct 24.2 % (37-53) L 08/20/24 11:11 MCV 100.0 fl (82-101) 08/20/24 11:11 MCH 30.2 pg (27-33) 08/20/24 11:11 MCHC 30.2 g/dL (30-55) 08/20/24 11:11 RDW 19.9 % (12.1-15.1) H 08/20/24 11:11 Plt Count 398 10^3/cmm (157-399) 08/20/24 11:11 MPV 10.6 fL (7.4-10.4) H 08/20/24 11:11 Neut % (Auto) 85.7 % 08/20/24 11:11 Lymph % (Auto) 5.8 % 08/20/24 11:11 [place] % (Auto) 6.2 % 08/20/24 11:11 Eos % (Auto) 0.1 % 08/20/24 11:11 Baso % (Auto) 0.2 % 08/20/24 11:11 Neut # (Auto) 18.30 10^3/uL (1.8-7.7) H 08/20/24 11:11 Lymph # (Auto) 1.2 10^3/uL (0.8-4.8) 08/20/24 11:11 [place] # (Auto) 1.3 10^3/uL (0.2-0.9) H 08/20/24 11:11 Eos # (Auto) 0.0 10^3/uL (0.0-0.8) 08/20/24 11:11 Baso # (Auto) 0.1 10^3/uL (0.0-0.1) 08/20/24 11:11 Nucleated RBC % (auto) 0.1 % 08/20/24 11:11 Nucleated RBCs # 0.0 /100WBC 08/20/24 11:11 Sodium 139 mmol/L (136-145) 08/20/24 11:11 Potassium 5.8 mmol/L (3.5-5.1) H 08/20/24 11:11 Chloride 99 mmol/L (98-107) 08/20/24 11:11 Carbon Dioxide 26 mmol/L (22-29) 08/20/24 11:11 Anion Gap 19.8 (5-19) H 08/20/24 11:11 BUN 40 mg/dL (8-23) H 08/20/24 11:11 Creatinine 2.8 mg/dL (0.7-1.2) H 08/20/24 11:11 GFR Calculation 22.7 mL/min (90-130) L 08/20/24 11:11 Glucose 177 mg/dL (65-115) H 08/20/24 11:11 POC Glucose 122 mg/dL (70-110) H 08/20/24 15:21 Calculated Osmolality 302 mOsm/kg (285-295) H 08/20/24 11:11 Lactic Acid 3.1 mmol/L (0.5-2.2) H 08/20/24 11:11 Lactic Acid (Sepsis) 2.5 mmol/L (0.5-2.2) H 08/20/24 15:51 Calcium 8.4 mg/dL (8.5-10.5) L 08/20/24 11:11 Total Bilirubin 1.3 mg/dL (0.15-1.2) H 08/20/24 11:11 AST 36 U/L (0-40) 08/20/24 11:11 ALT 19 U/L (0-41) 08/20/24 11:11 Alkaline Phosphatase 125 U/L (40-130) 08/20/24 11:11 Creatine Kinase 81 U/L (39-308) 08/20/24 11:11 Total Protein 6.2 g/dL (6.6-8.7) L 08/20/24 11:11 Albumin 3.2 g/dL (3.5-5.2) L 08/20/24 11:11 Globulin 3.0 g/dL (1.3-4.6) 08/20/24 11:11 Blood Type O Positive 08/20/24 12:23 Rho(D) Type Rh positive 08/20/24 12:23 Antibody Screen Negative 08/20/24 12:23 Antibody Identification Cancelled 08/20/24 12:23 Crossmatch See Detail 08/20/24 12:23 All radiology interpretation(s) finalized by discharge Critical Care Time Critical Care Time: Critical Care Time: Yes Total Critical Care Time: 45 Attestation: The high probability of a clinically significant, sudden or life threatening deterioration of the patient's cardiovascular hematologic renal system(s) required my full and direct attention, intervention and personal management. The critical care time is as shown. This time is in addition to time spent performing any reported procedures but includes the following: [x] Data and vital sign review and interpretation [x] Patient assessment, examination and intervention [x] Documentation [x] Medication orders and management Discharge Plan Discharge Patient Disposition: Admitted As Inpatient Admit Provider: Brice Funes Clinical Impression: Sepsis, Venous stasis ulcers of both lower extremities, Chronic respiratory failure with hypoxia, Morbid obesity with BMI of 40.0-44.9, adult, Acute blood loss as cause of postoperative anemia, Acute kidney injury, Hematoma of left thigh CHF (congestive heart failure) Qualifiers: Heart failure type: unspecified Heart failure chronicity: chronic Qualified Code(s): I50.9 - Heart failure, unspecified COPD (chronic obstructive pulmonary disease) Qualifiers: COPD type: unspecified COPD Qualified Code(s): J44.9 - Chronic obstructive pulmonary disease, unspecified Condition: Stable Coding Level of Care Code ED Fur Stretcher for Gretta Short
--- NOTE | 2024-08-20 11:13 | CT_ITS ---
WS: [id number] CT LEFT FEMUR HISTORY: recent hip Technique: All CT scans at [facility] use at least one of these dose optimization techniques: automated exposure control; mA and/or kV adjustment per patient size (includes targeted exams where dose is matched to clinical indication); or iterative reconstruction. DLP: 684.41 mGy.cm COMPARISON: 08/06/2024 Patient is status post gamma nail intramedullary tracy fixation LEFT femur fracture. Comminuted fractur e involving the proximal diaphysis. This is a complex comminuted fracture. There is still 2.7 cm of s eparation at the fracture site. The distal fracture fragment is displaced medially as compared to the proximal fragment. Severe joint space narrowing LEFT hip. There is a large high density collection beginning over the lateral upper thigh at the level of the i lium and extending contiguously over a length of at least 35 cm into the distal thigh. Mass extends a nterior posterior by 10 cm. This is a multi loculated collection with no air. This is a high density collection deep to the suture line and the fracture. This is probably a hematoma. There is soft tissu e stranding but it is diffuse and not localized to the collection. CT/CT femur LT wo con* [id number] IMPRESSION: 1. Large high density forming collection extends over a length of 35 cm x 10 c m anterior posterior. Collection begins in the lateral upper thigh at the level of the ilium to the distal femoral diaphysis. No foci of air in the collection this is most likely hematoma. 2. Status post intramedullary tracy fixation of a comminuted fracture of the pro ximal diaphysis. Fracture by 2.7 cm.
[2024-08-20] MEDS: sodium chloride 0.9% 1,000 ML 999 ML IV (11:23)
[2024-08-20 11:24] LABS: Basophils # 0.1 10^3/uL (0.0-0.1); Basophils % 0.2 %; Eosinophils % 0.1 %; Hematocrit 24.2 % (37-53); Lymphocytes # 1.2 10^3/uL (0.8-4.8); Lymphocytes % 5.8 %; Mean Corpuscular HGB Conc 30.2 g/dL (30-55); Mean Corpuscular Hemoglobin 30.2 pg (27-33); Mean Platelet Volume 10.6 fL (7.4-10.4); Monocytes # 1.3 10^3/uL (0.2-0.9); Monocytes % 6.2 %; Neutrophils % 85.7 %; Nucleated Red Blood Cells % 0.1 %; Platelet Count 398 10^3/cmm (157-399); Red Blood Count 2.42 10^6/uL (3.85-5.65); Red Cell Distribution Width 19.9 % (12.1-15.1); White Blood Count 21.36 10^3/uL (3.29-11.43)
[2024-08-20 11:40] LABS: Lactic Sepsis W/Reflex 3.1 mmol/L (0.5-2.2)
[2024-08-20 11:41] LABS: Alanine Aminotransferase 19 U/L (0-41); Albumin Level 3.2 g/dL (3.5-5.2); Alkaline Phosphatase 125 U/L (40-130); Anion Gap 19.8 (5-19); Aspartate Amino Transferase 36 U/L (0-40); Blood Urea Nitrogen 40 mg/dL (8-23); Calcium 8.4 mg/dL (8.5-10.5); Carbon Dioxide 26 mmol/L (22-29); Chloride 99 mmol/L (98-107); Creatine Phosphokinase 81 U/L (39-308); Creatinine Clr Calc Pharmacy 34.9128; Glomerular Filtration Rate 22.7 mL/min (90-130); Glucose 177 mg/dL (65-115); Osmolality Calculated 302 mOsm/kg (285-295); Potassium 5.8 mmol/L (3.5-5.1); Sodium 139 mmol/L (136-145); Total Bilirubin 1.3 mg/dL (0.15-1.2); Total Protein 6.2 g/dL (6.6-8.7)
[2024-08-20] MEDS: sodium polystyrene sulfonate 15 gm/60 mL Btl PO (12:43)
[2024-08-20 13:06] LABS: Reflex Lactate Order REFLEX LACTIC ORDERD
[2024-08-20] MEDS: calcium chloride 10% Syr 10 mL 1 GM IVP (13:13)
[2024-08-20 13:15] LABS: Glucose Point of Care 146 mg/dL (70-110)
[2024-08-20] MEDS: albuterol 2.5 mg/3 mL Neb INHALATION (13:16)
[2024-08-20] MEDS: sodium bicarbonate 150 MEQ in dextrose 5% 200 ML 700 MEQ IV (13:27)
[2024-08-20] MEDS: insulin regular-human 100 units/1 mL 10 UNIT IVP (13:29)
--- NOTE | 2024-08-20 14:40 | XRR_ITS ---
PROCEDURE INFORMATION: Exam: XR Chest Exam date and time: 08/20/2024 2:41 PM Age: 69 years old Clinical indication: Device placement; Other: Central line placement TECHNIQUE: Imaging protocol: Radiologic exam of the chest. Views: 1 view. COMPARISON: CR XR chest 1V portable [id number] 08/20/2024 11:11 AM FINDINGS: Tubes, catheters and devices: There is a right internal jugular vein central venous catheter with the distal tip projecting into the proximal to mid right atrium. Lungs: The chest is hypoventilatory but clear. Pleural spaces: Unremarkable. No pleural effusion. No pneumothorax. Heart/Mediastinum: Stable cardiomegaly. Bones/joints: Unremarkable. XR/XR chest 1V [id number] IMPRESSION: 1. The right internal jugular vein central venous catheter with the distal tip projecting into the proximal to mid right atrium. 2. Stable cardiomegaly.
[2024-08-20] MEDS: norepinephrine 4 MG/250 ML BAG 30 MG IV (15:26)
[2024-08-20] MEDS: linezolid premix 600 MG/300 ML PREMIX 300 MG IV (15:29)
[2024-08-20 15:30] LABS: Glucose Point of Care 122 mg/dL (70-110)
[2024-08-20] MEDS: piperacillin-tazobactam 2.25 GM in sodium chloride 0.9% (plus) 50 ML IV (15:35)
[2024-08-20] MEDS: sodium chloride 0.9% 100 mL Bag 50 ML IV (16:07)
[2024-08-20 16:21] LABS: Lactic Acid level (Lactate) 2.5 mmol/L (0.5-2.2)
--- NOTE | 2024-08-20 17:26 | P.CONIM_ITS ---
Providers/Reason For Consult 2 Consulting Physician/Specialty*: Hospitalist Reason for Consult*: Septic shock Primary Care Provider: Odalis Stewart NP History of Present Illness History of Present Illness Willie Perez is a 69 year old male, retirement resident, bedbound, chronic DVT on Eliquis withheld for last 2 weeks, heart failure with preserved ejection fraction, recent ORIF for hip fracture on 08/07 which is postoperatively complicated by hemorrhagic shock along with multiorgan failure requiring multiple blood transfusions, respiratory failure in setting of haemophilus influenza pneumonia was discharged on 08/14 has been sent back to the ER today because of worsening swelling of the leg, worsening pain along with purulent foul-smelling discharge which has been increasing over last 2 days. In the ER on examination patient is awake and alert, complaining of pain in his leg. He was found to have hypotension with blood pressure of 70 systolic and was placed on Levophed after placement of central line. Currently is on Levophed of 6. Review of Systems 2 General: Reports: 10 or more systems reviewed and unremarkable except in HPI and below Const: Denies: fever(s), chills, body aches, change in appetite, change in weight, malaise, night sweats, diaphoresis, change in sleep pattern, daytime sleepiness or snoring Eyes: Denies: change in vision, blurry vision, photophobia, eye discomfort or eye discharge ENMT: Denies: throat pain, enlarged tonsils, hoarseness, mouth pain, oral sores, dry mouth, tinnitus, nasal congestion or post nasal drip Card: Denies: chest pain, palpitations, irregular heart rhythm, edema, swelling of feet/ankles, lightheadedness, syncope, pre-syncope, dyspnea on exertion, orthopnea, leg pain with exertion or acrocyanosis Resp: Denies: dyspnea, productive cough, non-productive cough, wheezing, stridor, pain on inspiration, change in phlegm color, hemoptysis or chest congestion GI: Denies: abdominal pain, nausea, vomiting, hematemesis, coffee ground emesis, dysphagia, heartburn, diarrhea, constipation, bloating, GI cramping, change in bowel habits, pain on defecation, hematochezia or melena : Denies: flank pain, difficulty urinating, dysuria, urinary frequency, urinary urgency, urinary hesitancy, urinary dribbling, difficulty starting urination, change in urine stream, nocturia or hematuria Musc: Denies: neck pain, back pain, extremity pain, joint pain, joint swelling, joint redness, joint stiffness or limited range of motion Neuro: Denies: headache(s), numbness in extremities, weakness in extremities, sensory changes, lack of coordination, difficulty walking, frequent falls, dizziness, vertigo, confusion, Slurred speech present, difficulty communicating thoughts or seizure-like activity Psych: Denies: anxiety, depression, mood swings, panic attacks, hopelessness or irritability Endo: Denies: polyuria, polydipsia, tired all the time, cold intolerance, excessive sweating, flushing or heat intolerance Best/Lymph: Denies: easy bruising or easy bleeding All/Imm: Denies: tongue swelling, facial swelling or acute wheezing Medications/Allergies Home Medications Medication Instructions Recorded Confirmed Last Taken Type aspirin 81 mg tablet,delayed 81 mg PO DAILY@0800 09/26/19 08/20/24 08/20/24 History release (Adult Aspirin Regimen) acetaminophen 325 mg tablet 650 mg PO Q4H PRN Pain or elevated 10/31/20 08/20/24 01/03/21 History temp bisacodyl 10 mg rectal suppository 10 mg TN DAILY PRN Constipation 10/31/20 08/20/24 Unknown History (Dulcolax (bisacodyl)) bisacodyl 5 mg tablet 20 mg PO DAILY PRN Constipation 10/31/20 08/20/24 Unknown History cholecalciferol (vitamin D3) 125 125 mcg PO DAILY@0800 12/10/20 08/20/24 08/20/24 History mcg (5,000 unit) capsule albuterol sulfate 90 mcg/actuation 2 puff inhalation Q6H PRN 01/14/21 08/20/24 08/19/24 History aerosol inhaler (Ventolin HFA) Shortness Of Breath apixaban 5 mg tablet 5 mg PO BID@0800,1700 01/14/21 08/20/24 08/06/24 History bumetanide 2 mg tablet 2 mg PO BID@0800,1700 01/14/21 08/20/24 08/20/24 History potassium chloride 20 mEq 20 meq PO BID@0800,1700 05/08/20/24 08/20/24 History tablet,extended release(part/cryst) (Klor-Con M) tiotropium bromide 18 mcg capsule 1 cap inhalation DAILY #30 03/11/21 08/20/24 08/20/24 Rx with inhalation device (Spiriva inhalations with HandiHaler) bismuth subsalicylate 262 mg/15 mL 524 mg PO DAILY PRN Nausea 07/10/23 08/20/24 Unknown History oral suspension (Pepto-Bismol) loperamide 2 mg tablet 2 mg PO .COMPLEX PRN Diarrhea 07/10/23 08/20/24 Unknown History (Anti-Diarrheal (loperamide)) multivitamin 1 tab PO QAM 07/10/23 08/20/24 08/20/24 History sodium phosphates 19 gram-7 118 ml TN DAILY PRN Constipation 07/10/23 08/20/24 Unknown History gram/118 mL enema clotrimazole-betamethasone 1 1 applic topical BID PRN rash 08/07/24 08/20/24 Unknown History %-0.05 % topical cream fluticasone propionate 115 2 puff inhalation Q6H PRN wheezing 08/07/24 08/20/24 08/20/24 History mcg-salmeterol 21 mcg/actuation HFA inhaler (Advair HFA) hydrocodone 5 mg-acetaminophen 325 See Rx Instructions .Route 08/07/24 08/20/24 08/06/24 History mg tablet .COMPLEX PRN pain magnesium hydroxide 400 mg/5 mL 30 ml PO Q24H PRN constipation 08/07/24 08/20/24 Unknown History oral suspension (Milk of Magnesia) medroxyprogesterone 5 mg tablet 5 mg PO QAM 08/07/24 08/20/24 08/20/24 History menthol 4 % topical gel (Biofreeze 1 applic topical QID PRN knee pain 08/07/24 08/20/24 Unknown History (menthol)) tramadol 50 mg tablet 50 mg PO Q12H PRN pain from 08/07/24 08/20/24 Unknown History peripheral vascular disease amoxicillin 875 mg-potassium 1 tab PO BID #20 tabs 08/14/24 08/20/24 08/20/24 Rx clavulanate 125 mg tablet ammonium lactate 12 % topical cream 1 applic topical Q8H PRN Dry Skin 08/20/24 08/20/24 Unknown History dextran 70-hypromellose eye drops 1 drp ophthalmic (eye) Q4H PRN 08/20/24 08/20/24 08/19/24 History in a dropperette (Artificial Tears cataract surgery (PF) drops in a dropperette) eucalyptus-menthol oral mucosal 3.1 mg mucous membrane Q1H PRN 08/20/24 08/20/24 Unknown History lozenge Cough hydrocodone 10 mg-acetaminophen 1 tab PO Q6H PRN Pain (Scale Score 08/20/24 08/20/24 08/19/24 History 325 mg tablet 1-3) sertraline 100 mg tablet 100 mg PO QAM 08/20/24 08/20/24 08/20/24 History Allergies Allergy/AdvReac Type Severity Reaction Status Date / Time No Known Allergies Allergy Verified 08/20/24 10:54 Current Medications Generic Name Dose Route Start Last Admin Trade Name Freq PRN Reason Stop Dose Admin Norepinephrine Bitartrate 4 mg in 250 mls @ 0 mls/hr 08/20/24 12:45 08/20/24 15:26 Levophed IV 8 mcg/min .Q0M TAYLOR 30 mls/hr Administration Protocol Per Protocol Sodium Chloride 50 ml 08/20/24 12:13 08/20/24 16:07 Sodium Chloride 0.9% 100 Ml Bag IV 08/21/24 12:14 50 ml PRN PRN Administration Blood transfusion prime and flush PFSH Acute 2 PFSH: Medical History (Updated 08/20/24 @ 19:22 by Brice Funes MD) Edema GI bleed due to NSAIDs Open wound of left ankle with tendon involvement Subtrochanteric fracture of left femur Obstructive sleep apnea (adult) (pediatric) Muscle weakness (generalized) Personal history of other venous thrombosis and embolism Personal history of COVID-19 Duodenal ulcer, unspecified as acute or chronic, without hemorrhage or perforation 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 detention (current) use of aspirin History of bleeding ulcers Morbid obesity with BMI of 40.0-44.9, adult Chronic respiratory failure with hypoxia COPD (chronic obstructive pulmonary disease) Bleeding ulcer DVT (deep venous thrombosis) Hypoxia CHF (congestive heart failure) Surgical History (Updated 08/20/24 @ 19:22 by Brice Funes MD) History of amputation of finger right hand Family History Mother Diabetes Father Cancer skin Social History Smoking and tobacco/nicotine status: former use of tobacco/nicotine Quit status (tobacco/nicotine): has quit using Year quit tobacco: 2018 Former quit date comment: Hx of 2 PPD x 50 Years Second hand smoke exposure: Yes Alcohol intake: never Substance/Drug Use: never Caregiver/support person: Yes Lives independently: No Housing: [facility] Marital status: Current occupational status: disabled Pets and animals: No Do you think of yourself as: Straight/Heterosexual Current gender identity: Male Vitals/I&O/Wt Last Vital Signs Temp 97.4 F L 08/20/24 16:34 Pulse 82 08/20/24 16:34 Resp 15 08/20/24 16:34 BP 98/51 08/20/24 16:34 Pulse Ox 97 08/20/24 16:34 O2 Del Method Nasal Cannula 08/20/24 13:16 O2 Flow Rate 2 08/20/24 13:16 08/20/24 08/20/24 08/20/24 06:59 14:59 22:59 Intake Total 1000 / 1000 400 / 1400 Balance 1000 / 1000 400 / 1400 Weight last 48 hrs Weight 131.542 kg Physical Exam 2 Narrative: General: No acute distress, AO x3, chronically sick appearing, morbidly obese HEENT: PERRLA, pupils bilaterally equal and reactive Chest: Normal disturbances oral lung sarah, decreased air entry, fine crackles present in bilateral lower zone CVS: S1-S2 regular, no murmurs, no tachycardia, no gallops, no rubs Abdomen: Soft, nontender, no organomegaly, bowel sounds present Neuro: No focal deficits, no facial deformity, AO x3, power 5/5 in all limbs Skin: OTHER: Surgical wound from recent ORIF as below. Quick SOFA Score: Respiratory Rate: 18 Blood Pressure: 118/52 qSOFA Score: 0 If qSOFA score 2 or greater, continue: Blood Pressure Mean: 74 N orepinephrine Current Rate (?g/kg/min): 6 Bilirubin (mg/dl): 1.3 Platelets (x10?/ml): 398 Creatinine (mg/dl): 2.8 Evaluation: Current stage of sepsis: septic shock Sepsis stage criteria used: [facility] Sep-1 and Sepsis-3 Crystalloid fluids: 30 mL/kg crystalloid fluids ordered and initiated within 3 hours Possible source: skin/soft tissue Focused Exam: Vital signs: Temp Pulse Resp BP Pulse Ox O2 Del Method O2 Flow Rate 08/20/24 18:34 97.7 F 71 18 118/52 98 08/20/24 17:34 97.7 F 80 16 122/63 96 08/20/24 16:34 97.4 F L 82 15 98/51 97 08/20/24 16:19 97.3 F L 78 20 H 127/78 96 08/20/24 16:03 97.5 F L 81 14 128/62 99 08/20/24 13:21 82 08/20/24 13:16 81 18 93 Nasal Cannula 2 08/20/24 10:39 97.6 F 94 17 79/48 94 Nasal Cannula 2 Date exam was performed: 08/20/24 Time exam was performed: 19:32 2 Sepsis Screen No Definite Risk 08/20/24 10:45 Respiratory Rate 18 breaths/min (12 - 18) 08/20/24 18:34 Blood Pressure 118/52 mmHg 08/20/24 18:34 Quick SOFA Score 0 08/20/24 19:31 SOFA Score: 2 Blood Pressure Mean 74 mmHg 08/20/24 18:34 Norepinephrine Current Rate 6 08/20/24 19:31 Total Bilirubin 1.3 mg/dL (0.15-1.2) H 08/20/24 11:11 Platelet Count 398 10^3/cmm (157-399) 08/20/24 11:11 Creatinine 2.8 mg/dL (0.7-1.2) H 08/20/24 11:11 Data 08/20/24 11:11 08/20/24 11:11 A&P Assessment and plan (1) Septic shock: (2) Hematoma of left hip: (3) Postoperative wound infection of left hip: (4) Acute kidney injury: (5) Hyperkalemia: (6) Anemia: (7) Elevated lactic acid level: (8) Hypertensive heart disease with heart failure: (9) DVT (deep venous thrombosis): (10) Morbid obesity with BMI of 40.0-44.9, adult: (11) COPD (chronic obstructive pulmonary disease): Qualifiers: COPD type: unspecified COPD Qualified Code(s): J44.9 - Chronic obstructive pulmonary disease, unspecified (12) Chronic respiratory failure with hypoxia and hypercapnia: (13) Obstructive sleep apnea (adult) (pediatric): (14) Decubitus ulcer: Qualifiers: Laterality: left Pressure injury location: heel Pressure injury stage: stage 3 Qualified Code(s): L89.623 - Pressure ulcer of left heel, stage 3 (15) Open wound of left ankle with tendon involvement: Qualifiers: Encounter type: initial encounter Qualified Code(s): S91.002A - Unspecified open wound, left ankle, initial encounter; S96.902A - Unspecified injury of unspecified muscle and tendon at ankle and foot level, left foot, initial encounter Plan 69-year-old with recent history of ORIF complicated by hemorrhagic shock, multiorgan failure, respiratory failure comes in back to the ER from retirement today in septic shock with concerns for postoperative infection and hematoma of the left hip. Septic shock: Keep mean arterial pressure 65. Wean Levophed accordingly. Component also of hemorrhagic shock. Monitor lactate. Already received monitor blood transfusion in the ER. Will transfuse 1 more unit. Target hemoglobin more than 7. Received full 30 mL/kg body weight of fluid in the ER. Continue with 75 cc/h after blood transfusion. SIRS: Tachycardic, Febrile, Leukocytosis Source: Cellulitis and postoperative wound infection End organ damage: Shock, RUDI Lactic acid elevated. Monitor blood pressures. Keep mean artery pressure 65 mmHg. Check blood culture, urine culture,, trend procalcitonin. MRSA positive recently. Empirically start patient on IV vancomycin and meropenem. Will request for over cultures. Hematoma along with postoperative wound infection: Antibiotic as above. Orthopedic consulted from the ER. Plan for wound washout and evacuation in AM. Will request for OR cultures. Appreciate orthopedic recommendation. N.p.o. after midnight. Anemia: Target hemoglobin more than 7. Recently received 4 units of blood transfusion and 1 of FFP on previous admission. Receiving 1 unit of PRBC in ER. Will order 1 more. Target hemoglobin more than 7. Holding off on Eliquis. Protonix 40 mg Q12 hourly. RUDI: Most likely in setting of septic shock. CT abdomen pelvis to rule out obstructive nephropathy. Monitor BMP daily. Medical reconstruction done for nephrotoxic drugs. Hyperkalemia: Received treatment with sodium bicarb, calcium gluconate in the ER. Repeat BMP. History of DVT: Hold off on home dose of Eliquis given hemorrhagic and septic shock Morbid obesity COPD: Not in exacerbation. Keep saturation over 90%. Wean off oxygen accordingly. Obstructive sleep apnea: Continue with home CPAP. Open wound of left ankle: Continue with wound care as per recent podiatry recommendations. Full code Patient's will be the DPOA Cardiac diet, n.p.o. after midnight Protonix will be sufficient for PUD prophylaxis SCD for DVT prophylaxis. Not on medical prophylaxis given hemorrhagic and septic shock. Consult Attestations 2 Medical Necessity Statement: Admission for more than 2 midnights for management of septic, hemorrhagic shock, hematoma and postoperative wound infection, recent ORIF, RUDI, hyperkalemia Critical Care Time: The high probability of a clinically significant, sudden or life threatening deterioration of the patient's [cardiac, pulmonary, hematology, orthopedic, renal] system(s) required my full and direct attention, intervention and personal management. The critical care time is as shown. This time is in addition to time spent performing any reported procedures but includes the following: [x] Data and vital sign review and interpretation [x] Patient assessment, examination and intervention [x] Documentation [x] Medication orders and management Critical Care Time (min): 90 Coding Level of Care Code Critical Care >/= 30 minutes Critical care time (in minutes): 90 The high probability of a clinically significant, sudden or life threatening deterioration, as referenced in this documentation, required my full and direct attention, intervention and personal management. The critical care time shown is in addition to time spent performing any reported separately billable procedures and includes the following: [x] Data and vital sign review and interpretation [x ] Patient assessment, examination and intervention [x] Medication orders and management [x] Patient/Family updates as able [x] Care Coordination and Documentation. Other Coding Information This patient has a high probability of clinically significant, sudden or life threatening deterioration of the patient's (neurological/pulmonary/cardiac/renal/ID/endocrine) systems required my full, direct attention, the highest level of physician preparedness for urgent intervention and personal management. I managed/supervised life or organ supporting interventions that required frequent physician assessment. I devoted my full attention in the ICU to the direct care of this patient for the period of time indicated above. Time I spent with family or surrogate(s) is included only if the patient was incapable of providing necessary information or participating in decision making. This time includes the following services provided: Telemetry review Hemodynamic interpretation, assessment and management Review and interpretation of CXR Review and interpretation of lab values Review and interpretation of microbiologic data and culture results Review of medications and administration Review and interpretation of Nutrition requirements and management Discussion of management with other consultants and services Clinical update to family members Diagnoses Hematoma of left hip S70.02XA Septic shock A41.9; R65.21 Postoperative wound infection of left hip T81.49XA Acute kidney injury N17.9 Hyperkalemia E87.5 Elevated lactic acid level R79.89 Anemia D64.9 Hypertensive heart disease with heart failure I11.0 DVT (deep venous thrombosis) I82.409 Morbid obesity with BMI of 40.0-44.9, adult E66.01; Z68.41 Chronic obstructive pulmonary disease, unspecified COPD type J44.9 COPD type: unspecified COPD Chronic respiratory failure with hypoxia and hypercapnia J96.11; J96.12 Obstructive sleep apnea (adult) (pediatric) G47.33 Decubitus ulcer L89.623 Laterality: left Pressure injury location: heel Pressure injury stage: stage 3 Open wound of left ankle with tendon involvement, initial encounter S91.002A; S96.902A Encounter type: initial encounter
--- NOTE | 2024-08-20 17:50 | CTR_ITS ---
PROCEDURE INFORMATION: Exam: CT Abdomen And Pelvis Without Contrast Exam date and time: 08/20/2024 6:21 PM Age: 69 years old Clinical indication: Other: Sepsis; Prior surgery; Surgery date: <1 month; Surgery type: Left femur; Additional info: Epifanio, septic shock TECHNIQUE: Imaging protocol: Computed tomography of the abdomen and pelvis without contrast. Radiation optimization: All CT scans at this facility use at least one of these dose optimization techniques: automated exposure control; mA and/or kV adjustment per patient size (includes targeted exams where dose is matched to clinical indication); or iterative reconstruction. COMPARISON: [place] [id number] 08/09/2024 10:30 AM RADIATION DOSE METRICS: Total DLP (mGy-cm): 1238.86 FINDINGS: Lungs: Consolidation versus atelectasis in the posterior aspect of the right lung base. Liver: The liver is diffusely low in attenuation consistent with hepatic steatosis. Gallbladder and biliary ducts: Normal. No calcified stones. No ductal dilation. Pancreas: Normal. No ductal dilation. Spleen: Normal. No splenomegaly. Adrenal glands: Normal. No mass. Kidneys and ureters: Normal. No hydronephrosis. Stomach and bowel: Unremarkable. No obstruction. No mucosal thickening. Appendix: No evidence of appendicitis. Intraperitoneal space: Unremarkable. No free air. No significant fluid collection. Vasculature: Unremarkable. No abdominal aortic aneurysm. Lymph nodes: Unremarkable. No enlarged lymph nodes. Urinary bladder: Unremarkable as visualized. Reproductive: Unremarkable as visualized. Bones/joints: Intramedullary tracy with proximal interlocking screw spanning a displaced fracture of the proximal left femur redemonstrated. Extensive subcutaneous fat stranding in the left groin and lateral to the left hip partially visualized within the field of view. Bony fusion of the bilateral SI joints redemonstrated. Soft tissues: Ventral hernia in the right anterior lower abdominal wall containing a portion of the cecum and appendix measuring 21 mm at the neck. This is similar to the prior examination. Other findings: No abscess in the abdomen or pelvis. CT/CT abdomen pelvis wo con [id number] IMPRESSION: 1. Consolidation versus atelectasis in the posterior aspect of the right lung base. 2. Ventral hernia in the right anterior lower abdominal wall containing a portion of the cecum and appendix measuring 21 mm at the neck. This is similar to the prior examination. 3. Intramedullary tracy with proximal interlocking screw spanning a displaced fracture of the proximal left femur redemonstrated. Extensive subcutaneous fat stranding in the left groin and lateral to the left hip partially visualized within the field of view. 4. No abscess in the abdomen or pelvis.
[2024-08-20] MEDS: meropenem 1,000 mg SDV 1000 MG IVP (18:58)
--- NOTE | 2024-08-20 19:03 | PM.CONSULT ---
Providers/Reason For Consult Consulting Physician/Specialty*: Andriy Price DO/orthopedic surgery Reason for Consult*: Persistent excessive postoperative drainage with a large hematoma, status post left femur trochanteric nail for subtrochanteric femur fracture, Requesting Physician: Dr. Barrera, Dr. Funes Attending Physician: Dr. Funes Primary Care Provider: Odalis Stewart NP History of Present Illness History of Present Illness Willie Perez is a 69 year old male who presented to the emergency department on 08/06/2024 sustaining a left subtrochanteric femur fracture underwent fixation by orthopedics on 08/07/[address] Alfonso. Patient has significantly large body habitus patient did have significant blood loss postoperatively requiring units and was taken to ICU postoperatively. He did slowly recover and was transfer out of ICU and to [facility] and subsequently discharged on 08/14/2024. Patient had had some excessive drainage consistent with his fracture and body habitus. Unfortunately he presents today with excessive swelling about the left thigh and skin breakdown he is over 2 weeks out from his fracture given his excessive persistent drainage he now has a significantly elevated white count to 21.36 elevated from 5.36 on 08/14/2024 on his day of discharge. Patient does have significant edematous drainage there is breakdown of his incision as well as murky drainage of his proximal incision as well. Orthopedics was consulted for evaluation and treatment recommendations. Patient has not been on blood thinners according to hospitalist. Review of Systems General: Reports: 10 or more systems reviewed and unremarkable except in HPI and below Medications/Allergies Home Medications Medication Instructions Recorded Confirmed Last Taken Type aspirin 81 mg tablet,delayed 81 mg PO DAILY@0800 09/26/19 08/20/24 08/20/24 History release (Adult Aspirin Regimen) acetaminophen 325 mg tablet 650 mg PO Q4H PRN Pain or elevated 10/31/20 08/20/24 01/03/21 History temp bisacodyl 10 mg rectal suppository 10 mg AL DAILY PRN Constipation 10/31/20 08/20/24 Unknown History (Dulcolax (bisacodyl)) bisacodyl 5 mg tablet 20 mg PO DAILY PRN Constipation 10/31/20 08/20/24 Unknown History cholecalciferol (vitamin D3) 125 125 mcg PO DAILY@0800 12/10/20 08/20/24 08/20/24 History mcg (5,000 unit) capsule albuterol sulfate 90 mcg/actuation 2 puff inhalation Q6H PRN 01/14/21 08/20/24 08/19/24 History aerosol inhaler (Ventolin HFA) Shortness Of Breath apixaban 5 mg tablet 5 mg PO BID@0800,1700 01/14/21 08/20/24 08/06/24 History bumetanide 2 mg tablet 2 mg PO BID@0800,1700 01/14/21 08/20/24 08/20/24 History potassium chloride 20 mEq 20 meq PO BID@0800,1700 01/14/21 08/20/24 08/20/24 History tablet,extended release(part/cryst) (Klor-Con M) tiotropium bromide 18 mcg capsule 1 cap inhalation DAILY #30 03/11/21 08/20/24 08/20/24 Rx with inhalation device (Spiriva inhalations with HandiHaler) bismuth subsalicylate 262 mg/15 mL 524 mg PO DAILY PRN Nausea 07/10/23 08/20/24 Unknown History oral suspension (Pepto-Bismol) loperamide 2 mg tablet 2 mg PO .COMPLEX PRN Diarrhea 07/10/23 08/20/24 Unknown History (Anti-Diarrheal (loperamide)) multivitamin 1 tab PO QAM 07/10/23 08/20/24 08/20/24 History sodium phosphates 19 gram-7 118 ml AL DAILY PRN Constipation 07/10/23 08/20/24 Unknown History gram/118 mL enema clotrimazole-betamethasone 1 1 applic topical BID PRN rash 08/07/24 08/20/24 Unknown History %-0.05 % topical cream fluticasone propionate 115 2 puff inhalation Q6H PRN wheezing 08/07/24 08/20/24 08/20/24 History mcg-salmeterol 21 mcg/actuation HFA inhaler (Advair HFA) hydrocodone 5 mg-acetaminophen 325 See Rx Instructions .Route 08/07/24 08/20/24 08/06/24 History mg tablet .COMPLEX PRN pain magnesium hydroxide 400 mg/5 mL 30 ml PO Q24H PRN constipation 08/07/24 08/20/24 Unknown History oral suspension (Milk of Magnesia) medroxyprogesterone 5 mg tablet 5 mg PO QAM 08/07/24 08/20/24 08/20/24 History menthol 4 % topical gel (Biofreeze 1 applic topical QID PRN knee pain 08/07/24 08/20/24 Unknown History (menthol)) tramadol 50 mg tablet 50 mg PO Q12H PRN pain from 08/07/24 08/20/24 Unknown History peripheral vascular disease amoxicillin 875 mg-potassium 1 tab PO BID #20 tabs 08/14/24 08/20/24 08/20/24 Rx clavulanate 125 mg tablet ammonium lactate 12 % topical cream 1 applic topical Q8H PRN Dry Skin 08/20/24 08/20/24 Unknown History dextran 70-hypromellose eye drops 1 drp ophthalmic (eye) Q4H PRN 08/20/24 08/20/24 08/19/24 History in a dropperette (Artificial Tears cataract surgery (PF) drops in a dropperette) eucalyptus-menthol oral mucosal 3.1 mg mucous membrane Q1H PRN 08/20/24 08/20/24 Unknown History lozenge Cough hydrocodone 10 mg-acetaminophen 1 tab PO Q6H PRN Pain (Scale Score 08/20/24 08/20/24 08/19/24 History 325 mg tablet 1-3) sertraline 100 mg tablet 100 mg PO QAM 08/20/24 08/20/24 08/20/24 History Allergies Allergy/AdvReac Type Severity Reaction Status Date / Time No Known Allergies Allergy Verified 08/20/24 10:54 Current Medications Generic Name Dose Route Start Last Admin Trade Name Freq PRN Reason Stop Dose Admin Norepinephrine Bitartrate 4 mg in 250 mls @ 0 mls/hr 08/20/24 12:45 08/20/24 15:26 Levophed IV 8 mcg/min .Q0M TAYLOR 30 mls/hr Administration Protocol Per Protocol Meropenem 1,000 mg 08/20/24 18:00 08/20/24 18:58 Meropenem 1,000 Mg Sdv IVP 1,000 mg Q12H TAYLOR Administration Protocol Sodium Chloride 50 ml 08/20/24 12:13 08/20/24 16:07 Sodium Chloride 0.9% 100 Ml Bag IV 08/21/24 12:14 50 ml PRN PRN Administration Blood transfusion prime and flush PFSH Acute PFSH: Medical History Muscle weakness (generalized) Personal history of other venous thrombosis and embolism Personal history of COVID-19 Duodenal ulcer, unspecified as acute or chronic, without hemorrhage or perforation History of falling shelter (current) use of inhaled steroids shelter (current) use of aspirin History of bleeding ulcers Morbid obesity with BMI of 40.0-44.9, adult Chronic respiratory failure with hypoxia COPD (chronic obstructive pulmonary disease) Bleeding ulcer DVT (deep venous thrombosis) Hypoxia CHF (congestive heart failure) Surgical History (Updated 08/20/24 @ 19:22 by Brice Funes MD) History of amputation of finger right hand Family History Mother Diabetes Father Cancer skin Social History Smoking and tobacco/nicotine status: former use of tobacco/nicotine Quit status (tobacco/nicotine): has quit using Year quit tobacco: 2019 Former quit date comment: Hx of 2 PPD x 50 Years Second hand smoke exposure: Yes Alcohol intake: never Substance/Drug Use: never Caregiver/support person: Yes Lives independently: No Housing: Custodial Marital status: Current occupational status: disabled Pets and animals: No Do you think of yourself as: Straight/Heterosexual Current gender identity: Male Vitals/I&O/Wt Last Vital Signs Temp 97.7 F 08/20/24 18:34 Pulse 71 08/20/24 18:34 Resp 18 08/20/24 18:34 BP 118/52 08/20/24 18:34 Pulse Ox 98 08/20/24 18:34 O2 Del Method Nasal Cannula 08/20/24 13:16 O2 Flow Rate 2 08/20/24 13:16 08/20/24 08/20/24 08/20/24 06:59 14:59 22:59 Intake Total 1000 / 1000 750 / 1750 Balance 1000 / 1000 750 / 1750 Weight last 48 hrs Weight 290 lb Physical Exam Narrative: Examination of patient's left lower extremity: Patient has postoperative incision noted on the lateral aspects proximally as well as the lateral aspect of the femur. Patient has shazia close in the incision there is mid substance wound breakdown and significant swelling throughout the left thigh, compartments are soft compressible but palpable thigh hematoma is appreciated he is able to tolerate gentle hip range of motion with minimal pain or discomfort he is able to wiggle the toes distally and sensations intact to light touch distally. Patient is morbidly obese with. Vascular insufficiency changes to the pretibial region. At the distal lateral thigh incision on the posterior aspect and mid substance there is began to have wound breakdown likely due to the pressure of the hematoma, edematous weepy drainage is appreciated. His proximal incision is still approximated however murky fibrinous slough is appreciated about this incision as well as mild erythema over this site the mid thigh incision laterally does not appear to have any bucky signs of infection from the standpoint of no significant erythema just a large hematoma collection is appreciated. Data 08/20/24 11:11 08/20/24 11:[address]: Radiologist's impression: Ordering Provider/Ordering MD: Chadwick Barrera DO Date of Service: 08/20/24 Procedure(s): CT femur LT wo con* [id number] Accession Number(s): [id number] Report Number: [id number] WS: [id number] CT LEFT FEMUR HISTORY: recent hip Technique: All [facility] scans at [facility] use at least one of these dose optimization techniques: automated exposure control; mA and/or kV adjustment per patient size (includes targeted exams where dose is matched to clinical indication); or iterative reconstruction. DLP: 684.41 mGy.cm COMPARISON: 08/06/2024 Patient is status post gamma nail intramedullary tracy fixation LEFT femur fracture. Comminuted fracture involving the proximal diaphysis. This is a complex comminuted fracture. There is still 2.7 cm of separation at the fracture site. The distal fracture fragment is displaced medially as compared to the proximal fragment. Severe joint space narrowing LEFT hip. There is a large high density collection beginning over the lateral upper thigh at the level of the ilium and extending contiguously over a length of at least 35 cm into the distal thigh. Mass extends anterior posterior by 10 cm. This is a multi loculated collection with no air. This is a high density collection deep to the suture line and the fracture. This is probably a hematoma. There is soft tissue stranding but it is diffuse and not localized to the collection. CT/CT femur LT wo con* [id number] IMPRESSION: 1. Large high density forming collection extends over a length of 35 cm x 10 cm anterior posterior. Collection begins in the lateral upper thigh at the level of the ilium to the distal femoral diaphysis. No foci of air in the collection this is most likely hematoma. 2. Status post intramedullary tracy fixation of a comminuted fracture of the proximal diaphysis. Fracture by 2.7 cm. A&P Assessment and plan (1) Femur fracture, left: Qualifiers: Encounter type: initial encounter Femur location: shaft Fracture alignment: displaced Fracture morphology: spiral Fracture type: closed Qualified Code(s): S72.342A - Displaced spiral fracture of shaft of left femur, initial encounter for closed fracture (2) Subtrochanteric fracture of left femur: Qualifiers: Encounter type: initial encounter Fracture type: closed Fracture alignment: displaced Qualified Code(s): S72.22XA - Displaced subtrochanteric fracture of left femur, initial encounter for closed fracture (3) Chronic venous insufficiency: Plan N.p.o. at midnight OR tomorrow for left thigh irrigation debridement with hematoma evacuation and possible wound VAC placement IV antibiotics per primary team Patient currently receiving 2 units of PRBC for optimization Labs reviewed Imaging reviewed?large hematoma Patient at this point in time being admitted to ICU by the hospitalist team he currently white count 21 hemoglobin is 7.3 currently receiving 2 units of PRBC he currently has creatinine is up to 2.8 potassium 5.8. His lactic acid 3.1. At this point in time given his excessive drainage I do worry about possibly infected hematoma as given his body habitus he would potentially be at risk especially given he is now roughly 2 weeks out with saturating his bedside and dressing just from his edema and hematoma drainage from the lateral thigh incisions. At this point in time he is in a very guarded prognosis and this will likely be a challenging problem to heal moving forward however I feel given the scenario of persistent drainage a large hematoma that is starting to now have some wound breakdown I feel his best interest would be moving forward with a left thigh irrigation debridement hematoma evacuation with possible wound VAC placement given I feel his space would just equate to another hematoma forming down the road. We did explain this in detail with the patient as far as the ins and outs of the procedure risk benefits complication alternatives with surgery. Risk of surge include not limited to make a better make it worse, infection, persistent wound issues, wound VAC, decrease mobility, possible further surgery, blood clot, stroke, on the table. Understanding these risks of surgery patient elects proceed with surgical intervention all questions have been answered at this time. Once again his prognosis is guarded just due to his high comorbidities his current presentation as well as his body habitus which will make this likely hard thing to heal but at this point in time he wishes for me to proceed and we will plan to take patient to the OR tomorrow morning for left thigh irrigation and debridement, with hematoma evacuation and possible wound VAC placement. All questions have been answered at this time. I did speak with the and updated her on the care at this point in time, patient as well as understand agree with current plan. All questions answered. Coding Level of Care Code Acute Code for [facility] Fwd Diagnoses Closed displaced spiral fracture of shaft of left femur, initial encounter S72.342A Encounter type: initial encounter Femur location: shaft Fracture alignment: displaced Fracture morphology: spiral Fracture type: closed Closed displaced subtrochanteric fracture of left femur, initial encounter S72.22XA Encounter type: initial encounter Fracture type: closed Fracture alignment: displaced Chronic venous insufficiency I87.2 Time Spent (min) 45
[2024-08-20] MEDS: vancomycin 1,500 MG/300 ML PIGGYBACK 200 MG IV (19:08)
--- NOTE | 2024-08-20 19:33 | P.HP_ITS ---
Providers/Chief Complaint 2 Admitting Physician: Brice Funes MD Primary Care Provider: Odalis Stewart NP Chief Complaint: post op infection History of Present Illness Willie Perez is a 69 year old male, [place] [facility] resident, bedbound, chronic DVT on Eliquis withheld for last 2 weeks, heart failure with preserved ejection fraction, recent ORIF for hip fracture on 08/07 which is postoperatively complicated by hemorrhagic shock along with multiorgan failure requiring multiple blood transfusions, respiratory failure in setting of haemophilus influenza pneumonia was discharged on 08/14 has been sent back to the ER today because of worsening swelling of the leg, worsening pain along with purulent foul-smelling discharge which has been increasing over last 2 days. In the ER on examination patient is awake and alert, complaining of pain in his leg. He was found to have hypotension with blood pressure of 70 systolic and was placed on Levophed after placement of central line. Currently is on Levophed of 6. Review of Systems 2 General: Reports: 10 or more systems reviewed and unremarkable except in HPI and below Const: Denies: fever(s), chills, body aches, change in appetite, change in weight, malaise, night sweats, diaphoresis, change in sleep pattern, daytime sleepiness or snoring Eyes: Denies: change in vision, blurry vision, photophobia, eye discomfort or eye discharge ENMT: Denies: throat pain, enlarged tonsils, hoarseness, mouth pain, oral sores, dry mouth, tinnitus, nasal congestion or post nasal drip Card: Denies: chest pain, palpitations, irregular heart rhythm, edema, swelling of feet/ankles, lightheadedness, syncope, pre-syncope, dyspnea on exertion, orthopnea, leg pain with exertion or acrocyanosis Resp: Denies: dyspnea, productive cough, non-productive cough, wheezing, stridor, pain on inspiration, change in phlegm color, hemoptysis or chest congestion GI: Denies: abdominal pain, nausea, vomiting, hematemesis, coffee ground emesis, dysphagia, heartburn, diarrhea, constipation, bloating, GI cramping, change in bowel habits, pain on defecation, hematochezia or melena : Denies: flank pain, difficulty urinating, dysuria, urinary frequency, urinary urgency, urinary hesitancy, urinary dribbling, difficulty starting urination, change in urine stream, nocturia or hematuria Musc: Denies: neck pain, back pain, extremity pain, joint pain, joint swelling, joint redness, joint stiffness or limited range of motion Skin/Breast: Denies: rash Neuro: Denies: headache(s), numbness in extremities, weakness in extremities, sensory changes, lack of coordination, difficulty walking, frequent falls, dizziness, vertigo, confusion, Slurred speech present, difficulty communicating thoughts or seizure-like activity Psych: Denies: anxiety, depression, mood swings, panic attacks, hopelessness or irritability Endo: Denies: polyuria, polydipsia, tired all the time, cold intolerance, excessive sweating, flushing or heat intolerance Best/Lymph: Denies: easy bruising or easy bleeding All/Imm: Denies: tongue swelling, facial swelling or acute wheezing Medications/Allergies Home Medications Medication Instructions Recorded Confirmed Last Taken Type aspirin 81 mg tablet,delayed 81 mg PO DAILY@0800 09/26/19 08/20/24 08/20/24 History release (Adult Aspirin Regimen) acetaminophen 325 mg tablet 650 mg PO Q4H PRN Pain or elevated 10/31/20 08/20/24 01/03/21 History temp bisacodyl 10 mg rectal suppository 10 mg TX DAILY PRN Constipation 10/31/20 08/20/24 Unknown History (Dulcolax (bisacodyl)) bisacodyl 5 mg tablet 20 mg PO DAILY PRN Constipation 10/31/20 08/20/24 Unknown History cholecalciferol (vitamin D3) 125 125 mcg PO DAILY@0800 12/10/20 08/20/24 08/20/24 History mcg (5,000 unit) capsule albuterol sulfate 90 mcg/actuation 2 puff inhalation Q6H PRN 01/14/21 08/20/24 08/19/24 History aerosol inhaler (Ventolin HFA) Shortness Of Breath apixaban 5 mg tablet 5 mg PO BID@0800,1700 01/14/21 08/20/24 08/06/24 History bumetanide 2 mg tablet 2 mg PO BID@0800,1700 01/14/21 08/20/24 08/20/24 History potassium chloride 20 mEq 20 meq PO BID@0800,1700 01/14/21 08/20/24 08/20/24 History tablet,extended release(part/cryst) (Klor-Con M) tiotropium bromide 18 mcg capsule 1 cap inhalation DAILY #30 03/11/21 08/20/24 08/20/24 Rx with inhalation device (Spiriva inhalations with HandiHaler) bismuth subsalicylate 262 mg/15 mL 524 mg PO DAILY PRN Nausea 07/10/23 08/20/24 Unknown History oral suspension (Pepto-Bismol) loperamide 2 mg tablet 2 mg PO .COMPLEX PRN Diarrhea 07/10/23 08/20/24 Unknown History (Anti-Diarrheal (loperamide)) multivitamin 1 tab PO QAM 07/10/23 08/20/24 08/20/24 History sodium phosphates 19 gram-7 118 ml TX DAILY PRN Constipation 07/10/23 08/20/24 Unknown History gram/118 mL enema clotrimazole-betamethasone 1 1 applic topical BID PRN rash 08/07/24 08/20/24 Unknown History %-0.05 % topical cream fluticasone propionate 115 2 puff inhalation Q6H PRN wheezing 08/07/24 08/20/24 08/20/24 History mcg-salmeterol 21 mcg/actuation HFA inhaler (Advair HFA) hydrocodone 5 mg-acetaminophen 325 See Rx Instructions .Route 08/07/24 08/20/24 08/06/24 History mg tablet .COMPLEX PRN pain magnesium hydroxide 400 mg/5 mL 30 ml PO Q24H PRN constipation 08/07/24 08/20/24 Unknown History oral suspension (Milk of Magnesia) medroxyprogesterone 5 mg tablet 5 mg PO QAM 08/07/24 08/20/24 08/20/24 History menthol 4 % topical gel (Biofreeze 1 applic topical QID PRN knee pain 08/07/24 08/20/24 Unknown History (menthol)) tramadol 50 mg tablet 50 mg PO Q12H PRN pain from 08/07/24 08/20/24 Unknown History peripheral vascular disease amoxicillin 875 mg-potassium 1 tab PO BID #20 tabs 08/14/24 08/20/24 08/20/24 Rx clavulanate 125 mg tablet ammonium lactate 12 % topical cream 1 applic topical Q8H PRN Dry Skin 08/20/24 08/20/24 Unknown History dextran 70-hypromellose eye drops 1 drp ophthalmic (eye) Q4H PRN 08/20/24 08/20/24 08/19/24 History in a dropperette (Artificial Tears cataract surgery (PF) drops in a dropperette) eucalyptus-menthol oral mucosal 3.1 mg mucous membrane Q1H PRN 08/20/24 08/20/24 Unknown History lozenge Cough hydrocodone 10 mg-acetaminophen 1 tab PO Q6H PRN Pain (Scale Score 08/20/24 08/20/24 08/19/24 History 325 mg tablet 1-3) sertraline 100 mg tablet 100 mg PO QAM 08/20/24 08/20/24 08/20/24 History Allergies Allergy/AdvReac Type Severity Reaction Status Date / Time No Known Allergies Allergy Verified 08/20/24 10:54 PFSH Acute 2 PFSH: Medical History (Updated 08/20/24 @ 19:22 by Brice Funes MD) Edema GI bleed due to NSAIDs Open wound of left ankle with tendon involvement Subtrochanteric fracture of left femur Obstructive sleep apnea (adult) (pediatric) Muscle weakness (generalized) Personal history of other venous thrombosis and embolism Personal history of COVID-19 Duodenal ulcer, unspecified as acute or chronic, without hemorrhage or perforation History of falling skilled nursing (current) use of inhaled steroids skilled nursing (current) use of aspirin History of bleeding ulcers Morbid obesity with BMI of 40.0-44.9, adult Chronic respiratory failure with hypoxia COPD (chronic obstructive pulmonary disease) Bleeding ulcer DVT (deep venous thrombosis) Hypoxia CHF (congestive heart failure) Surgical History (Updated 08/20/24 @ 19:22 by Brice Funes MD) History of amputation of finger right hand Family History Mother Diabetes Father Cancer skin Social History Smoking and tobacco/nicotine status: former use of tobacco/nicotine Quit status (tobacco/nicotine): has quit using Year quit tobacco: 2019 Former quit date comment: Hx of 2 PPD x 50 Years Second hand smoke exposure: Yes Alcohol intake: never Substance/Drug Use: never Caregiver/support person: Yes Lives independently: No Housing: [facility] Marital status: Current occupational status: disabled Pets and animals: No Do you think of yourself as: Straight/Heterosexual Current gender identity: Male Vitals/I&O/Wt Last Vital Signs Temp 97.7 F 08/20/24 18:34 Pulse 71 08/20/24 18:34 Resp 18 08/20/24 18:34 BP 118/52 08/20/24 18:34 Pulse Ox 98 08/20/24 18:34 O2 Del Method Nasal Cannula 08/20/24 13:16 O2 Flow Rate 2 08/20/24 13:16 08/20/24 08/20/24 08/20/24 06:59 14:59 22:59 Intake Total 1000 / 1000 1050 / 2050 Balance 1000 / 1000 1050 / 2050 Weight last 48 hrs Weight 131.542 kg Physical Exam 2 Narrative: General: No acute distress, AO x3, chronically sick appearing, morbidly obese HEENT: PERRLA, pupils bilaterally equal and reactive Chest: Normal disturbances oral lung sarah, decreased air entry, fine crackles present in bilateral lower zone CVS: S1-S2 regular, no murmurs, no tachycardia, no gallops, no rubs Abdomen: Soft, nontender, no organomegaly, bowel sounds present Neuro: No focal deficits, no facial deformity, AO x3, power 5/5 in all limbs Skin: OTHER: Surgical wound from recent ORIF as below. Urinary Catheter Management: Cage: Cath Placed During This Visit: yes Urinary Catheter Date of Insertion: 08/20/24 Urinary Catheter Time of Insertion: 19:28 Quick SOFA Score: Respiratory Rate: 18 Blood Pressure: 118/52 [place] Coma Scale: 15 qSOFA Score: 0 If qSOFA score 2 or greater, continue: PaO2/FiO2 Ratio (mmHg): 320 Blood Pressure Mean: 74 Norepinephrine Current Rate (?g/kg/min): 6 Bilirubin (mg/dl): 1.3 Platelets (x10?/ml): 398 Creatinine (mg/dl): 2.8 SOFA Score: 8 Evaluation: Current stage of sepsis: septic shock Sepsis stage criteria used: [facility] Sep-1 and Sepsis-3 Crystalloid fluids: 30 mL/kg crystalloid fluids ordered and initiated within 3 hours Blood cultures ordered: Yes Possible source: wound Focused Exam: Vital signs: Temp Pulse Resp BP Pulse Ox O2 Del Method O2 Flow Rate 08/20/24 18:34 97.7 F 71 18 118/52 98 08/20/24 17:34 97.7 F 80 16 122/63 96 08/20/24 16:34 97.4 F L 82 15 98/51 97 08/20/24 16:19 97.3 F L 78 20 H 127/78 96 08/20/24 16:03 97.5 F L 81 14 128/62 99 08/20/24 13:21 82 08/20/24 13:16 81 18 93 Nasal Cannula 2 08/20/24 11:30 90 14 94/52 94 Nasal Cannula 08/20/24 11:25 94 16 81/47 94 Nasal Cannula 08/20/24 11:00 92 31 H 86/47 94 Room Air 08/20/24 10:45 94 87/48 92 Room Air 08/20/24 10:39 97.6 F 94 17 79/48 94 Nasal Cannula 2 Date exam was performed: 08/20/24 Time exam was performed: 19:34 2 Sepsis Screen No Definite Risk 08/20/24 11:45 Respiratory Rate 18 breaths/min (12 - 18) 08/20/24 18:34 Blood Pressure 118/52 mmHg 08/20/24 18:34 [place] Coma Scale Score 15 08/20/24 11:00 Quick SOFA Score 0 08/20/24 19:33 SOFA Score: 2 [place] Coma Scale Score 15 08/20/24 11:00 Blood Pressure Mean 74 mmHg 08/20/24 18:34 Norepinephrine Current Rate 6 08/20/24 19:31 Total Bilirubin 1.3 mg/dL (0.15-1.2) H 08/20/24 11:11 Platelet Count 398 10^3/cmm (157-399) 08/20/24 11:11 Creatinine 2.8 mg/dL (0.7-1.2) H 08/20/24 11:11 Data 08/20/24 11:11 08/20/24 11:11 A&P Assessment and plan (1) Septic shock: (2) Hematoma of left hip: (3) Postoperative wound infection of left hip: (4) Acute kidney injury: (5) Hyperkalemia: (6) Anemia: (7) Elevated lactic acid level: (8) Hypertensive heart disease with heart failure: (9) DVT (deep venous thrombosis): (10) Morbid obesity with BMI of 40.0-44.9, adult: (11) COPD (chronic obstructive pulmonary disease): Qualifiers: COPD type: unspecified COPD Qualified Code(s): J44.9 - Chronic obstructive pulmonary disease, unspecified (12) Chronic respiratory failure with hypoxia and hypercapnia: (13) Obstructive sleep apnea (adult) (pediatric): (14) Decubitus ulcer: Qualifiers: Laterality: left Pressure injury location: heel Pressure injury stage: stage 3 Qualified Code(s): L89.623 - Pressure ulcer of left heel, stage 3 (15) Open wound of left ankle with tendon involvement: Qualifiers: Encounter type: initial encounter Qualified Code(s): S91.002A - Unspecified open wound, left ankle, initial encounter; S96.902A - Unspecified injury of unspecified muscle and tendon at ankle and foot level, left foot, initial encounter (16) Chronic embolism and thrombosis of left femoral vein: (17) Femur fracture, left: Qualifiers: Encounter type: initial encounter Femur location: shaft Fracture alignment: displaced Fracture morphology: spiral Fracture type: closed Qualified Code(s): S72.342A - Displaced spiral fracture of shaft of left femur, initial encounter for closed fracture (18) Subtrochanteric fracture of left femur: Qualifiers: Encounter type: initial encounter Fracture type: closed Fracture alignment: displaced Qualified Code(s): S72.22XA - Displaced subtrochanteric fracture of left femur, initial encounter for closed fracture (19) Chronic venous insufficiency: Plan 69-year-old with recent history of ORIF complicated by hemorrhagic shock, multiorgan failure, respiratory failure comes in back to the ER from [facility] today in septic shock with concerns for postoperative infection and hematoma of the left hip. Septic shock: Keep mean arterial pressure 65. Wean Levophed accordingly. Component also of hemorrhagic shock. Monitor lactate. Already received monitor blood transfusion in the ER. Will transfuse 1 more unit. Target hemoglobin more than 7. Received full 30 mL/kg body weight of fluid in the ER. Continue with 75 cc/h after blood transfusion. SIRS: Tachycardic, Febrile, Leukocytosis Source: Cellulitis and postoperative wound infection End organ damage: Shock, RUDI Lactic acid elevated. Monitor blood pressures. Keep mean artery pressure 65 mmHg. Check blood culture, urine culture,, trend procalcitonin. MRSA positive recently. Empirically start patient on IV vancomycin and meropenem. Will request for over cultures. Hematoma along with postoperative wound infection: Antibiotic as above. Orthopedic consulted from the ER. Plan for wound washout and evacuation in AM. Will request for OR cultures. Appreciate orthopedic recommendation. N.p.o. after midnight. Anemia: Target hemoglobin more than 7. Recently received 4 units of blood transfusion and 1 of FFP on previous admission. Receiving 1 unit of PRBC in ER. Will order 1 more. Target hemoglobin more than 7. Holding off on Eliquis. Protonix 40 mg Q12 hourly. RUDI: Most likely in setting of septic shock. CT abdomen pelvis to rule out obstructive nephropathy. Monitor BMP daily. Medical reconstruction done for nephrotoxic drugs. Hyperkalemia: Received treatment with sodium bicarb, calcium gluconate in the ER. Repeat BMP. History of DVT: Hold off on home dose of Eliquis given hemorrhagic and septic shock Morbid obesity COPD: Not in exacerbation. Keep saturation over 90%. Wean off oxygen accordingly. Obstructive sleep apnea: Continue with home CPAP. Open wound of left ankle: Continue with wound care as per recent podiatry recommendations. Full code Patient's will be the DPOA Cardiac diet, n.p.o. after midnight Protonix will be sufficient for PUD prophylaxis SCD for DVT prophylaxis. Not on medical prophylaxis given hemorrhagic and septic shock. Attestations 2 Medical Necessity Statement*: Admission for more than 2 midnights for management of septic, hemorrhagic shock, hematoma and postoperative wound infection, recent ORIF, RUDI, hyperkalemia Critical Care Time: The high probability of a clinically significant, sudden or life threatening deterioration of the patient's [cardiac, pulmonary, hematology, orthopedic, renal] system(s) required my full and direct attention, intervention and personal management. The critical care time is as shown. This time is in addition to time spent performing any reported procedures but includes the following: [x] Data and vital sign review and interpretation [x] Patient assessment, examination and intervention [x] Documentation [x] Medication orders and management Critical Care Time (min): 90 Coding Level of Care Code Critical Care >/= 30 minutes Critical care time (in minutes): 90 The high probability of a clinically significant, sudden or life threatening deterioration, as referenced in this documentation, required my full and direct attention, intervention and personal management. The critical care time shown is in addition to time spent performing any reported separately billable procedures and includes the following: [x] Data and vital sign review and interpretation [x ] Patient assessment, examination and intervention [x] Medication orders and management [x] Patient/Family updates as able [x] Care Coordination and Documentation. Diagnoses Septic shock A41.9; R65.21 Hematoma of left hip S70.02XA Postoperative wound infection of left hip T81.49XA Acute kidney injury N17.9 Hyperkalemia E87.5 Anemia D64.9 Elevated lactic acid level R79.89 Hypertensive heart disease with heart failure I11.0 DVT (deep venous thrombosis) I82.409 Morbid obesity with BMI of 40.0-44.9, adult E66.01; Z68.41 Chronic obstructive pulmonary disease, unspecified COPD type J44.9 COPD type: unspecified COPD Chronic respiratory failure with hypoxia and hypercapnia J96.11; J96.12 Obstructive sleep apnea (adult) (pediatric) G47.33 Decubitus ulcer L89.623 Laterality: left Pressure injury location: heel Pressure injury stage: stage 3 Open wound of left ankle with tendon involvement, initial encounter S91.002A; S96.902A Encounter type: initial encounter Chronic embolism and thrombosis of left femoral vein I82.512 Closed displaced spiral fracture of shaft of left femur, initial encounter S72.342A Encounter type: initial encounter Femur location: shaft Fracture alignment: displaced Fracture morphology: spiral Fracture type: closed Closed displaced subtrochanteric fracture of left femur, initial encounter S72.22XA Encounter type: initial encounter Fracture type: closed Fracture alignment: displaced Chronic venous insufficiency I87.2
[2024-08-20 21:30] LABS: Hematocrit 22.5 % (37-53)
[2024-08-20 21:39] LABS: INR 1.29 (0.8-1.2)
[2024-08-20 21:46] LABS: Bilirubin Urine Negative (Negative); Blood Urine Negative (Negative); Glucose Urine UA Negative (Normal); Ketones Urine Negative (Negative); Leukocyte Esterase Urine Negative (Negative); Nitrate Urine Negative (Negative); Protein Urine Trace (Negative); Specific Gravity, Urine 1.013 (1.005-1.030); Urine Appearance Clear (CLEAR); Urine Color Yellow (Yellow); Urobilinogen Urine 0.2 mg/dL (Negative)
[2024-08-20 21:51] LABS: Add Urine Microscopic? YES; Bacteria Urine None Seen /hpf; Hyaline Casts Urine 11.57 /lpf; RBC Urine 0-2 /hpf (0-2); Squamous Epithelial Cell Urine 0-5 /hpf (0-5); WBC Urine 0-5 /hpf (0-5)
[2024-08-20 21:53] LABS: Procalcitonin 3.13 ng/mL (0-0.5)
[2024-08-20 21:54] LABS: Thyroid Stimulating Hormone 6.03 uIU/mL (0.27-4.20)
[2024-08-20 22:05] LABS: Anion Gap 17.2 (5-19); Blood Urea Nitrogen 40 mg/dL (8-23); Calcium 7.6 mg/dL (8.5-10.5); Carbon Dioxide 25 mmol/L (22-29); Chloride 105 mmol/L (98-107); Creatinine Clr Calc Pharmacy 54.2994; Glomerular Filtration Rate 37.8 mL/min (90-130); Glucose 150 mg/dL (65-115); Osmolality Calculated 309 mOsm/kg (285-295); Potassium 4.2 mmol/L (3.5-5.1); Sodium 143 mmol/L (136-145)
[2024-08-20] MEDS: pantoprazole 40 mg SDV IVP (22:19)
[2024-08-21] VITALS (139 sets, daily range): BP systolic 95–148; BP diastolic 43–75; PULSE 51–91; RESP 3–33; TEMP -12.8–37.6; O2SAT 91–98
--- NOTE | 2024-08-21 01:01 | USCV_ITS ---
Willie Perez Age: 69 Gender: M : 1955 Exam Date: 08/21/2024 01:29 Ordering Phys: Ritika Zavala MD Technologist: AMARILSI Exam Location: [facility] [place] Indication: s/p LT HIP ORIF now infected, revision tomorrow. Risk Factors: s/p LT HIP ORIF now infected, revision tomorrow. Previous Vascular Surgery: unknown, patient is poor historian RIGHT LEFT BP: 114.0 / 70.00 BP: 102.0/ 49.00 0 0 Waveform Velocity (cm/s) Velocity (cm/s) Waveform Iliac Prox 234.0 Triphasic Iliac Mid Biphasic 188.0 Iliac Distal 180.0 Triphasic EDUCATION SUPERVISOR 113.0 Triphasic SFA Prox 112.0 Triphasic SFA Mid 90.0 Biphasic SFA Dist 95.0 Biphasic N/A POP Biphasic 89.0 CONSULTING SERVICES MANAGER 35.0 Biphasic DPA 33.0 Biphasic DEEP 0.9 FINDINGS Arterial duplex evaluation was performed only on the left side Study is a suboptimal quality because of poor visualization of the vessels Mild diffuse plaques were noted in the femoral artery Resting DEEP of 0.9 CONCLUSIONS Patent left lower extremity vessels as mentioned above Minimally diminished resting DEEP, suggestive of mild peripheral arterial disease Dr Prakash Quach MD [facility] (Electronically Signed) Final Date: 21 August 2024 09:37 S
[2024-08-21] MEDS: norepinephrine 4 MG/250 ML BAG 15 MG IV ×2 (01:05→11:31)
--- NOTE | 2024-08-21 03:13 | PC.NURSE ---
Wound assessment: Left anterior ankle: 4 cm long, 3 cm wide, 1.1 cm deep with 2 cm tunneling under tendon. Noted tissue beneath tendon with black discoloration, additionally 3cm x 3 cm irregular shaped dry black skin flap partially covering tendon. Tissue surrounding wound dusky, no increased warmth, no drainage or odor. Left anterior skin: 2 cm x 2 cm superficial abrasion. Left heel: 1 cm wide x 1.5 cm long stage 3 pressure injury Lateral left lower le cm x 1.75 cm and 4.4 cm x 2 cm scabbed abrasions, edges attached with black eschar at top and bottom of wound. No drainage, increased warmth, surrounding tissue flaky. Stasis dermatitis to bilateral lower legs, skin dusky colored, with large amount of flaking. Buttocks extending mid way down posterior thighs dusky red and wet with heavy tissue slough. Contacted Dr. Zavala to make aware of findings to left anterior ankle. Came and assessed area, new order received for arterial duplex of LLE.
[2024-08-21 03:49] LABS: Basophils % 0.3 %; Eosinophils # 0.2 10^3/uL (0.0-0.8); Eosinophils % 1.6 %; Hematocrit 24.3 % (37-53); Lymphocytes # 0.8 10^3/uL (0.8-4.8); Lymphocytes % 6.2 %; Mean Corpuscular HGB Conc 30.5 g/dL (30-55); Mean Corpuscular Volume 98.4 fl (82-101); Mean Platelet Volume 10.3 fL (7.4-10.4); Monocytes # 1.1 10^3/uL (0.2-0.9); Monocytes % 8.4 %; Neutrophils # 10.25 10^3/uL (1.8-7.7); Nucleated Red Blood Cells % 0.2 %; Platelet Count 315 10^3/cmm (157-399); Red Blood Count 2.47 10^6/uL (3.85-5.65); Red Cell Distribution Width 17.8 % (12.1-15.1)
[2024-08-21 04:12] LABS: Alanine Aminotransferase 14 U/L (0-41); Albumin Level 2.6 g/dL (3.5-5.2); Alkaline Phosphatase 96 U/L (40-130); Aspartate Amino Transferase 22 U/L (0-40); Blood Urea Nitrogen 41 mg/dL (8-23); Calcium 7.4 mg/dL (8.5-10.5); Carbon Dioxide 25 mmol/L (22-29); Chloride 106 mmol/L (98-107); Creatinine Clr Calc Pharmacy 61.0868; Globulin 1.9 g/dL (1.3-4.6); Glomerular Filtration Rate 43.3 mL/min (90-130); Glucose 135 mg/dL (65-115); Magnesium 1.9 mg/dL (1.7-2.3); Osmolality Calculated 312 mOsm/kg (285-295); Phosphorus 4.1 mg/dL (2.5-4.5); Sodium 145 mmol/L (136-145); Total Bilirubin 1.4 mg/dL (0.15-1.2); Total Protein 4.5 g/dL (6.6-8.7)
[2024-08-21 04:17] LABS: Lactic Sepsis W/Reflex 1.1 mmol/L (0.5-2.2)
[2024-08-21 04:21] LABS: Estmated Average Glucose 105; Hemoglobin A1C 5.3 % (4.0-6.0)
[2024-08-21 04:22] LABS: Procalcitonin 2.64 ng/mL (0-0.5)
[2024-08-21 04:33] LABS: Cholesterol 84 mg/dL (0-200); HDL Cholesterol 24 mg/dL (60-100); LDL Cholesterol Calculated 43 mg/dL (50-129); LDL HDL Ratio 1.79 RATIO (0.00-3.22); Triglycerides 87 mg/dL (0-150)
[2024-08-21] MEDS: meropenem 1,000 mg SDV 1000 MG IVP ×2 (05:39→17:50)
--- NOTE | 2024-08-21 06:35 | P.ANESASSM_ITS ---
Pre-Anesthetic Assessment Height/Weight: Height 5 ft 10 in Weight 189 lb Temp Pulse Resp BP Pulse Ox O2 Del Method O2 Flow Rate 97.4 F L 74 19 H 107/58 98 Nasal Cannula 3 08/21/24 05:28 08/21/24 05:28 08/21/24 05:28 08/21/24 05:28 08/21/24 05:28 08/21/24 02:39 08/21/24 02:39 Preop Diagnosis: Left thigh hematoma Operation Date: 08/21/24 12:10 Proposed Procedures p Upper Extremity Hematoma Evacuation(Left) - Andriy Price DO Anesthetic Plan ASA status: 4 Anesthesia: General Other: Patient recently had a procedure done on 08/07/2024 under general anesthesia. Required prolonged intubation secondary to increased vasopressor support requirement IntraOp and postop. Patient lost over 2 L of blood IntraOp requiring multiple infusions of PRBCs Patient now has a large hematoma at incision site. Hypotensive requiring vasopressor support currently. Levophed at 6. No arterial line Leukocytosis noted, WBC 21.36 History of sleep apnea and COPD, uses 2 L O2 at nighttime Eliquis has been withheld for the last 2 weeks Patient is bedbound EKG sinus rhythm Labs reviewed today, WBC 12.5, hemoglobin 7.4. Spoke to patient about the risk of prolonged intubation given vasopressor support. He is aware of this and wishes to proceed Plan for general anesthesia Medications/Allergies Home Medications Medication Instructions Recorded Confirmed Last Taken Type aspirin 81 mg tablet,delayed 81 mg PO DAILY@0800 09/26/19 08/20/24 08/20/24 History release (Adult Aspirin Regimen) acetaminophen 325 mg tablet 650 mg PO Q4H PRN Pain or elevated 10/31/20 08/20/24 01/03/21 History temp bisacodyl 10 mg rectal suppository 10 mg NJ DAILY PRN Constipation 10/31/20 08/20/24 Unknown History (Dulcolax (bisacodyl)) bisacodyl 5 mg tablet 20 mg PO DAILY PRN Constipation 10/31/20 08/20/24 Unknown History cholecalciferol (vitamin D3) 125 125 mcg PO DAILY@0800 12/10/20 08/20/24 08/20/24 History mcg (5,000 unit) capsule albuterol sulfate 90 mcg/actuation 2 puff inhalation Q6H PRN 05/19/21 12/23/24 12/22/24 History aerosol inhaler (Ventolin HFA) Shortness Of Breath apixaban 5 mg tablet 5 mg PO BID@0800,1700 01/14/21 08/20/24 08/06/24 History bumetanide 2 mg tablet 2 mg PO BID@0800,1700 01/14/21 08/20/24 08/20/24 History potassium chloride 20 mEq 20 meq PO BID@0800,1700 01/14/21 08/20/24 08/20/24 History tablet,extended release(part/cryst) (Klor-Con M) tiotropium bromide 18 mcg capsule 1 cap inhalation DAILY #30 03/11/21 08/20/24 08/20/24 Rx with inhalation device (Spiriva inhalations with HandiHaler) bismuth subsalicylate 262 mg/15 mL 524 mg PO DAILY PRN Nausea 07/10/23 08/20/24 Unknown History oral suspension (Pepto-Bismol) loperamide 2 mg tablet 2 mg PO .COMPLEX PRN Diarrhea 07/10/23 08/20/24 Unknown History (Anti-Diarrheal (loperamide)) multivitamin 1 tab PO QAM 07/10/23 08/20/24 08/20/24 History sodium phosphates 19 gram-7 118 ml NJ DAILY PRN Constipation 07/10/23 08/20/24 Unknown History gram/118 mL enema clotrimazole-betamethasone 1 1 applic topical BID PRN rash 08/07/24 08/20/24 Unknown History %-0.05 % topical cream fluticasone propionate 115 2 puff inhalation Q6H PRN wheezing 08/07/24 08/20/24 08/20/24 History mcg-salmeterol 21 mcg/actuation HFA inhaler (Advair HFA) hydrocodone 5 mg-acetaminophen 325 See Rx Instructions .Route 08/07/24 08/20/24 08/06/24 History mg tablet .COMPLEX PRN pain magnesium hydroxide 400 mg/5 mL 30 ml PO Q24H PRN constipation 08/07/24 08/20/24 Unknown History oral suspension (Milk of Magnesia) medroxyprogesterone 5 mg tablet 5 mg PO QAM 08/07/24 08/20/24 08/20/24 History menthol 4 % topical gel (Biofreeze 1 applic topical QID PRN knee pain 08/07/24 08/20/24 Unknown History (menthol)) tramadol 50 mg tablet 50 mg PO Q12H PRN pain from 08/07/24 08/20/24 Unknown History peripheral vascular disease amoxicillin 875 mg-potassium 1 tab PO BID #20 tabs 08/14/24 08/20/24 08/20/24 Rx clavulanate 125 mg tablet ammonium lactate 12 % topical cream 1 applic topical Q8H PRN Dry Skin 08/20/24 08/20/24 Unknown History dextran 70-hypromellose eye drops 1 drp ophthalmic (eye) Q4H PRN 08/20/24 08/20/24 08/19/24 History in a dropperette (Artificial Tears cataract surgery (PF) drops in a dropperette) eucalyptus-menthol oral mucosal 3.1 mg mucous membrane Q1H PRN 08/20/24 08/20/24 Unknown History lozenge Cough hydrocodone 10 mg-acetaminophen 1 tab PO Q6H PRN Pain (Scale Score 08/20/24 08/20/24 08/19/24 History 325 mg tablet 1-3) sertraline 100 mg tablet 100 mg PO QAM 08/20/24 08/20/24 08/20/24 History Allergies Allergy/AdvReac Type Severity Reaction Status Date / Time No Known Allergies Allergy Verified 08/20/24 10:54 Current Medications Generic Name Dose Route Start Last Admin Trade Name Freq PRN Reason Stop Dose Admin Bisacodyl 10 mg 08/20/24 20:46 08/21/24 03:54 Bisacodyl 5 Mg Tablet PO Not Given DAILY TAYLOR Protocol Norepinephrine Bitartrate 4 mg in 250 mls @ 0 mls/hr 08/20/24 12:45 08/21/24 01:07 Levophed IV 6 mcg/min .Q0M TAYLOR 22.5 mls/hr Titration Protocol Per Protocol Vancomycin HCl 1,500 mg in 300 mls @ 200 mls/hr 08/20/24 18:30 08/20/24 21:32 Vancocin IV Infused Q24H TAYLOR Infusion Magnesium Hydroxide 30 ml 08/20/24 21:00 08/21/24 03:54 Magnesium Hydroxide 30 Ml Udc PO Not Given BEDTIME TAYLOR Protocol Meropenem 1,000 mg 08/20/24 18:00 08/21/24 05:39 Meropenem 1,000 Mg Sdv IVP 1,000 mg Q12H TAYLOR Administration Protocol Pantoprazole Sodium 40 mg 08/20/24 20:46 08/20/24 22:19 Pantoprazole 40 Mg Sdv IVP 40 mg Q24H TAYLOR Administration Sodium Chloride 50 ml 08/20/24 12:13 08/20/24 16:07 Sodium Chloride 0.9% 100 Ml Bag IV 08/21/24 12:14 50 ml PRN PRN Administration Blood transfusion prime and flush PFS Anesthesia Medical History (Updated 08/20/24 @ 19:22 by Brice Funes MD) Edema GI bleed due to NSAIDs Open wound of left ankle with tendon involvement Subtrochanteric fracture of left femur Obstructive sleep apnea (adult) (pediatric) Muscle weakness (generalized) Personal history of other venous thrombosis and embolism Personal history of COVID-19 Duodenal ulcer, unspecified as acute or chronic, without hemorrhage or perforation History of falling care home (current) use of inhaled steroids care home (current) use of aspirin History of bleeding ulcers Morbid obesity with BMI of 40.0-44.9, adult Chronic respiratory failure with hypoxia COPD (chronic obstructive pulmonary disease) Bleeding ulcer DVT (deep venous thrombosis) Hypoxia CHF (congestive heart failure) Surgical History (Updated 08/20/24 @ 19:22 by Brice Funes MD) History of amputation of finger right hand Family History Mother Diabetes Father Cancer skin Social History Smoking and tobacco/nicotine status: former use of tobacco/nicotine Quit status (tobacco/nicotine): has quit using Year quit tobacco: 2019 Former quit date comment: Hx of 2 PPD x 50 Years Second hand smoke exposure: Yes Alcohol intake: never Substance/Drug Use: never Caregiver/support person: Yes Lives independently: No Housing: [facility]dc Marital status: Current occupational status: disabled Pets and animals: No Do you think of yourself as: Straight/Heterosexual Current gender identity: Male Data Anesthesia 08/21/24 02:54 12/24/24 02:54 Short CBC 08/20/24 08/20/24 08/21/24 Range/Units 11:11 20:55 02:54 WBC 21.36 H 12.50 H (3.29-11.43) 10^3/uL Hgb 7.30 L 6.90 L 7.40 L (11.27-16.99) g/dL Hct 24.2 L 22.5 L 24.3 L (37-53) % MCV 100.0 98.4 (82-101) fl Plt Count 398 315 (157-399) 10^3/cmm Neut % (Auto) 85.7 82.0 % Neut # (Auto) 18.30 H 10.25 H (1.8-7.7) 10^3/uL BMP 08/20/24 08/20/24 08/21/24 11:11 20:55 02:54 Sodium 139 143 145 Potassium 5.8 H 4.2 4.0 Chloride 99 105 106 Carbon Dioxide 26 25 25 BUN 40 H 40 H 41 H Creatinine 2.8 H 1.8 H 1.6 H Glucose 177 H 150 H 135 H Calcium 8.4 L 7.6 L 7.4 L Cardiac Enzymes 08/20/24 Range/Units 11:11 Creatine Kinase 81 (39-308) U/L Liver Function 08/20/24 08/21/24 Range/Units 11:11 02:54 Total Bilirubin 1.3 H 1.4 H (0.15-1.2) mg/dL AST 36 22 (0-40) U/L ALT 19 14 (0-41) U/L Alkaline Phosphatase 125 96 (40-130) U/L Albumin 3.2 L 2.6 L (3.5-5.2) g/dL Urine 08/20/24 Range/Units 19:16 Urine Color Yellow (Yellow) Urine Appearance Clear (CLEAR) Urine pH 5.0 (5-7) Ur Specific [place] 1.013 (1.005-1.030) Urine Protein Trace A (Negative) Urine Glucose (UA) Negative (Normal) Urine Ketones Negative (Negative) Urine Nitrate Negative (Negative) Urine Bilirubin Negative (Negative) Ur Leukocyte Esterase Negative (Negative) Urine RBC 0-2 (0-2) /hpf Urine WBC 0-5 (0-5) /hpf Blood Bank 12/23/24 12:23 Blood Type O Positive Rho(D) Type Rh positive Antibody Screen Negative Coags 08/20/24 20:55 PT 16.50 H INR 1.29 H APTT 35.0 Cardiac Studies: 2 Echocardiogram 08/08/24 Echocardiogram Ultrasound 11/01/20
[2024-08-21] MEDS: acetaminophen 1,000 MG/100 ML PIGGYBACK 400 MG IV (07:24)
--- NOTE | 2024-08-21 07:26 | W.PM.OPSUD ---
Surgery/Procedure H&P Update DATE OF PROCEDURE: August 21, 2024 DATE H&P PERFORMED: 08/20/24 H&P UPDATE INFORMATION: I have reviewed H&P completed within last 30 days, I have examined patient prior to procedure and No changes to prior documentation PREOP DIAGNOSIS: Left thigh hematoma PRIMARY INDICATION FOR PROCEDURE: Left thigh hematoma with incision breakdown, with persistent incisional drainage, status post ORIF left subtrochanteric femur fracture PLANNED PROCEDURE: Operation Date: 08/21/24 12:10 Proposed Procedures p Upper Extremity Hematoma Evacuation(Left) - Andriy Price DO
--- NOTE | 2024-08-21 09:02 | PC.NURSE ---
0710 -- Dr. Jennings to bedside, Anesthesia consent obtained. 07 -- Dr. Price to bedside, Surgical consent obtained, left upper leg marked as pre-op for surgery. 0800 -- To OR via bed with surgical team at bedside. patient monitor in place, Levophed infusing at 6mcg/min.
--- NOTE | 2024-08-21 09:51 | ANE.PACU2 ---
Inpatient post-anesthesia follow up: Airway intact: Yes Vital signs: Temperature 98.9 F Pulse Rate 80 Respiratory Rate 22 Blood Pressure 122/66 Pulse Oximetry 96 Oxygen Delivery Me thod Nasal Cannula Oxygen Flow Rate 3 Fraction of Inspir ed Oxygen Hydration adequate: Yes Nausea and vomiting: No Pain level: 1 Mental status: Baseline
--- NOTE | 2024-08-21 10:00 | PC.NURSE ---
Wound Vac placement Confirmation #[id number]
--- NOTE | 2024-08-21 10:01 | P.BOP_ITS ---
Date of Procedure: 08/21/2024 Surgeon: Andriy Price DO Procedures Nurse(s): Sung Price PA-C Procedure(s) performed: Left thigh irrigation and debridement lateral upper incision (12 cm x 2.5 cm x 7 cm) Left thigh irrigation debridement lateral lower incision (32 cm x 15 cm x 7.5 cm Left thigh hematoma evacuation (1 L) Left thigh wound VAC placement Findings of the procedure(s): Patient this point time was found to have large hematoma collection in the upper and lower incisions of the left thigh. This was filled with roughly 1 L of clot which was evacuated there was significant fatty necrosis and early pressure breakdown of the incision underneath the skin. Necrotic and murky edematous drainage appreciated throughout the wound bed this was cultured both the lower and upper incisions of aerobic and anaerobic cultures and sent for microbiology. Hematoma was evacuated to its entirety I then subsequently irrigated this out with a total of 6 L normal saline and a liter of diluted Betadine solution and let soak for 5 minutes. Patient did receive 2 units of PRBC during the procedure blood loss was roughly around 150 mL. 2 wound vacs were placed connecting into 1 drain patient tolerated procedure well. Patient still requiring pressure support receiving unit PRBC patient was extubated and taken to ICU. Estimated blood loss: 150 mL Specimen(s) removed: Aerobic and anaerobic cultures x 2 Post-operative diagnosis: Left thigh hematoma, wound dehiscence/breakdown
--- NOTE | 2024-08-21 10:05 | P.OP_ITS ---
Operative Report Date of procedure: August 21, 2024 Pre-op diagnosis: Left thigh hematoma Post-op diagnosis: Same Post-op findings: See operative report narrative Procedure done: Left thigh irrigation and debridement lateral upper incision (12 cm x 2.5 cm x 7 cm) Left thigh irrigation debridement lateral lower incision (32 cm x 15 cm x 7.5 cm Left thigh hematoma evacuation (1 L) Left thigh wound VAC placement Specimens removed/disposition: Cultures x 2 taken of the distal lateral incision and proximal lateral incision Surgeon: Andriy Price DO Staff Development Educator: Sung Price PA-C: ESEQUIEL was necessary for assistance in this case with leg positioning retraction and protection of neurovascular structures as well as assistance in assistance with irrigation debridement, assistance with VAC placement. Anesthesia: General Estimated blood loss: 150 mL 1 L hematoma evacuation IV fluids: 700 mL Urine output: See anesthesia record Complications: See operative report narrative, given patient having evacuation hematoma as well as starting on blood went ahead and patient receiving 2 units PRBC in the OR and will be recovering and taken to ICU in stable condition but guarded prognosis. Findings: See operative report narrative Condition: stable Disposition: ICU Brief History: Patient is a 69-year-old male that sustained a left subtrochanteric femur fracture underwent ORIF with my partner Dr. Alfonso on 08/07/2024 patient unfort unately has had continued swelling as well as drainage and he now presents to the emergency department with elevated white count concern for sepsis and infection likely stemming from thigh hematoma. At this point in time given the large size of this patient's poor comorbidities feel an order for confirming of infection as well as for infection control would recommend a left thigh irrigation debridement with hematoma evacuation and given the amount of drainage and his soft tissue envelope given his morbidly obesity feel he would benefit from a wound VAC placement. We talked about this in detail with the patient as well as I did update the and through shared decision making patient elects proceed with surgical invention. All questions answered at this time. Patient understands the ins outs procedure risk benefits complication alternatives surgery and through shared decision make elects proceed with surgery. All questions answered. Procedure: Patient seen and evaluated preoperatively consent was reviewed and signed with patient. Correct extremities and subsequently marked. Patient taken from ICU by the anesthesia part once cleared ready for surgery. Patient was then brought in the hospital bed In supine position underwent anesthesia per the anesthesia department was properly anesthetized he was then transported onto the OR table we then placed patient with a beanbag and lateral decubitus position with the left hip up. At this point time patient was appropriate secured to the bed. Patient's left lower extremity was then prepped and draped in standard orthopedic fashion. Final timeout performed. Patient received appropriate perioperative antibiotics at this time. At this point in time I subsequently utilized a hemostat to remove all of the shazia of the most proximal and then the middle large incision. At this point in time I then subsequently utilized a hemostat to break into the incision and immediate hematoma was encountered I subsequently cultured both the proximal and distal with aerobic and anaerobic cultures x 2. These were then sent for microbiology. At this point time I then utilized suction as well as curette and lap sponges to evacuate the hematoma to its entirety which was roughly around 1 L of hematoma appreciated. At this point in time I then subsequently utilized a large curette and debrided all necrotic tissue of skin and subcutaneous fat fascia and muscle. Deep there fascial layer still remained intact from the previous repair and as a result I did not tunnel this and opened this back up deeper this looked to be where the hematoma had accumulated this was evacuated to its entirety. This was also done in the proximal incision as well the upper incision total was 12 cm x 2.5 cm x 7 cm, the lower incision was 32 cm x 15 cm x 7.5 cm these were all debrided with sharp scalpel excision of all necrotic tissue once again skin subcutaneous tissue fascia and muscle. Once this was completed and satisfied with my debridement I then thoroughly irrigated with Pulsavac 3 L of normal saline. Once this was done I then subsequently poured diluted Betadine solution into the wound and let this soak for 5 minutes for antimicrobial and then subsequently thoroughly irrigated with an additional 3 L of normal saline. at this point in time I was satisfied with our debridement I then utilized electrocautery to maintain exact hemostasis. At this point in time I then utilized sharp scalpel incision to excise the necrotic skin edges that were breaking down from the hematoma on the distal lateral incision. At this point in time 1 site was completed I then had a satisfactory healthy bleeding wound bed prepped for wound VAC sponge placement as the space and this would reaccumulate hematoma immediately. As a result I then utilized a medium sponge into the upper incision which was then appropriately bordered and wound VAC placed. I then subsequently had to utilize a large and 2 medium size sponges for the more distal lateral wound VAC this was then subsequently bordered and wound VAC placed a white splint was then connected to this satisfactory suction was confirmed and at this point time this completed our procedure. Patient tolerated procedure well was receiving 2 units of PRBC during the OR he was extubated and taken to ICU in stable condition with guarded prognosis. Disposition: Patient taken to ICU and stable condition with guarded prognosis. Patient was extubated. Will continue to follow and plan will be just for continual wound VAC changes potentially an additional irrigation debridement wound VAC exchange during this hospitalization. Continue with antibiotics per primary team. Ortho team will continue to follow.
[2024-08-21] MEDS: bisacodyl 5 mg Tablet 10 MG PO (11:02)
[2024-08-21] MEDS: aspirin 81 mg EC Tablet PO (11:03)
--- NOTE | 2024-08-21 11:04 | PHA.VACGOAL ---
Vancomycin Goal - Goal Vancomycin Goal:: 15-20 mg/L Vancomycin Indication:: Other (SEPSIS) - Therapy Current therapy:: Meropenem Day of therpy:: Day []of [] . Actual body weight (kg): 85.729 kg - Data Labs: WBC 12.50 10^3/uL (3.29-11.43) H 08/21/24 02:54 RBC 2.47 10^6/uL (3.85-5.65) L 08/21/24 02:54 Hgb 7.40 g/dL (11.27-16.99) L 08/21/24 02:54 Hct 24.3 % (37-53) L 08/21/24 02:54 MCV 98.4 fl (82-101) 08/21/24 02:54 MCH 30.0 pg (27-33) 08/21/24 02:54 MCHC 30.5 g/dL (30-55) 08/21/24 02:54 RDW 17.8 % (12.1-15.1) H 08/21/24 02:54 Sodium 145 mmol/L (136-145) 08/21/24 02:54 Potassium 4.0 mmol/L (3.5-5.1) 08/21/24 02:54 Chloride 106 mmol/L (98-107) 08/21/24 02:54 Carbon Dioxide 25 mmol/L (22-29) 08/21/24 02:54 Anion Gap 18.0 (5-19) 08/21/24 02:54 BUN 41 mg/dL (8-23) H 08/21/24 02:54 Creatinine 1.6 mg/dL (0.7-1.2) H 08/21/24 02:54 GFR Calculation 43.3 mL/min (90-130) L 08/21/24 02:54 Treatment plan:: new consult Regimen:: New start vancomycin for septic shock. Received 1500 mg load dose. Due to improvement in SCr will start patient on dose of 750 mg q12h based on population based pharmacokinetic Nomogram Laboratory Tests 08/20/24 08/21/24 11:11 02:54 WBC 21.36 H 12.50 H Creatinine 1.6 H .
[2024-08-21] MEDS: VANCOMYCIN ADD-Vantage 750 MG in 0.9% NaCl ADD-Vantage 250 ML 250 MG IV ×2 (11:10→23:15)
--- NOTE | 2024-08-21 14:28 | P.PN_ITS ---
Subjective 2 Subjective: No acute events overnight. Patient underwent left thigh irrigation and debridement along with hematoma evacuation today morning with orthopedics. As per the report 1 L of clotted blood was evacuated from the hematoma. Overall fresh EBL of 150 cc. Overall has received 2 units of PRBC overnight and getting 30 units right now. Currently on 6 of Levophed. Awake and alert. Denies any nausea, vomiting, headache. Has remained afebrile with concerns for mild hypothermia earlier today morning. Vitals/I&O/Wt Last Vital Signs Temp 9.0 F L 08/21/24 12:57 Pulse 51 L 08/21/24 14:00 Resp 3 L 08/21/24 13:45 BP 130/62 08/21/24 13:45 Pulse Ox 97 08/21/24 13:45 O2 Del Method Nasal Cannula 08/21/24 13:00 O2 Flow Rate 3 08/21/24 13:00 08/20/24 08/21/24 08/21/24 22:59 06:59 14:59 Intake Total 1527.875 / 2527.875 53.75 / 2581.625 1980.938 / 1980.938 Output Total 1600 / 1600 850 / 850 Balance 1527.875 / 2527.875 -1546.25 / 355.973 8001.938 / 1130.938 Weight last 48 hrs Weight 85.729 kg Weight 131.5 kg Weight 131.542 kg Physical Exam 2 Narrative: General: No acute distress, AO x3, chronically sick appearing, morbidly obese HEENT: PERRLA, pupils bilaterally equal and reactive Chest: Normal disturbances oral lung sarah, decreased air entry, fine crackles present in bilateral lower zone CVS: S1-S2 regular, no murmurs, no tachycardia, no gallops, no rubs Abdomen: Soft, nontender, no organomegaly, bowel sounds present Neuro: No focal deficits, no facial deformity, AO x3, power 5/5 in all limbs Extremity: Wound VAC present. Skin: OTHER: Surgical wound on admission. Urinary Catheter Management: Cage: Cath Placed During This Visit: yes Reason for Continuing Indwelling Catheter: Accurate Measurement of Urinary Output in Critically Ill Patients Urinary Catheter Date of Insertion: 08/20/24 Urinary Catheter Time of Insertion: 19:28 Data 08/21/24 02:54 08/21/24 02:54 A&P Assessment and plan (1) Septic shock: (2) Hematoma of left hip: (3) Postoperative wound infection of left hip: (4) Acute kidney injury: (5) Hyperkalemia: (6) Anemia: (7) Elevated lactic acid level: (8) Hypertensive heart disease with heart failure: (9) DVT (deep venous thrombosis): (10) Morbid obesity with BMI of 40.0-44.9, adult: (11) COPD (chronic obstructive pulmonary disease): Qualifiers: COPD type: unspecified COPD Qualified Code(s): J44.9 - Chronic obstructive pulmonary disease, unspecified (12) Chronic respiratory failure with hypoxia and hypercapnia: (13) Obstructive sleep apnea (adult) (pediatric): (14) Decubitus ulcer: Qualifiers: Laterality: left Pressure injury location: heel Pressure injury stage: stage 3 Qualified Code(s): L89.623 - Pressure ulcer of left heel, stage 3 (15) Open wound of left ankle with tendon involvement: Qualifiers: Encounter type: initial encounter Qualified Code(s): S91.002A - Unspecified open wound, left ankle, initial encounter; S96.902A - Unspecified injury of unspecified muscle and tendon at ankle and foot level, left foot, initial encounter (16) Chronic embolism and thrombosis of left femoral vein: (17) Femur fracture, left: Qualifiers: Encounter type: initial encounter Femur location: shaft Fracture alignment: displaced Fracture morphology: spiral Fracture type: closed Qualified Code(s): S72.342A - Displaced spiral fracture of shaft of left femur, initial encounter for closed fracture (18) Subtrochanteric fracture of left femur: Qualifiers: Encounter type: initial encounter Fracture type: closed Fracture alignment: displaced Qualified Code(s): S72.22XA - Displaced subtrochanteric fracture of left femur, initial encounter for closed fracture (19) Chronic venous insufficiency: Plan 69-year-old with recent history of ORIF complicated by hemorrhagic shock, multiorgan failure, respiratory failure comes in back to the ER from group home today in septic shock with concerns for postoperative infection and hematoma of the left hip. Septic shock: Keep mean arterial pressure 65. Keep saturation over 90%. Wean Levophed accordingly. Component also of hemorrhagic shock. Lactic acid normal today. Received full 30 mL/kg body weight of fluid in the ER. Continue with 75 cc/h after blood transfusion. Check cortisol level. Patient does have mild bradycardia and hypothermia. Check free T3 and free T4. SIRS: Tachycardic, Febrile, Leukocytosis Source: Cellulitis and postoperative wound infection End organ damage: Shock, RUDI Lactic acid elevated. Monitor blood pressures. Keep mean artery pressure 65 mmHg. Follow-up blood culture, urine culture, OR culture, appreciate procalcitonin trend. MRSA positive recently. Empirically continue with IV vancomycin and meropenem. Will request for OR cultures. It is possible patient would need at least 2 weeks of IV antibiotics on discharge given concerns for possibly infected hematoma. No concerns for deep tissue or prosthesis infection as per OR findings. Hematoma along with postoperative wound infection: Antibiotic as above. Post left thigh irrigation, hematoma evacuation with wound VAC placement on 08/21. Wound VAC management as per orthopedic team. Anemia: Target hemoglobin more than 7. Recently received 4 units of blood transfusion and 1 of FFP on previous admission. Overall has received 3 units of PRBC this admission. Will transfuse 1 more unit. Repeat CBC in evening. Target hemoglobin more than 7. Holding off on Eliquis. Protonix 40 mg Q12 hourly. RUDI: Most likely in setting of septic shock. Resolving. Creatinine down to 1.6. CT abdomen pelvis negative for obstructive nephropathy. Monitor BMP in afternoon Medical reconstruction done for nephrotoxic drugs. Hyperkalemia: Resolved. Monitor in evening. History of DVT: Hold off on home dose of Eliquis given hemorrhagic and septic shock Morbid obesity COPD: Not in exacerbation. Keep saturation over 90%. Wean off oxygen accordingly. Obstructive sleep apnea: Continue with home CPAP. Open wound of left ankle: Continue with wound care as per recent podiatry recommendations. Full code Patient's will be the DPOA Cardiac diet, n.p.o. after midnight Protonix will be sufficient for PUD prophylaxis SCD for DVT prophylaxis. Not on medical prophylaxis given hemorrhagic and septic shock. Attestations 2 Medical Necessity Statement*: Requires further hospitalization for management of septic shock, hemorrhagic shock in setting of hematoma with concerns for postoperative wound infection from recent ORIF, anemia, RUDI Critical Care Time: The high probability of a clinically significant, sudden or life threatening deterioration of the patient's [cardiac, renal, orthopedic, ID] system(s) required my full and direct attention, intervention and personal management. The critical care time is as shown. This time is in addition to time spent performing any reported procedures but includes the following: [x] Data and vital sign review and interpretation [x] Patient assessment, examination and intervention [x] Documentation [x] Medication orders and management Critical Care Time (min): 70 Coding Level of Care Code Critical Care >/= 30 minutes Critical care time (in minutes): 70 The high probability of a clinically significant, sudden or life threatening deterioration, as referenced in this documentation, required my full and direct attention, intervention and personal management. The critical care time shown is in addition to time spent performing any reported separately billable procedures and includes the following: [x] Data and vital sign review and interpretation [x ] Patient assessment, examination and intervention [x] Medication orders and management [x] Patient/Family updates as able [x] Care Coordination and Documentation. Diagnoses Septic shock A41.9; R65.21 Hematoma of left hip S70.02XA Postoperative wound infection of left hip T81.49XA Acute kidney injury N17.9 Hyperkalemia E87.5 Anemia D64.9 Elevated lactic acid level R79.89 Hypertensive heart disease with heart failure I11.0 DVT (deep venous thrombosis) I82.409 Morbid obesity with BMI of 40.0-44.9, adult E66.01; Z68.41 Chronic obstructive pulmonary disease, unspecified COPD type J44.9 COPD type: unspecified COPD Chronic respiratory failure with hypoxia and hypercapnia J96.11; J96.12 Obstructive sleep apnea (adult) (pediatric) G47.33 Decubitus ulcer L89.623 Laterality: left Pressure injury location: heel Pressure injury stage: stage 3 Open wound of left ankle with tendon involvement, initial encounter S91.002A; S96.902A Encounter type: initial encounter Chronic embolism and thrombosis of left femoral vein I82.512 Closed displaced spiral fracture of shaft of left femur, initial encounter S72.342A Encounter type: initial encounter Femur location: shaft Fracture alignment: displaced Fracture morphology: spiral Fracture type: closed Closed displaced subtrochanteric fracture of left femur, initial encounter S72.22XA Encounter type: initial encounter Fracture type: closed Fracture alignment: displaced Chronic venous insufficiency I87.2
[2024-08-21] MEDS: ipratropium-albuterol 3 mL Neb INHALATION ×3 (14:55→20:11)
[2024-08-21 15:13] LABS: Cortisol Random 13.68 ug/dL (2.47-19.5)
[2024-08-21 16:18] LABS: Basophils % 0.3 %; Eosinophils # 0.1 10^3/uL (0.0-0.8); Eosinophils % 0.5 %; Hematocrit 31.5 % (37-53); Lymphocytes # 0.5 10^3/uL (0.8-4.8); Lymphocytes % 4.5 %; Mean Corpuscular HGB Conc 31.7 g/dL (30-55); Mean Corpuscular Hemoglobin 29.6 pg (27-33); Mean Corpuscular Volume 93.2 fl (82-101); Mean Platelet Volume 9.9 fL (7.4-10.4); Monocytes # 0.6 10^3/uL (0.2-0.9); Monocytes % 5.4 %; Neutrophils # 9.01 10^3/uL (1.8-7.7); Neutrophils % 87.4 %; Nucleated Red Blood Cells % 0.3 %; Platelet Count 278 10^3/cmm (157-399); Red Blood Count 3.38 10^6/uL (3.85-5.65); Red Cell Distribution Width 17.7 % (12.1-15.1); White Blood Count 10.31 10^3/uL (3.29-11.43)
[2024-08-21 16:45] LABS: Anion Gap 17.3 (5-19); Blood Urea Nitrogen 34 mg/dL (8-23); Calcium 7.5 mg/dL (8.5-10.5); Carbon Dioxide 24 mmol/L (22-29); Chloride 107 mmol/L (98-107); Creatinine Clr Calc Pharmacy 71.9784; Free T4 Free Thyroxine 1.11 ng/dL (0.82-1.77); Glomerular Filtration Rate 66.8 mL/min (90-130); Glucose 158 mg/dL (65-115); Osmolality Calculated 309 mOsm/kg (285-295); Potassium 4.3 mmol/L (3.5-5.1); Sodium 144 mmol/L (136-145); T3 Free 1.3 PG/ML (2.0-4.4)
[2024-08-21] MEDS: HYDROcodone-acetaminophen 10-325 mg Tablet 1 TAB PO (20:50)
[2024-08-21] MEDS: albumin 25 G/100 ML BAG 60 G IV (20:50)
[2024-08-21] MEDS: magnesium hydroxide 30 mL UDC PO (20:51)
[2024-08-21] MEDS: pantoprazole 40 mg SDV IVP (20:51)
[2024-08-22] VITALS (50 sets, daily range): BP systolic 87–139; BP diastolic 49–81; PULSE 60–88; RESP 15–29; TEMP 36.5–37.4; O2SAT 88–99; BMI 42.5
[2024-08-22] MEDS: albumin 25 G/100 ML BAG 60 G IV ×3 (04:08→19:43)
[2024-08-22] MEDS: HYDROcodone-acetaminophen 10-325 mg Tablet 1 TAB PO ×2 (04:16→19:42)
[2024-08-22 05:15] LABS: Basophils % 0.2 %; Eosinophils % 0.5 %; Hematocrit 27.2 % (37-53); Lymphocytes # 0.7 10^3/uL (0.8-4.8); Lymphocytes % 10.1 %; Mean Corpuscular HGB Conc 29.8 g/dL (30-55); Mean Corpuscular Hemoglobin 29.6 pg (27-33); Mean Corpuscular Volume 99.3 fl (82-101); Mean Platelet Volume 10.2 fL (7.4-10.4); Monocytes # 0.6 10^3/uL (0.2-0.9); Monocytes % 9.5 %; Neutrophils # 5.06 10^3/uL (1.8-7.7); Neutrophils % 78.6 %; Nucleated Red Blood Cells % 0.3 %; Platelet Count 228 10^3/cmm (157-399); Red Blood Count 2.74 10^6/uL (3.85-5.65); Red Cell Distribution Width 18.6 % (12.1-15.1); White Blood Count 6.43 10^3/uL (3.29-11.43)
[2024-08-22 05:39] LABS: Alanine Aminotransferase 11 U/L (0-41); Albumin Level 2.8 g/dL (3.5-5.2); Alkaline Phosphatase 101 U/L (40-130); Anion Gap 13.8 (5-19); Aspartate Amino Transferase 15 U/L (0-40); Blood Urea Nitrogen 30 mg/dL (8-23); Calcium 7.5 mg/dL (8.5-10.5); Carbon Dioxide 27 mmol/L (22-29); Chloride 108 mmol/L (98-107); Creatinine Clr Calc Pharmacy 87.9736; Globulin 2.1 g/dL (1.3-4.6); Glomerular Filtration Rate 84.2 mL/min (90-130); Glucose 110 mg/dL (65-115); Osmolality Calculated 307 mOsm/kg (285-295); Potassium 3.8 mmol/L (3.5-5.1); Sodium 145 mmol/L (136-145); Total Protein 4.9 g/dL (6.6-8.7)
[2024-08-22] MEDS: sertraline 100 mg Tablet PO (05:44)
[2024-08-22] MEDS: meropenem 1,000 mg SDV 1000 MG IVP ×2 (05:44→18:05)
[2024-08-22 05:51] LABS: Cortisol Random 2.18 ug/dL (2.47-19.5)
[2024-08-22] MEDS: ipratropium-albuterol 3 mL Neb INHALATION ×4 (08:03→20:08)
[2024-08-22] MEDS: bisacodyl 5 mg Tablet 10 MG PO (08:42)
[2024-08-22] MEDS: aspirin 81 mg EC Tablet PO (08:42)
[2024-08-22 09:02] LABS: Cosyntropin Baseline 1.76 mcg/dL
[2024-08-22] MEDS: VANCOMYCIN ADD-Vantage 750 MG in 0.9% NaCl ADD-Vantage 250 ML 250 MG IV (10:34)
[2024-08-22 12:07] LABS: Cosyntropin Baseline 2.04 mcg/dL
[2024-08-22] MEDS: cosyntropin 0.25 mg SDV IVP (12:14)
--- NOTE | 2024-08-22 12:28 | PC.SOCIAL ---
IMM updated IMM dated and initialed, copy given to patient and copy placed in chart.
[2024-08-22 14:01] LABS: Cosyntropin 1 Hour 20.45 mcg/dL
--- NOTE | 2024-08-22 15:07 | P.PN_ITS ---
Subjective 2 Subjective: No acute events overnight. Patient has remained hemodynamically stable and afebrile. Off Levophed. 500 cc out of wound VAC overnight. The morning on examination patient denies any nausea, vomiting, headache. Appreciate urine output. Vitals/I&O/Wt Last Vital Signs Temp 99.3 F 08/22/24 04:15 Pulse 69 08/22/24 15:03 Resp 18 08/22/24 15:03 BP 110/54 08/22/24 12:00 Pulse Ox 96 08/22/24 15:03 O2 Del Method Nasal Cannula 08/22/24 15:03 O2 Flow Rate 3 08/22/24 15:03 08/22/24 08/22/24 08/22/24 06:59 14:59 22:59 Intake Total 1550 / 4480.000 Output Total 1200 / 2700 Balance 350 / 1780.000 Weight last 48 hrs Weight 134.5 kg Weight 85.729 kg Weight 131.5 kg Physical Exam 2 Narrative: General: No acute distress, AO x3, chronically sick appearing, morbidly obese HEENT: PERRLA, pupils bilaterally equal and reactive Chest: Normal disturbances oral lung sarah, decreased air entry, fine crackles present in bilateral lower zone CVS: S1-S2 regular, no murmurs, no tachycardia, no gallops, no rubs Abdomen: Soft, nontender, no organomegaly, bowel sounds present Neuro: No focal deficits, no facial deformity, AO x3, power 5/5 in all limbs Extremity: Wound VAC present. Skin: OTHER: Surgical wound on admission. Urinary Catheter Management: Cage: Cath Placed During This Visit: yes Reason for Continuing Indwelling Catheter: Accurate Measurement of Urinary Output in Critically Ill Patients Urinary Catheter Date of Insertion: 08/20/24 Urinary Catheter Time of Insertion: 19:28 Data 08/22/24 04:12 08/22/24 04:12 Micro: Microbiology 08/21/24 09:00 Gram Stain - Final Hip - #1 Anaerobic Culture - Preliminary Wound Culture - Preliminary Gram Negative Rods 08/21/24 08:48 Gram Stain - Final Other Source Anaerobic Culture - Preliminary Wound Culture - Preliminary Gram Negative Rods A&P Assessment and plan (1) Septic shock: (2) Hematoma of left hip: (3) Postoperative wound infection of left hip: (4) Acute kidney injury: (5) Hyperkalemia: (6) Anemia: (7) Elevated lactic acid level: (8) Hypertensive heart disease with heart failure: (9) DVT (deep venous thrombosis): (10) Morbid obesity with BMI of 40.0-44.9, adult: (11) COPD (chronic obstructive pulmonary disease): Qualifiers: COPD type: unspecified COPD Qualified Code(s): J44.9 - Chronic obstructive pulmonary disease, unspecified (12) Chronic respiratory failure with hypoxia and hypercapnia: (13) Obstructive sleep apnea (adult) (pediatric): (14) Decubitus ulcer: Qualifiers: Laterality: left Pressure injury location: heel Pressure injury stage: stage 3 Qualified Code(s): L89.623 - Pressure ulcer of left heel, stage 3 (15) Open wound of left ankle with tendon involvement: Qualifiers: Encounter type: initial encounter Qualified Code(s): S91.002A - Unspecified open wound, left ankle, initial encounter; S96.902A - Unspecified injury of unspecified muscle and tendon at ankle and foot level, left foot, initial encounter (16) Chronic embolism and thrombosis of left femoral vein: (17) Femur fracture, left: Qualifiers: Encounter type: initial encounter Femur location: shaft Fracture alignment: displaced Fracture morphology: spiral Fracture type: closed Qualified Code(s): S72.342A - Displaced spiral fracture of shaft of left femur, initial encounter for closed fracture (18) Subtrochanteric fracture of left femur: Qualifiers: Encounter type: initial encounter Fracture type: closed Fracture alignment: displaced Qualified Code(s): S72.22XA - Displaced subtrochanteric fracture of left femur, initial encounter for closed fracture (19) Chronic venous insufficiency: Plan 69-year-old with recent history of ORIF complicated by hemorrhagic shock, multiorgan failure, respiratory failure comes in back to the ER from group home today in septic shock with concerns for postoperative infection and hematoma of the left hip. Septic shock: Keep mean arterial pressure 65. Keep saturation over 90%. Wean Levophed accordingly. Component also of hemorrhagic shock. Lactic acid normal today. Received full 30 mL/kg body weight of fluid in the ER. Continue with 75 cc/h after blood transfusion. Check cortisol level. Patient does have mild bradycardia and hypothermia. Check free T3 and free T4. SIRS: Tachycardic, Febrile, Leukocytosis Source: Cellulitis and postoperative wound infection End organ damage: Shock, RUDI Lactic acid elevated. Monitor blood pressures. Keep mean artery pressure 65 mmHg. Follow-up blood culture, urine culture, OR culture, appreciate procalcitonin trend. MRSA positive recently. Empirically continue with IV vancomycin and meropenem. Will request for OR cultures. It is possible patient would need at least 2 weeks of IV antibiotics on discharge given concerns for possibly infected hematoma. No concerns for deep tissue or prosthesis infection as per OR findings. Hematoma along with postoperative wound infection: Antibiotic as above. Post left thigh irrigation, hematoma evacuation with wound VAC placement on 08/21. Wound VAC management as per orthopedic team. Anemia: Target hemoglobin more than 7. Recently received 4 units of blood transfusion and 1 of FFP on previous admission. Overall has received 3 units of PRBC this admission. Will transfuse 1 more unit. Repeat CBC in evening. Target hemoglobin more than 7. Holding off on Eliquis. Protonix 40 mg Q12 hourly. RUDI: Most likely in setting of septic shock. Resolving. Creatinine down to 1.6. CT abdomen pelvis negative for obstructive nephropathy. Monitor BMP in afternoon Medical reconstruction done for nephrotoxic drugs. Hyperkalemia: Resolved. Monitor in evening. History of DVT: Hold off on home dose of Eliquis given hemorrhagic and septic shock Morbid obesity COPD: Not in exacerbation. Keep saturation over 90%. Wean off oxygen accordingly. Obstructive sleep apnea: Continue with home CPAP. Open wound of left ankle: Continue with wound care as per recent podiatry recommendations. Full code Patient's will be the DPOA Cardiac diet, Protonix will be sufficient for PUD prophylaxis SCD for DVT prophylaxis. Not on medical prophylaxis given hemorrhagic and septic shock. Plan for the day: OR wound cultures growing gram-negative rods. Continue to follow. Blood cultures so far negative. Most likely patient will need to every 2-4 of IV antibiotics on discharge. Will consult ID for further recommendations. MRSA swab positive recently. For now continue with current IV antibiotic coverage. If no further growth and wound culture will discontinue vancomycin and continue with meropenem. Will de-escalate as per culture sensitivities. Appreciate subnormal cortisol level in a.m. down to 2.4 today. Will check cosyntropin stimulation test and add hydrocortisone accordingly. Hemoglobin stable. Repeat hemoglobin every 12 hours. Target hemoglobin more than 8. Will transfuse accordingly. Goal blood pressure less than 140/90 mmHg with mean over 65. Levophed weaned off. Continue to monitor. RUDI resolved. Continue with albumin every 8 hourly. Continue other chronic home medications including Zoloft. Holding off on Eliquis for now. Wound care as per orthopedic team. Attestations 2 Medical Necessity Statement*: Requires further hospitalization for management of severe sepsis, hemorrhagic shock in setting of postoperative wound infection, postoperative hematoma along with anemia, blood transfusion while safe discharge planning discharge. Diagnoses Septic shock A41.9; R65.21 Hematoma of left hip S70.02XA Postoperative wound infection of left hip T81.49XA Acute kidney injury N17.9 Hyperkalemia E87.5 Anemia D64.9 Elevated lactic acid level R79.89 Hypertensive heart disease with heart failure I11.0 DVT (deep venous thrombosis) I82.409 Morbid obesity with BMI of 40.0-44.9, adult E66.01; Z68.41 Chronic obstructive pulmonary disease, unspecified COPD type J44.9 COPD type: unspecified COPD Chronic respiratory failure with hypoxia and hypercapnia J96.11; J96.12 Obstructive sleep apnea (adult) (pediatric) G47.33 Decubitus ulcer L89.623 Laterality: left Pressure injury location: heel Pressure injury stage: stage 3 Open wound of left ankle with tendon involvement, initial encounter S91.002A; S96.902A Encounter type: initial encounter Chronic embolism and thrombosis of left femoral vein I82.512 Closed displaced spiral fracture of shaft of left femur, initial encounter S72.342A Encounter type: initial encounter Femur location: shaft Fracture alignment: displaced Fracture morphology: spiral Fracture type: closed Closed displaced subtrochanteric fracture of left femur, initial encounter S72.22XA Encounter type: initial encounter Fracture type: closed Fracture alignment: displaced Chronic venous insufficiency I87.2
[2024-08-22 16:00] LABS: Hematocrit 26.7 % (37-53)
--- NOTE | 2024-08-22 16:24 | P.PN_ITS ---
Subjective 2 Subjective: Patient seen and examined postoperative day 1 from a left thigh I&D with hematoma evacuation and wound VAC placement. This point in time he looks much better today much more alert and better coloring. Patient states he does feel better. He has had roughly since the application engineer changes canister has had roughly 2 50-300 output last shift. Vitals/I&O/Wt Last Vital Signs Temp 99.3 F 08/22/24 04:15 Pulse 71 08/22/24 15:37 Resp 18 08/22/24 15:03 BP 110/54 08/22/24 12:00 Pulse Ox 96 08/22/24 15:03 O2 Del Method Nasal Cannula 08/22/24 15:03 O2 Flow Rate 3 08/22/24 15:03 08/22/24 08/22/24 08/22/24 06:59 14:59 22:59 Intake Total 1550 / 4480.000 Output Total 1200 / 2700 Balance 350 / 1780.000 Weight last 48 hrs Weight 296 lb 8.348 oz Weight 189 lb Weight 289 lb 14.526 oz Physical Exam 2 Narrative: Patient seen and examined, left lower extremity wound vacs are on in place with good seal, pressure adjusted from 100 to 50mmhg. left lower extremity warm well- perfused compartments are soft compressible. No erythema around the wound VAC no signs of infection. Dressings are in place to the lower extremity wounds not taken down today. VAC has have roughly 250-300 bloody serosanguineous output over last shift Urinary Catheter Management: Cage: Cath Placed During This Visit: yes Reason for Continuing Indwelling Catheter: Accurate Measurement of Urinary Output in Critically Ill Patients Urinary Catheter Date of Insertion: 08/20/24 Urinary Catheter Time of Insertion: 19:28 Data 08/22/24 15:52 08/22/24 04:12 Micro: Microbiology 08/21/24 09:00 Gram Stain - Final Hip - #1 Anaerobic Culture - Preliminary Wound Culture - Preliminary Gram Negative Rods 08/21/24 08:48 Gram Stain - Final Other Source Anaerobic Culture - Preliminary Wound Culture - Preliminary Gram Negative Rods A&P Assessment and plan (1) Hematoma of left thigh: (2) Hematoma of left hip: (3) Femur fracture, left: Qualifiers: Encounter type: initial encounter Femur location: shaft Fracture alignment: displaced Fracture morphology: spiral Fracture type: closed Qualified Code(s): S72.342A - Displaced spiral fracture of shaft of left femur, initial encounter for closed fracture (4) Subtrochanteric fracture of left femur: Qualifiers: Encounter type: initial encounter Fracture type: closed Fracture alignment: displaced Qualified Code(s): S72.22XA - Displaced subtrochanteric fracture of left femur, initial encounter for closed fracture (5) Chronic venous insufficiency: Plan Postop day 1 from left thigh irrigation debridement with hematoma evacuation and wound VAC placement Antibiotics per primary Monitoring cultures gram-negative rods at this time from intraoperative cultures AM labs reviewed Wound VAC roughly 2 50-300 over last shift decrease settings to 50 mmHg Orthopedics will continue to follow Pain control per primary DVT prophylaxis per primary Weight-bear as tolerated left lower extremity Range of motion left hip as tolerated PT/OT Social work for discharge planning Attestations 2 Medical Necessity Statement*: Ongoing care status post left I&D with hematoma evacuation and wound VAC placement. Coding Level of Care Code Acute Code for Chg Fwd Diagnoses Hematoma of left thigh S70.12XA Hematoma of left hip S70.02XA Closed displaced spiral fracture of shaft of left femur, initial encounter S72.342A Encounter type: initial encounter Femur location: shaft Fracture alignment: displaced Fracture morphology: spiral Fracture type: closed Closed displaced subtrochanteric fracture of left femur, initial encounter S72.22XA Encounter type: initial encounter Fracture type: closed Fracture alignment: displaced Chronic venous insufficiency I87.2 Time Spent (min) 20
--- NOTE | 2024-08-22 18:15 | PC.NURSE ---
Dr. Price at bedside, dropped wound vac to 50 mmhg suction, no N.O.
[2024-08-22] MEDS: pantoprazole 40 mg SDV IVP (19:46)
[2024-08-22] MEDS: magnesium hydroxide 30 mL UDC PO (20:38)
[2024-08-22 22:14] LABS: Vancomycin Trough 15.3 ug/mL (10-15)
[2024-08-22] MEDS: vancomycin 500 MG in sodium chloride 0.9% (plus) 100 ML 200 MG IV (23:04)
[2024-08-23] VITALS (35 sets, daily range): BP systolic 106–155; BP diastolic 55–87; PULSE 58–100; RESP 11–28; TEMP 36.8–37.2; O2SAT 86–97; BMI 40.8
[2024-08-23] MEDS: albumin 25 G/100 ML BAG 60 G IV ×3 (03:47→20:15)
[2024-08-23] MEDS: HYDROcodone-acetaminophen 10-325 mg Tablet 1 TAB PO (04:17)
[2024-08-23] MEDS: meropenem 1,000 mg SDV 1000 MG IVP ×3 (05:12→22:07)
[2024-08-23] MEDS: sertraline 100 mg Tablet PO (05:14)
[2024-08-23 05:42] LABS: Basophils % 0.6 %; Eosinophils # 0.2 10^3/uL (0.0-0.8); Eosinophils % 4.7 %; Lymphocytes % 19.2 %; Mean Corpuscular HGB Conc 30.8 g/dL (30-55); Mean Corpuscular Hemoglobin 29.7 pg (27-33); Mean Corpuscular Volume 96.7 fl (82-101); Mean Platelet Volume 9.9 fL (7.4-10.4); Monocytes # 0.5 10^3/uL (0.2-0.9); Monocytes % 9.7 %; Neutrophils # 3.34 10^3/uL (1.8-7.7); Neutrophils % 64.8 %; Nucleated Red Blood Cells % 0.4 %; Platelet Count 189 10^3/cmm (157-399); Red Blood Count 2.69 10^6/uL (3.85-5.65); Red Cell Distribution Width 18.1 % (12.1-15.1); White Blood Count 5.15 10^3/uL (3.29-11.43)
[2024-08-23 06:07] LABS: Alanine Aminotransferase 12 U/L (0-41); Albumin Level 3.5 g/dL (3.5-5.2); Alkaline Phosphatase 92 U/L (40-130); Aspartate Amino Transferase 20 U/L (0-40); Blood Urea Nitrogen 26 mg/dL (8-23); Carbon Dioxide 28 mmol/L (22-29); Chloride 105 mmol/L (98-107); Creatinine Clr Calc Pharmacy 120.9063; Glomerular Filtration Rate 96.4 mL/min (90-130); Glucose 103 mg/dL (65-115); Osmolality Calculated 297 mOsm/kg (285-295); Sodium 141 mmol/L (136-145); Total Protein 5.5 g/dL (6.6-8.7)
[2024-08-23] MEDS: aspirin 81 mg EC Tablet PO (08:06)
[2024-08-23] MEDS: bisacodyl 5 mg Tablet 10 MG PO (08:07)
[2024-08-23] MEDS: ipratropium-albuterol 3 mL Neb INHALATION ×3 (08:39→20:45)
[2024-08-23] MEDS: VANCOMYCIN ADD-Vantage 750 MG in 0.9% NaCl ADD-Vantage 250 ML 250 MG IV ×2 (11:10→22:08)
--- NOTE | 2024-08-23 13:38 | P.PN_ITS ---
Subjective 2 Subjective: Now acute vents overnight. Patient has remained hemodynamically stable and afebrile. Currently on 2 to 3 L of oxygen supplementation saturating around 90%. Desaturates down to 88 on room air. Denies any new complaints. Documented urine output of around 1400 last 24 hours with wound drain off around 500 cc. Vitals/I&O/Wt Last Vital Signs Temp 98.9 F 08/23/24 12:00 Pulse 100 08/23/24 12:00 Resp 19 H 08/23/24 12:00 BP 122/66 08/23/24 12:00 Pulse Ox 93 08/23/24 12:00 O2 Del Method Nasal Cannula 08/23/24 08:41 O2 Flow Rate 3 08/23/24 08:41 08/22/24 08/23/24 08/23/24 22:59 06:59 14:59 Intake Total 450 / 450 200 / 650 Output Total 800 / 800 700 / 1500 Balance -350 / -350 -500 / -850 Weight last 48 hrs Weight 129 kg Weight 136 kg Weight 134.5 kg Physical Exam 2 Narrative: General: No acute distress, AO x3, chronically sick appearing, morbidly obese HEENT: PERRLA, pupils bilaterally equal and reactive Chest: Normal disturbances oral lung sarah, decreased air entry, fine crackles present in bilateral lower zone CVS: S1-S2 regular, no murmurs, no tachycardia, no gallops, no rubs Abdomen: Soft, nontender, no organomegaly, bowel sounds present Neuro: No focal deficits, no facial deformity, AO x3, power 5/5 in all limbs Extremity: Wound VAC present. Skin: OTHER: Surgical wound on admission. Urinary Catheter Management: Cage: Cath Placed During This Visit: yes Reason for Continuing Indwelling Catheter: Accurate Measurement of Urinary Output in Critically Ill Patients Urinary Catheter Date of Insertion: 08/20/24 Urinary Catheter Time of Insertion: 19:28 Data 08/23/24 05:06 08/23/24 05:06 Micro: Microbiology 08/21/24 08:48 Gram Stain - Final Other Source Anaerobic Culture - Preliminary Wound Culture - Preliminary Gram Negative Rods 08/21/24 09:00 Gram Stain - Final Hip - #1 Anaerobic Culture - Preliminary Wound Culture - Final Pseudomonas aeruginosa A&P Assessment and plan (1) Septic shock: (2) Hematoma of left hip: (3) Postoperative wound infection of left hip: (4) Acute kidney injury: (5) Hyperkalemia: (6) Anemia: (7) Elevated lactic acid level: (8) Hypertensive heart disease with heart failure: (9) DVT (deep venous thrombosis): (10) Morbid obesity with BMI of 40.0-44.9, adult: (11) COPD (chronic obstructive pulmonary disease): Qualifiers: COPD type: unspecified COPD Qualified Code(s): J44.9 - Chronic obstructive pulmonary disease, unspecified (12) Chronic respiratory failure with hypoxia and hypercapnia: (13) Obstructive sleep apnea (adult) (pediatric): (14) Decubitus ulcer: Qualifiers: Laterality: left Pressure injury location: heel Pressure injury stage: stage 3 Qualified Code(s): L89.623 - Pressure ulcer of left heel, stage 3 (15) Open wound of left ankle with tendon involvement: Qualifiers: Encounter type: initial encounter Qualified Code(s): S91.002A - Unspecified open wound, left ankle, initial encounter; S96.902A - Unspecified injury of unspecified muscle and tendon at ankle and foot level, left foot, initial encounter (16) Chronic embolism and thrombosis of left femoral vein: (17) Femur fracture, left: Qualifiers: Encounter type: initial encounter Femur location: shaft Fracture alignment: displaced Fracture morphology: spiral Fracture type: closed Qualified Code(s): S72.342A - Displaced spiral fracture of shaft of left femur, initial encounter for closed fracture (18) Subtrochanteric fracture of left femur: Qualifiers: Encounter type: initial encounter Fracture type: closed Fracture alignment: displaced Qualified Code(s): S72.22XA - Displaced subtrochanteric fracture of left femur, initial encounter for closed fracture (19) Chronic venous insufficiency: Plan 69-year-old with recent history of ORIF complicated by hemorrhagic shock, multiorgan failure, respiratory failure comes in back to the ER from care home today in septic shock with concerns for postoperative infection and hematoma of the left hip. Septic shock: Keep mean arterial pressure 65. Keep saturation over 90%. Wean Levophed accordingly. Component also of hemorrhagic shock. Lactic acid normal today. Received full 30 mL/kg body weight of fluid in the ER. Continue with 75 cc/h after blood transfusion. Check cortisol level. Patient does have mild bradycardia and hypothermia. Check free T3 and free T4. SIRS: Tachycardic, Febrile, Leukocytosis Source: Cellulitis and postoperative wound infection End organ damage: Shock, RUDI Lactic acid elevated. Monitor blood pressures. Keep mean artery pressure 65 mmHg. Follow-up blood culture, urine culture, OR culture, appreciate procalcitonin trend. MRSA positive recently. Empirically continue with IV vancomycin and meropenem. Will request for OR cultures. It is possible patient would need at least 2 weeks of IV antibiotics on discharge given concerns for possibly infected hematoma. No concerns for deep tissue or prosthesis infection as per OR findings. Hematoma along with postoperative wound infection: Antibiotic as above. Post left thigh irrigation, hematoma evacuation with wound VAC placement on 08/21. Wound VAC management as per orthopedic team. Anemia: Target hemoglobin more than 7. Recently received 4 units of blood transfusion and 1 of FFP on previous admission. Overall has received 3 units of PRBC this admission. Will transfuse 1 more unit. Repeat CBC in evening. Target hemoglobin more than 7. Holding off on Eliquis. Protonix 40 mg Q12 hourly. RUDI: Most likely in setting of septic shock. Resolving. Creatinine down to 1.6. CT abdomen pelvis negative for obstructive nephropathy. Monitor BMP in afternoon Medical reconstruction done for nephrotoxic drugs. Hyperkalemia: Resolved. Monitor in evening. History of DVT: Hold off on home dose of Eliquis given hemorrhagic and septic shock Morbid obesity COPD: Not in exacerbation. Keep saturation over 90%. Wean off oxygen accordingly. Obstructive sleep apnea: Continue with home CPAP. Open wound of left ankle: Continue with wound care as per recent podiatry recommendations. Full code Patient's will be the DPOA Cardiac diet, Protonix will be sufficient for PUD prophylaxis SCD for DVT prophylaxis. Not on medical prophylaxis given hemorrhagic and septic shock. Plan for the day: Over wound cultures growing Pseudomonas. Appreciate sensitivities. Will consult ID for further recommendations of overall. Of IV antibiotic course on discharge. Patient will most likely need at least 2 weeks of IV antibiotics. For now continue both with IV meropenem and vancomycin. Will confirm with ID before discontinuing vancomycin. Cosyntropin test negative yesterday. Will hold off on steroids. Goal blood pressure has been maintained over 65 mmHg of mean. Can remove arterial line. Wound VAC care as per orthopedic team. Further surgical plan as per orthopedic team. Hemoglobin so far stable. For now check hemoglobin daily. Continue with IV albumin. RUDI resolved. Appreciate electrolytes. No concerns for metabolic acidosis. Recheck CMP in AM. Transfer to [facility] floor. Attestations 2 Medical Necessity Statement*: Requires further hospitalization for management of postoperative wound infection, hematoma, post evacuation, wound VAC in place, anemia requiring blood transfusion Diagnoses Septic shock A41.9; R65.21 Hematoma of left hip S70.02XA Postoperative wound infection of left hip T81.49XA Acute kidney injury N17.9 Hyperkalemia E87.5 Anemia D64.9 Elevated lactic acid level R79.89 Hypertensive heart disease with heart failure I11.0 DVT (deep venous thrombosis) I82.409 Morbid obesity with BMI of 40.0-44.9, adult E66.01; Z68.41 Chronic obstructive pulmonary disease, unspecified COPD type J44.9 COPD type: unspecified COPD Chronic respiratory failure with hypoxia and hypercapnia J96.11; J96.12 Obstructive sleep apnea (adult) (pediatric) G47.33 Decubitus ulcer L89.623 Laterality: left Pressure injury location: heel Pressure injury stage: stage 3 Open wound of left ankle with tendon involvement, initial encounter S91.002A; S96.902A Encounter type: initial encounter Chronic embolism and thrombosis of left femoral vein I82.512 Closed displaced spiral fracture of shaft of left femur, initial encounter S72.342A Encounter type: initial encounter Femur location: shaft Fracture alignment: displaced Fracture morphology: spiral Fracture type: closed Closed displaced subtrochanteric fracture of left femur, initial encounter S72.22XA Encounter type: initial encounter Fracture type: closed Fracture alignment: displaced Chronic venous insufficiency I87.2
--- NOTE | 2024-08-23 14:44 | P.PN_ITS ---
Subjective 2 Subjective: Patient seen and examined in ICU he is currently getting set up to transfer to [facility] today. Clinically patient is improving. Continue wound VAC therapy at this time Vitals/I&O/Wt Last Vital Signs Temp 98.9 F 08/23/24 12:00 Pulse 80 08/23/24 14:03 Resp 22 H 08/23/24 14:03 BP 122/66 08/23/24 12:00 Pulse Ox 96 08/23/24 14:03 O2 Del Method Nasal Cannula 08/23/24 14:03 O2 Flow Rate 3 08/23/24 14:03 08/22/24 08/23/24 08/23/24 22:59 06:59 14:59 Intake Total 450 / 450 200 / 650 Output Total 800 / 800 700 / 1500 Balance -350 / -350 -500 / -850 Weight last 48 hrs Weight 284 lb 6.341 oz Weight 299 lb 13.259 oz Weight 296 lb 8.348 oz Physical Exam 2 Narrative: Patient seen and examined, left lower extremity wound vacs are on in place with good seal, pressure to maintain 50mmhg. left lower extremity warm well-perfused compartments are soft compressible. No erythema around the wound VAC no signs of infection. Dressings are in place to the lower extremity wounds not taken down today. VAC has have roughly 500-600cc of bloody serosanguineous output over last 24 hrs Urinary Catheter Management: Cage: Cath Placed During This Visit: yes Reason for Continuing Indwelling Catheter: Accurate Measurement of Urinary Output in Critically Ill Patients Urinary Catheter Date of Insertion: 08/20/24 Urinary Catheter Time of Insertion: 19:28 Data 08/23/24 05:06 08/23/24 05:06 Micro: Microbiology 08/21/24 08:48 Gram Stain - Final Other Source Anaerobic Culture - Preliminary Wound Culture - Preliminary Gram Negative Rods 08/21/24 09:00 Gram Stain - Final Hip - #1 Anaerobic Culture - Preliminary Wound Culture - Final Pseudomonas aeruginosa A&P Assessment and plan (1) Hematoma of left thigh: (2) Hematoma of left hip: (3) Femur fracture, left: Qualifiers: Encounter type: initial encounter Femur location: shaft Fracture alignment: displaced Fracture morphology: spiral Fracture type: closed Qualified Code(s): S72.342A - Displaced spiral fracture of shaft of left femur, initial encounter for closed fracture (4) Subtrochanteric fracture of left femur: Qualifiers: Encounter type: initial encounter Fracture type: closed Fracture alignment: displaced Qualified Code(s): S72.22XA - Displaced subtrochanteric fracture of left femur, initial encounter for closed fracture (5) Chronic venous insufficiency: Plan Postop day 2 from left thigh irrigation debridement with hematoma evacuation and wound VAC placement Antibiotics per primary Monitoring cultures demonstrating Pseudomonas Wound VAC roughly 500-600cc over last 24 hours, maintain current settings Orthopedics will continue to follow Pain control per primary DVT prophylaxis per primary Weight-bear as tolerated left lower extremity Range of motion left hip as tolerated PT/OT Social work for discharge planning Attestations 2 Medical Necessity Statement*: Ongoing care status post left I&D with hematoma evacuation and wound VAC placement. Coding Level of Care Code Acute Code for Chg Fwd Diagnoses Hematoma of left thigh S70.12XA Hematoma of left hip S70.02XA Closed displaced spiral fracture of shaft of left femur, initial encounter S72.342A Encounter type: initial encounter Femur location: shaft Fracture alignment: displaced Fracture morphology: spiral Fracture type: closed Closed displaced subtrochanteric fracture of left femur, initial encounter S72.22XA Encounter type: initial encounter Fracture type: closed Fracture alignment: displaced Chronic venous insufficiency I87.2
[2024-08-23 15:58] LABS: Hematocrit 28.6 % (37-53)
--- NOTE | 2024-08-23 16:01 | PC.NURSE ---
Patient refuses turing and repositioning despite repeated education on current and high risk of future wounds
--- NOTE | 2024-08-23 17:32 | P.CONIM_ITS ---
Providers/Reason For Consult 2 Consulting Physician/Specialty*: Crystal Malhotra MD/ infectious Disease Reason for Consult*: deep tissue infection Attending Physician: Brice Funes MD Primary Care Provider: Odalis Stewart NP History of Present Illness History of Present Illness Willie Perez is a 69 year old male with obesity, COPD, chronic hypoxic and hypercapnic respiratory failure, chronic anticoagulation due to history of DVT, sleep apnea, h/o basal cell ca of face , lymphedema, as typically bedbound, requiring assistance for ADLs. He is a [facility] [place] and apparently fell recently. He had presented into the ER on 08/06/2024 when he was diagnosed with a left subtrochanteric hip fracture for which he underwent open reduction and screw fixation on 08/07/2024. His care is complicated by morbid obesity, chronic venous insufficiency and lymphedema. Postop course was complicated by significant blood loss. He required 4 units of blood transfusion immediately postoperatively, developed hypovolemic shock and needed to be on pressors in the ICU. He has multiple lower extremity wounds for which she was also evaluated by podiatry on August 09.. He was noted to have left anterior ankle wound with tendon exposure without gross signs of infection. Wound care was recommended. Further course was complicated by haemophilus influenza pneumonia. He was discharged back to SNF on 08/14/2024 for continued rehab. He returned to the emergency room on 08/20/2024 due to wound dehiscence of the recent operative site, noted to have excessive postoperative drainage with a large hematoma. CT of the hip revealed a large high density forming collection extending 35 x 10 cm anteroposteriorly. Collection was noted to be thickening in the upper thigh at the level of the ileum to the distal femoral diaphoresis. Most likely this was thought to be a large hematoma. He had leukocytosis of 21,000. Concern was for an infected hematoma. On August 21, 2024, he underwent left thigh I&D. Approximately 1 L of blood clot was evacuated. There was noted to be significant fatty necrosis and early pressure breakdown of the skin underneath the skin. Hematoma was evacuated entirely and irrigated with saline and Betadine. He received 2 units of packed red blood cells intraoperatively. Subsequently has a wound VAC on currently. Per hospitalist discussion with orthopedics team, changes were not noted to be extending down to newly placed screws and plates. Culture from OR showed Pseudomonas aeruginosa. he has been on treatment with meropenem and vancomycin thus far. Leukocytosis is trending down from 21,000-5000 today. He has been afebrile. Patient was originally admitted to the ICU on pressor support, however now is seen [facility] floor. He is off pressors hemodynamically stable. Review of Systems 2 General: Reports: 10 or more systems reviewed and unremarkable except in HPI and below Const: Denies: fever(s), chills or body aches Eyes: Denies: change in vision, blurry vision or photophobia ENMT: Reports: hoarseness; Denies: throat pain, enlarged tonsils, odynophagia or nasal congestion Card: Denies: chest pain, palpitations, irregular heart rhythm, edema, swelling of feet/ankles, lightheadedness, pre-syncope, dyspnea on exertion or orthopnea Resp: Denies: dyspnea, productive cough, non-productive cough, wheezing, stridor, pain on inspiration, change in phlegm color, hemoptysis or chest congestion GI: Denies: abdominal pain, nausea, vomiting, hematemesis, coffee ground emesis, dysphagia, heartburn, diarrhea, constipation, GI cramping, change in stool character, hematochezia or melena : Denies: flank pain, dysuria, urinary frequency, urinary urgency, urinary hesitancy or hematuria Musc: Denies: neck pain, back pain, extremity pain, joint swelling, joint warmth or deformity Neuro: Denies: headache(s), numbness in extremities, weakness in extremities, sensory changes, difficulty walking, frequent falls, dizziness, vertigo, behavioral changes, Slurred speech present or seizure-like activity Psych: Denies: anxiety, depression, suicidal ideation or homicidal ideation Endo: Denies: polyuria, polydipsia, tired all the time, cold intolerance or hot flashes Best/Lymph: Denies: easy bruising or easy bleeding Medications/Allergies Home Medications Medication Instructions Recorded Confirmed Last Taken Type aspirin 81 mg tablet,delayed 81 mg PO DAILY@0800 09/26/19 08/20/24 08/20/24 History release (Adult Aspirin Regimen) acetaminophen 325 mg tablet 650 mg PO Q4H PRN Pain or elevated 10/31/20 08/20/24 01/03/21 History temp bisacodyl 10 mg rectal suppository 10 mg ME DAILY PRN Constipation 10/31/20 08/20/24 Unknown History (Dulcolax (bisacodyl)) bisacodyl 5 mg tablet 20 mg PO DAILY PRN Constipation 10/31/20 08/20/24 Unknown History cholecalciferol (vitamin D3) 125 125 mcg PO DAILY@0800 12/10/20 08/20/24 08/20/24 History mcg (5,000 unit) capsule albuterol sulfate 90 mcg/actuation 2 puff inhalation Q6H PRN 01/14/21 08/20/24 08/19/24 History aerosol inhaler (Ventolin HFA) Shortness Of Breath apixaban 5 mg tablet 5 mg PO BID@0800,1700 01/14/21 08/20/24 08/06/24 History bumetanide 2 mg tablet 2 mg PO BID@0800,1700 01/14/21 08/20/24 08/20/24 History potassium chloride 20 mEq 20 meq PO BID@0800,1700 01/14/21 08/20/24 08/20/24 History tablet,extended release(part/cryst) (Klor-Con M) tiotropium bromide 18 mcg capsule 1 cap inhalation DAILY #30 03/11/21 08/20/24 08/20/24 Rx with inhalation device (Spiriva inhalations with HandiHaler) bismuth subsalicylate 262 mg/15 mL 524 mg PO DAILY PRN Nausea 07/10/23 08/20/24 Unknown History oral suspension (Pepto-Bismol) loperamide 2 mg tablet 2 mg PO .COMPLEX PRN Diarrhea 07/10/23 08/20/24 Unknown History (Anti-Diarrheal (loperamide)) multivitamin 1 tab PO QAM 07/10/23 08/20/24 08/20/24 History sodium phosphates 19 gram-7 118 ml ME DAILY PRN Constipation 07/10/23 08/20/24 Unknown History gram/118 mL enema clotrimazole-betamethasone 1 1 applic topical BID PRN rash 08/07/24 08/20/24 Unknown History %-0.05 % topical cream fluticasone propionate 115 2 puff inhalation Q6H PRN wheezing 12/06/2108/20/24 08/20/24 History mcg-salmeterol 21 mcg/actuation HFA inhaler (Advair HFA) hydrocodone 5 mg-acetaminophen 325 See Rx Instructions .Route 08/07/24 08/20/24 08/06/24 History mg tablet .COMPLEX PRN pain magnesium hydroxide 400 mg/5 mL 30 ml PO Q24H PRN constipation 08/07/24 08/20/24 Unknown History oral suspension (Milk of Magnesia) medroxyprogesterone 5 mg tablet 5 mg PO QAM 08/07/24 08/20/24 08/20/24 History menthol 4 % topical gel (Biofreeze 1 applic topical QID PRN knee pain 08/07/24 08/20/24 Unknown History (menthol)) tramadol 50 mg tablet 50 mg PO Q12H PRN pain from 08/07/24 08/20/24 Unknown History peripheral vascular disease amoxicillin 875 mg-potassium 1 tab PO BID #20 tabs 08/14/24 08/20/24 08/20/24 Rx clavulanate 125 mg tablet ammonium lactate 12 % topical cream 1 applic topical Q8H PRN Dry Skin 08/20/24 08/20/24 Unknown History dextran 70-hypromellose eye drops 1 drp ophthalmic (eye) Q4H PRN 08/20/24 08/20/24 08/19/24 History in a dropperette (Artificial Tears cataract surgery (PF) drops in a dropperette) eucalyptus-menthol oral mucosal 3.1 mg mucous membrane Q1H PRN 08/20/24 08/20/24 Unknown History lozenge Cough hydrocodone 10 mg-acetaminophen 1 tab PO Q6H PRN Pain (Scale Score 08/20/24 08/20/24 08/19/24 History 325 mg tablet 1-3) sertraline 100 mg tablet 100 mg PO QAM 08/20/24 08/20/24 08/20/24 History Allergies Allergy/AdvReac Type Severity Reaction Status Date / Time No Known Allergies Allergy Verified 08/20/24 10:54 Current Medications Generic Name Dose Route Start Last Admin Trade Name Freq PRN Reason Stop Dose Admin Hydrocodone Bitart/Acetaminophen 1 tab 08/20/24 20:46 08/23/24 04:17 Hydrocodone-Acetaminophen 10-325 Mg Tablet PO 1 tab Q6H PRN Administration Pain (Scale Score 1-3) Albuterol/Ipratropium 3 ml 08/22/24 21:00 08/23/24 14:03 Ipratropium-Albuterol 3 Ml Neb INHALATION 3 ml TID TAYLOR Administration Aspirin 81 mg 08/21/24 08:00 08/23/24 08:06 Aspirin 81 Mg Ec Tablet PO 81 mg DAILY@0800 TAYLOR Administration Bisacodyl 10 mg 08/20/24 20:46 08/23/24 08:07 Bisacodyl 5 Mg Tablet PO 10 mg DAILY TAYLOR Administration Protocol Albumin Human 25 g in 100 mls @ 60 mls/hr 08/21/24 20:00 08/23/24 11:11 Albumin IV 60 mls/hr Q8H TAYLOR Administration Vancomycin HCl 750 mg/ Sodium 250 mls @ 250 mls/hr 08/23/24 11:00 08/23/24 11:10 Chloride IV 250 mls/hr Q12H TAYLOR Administration Magnesium Hydroxide 30 ml 08/20/24 21:00 08/22/24 20:38 Magnesium Hydroxide 30 Ml Udc PO 30 ml BEDTIME TAYLOR Administration Protocol Meropenem 1,000 mg 08/23/24 14:00 08/23/24 13:54 Meropenem 1,000 Mg Sdv IVP 1,000 mg Q8H TAYLOR Administration Protocol Pantoprazole Sodium 40 mg 08/20/24 20:46 08/22/24 19:46 Pantoprazole 40 Mg Sdv IVP 40 mg Q24H TAYLOR Administration Sertraline HCl 100 mg 08/21/24 06:00 08/23/24 05:14 Sertraline 100 Mg Tablet PO 100 mg QAM TAYLOR Administration PFSH Acute 2 PFSH: Medical History Edema GI bleed due to NSAIDs Open wound of left ankle with tendon involvement Subtrochanteric fracture of left femur Obstructive sleep apnea (adult) (pediatric) Muscle weakness (generalized) Personal history of other venous thrombosis and embolism Personal history of COVID-19 Duodenal ulcer, unspecified as acute or chronic, without hemorrhage or perforation 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 intermediate (current) use of aspirin History of bleeding ulcers Morbid obesity with BMI of 40.0-44.9, adult Chronic respiratory failure with hypoxia COPD (chronic obstructive pulmonary disease) Bleeding ulcer DVT (deep venous thrombosis) Hypoxia CHF (congestive heart failure) Surgical History History of amputation of finger right hand Family History Mother Diabetes Father Cancer skin Social History Smoking and tobacco/nicotine status: former use of tobacco/nicotine Quit status (tobacco/nicotine): has quit using Year quit tobacco: 2019 Former quit date comment: Hx of 2 PPD x 50 Years Second hand smoke exposure: Yes Alcohol intake: never Substance/Drug Use: never Caregiver/support person: Yes Lives independently: No Housing: Care Home Marital status: Current occupational status: disabled Pets and animals: No Do you think of yourself as: Straight/Heterosexual Current gender identity: Male Vitals/I&O/Wt Last Vital Signs Temp 98.9 F 08/23/24 12:00 Pulse 68 08/23/24 15:30 Resp 19 H 08/23/24 15:30 BP 126/67 08/23/24 15:30 Pulse Ox 96 08/23/24 15:30 O2 Del Method Nasal Cannula 08/23/24 14:03 O2 Flow Rate 3 08/23/24 14:03 08/23/24 08/23/24 08/23/24 06:59 14:59 22:59 Intake Total 200 / 650 Output Total 700 / 1500 Balance -500 / -850 Weight last 48 hrs Weight 129 kg Weight 136 kg Weight 134.5 kg Physical Exam 2 Narrative: General: No acute distress, morbidly obese HEENT: PERRLA, pupils bilaterally equal and reactive, pallors not present Chest: Normal vesicular breath sounds, no added sounds, equal good air entry bilaterally CVS: S1-S2 regular, no murmurs, no tachycardia, no gallops, no rubs Abdomen: Soft, nontender, no organomegaly, bowel sounds present Extremities: massive lymphedema B/L , woun dvac in place over surgical site/ thigh Urinary Catheter Management: Cage: Cath Placed During This Visit: yes Reason for Continuing Indwelling Catheter: Accurate Measurement of Urinary Output in Critically Ill Patients Urinary Catheter Date of Insertion: 08/20/24 Urinary Catheter Time of Insertion: 19:28 Data 08/25/24 14:37 08/25/24 04:45 Micro: Microbiology 08/21/24 08:48 Gram Stain - Final Other Source Anaerobic Culture - Preliminary Wound Culture - Preliminary Gram Negative Rods 08/21/24 09:00 Gram Stain - Final Hip - #1 Anaerobic Culture - Preliminary Wound Culture - Final Pseudomonas aeruginosa [facility] [id number] LOC: [facility] [place] #: [id number] AGE/SX: 69/M ROOM: 269 R E08/20/[address]: Brice Funes MD : 1955 BED: 1 D IS: FAX #: STATUS: ADM IN TLOC: Spec #: [id number] Sanaz: 08/21/24 Status: RES Req #: [id number] Recd: 08/21/24-[address]: Andriy Price Src: Hip SpDesc: #1 Ordered: WC and GS, Anaer Comments: Comment Distal lateral hip hematoma Procedure Result Verified Site Gram Stain Final 08/21/24-1436 Result FEW WHITE BLOOD CELLS NO ORGANISMS SEEN Anaerobic Culture Preliminary 08/25/24-1211 NO ANAEROBES ISOLATED ON DAY 4 Anaerobic Culture Preliminary (changed) 08/23/24-53 NO ANAEROBES ISOLATED ON DAY 2 Anaerobic Culture Preliminary (changed) 08/22/24-1127 NO ANAEROBES ISOLATED ON DAY 1 Wound Culture Final 08/24/24-5 Organism 1 Pseudomonas aeruginosa Growth FEW DAY 2 P aerugino [facility] RX --------- ------ * Aztreonam <=4 S * Cefepime <=8 S * Ciprofloxacin <=1 S * Imipenem <=1 S * Levofloxacin <=2 S * Piperacillin/Tazobactam <=16 S Wound Culture Final (changed) 08/23/24-46 Organism 1 Pseudomonas aeruginosa Growth FEW DAY 2 P aerugino [facility] RX --------- ------ * Aztreonam <=4 S * Cefepime <=8 S * Ciprofloxacin <=1 S * Imipenem <=1 S * Levofloxacin <=2 S * Piperacillin/Tazobactam <=16 S Wound Culture Preliminary (changed) 08/22/24-1004 Organism 1 Gram Negative Rods Growth FEW DAY 1 RESULTS TO FOLLOW NAME: Willie Perez LOC: [facility] U #: [id number] AGE/SX: 69/M ROOM: 269 R E08/20/[address]: Brice Funes MD : 1955 BED: 1 D IS: FAX #: STATUS: ADM IN TLOC: Spec #: [id number] Sanaz: 08/21/24 Status: RES Req #: [id number] Recd: 08/21/[address]: Andriy Price Src: Other Sour SpDesc: Ordered: WC and GS, Anaer Comments: Comment proximal lateral hip hematoma Procedure Result Verified Site Gram Stain Final 08/21/241436 Result FEW WHITE BLOOD CELLS NO ORGANISMS SEEN Anaerobic Culture Preliminary 08/25/24-1214 NO ANAEROBES ISOLATED ON DAY 4 Anaerobic Culture Preliminary (changed) 08/23/24-0953 NO ANAEROBES ISOLATED ON DAY 2 Anaerobic Culture Preliminary (changed) 08/22/24-1126 NO ANAEROBES ISOLATED ON DAY 1 Wound Culture Final 08/24/24-1216 Organism 1 Pseudomonas aeruginosa Growth SCANT GROWTH DAY 3 SEE CULTURE [id number] FOR SENSITIVITIES Wound Culture Preliminary (changed) 08/23/24-1025 Organism 1 Gram Negative Rods Growth SCANT GROWTH DAY 2 SEE CULTURE [id number] FOR ID AND SENS Wound Culture Preliminary (changed) 08/22/24-1008 Organism 1 Gram Negative Rods Growth SCANT GROWTH DAY 1 SEE CULTURE [id number] FOR ID AND SENS Wound Culture Preliminary (changed) 08/22/24-1007 Organism 1 Gram Negative Rods Growth SCANT GROWTH DAY 1 SEE CULTURE [id number] FOR ID AND SENS Blood cx N/A Other data: CONCLUSIONS Patent left lower extremity vessels as mentioned above Minimally diminished resting DEEP, suggestive of mild peripheral arterial disease CT/CT abdomen pelvis wo con [id number] IMPRESSION: 1. Consolidation versus atelectasis in the posterior aspect of the right lung base. 2. Ventral hernia in the right anterior lower abdominal wall containing a portion of the cecum and appendix measuring 21 mm at the neck. This is similar to the prior examination. 3. Intramedullary tracy with proximal interlocking screw spanning a displaced fracture of the proximal left femur redemonstrated. Extensive subcutaneous fat stranding in the left groin and lateral to the left hip partially visualized within the field of view. 4. No abscess in the abdomen or pelvis. CT/CT femur LT wo con* [id number] IMPRESSION: 1. Large high density forming collection extends over a length of 35 cm x 10 cm anterior posterior. Collection begins in the lateral upper thigh at the level of the ilium to the distal femoral diaphysis. No foci of air in the collection this is most likely hematoma. 2. Status post intramedullary tracy fixation of a comminuted fracture of the proximal diaphysis. Fracture by 2.7 cm. A&P Assessment and plan (1) Postoperative wound infection of left hip: (2) Wound dehiscence: (3) Septic shock: (4) Infected hematoma: Plan 69-year-old male with HPI as above, currently admitted on 01/19/2024 with septic shock, likely resulting from an infected hematoma over recently operated left hip complicated by wound dehiscence. Status post I&D on August 21, 2024. Currently has a wound VAC in place Cultures taken in the OR from proximal and distal hematoma showing Pseudomonas aeruginosa. Overall clinical impression that of complicated skin and soft tissue infection, infected hematoma status postevacuation. Changes do not appear to be extending down to underlying hardware at this present time. Patient has several risk factors for poor wound healing including lymphedema, morbid obesity, bedbound status with chronic dependency, peripheral artery disease, history of DVT and chronic venous insufficiency, presence of superficial ulceration over the left leg recently. Given the above risk factors, anticipate there will be difficulties in healing. Would prefer to treat this infection aggressively with IV antibiotics at this present time. Recommend to discontinue meropenem. Narrow coverage to cefepime 2 g IV every 8 hours in keeping with culture results. Unfortunately blood cultures are not available from admission. Patient appears to be responding well after the I&D and administration of IV meropenem Agree with discontinuation of vancomycin is already done. Anticipate patient will need between 2 to 4 weeks of IV antibiotics however final course and duration would remain dependent on his clinical progress going forward. Will follow Consult Attestations 2 Medical Necessity Statement: per admitting Coding Level of Care Code Acute Code for Chg Fwd High MDM includes number and complexity of problems actively addressed during encounter, amount and/or complexity of data reviewed/ordered and described risk of complication, morbidity or mortality of management as documented Diagnoses Postoperative wound infection of left hip T81.49XA Wound dehiscence T81.30XA Septic shock A41.9; R65.21 Infected hematoma T14.8XXA; L08.9
[2024-08-23] MEDS: magnesium hydroxide 30 mL UDC PO (20:15)
[2024-08-23] MEDS: pantoprazole 40 mg SDV IVP (20:15)
[2024-08-24] VITALS (13 sets, daily range): BP systolic 133–165; BP diastolic 72–83; PULSE 70–86; RESP 16–20; TEMP 36.9–37.1; O2SAT 92–96
[2024-08-24] MEDS: albumin 25 G/100 ML BAG 60 G IV ×3 (03:33→20:22)
[2024-08-24 05:28] LABS: Basophils % 0.4 %; Eosinophils # 0.3 10^3/uL (0.0-0.8); Eosinophils % 6.8 %; Hematocrit 26.7 % (37-53); Lymphocytes # 0.9 10^3/uL (0.8-4.8); Lymphocytes % 17.2 %; Mean Corpuscular Hemoglobin 29.5 pg (27-33); Mean Corpuscular Volume 98.5 fl (82-101); Monocytes # 0.7 10^3/uL (0.2-0.9); Neutrophils # 3.06 10^3/uL (1.8-7.7); Neutrophils % 61.4 %; Nucleated Red Blood Cells % 0 %; Platelet Count 211 10^3/cmm (157-399); Red Blood Count 2.71 10^6/uL (3.85-5.65); Red Cell Distribution Width 17.5 % (12.1-15.1); White Blood Count 4.99 10^3/uL (3.29-11.43)
[2024-08-24] MEDS: meropenem 1,000 mg SDV 1000 MG IVP (05:28)
[2024-08-24] MEDS: sertraline 100 mg Tablet PO (05:29)
[2024-08-24 05:55] LABS: Magnesium 2.2 mg/dL (1.7-2.3)
[2024-08-24 06:09] LABS: Alanine Aminotransferase 10 U/L (0-41); Albumin Level 3.6 g/dL (3.5-5.2); Alkaline Phosphatase 80 U/L (40-130); Anion Gap 12.4 (5-19); Aspartate Amino Transferase 16 U/L (0-40); Blood Urea Nitrogen 21 mg/dL (8-23); Calcium 8.2 mg/dL (8.5-10.5); Carbon Dioxide 27 mmol/L (22-29); Chloride 107 mmol/L (98-107); Creatinine Clr Calc Pharmacy 121.0218; Globulin 1.6 g/dL (1.3-4.6); Glomerular Filtration Rate 112.5 mL/min (90-130); Glucose 101 mg/dL (65-115); Osmolality Calculated 297 mOsm/kg (285-295); Potassium 4.4 mmol/L (3.5-5.1); Sodium 142 mmol/L (136-145); Total Protein 5.2 g/dL (6.6-8.7)
[2024-08-24] MEDS: ipratropium-albuterol 3 mL Neb INHALATION ×3 (07:59→19:51)
--- NOTE | 2024-08-24 09:13 | PC.SOCIAL ---
IMM Update Pg. 2 of IMM updated and reviewed with patient, who verbalized understanding. Copy provided.
[2024-08-24] MEDS: bisacodyl 5 mg Tablet 10 MG PO (09:26)
[2024-08-24] MEDS: aspirin 81 mg EC Tablet PO (09:27)
[2024-08-24] MEDS: cefepime 2,000 mg SDV 2000 MG IVP ×2 (11:14→17:48)
--- NOTE | 2024-08-24 12:57 | P.PN_ITS ---
Subjective 2 Subjective: No acute events overnight. Patient today morning seen laying comfortably in bed. Denies any nausea, vomiting, headache. States he is feeling better. Has remained hemodynamically stable and afebrile. Remains on 2 L of oxygen supplementation. Output from wound VAC around 150 cc overnight. Vitals/I&O/Wt Last Vital Signs Temp 98.4 F 08/24/24 12:00 Pulse 86 08/24/24 12:00 Resp 17 08/24/24 12:00 BP 151/77 08/24/24 12:00 Pulse Ox 94 08/24/24 12:00 O2 Del Method Nasal Cannula 08/24/24 12:00 O2 Flow Rate 3 08/24/24 09:30 08/23/24 08/24/24 08/24/24 22:59 06:59 14:59 Intake Total 4396.26 / 4396.26 1070 / 5466.26 Output Total 1735 / 1735 Balance 4396.26 / 4396.26 -665 / 3731.26 Weight last 48 hrs Weight 130 kg Weight 129.228 kg Weight 129 kg Weight 136 kg Physical Exam 2 Narrative: General: No acute distress, AO x3, chronically sick appearing, morbidly obese HEENT: PERRLA, pupils bilaterally equal and reactive Chest: Normal disturbances oral lung sraah, decreased air entry, fine crackles present in bilateral lower zone CVS: S1-S2 regular, no murmurs, no tachycardia, no gallops, no rubs Abdomen: Soft, nontender, no organomegaly, bowel sounds present Neuro: No focal deficits, no facial deformity, AO x3, power 5/5 in all limbs Extremity: Wound VAC present. Skin: OTHER: Surgical wound on admission. Urinary Catheter Management: Cage: Cath Placed During This Visit: yes Reason for Continuing Indwelling Catheter: Accurate Measurement of Urinary Output in Critically Ill Patients Urinary Catheter Date of Insertion: 08/20/24 Urinary Catheter Time of Insertion: 19:28 Data 08/24/24 04:34 08/24/24 04:34 Micro: Microbiology 08/21/24 08:48 Gram Stain - Final Other Source Anaerobic Culture - Preliminary Wound Culture - Final Pseudomonas aeruginosa 08/21/24 09:00 Gram Stain - Final Hip - #1 Anaerobic Culture - Preliminary Wound Culture - Final Pseudomonas aeruginosa A&P Assessment and plan (1) Septic shock: (2) Hematoma of left hip: (3) Postoperative wound infection of left hip: (4) Acute kidney injury: (5) Hyperkalemia: (6) Anemia: (7) Elevated lactic acid level: (8) Hypertensive heart disease with heart failure: (9) DVT (deep venous thrombosis): (10) Morbid obesity with BMI of 40.0-44.9, adult: (11) COPD (chronic obstructive pulmonary disease): Qualifiers: COPD type: unspecified COPD Qualified Code(s): J44.9 - Chronic obstructive pulmonary disease, unspecified (12) Chronic respiratory failure with hypoxia and hypercapnia: (13) Obstructive sleep apnea (adult) (pediatric): (14) Decubitus ulcer: Qualifiers: Laterality: left Pressure injury location: heel Pressure injury stage: stage 3 Qualified Code(s): L89.623 - Pressure ulcer of left heel, stage 3 (15) Open wound of left ankle with tendon involvement: Qualifiers: Encounter type: initial encounter Qualified Code(s): S91.002A - Unspecified open wound, left ankle, initial encounter; S96.902A - Unspecified injury of unspecified muscle and tendon at ankle and foot level, left foot, initial encounter (16) Chronic embolism and thrombosis of left femoral vein: (17) Femur fracture, left: Qualifiers: Encounter type: initial encounter Femur location: shaft Fracture alignment: displaced Fracture morphology: spiral Fracture type: closed Qualified Code(s): S72.342A - Displaced spiral fracture of shaft of left femur, initial encounter for closed fracture (18) Subtrochanteric fracture of left femur: Qualifiers: Encounter type: initial encounter Fracture type: closed Fracture alignment: displaced Qualified Code(s): S72.22XA - Displaced subtrochanteric fracture of left femur, initial encounter for closed fracture (19) Chronic venous insufficiency: Plan 69-year-old with recent history of ORIF complicated by hemorrhagic shock, multiorgan failure, respiratory failure comes in back to the ER from snf today in septic shock with concerns for postoperative infection and hematoma of the left hip. Septic shock: Keep mean arterial pressure 65. Keep saturation over 90%. Wean Levophed accordingly. Component also of hemorrhagic shock. Lactic acid normal today. Received full 30 mL/kg body weight of fluid in the ER. Continue with 75 cc/h after blood transfusion. Check cortisol level. Patient does have mild bradycardia and hypothermia. Check free T3 and free T4. SIRS: Tachycardic, Febrile, Leukocytosis Source: Cellulitis and postoperative wound infection End organ damage: Shock, RUDI Lactic acid elevated. Monitor blood pressures. Keep mean artery pressure 65 mmHg. Follow-up blood culture, urine culture, OR culture, appreciate procalcitonin trend. MRSA positive recently. Empirically continue with IV vancomycin and meropenem. Will request for OR cultures. It is possible patient would need at least 2 weeks of IV antibiotics on discharge given concerns for possibly infected hematoma. No concerns for deep tissue or prosthesis infection as per OR findings. Hematoma along with postoperative wound infection: Antibiotic as above. Post left thigh irrigation, hematoma evacuation with wound VAC placement on 08/21. Wound VAC management as per orthopedic team. Anemia: Target hemoglobin more than 7. Recently received 4 units of blood transfusion and 1 of FFP on previous admission. Overall has received 3 units of PRBC this admission. Will transfuse 1 more unit. Repeat CBC in evening. Target hemoglobin more than 7. Holding off on Eliquis. Protonix 40 mg Q12 hourly. RUDI: Most likely in setting of septic shock. Resolving. Creatinine down to 1.6. CT abdomen pelvis negative for obstructive nephropathy. Monitor BMP in afternoon Medical reconstruction done for nephrotoxic drugs. Hyperkalemia: Resolved. Monitor in evening. History of DVT: Hold off on home dose of Eliquis given hemorrhagic and septic shock Morbid obesity COPD: Not in exacerbation. Keep saturation over 90%. Wean off oxygen accordingly. Obstructive sleep apnea: Continue with home CPAP. Open wound of left ankle: Continue with wound care as per recent podiatry recommendations. Full code Patient's will be the DPOA Cardiac diet, Protonix will be sufficient for PUD prophylaxis SCD for DVT prophylaxis. Not on medical prophylaxis given hemorrhagic and septic shock. Plan for the day: Wound culture growing Pseudomonas. Appreciate sensitivities. Switch to cefepime 2 g every 8 hourly as per ID recommendations. Most likely will need up to 4 weeks of IV antibiotics. Will need to follow-up with infectious disease as an outpatient. Appreciate orthopedic recommendations. Plans for OR in next 24 hours for wound VAC change and possible further debridement. Wound care as per orthopedic team. Continue to monitor renal functions daily. Hemoglobin stable so far. Will monitor hemoglobin postoperatively. Attestations 2 Medical Necessity Statement*: Requires further hospitalization for management of postoperative wound infection, hematoma requiring evacuation, wound VAC, anemia requiring blood transfusion. Diagnoses Septic shock A41.9; R65.21 Hematoma of left hip S70.02XA Postoperative wound infection of left hip T81.49XA Acute kidney injury N17.9 Hyperkalemia E87.5 Anemia D64.9 Elevated lactic acid level R79.89 Hypertensive heart disease with heart failure I11.0 DVT (deep venous thrombosis) I82.409 Morbid obesity with BMI of 40.0-44.9, adult E66.01; Z68.41 Chronic obstructive pulmonary disease, unspecified COPD type J44.9 COPD type: unspecified COPD Chronic respiratory failure with hypoxia and hypercapnia J96.11; J96.12 Obstructive sleep apnea (adult) (pediatric) G47.33 Decubitus ulcer L89.623 Laterality: left Pressure injury location: heel Pressure injury stage: stage 3 Open wound of left ankle with tendon involvement, initial encounter S91.002A; S96.902A Encounter type: initial encounter Chronic embolism and thrombosis of left femoral vein I82.512 Closed displaced spiral fracture of shaft of left femur, initial encounter S72.342A Encounter type: initial encounter Femur location: shaft Fracture alignment: displaced Fracture morphology: spiral Fracture type: closed Closed displaced subtrochanteric fracture of left femur, initial encounter S72.22XA Encounter type: initial encounter Fracture type: closed Fracture alignment: displaced Chronic venous insufficiency I87.2
--- NOTE | 2024-08-24 13:01 | P.PN_ITS ---
Subjective 2 Subjective: Patient seen and examined status post left thigh irrigation debridement and VAC placement. At this point time he is now day 3 his wound VAC output is now slowed down to roughly 150 over the last shift he will need to have a new wound VAC placed. Vitals/I&O/Wt Last Vital Signs Temp 98.4 F 08/24/24 12:00 Pulse 86 08/24/24 12:00 Resp 17 08/24/24 12:00 BP 151/77 08/24/24 12:00 Pulse Ox 94 08/24/24 12:00 O2 Del Method Nasal Cannula 08/24/24 12:00 O2 Flow Rate 3 08/24/24 09:30 08/23/24 08/24/24 08/24/24 22:59 06:59 14:59 Intake Total 4396.26 / 4396.26 1070 / 5466.26 Output Total 1735 / 1735 Balance 4396.26 / 4396.26 -665 / 3731.26 Weight last 48 hrs Weight 286 lb 9.615 oz Weight 284 lb 14.4 oz Weight 284 lb 6.341 oz Weight 299 lb 13.259 oz Physical Exam 2 Narrative: Patient seen and examined, left lower extremity wound vacs are on in place with good seal, pressure to maintain 50mmhg. left lower extremity warm well-perfused compartments are soft compressible. No erythema around the wound VAC no signs of infection. Dressings are in place to the lower extremity wounds not taken down today. VAC has have roughly 150cc of bloody serosanguineous output over last 12hrs Urinary Catheter Management: Cage: Cath Placed During This Visit: yes Reason for Continuing Indwelling Catheter: Accurate Measurement of Urinary Output in Critically Ill Patients Urinary Catheter Date of Insertion: 08/20/24 Urinary Catheter Time of Insertion: 19:28 Data 08/24/24 04:34 08/24/24 04:34 Micro: Microbiology 08/21/24 08:48 Gram Stain - Final Other Source Anaerobic Culture - Preliminary Wound Culture - Final Pseudomonas aeruginosa 08/21/24 09:00 Gram Stain - Final Hip - #1 Anaerobic Culture - Preliminary Wound Culture - Final Pseudomonas aeruginosa A&P Assessment and plan (1) Hematoma of left thigh: (2) Hematoma of left hip: (3) Femur fracture, left: Qualifiers: Encounter type: initial encounter Femur location: shaft Fracture alignment: displaced Fracture morphology: spiral Fracture type: closed Qualified Code(s): S72.342A - Displaced spiral fracture of shaft of left femur, initial encounter for closed fracture (4) Subtrochanteric fracture of left femur: Qualifiers: Encounter type: initial encounter Fracture type: closed Fracture alignment: displaced Qualified Code(s): S72.22XA - Displaced subtrochanteric fracture of left femur, initial encounter for closed fracture (5) Chronic venous insufficiency: Plan Postop day 3 from left thigh irrigation debridement with hematoma evacuation and wound VAC placement Antibiotics per primary Monitoring cultures demonstrating Pseudomonas Wound VAC roughly 150cc over last 12 hours, maintain current settings Pain control per primary DVT prophylaxis per primary Weight-bear as tolerated left lower extremity Range of motion left hip as tolerated PT/OT Social work for discharge planning N.p.o. at midnight Plan to take patient back to the OR tomorrow for a repeat left thigh/hip irrigation and debridement and change of wound VAC. Patient at this point time he is day 3 from having wound VAC placement says close down his space and his output is continually improving. At this point time he would need to have this change in We talked about doing this at bedside versus the OR I do feel as though given the size of this wound he would benefit from a repeat left thigh/hip irrigation and debridement and new wound VAC placement at that point in time I think this can be changed every 3 days at bedside from then on. We talked about this in detail as far as ins and outs procedure risk benefits complication alternatives surgery. Risk of surge include not limited to make a better make it worse injury to nerves vessels or tendons, persistent infection, further surgeries. Her standing risk of surgery elects proceed with surgical intervention. All questions answered at this time. Will get him in on surgery schedule tomorrow . Attestations 2 Medical Necessity Statement*: Ongoing care status post left I&D with hematoma evacuation and wound VAC placement. Coding Level of Care Code Acute Code for [facility] Fwd Diagnoses Hematoma of left thigh S70.12XA Hematoma of left hip S70.02XA Closed displaced spiral fracture of shaft of left femur, initial encounter S72.342A Encounter type: initial encounter Femur location: shaft Fracture alignment: displaced Fracture morphology: spiral Fracture type: closed Closed displaced subtrochanteric fracture of left femur, initial encounter S72.22XA Encounter type: initial encounter Fracture type: closed Fracture alignment: displaced Chronic venous insufficiency I87.2
[2024-08-24] MEDS: lactulose oral liq 20 gm/30 mL UDC 10 GM PO (18:05)
[2024-08-24] MEDS: magnesium hydroxide 30 mL UDC PO (19:54)
[2024-08-24] MEDS: pantoprazole 40 mg SDV IVP (19:54)
[2024-08-25] VITALS (23 sets, daily range): BP systolic 103–165; BP diastolic 62–87; PULSE 60–103; RESP 15–22; TEMP 36.3–37.3; O2SAT 94–100
[2024-08-25] MEDS: cefepime 2,000 mg SDV 2000 MG IVP ×3 (02:37→17:59)
[2024-08-25] MEDS: albumin 25 G/100 ML BAG 60 G IV ×3 (04:36→20:09)
[2024-08-25 05:04] LABS: Basophils % 0.5 %; Eosinophils # 0.4 10^3/uL (0.0-0.8); Eosinophils % 6.4 %; Lymphocytes # 0.9 10^3/uL (0.8-4.8); Mean Corpuscular HGB Conc 30.3 g/dL (30-55); Mean Corpuscular Hemoglobin 30.1 pg (27-33); Mean Corpuscular Volume 99.3 fl (82-101); Monocytes # 0.6 10^3/uL (0.2-0.9); Monocytes % 9.8 %; Neutrophils # 3.85 10^3/uL (1.8-7.7); Neutrophils % 66.6 %; Nucleated Red Blood Cells % 0 %; Platelet Count 250 10^3/cmm (157-399); Red Blood Count 2.92 10^6/uL (3.85-5.65); Red Cell Distribution Width 17.6 % (12.1-15.1); White Blood Count 5.79 10^3/uL (3.29-11.43)
[2024-08-25] MEDS: sertraline 100 mg Tablet PO (05:14)
[2024-08-25 05:24] LABS: Alanine Aminotransferase 9 U/L (0-41); Albumin Level 3.5 g/dL (3.5-5.2); Alkaline Phosphatase 86 U/L (40-130); Anion Gap 13.4 (5-19); Aspartate Amino Transferase 16 U/L (0-40); Blood Urea Nitrogen 20 mg/dL (8-23); Calcium 8.6 mg/dL (8.5-10.5); Carbon Dioxide 27 mmol/L (22-29); Chloride 107 mmol/L (98-107); Creatinine Clr Calc Pharmacy 121.3615; Glomerular Filtration Rate 134.4 mL/min (90-130); Glucose 115 mg/dL (65-115); Osmolality Calculated 300 mOsm/kg (285-295); Potassium 4.4 mmol/L (3.5-5.1); Sodium 143 mmol/L (136-145); Total Protein 5.5 g/dL (6.6-8.7)
[2024-08-25 05:27] LABS: Magnesium 2.2 mg/dL (1.7-2.3)
--- NOTE | 2024-08-25 06:51 | PC.NURSE ---
Surgery came and picked up patient at 0645.
[2024-08-25] MEDS: acetaminophen 1,000 MG/100 ML PIGGYBACK 400 MG IV (07:11)
--- NOTE | 2024-08-25 07:34 | P.ANESUD_ITS ---
Pre-Anesthetic Update Pre-Anesthetic Assessment: Date of Surgery/Procedure: 08/25/24 Preop Susie gnosis: Left thigh hematoma Proposed Procedure: Operation Date: 08/21/24 12:10 Proposed Procedures p Upper Extremity Hematoma Evacuation(Left) - Andriy Price DO Operation Date: 08/25/24 08:00 Proposed Procedures p Left thigh irrigation and debridement(Left) - Andriy Price, DO s Wound Vac change(Left) - Andriy Price, DO Any changes to Pre-Anesthetic Assessment?: No Last Intake: Intake Last Liquid Date 08/24/24 Last Liquid Time 23:59 Last Solid Date 08/24/24 Last Solid Time 23:59 Labs Last 48hrs: Short CBC 08/23/24 08/24/24 08/25/24 Range/Units 15:45 04:34 04:45 WBC 4.99 5.79 (3.29-11.43) 10^ 3/uL Hgb 8.60 L 8.00 L 8.80 L (11.27-16.99) g/ dL Hct 28.6 L 26.7 L 29.0 L (37-53) % MCV 98.5 99.3 (82-101) fl Plt Count 211 250 (157-399) 10^3/c mm Neut % (Auto) 61.4 66.6 % Neut # (Auto) 3.06 3.85 (1.8-7.7) 10^3/u L BMP 08/24/24 08/25/24 04:34 04:45 Sodium 142 143 Potassium 4.4 4.4 Chloride 107 107 Carbon Dioxide 27 27 BUN 21 20 Creatinine 0.7 0.6 L Glucose 101 115 Calcium 8.2 L 8.6 Liver Function 08/24/24 08/25/24 Range/Units 04:34 04:45 Total Bilirubin 1.0 1.0 (0.15-1.2) mg/dL AST 16 16 (0-40) U/L ALT 10 9 (0-41) U/L Alkaline Phosphata se 80 86 (40-130) U/L Albumin 3.6 3.5 (3.5-5.2) g/dL Vitals: Temperature 98.5 F 08/25/24 06:57 Temperature Source Temporal Artery S can 08/25/24 06:57 Pulse Rate 77 08/25/24 06:57 Pulse Rhythm Regular 08/24/24 09:30 Pulse Strength 3+ Normal 08/24/24 09:30 Respiratory Rate 20 H 08/25/24 06:57 Respiratory Effort Spontaneous, Non- Labored 08/24/24 09:30 Respiratory Depth Normal 08/24/24 09:30 Respiratory Patter n Normal 08/24/24 09:30 Blood Pressure 136/86 08/25/24 06:57 Blood Pressure Debbie n 102 08/25/24 06:57 Blood Pressure Pos ition Semi Fowlers 08/24/24 04:00 Pulse Oximetry 94 08/25/24 06:57 Oxygen Delivery Me thod Nasal Cannula 08/25/24 06:57 Oxygen Flow Rate 3 08/25/24 06:57 Sepsis Recent Feve r Within 48 Hours No 08/20/24 10:39 Sepsis Action Take n by Nursing Physician Notifie d 08/20/24 11:00 Exam: Pre-Anes Outpt Exam: alert, oriented x 3, clear to auscultation bilaterally and regular rate & rhythm Other Pertinent Information: Other Pertinent Information: No longer on pressors, 3 L NC O2 Cardiac Studies: Echocardiogram 08/08/24 Echocardiogram Ultrasound 11/01/20
--- NOTE | 2024-08-25 07:56 | W.PM.OPSUD ---
Surgery/Procedure H&P Update DATE OF PROCEDURE: August 25, 2024 DATE H&P PERFORMED: 08/24/24 H&P UPDATE INFORMATION: I have reviewed H&P completed within last 30 days, I have examined patient prior to procedure and No changes to prior documentation PREOP DIAGNOSIS: Left thigh hematoma PRIMARY INDICATION FOR PROCEDURE: Left thigh infected hematoma status postevacuation planned for new wound VAC change PLANNED PROCEDURE: Operation Date: 08/21/24 12:10 Proposed Procedures p Upper Extremity Hematoma Evacuation(Left) - Andriy Price DO Operation Date: 08/25/24 08:00 Proposed Procedures p Left thigh irrigation and debridement(Left) - Andriy Price DO s Wound Vac change(Left) - Andriy Price DO
[2024-08-25] MEDS: tranexamic acid 1,000 MG/100 ML PREMIX 600 MG IV ×2 (08:00→21:40)
--- NOTE | 2024-08-25 09:40 | W.PM.BPON ---
Date of Procedure: 08/25/2024 Surgeon: Andriy Price DO Assistant Chief Engineer(s): None Procedure(s) performed: Left thigh irrigation and debridement lateral upper incision (12 cm x 2.5 cm x 7 cm) Left thigh irrigation debridement lateral lower incision (32 cm x 15 cm x 7.5 cm Left thigh and hip new wound VAC placement Findings of the procedure(s): Patient found to have no reaccumulation of infected hematoma, patient irrigation and debridement this removal of any residual necrotic skin fat and fascia. Patient Toller procedure well without issues or complications we did reapply a new wound VAC sponge with a large sponge at the lateral distal incision and a new medium size burn on the proximal lateral incision these are connected to a Y connector into the new settings applied. Patient tolerated well without issues or complications VAC changes can now be performed on the floor. Estimated blood loss: 25 mL Specimen(s) removed: None Post-operative diagnosis: Left thigh hematoma, wound dehiscence/breakdown, status post previous washout and wound VAC placement, to the OR for wound VAC exchange
--- NOTE | 2024-08-25 09:43 | P.OP_ITS ---
Operative Report Date of procedure: August 25, 2024 Surgeon: Andriy Price DO Procedure: Pre-op diagnosis: Left thigh hematoma, with wound vacs in place Post-op diagnosis: Same Post-op findings: See operative report narrative Procedure done: Left thigh irrigation and debridement lateral upper incision (12 cm x 2.5 cm x 7 cm) Left thigh irrigation debridement lateral lower incision (32 cm x 15 cm x 7.5 cm Left thigh and hip wound VAC exchange Surgeon: Andriy Price DO Anesthesia: General Estimated blood loss: 25 mL IV fluids: 350 mL Urine output: 50cc Complications: See operative report narrative Findings: See operative report narrative Condition: stable [facility] Brief History: Patient is a 69-year-old male that sustained a left subtrochanteric femur fracture underwent ORIF with my partner Dr. Alfonso on 08/07/2024 patient unfortunately has had continued swelling as well as drainage and he now presents to the emergency department with elevated white count concern for sepsis and infection likely stemming from thigh hematoma. Patient is already underwent I&D on 08/21/2024 at this point in time these cultures are growing Pseudomonas. Internal medicine on board. At this point in time patient is due for a new wound VAC change we talked about this in detail and for the large space would recommend taking this back to the OR for 1 more final look to make sure all of the wound has been debrided satisfactory and then a new wound VAC to be applied. Patient understands the ins and outs of the procedure the risk benefits Cage alternatives surgery through shared decision make elects proceed with surgical intervention today for a left thigh and hip irrigation debridement with new wound VAC placement. All questions answered. Procedure: Patient seen and evaluated preoperatively consent was reviewed and signed with patient. Correct extremities and subsequently marked. Patient was then seen evaluated by anesthesia in the preoperative holding area. Consent was reviewed and signed with patient. Once cleared seen by anesthesia was taken back to the operative suite. Patient was then brought in the hospital bed In supine position underwent anesthesia per the anesthesia department was properly anesthetized he was then transported onto the OR table we then placed patient with a beanbag and lateral decubitus position with the left hip up. At this point time patient was appropriate secured to the bed. Wound VAC was then subsequently removed to its entirety of both of the incisions and then a Betadine prep of the left lower extremity was then performed. Final timeout performed. Patient received appropriate perioperative antibiotics at this time. At this point in time I then subsequently removed the final shazia from the most distal aspect of the incision. Both of the open wounds were then inspected I then subsequently irrigated with 3 L of normal saline with Pulsavac. I then subsequently debrided both of these incisions once more of all necrotic tissue of skin and subcutaneous fat fascia and muscle. deep there fascial layer still remained intact from the previous repair This was also done in the proximal incision as well the upper incision total was 12 cm x 2.5 cm x 7 cm, the lower incision was 32 cm x 15 cm x 7.5 cm these were all debrided with sharp scalpel excision of all necrotic tissue once again skin subcutaneous tissue fascia and muscle. This point time I then poured and diluted Betadine solution and then subsequently let this sit and then thoroughly irrigated with Pulsavac 3 L normal saline. At this point in time I was satisfied with our debridement I then utilized electrocautery to maintain exact hemostasis. This point time I then subsequently placed wound VAC was applied to the operative lower incision these were then appropriately bordered and then sealed. The wound VAC placed a Y- split was then connected to this satisfactory suction was confirmed and at this point time this completed our procedure. Patient was then awake from anesthesia taken PACU stable condition recovering well return to [facility] floor postoperatively. Disposition: Patient taken to PACU in stable condition recovering well return to [facility]. Wi ll continue with antibiotics per the primary team. At this point in time patient now would recommend a wound VAC change on the floor every 3 days will recommend this for patient at discharge. Patient will need to follow-up with wound care pertaining to this and then can follow-up with Dr. Alfonso postoperatively to follow the fracture.
--- NOTE | 2024-08-25 10:00 | ANE.PACU2 ---
Inpatient post-anesthesia follow up: Airway intact: Yes Vital signs: Temperature 98.2 F Pulse Rate 96 Respiratory Rate 17 Blood Pressure 131/80 Pulse Oximetry 96 Oxygen Delivery Me thod Nasal Cannula Oxygen Flow Rate 4 Fraction of Inspir ed Oxygen Hydration adequate: Yes Nausea and vomiting: No Pain level: 1 Mental status: Baseline
[2024-08-25] MEDS: bisacodyl 5 mg Tablet 10 MG PO (10:55)
[2024-08-25] MEDS: aspirin 81 mg EC Tablet PO (10:56)
[2024-08-25] MEDS: ipratropium-albuterol 3 mL Neb INHALATION ×2 (13:35→19:53)
--- NOTE | 2024-08-25 14:20 | P.PN_ITS ---
Subjective 2 Subjective: No acute events overnight. Underwent wound VAC replacement in OR today. Found to have more extensive wound collection with concerns for devitalized tissue with purulent collection. Underwent joint washing and wound VAC placement. Tolerated procedure well. Estimate blood loss for 35 cc. Has remained hemodynamically stable and afebrile. Vitals/I&O/Wt Last Vital Signs Temp 97.7 F 08/25/24 13:05 Pulse 64 08/25/24 13:36 Resp 16 08/25/24 13:36 BP 118/67 08/25/24 13:05 Pulse Ox 98 08/25/24 13:36 O2 Del Method Nasal Cannula 08/25/24 13:36 O2 Flow Rate 4 08/25/24 13:36 08/24/24 08/25/24 08/25/24 22:59 06:59 14:59 Intake Total 330 / 430 100 / 530 350 / 350 Output Total 1300 / 1300 1500 / 2800 525 / 525 Balance -970 / -870 -1400 / -2270 -175 / -175 Weight last 48 hrs Weight 130.226 kg Weight 129.898 kg Weight 130 kg Weight 129.228 kg Physical Exam 2 Narrative: General: No acute distress, AO x3, chronically sick appearing, morbidly obese HEENT: PERRLA, pupils bilaterally equal and reactive Chest: Normal disturbances oral lung sarah, decreased air entry, fine crackles present in bilateral lower zone CVS: S1-S2 regular, no murmurs, no tachycardia, no gallops, no rubs Abdomen: Soft, nontender, no organomegaly, bowel sounds present Neuro: No focal deficits, no facial deformity, AO x3, power 5/5 in all limbs Extremity: Wound VAC present. Skin: OTHER: Surgical wound on admission. Urinary Catheter Management: Cage: Cath Placed During This Visit: yes Reason for Continuing Indwelling Catheter: Acute Urinary Retention or Obstruction Urinary Catheter Date of Insertion: 08/20/24 Urinary Catheter Time of Insertion: 19:28 Data 08/25/24 04:45 08/25/24 04:45 Micro: Microbiology 08/21/24 08:48 Gram Stain - Final Other Source Anaerobic Culture - Preliminary Wound Culture - Final Pseudomonas aeruginosa 08/21/24 09:00 Gram Stain - Final Hip - #1 Anaerobic Culture - Preliminary Wound Culture - Final Pseudomonas aeruginosa A&P Assessment and plan (1) Septic shock: (2) Hematoma of left hip: (3) Postoperative wound infection of left hip: (4) Acute kidney injury: (5) Hyperkalemia: (6) Anemia: (7) Elevated lactic acid level: (8) Hypertensive heart disease with heart failure: (9) DVT (deep venous thrombosis): (10) Morbid obesity with BMI of 40.0-44.9, adult: (11) COPD (chronic obstructive pulmonary disease): Qualifiers: COPD type: unspecified COPD Qualified Code(s): J44.9 - Chronic obstructive pulmonary disease, unspecified (12) Chronic respiratory failure with hypoxia and hypercapnia: (13) Obstructive sleep apnea (adult) (pediatric): (14) Decubitus ulcer: Qualifiers: Laterality: left Pressure injury location: heel Pressure injury stage: stage 3 Qualified Code(s): L89.623 - Pressure ulcer of left heel, stage 3 (15) Open wound of left ankle with tendon involvement: Qualifiers: Encounter type: initial encounter Qualified Code(s): S91.002A - Unspecified open wound, left ankle, initial encounter; S96.902A - Unspecified injury of unspecified muscle and tendon at ankle and foot level, left foot, initial encounter (16) Chronic embolism and thrombosis of left femoral vein: (17) Femur fracture, left: Qualifiers: Encounter type: initial encounter Femur location: shaft Fracture alignment: displaced Fracture morphology: spiral Fracture type: closed Qualified Code(s): S72.342A - Displaced spiral fracture of shaft of left femur, initial encounter for closed fracture (18) Subtrochanteric fracture of left femur: Qualifiers: Encounter type: initial encounter Fracture type: closed Fracture alignment: displaced Qualified Code(s): S72.22XA - Displaced subtrochanteric fracture of left femur, initial encounter for closed fracture (19) Chronic venous insufficiency: Plan 69-year-old with recent history of ORIF complicated by hemorrhagic shock, multiorgan failure, respiratory failure comes in back to the ER from [facility] today in septic shock with concerns for postoperative infection and hematoma of the left hip. Hematoma along with postoperative wound infection: Post left thigh irrigation and hematoma evacuation along with wound VAC placement 08/21. Underwent further debridement and wound VAC replacement on 08/25. Monitor hemoglobin and hematocrit in afternoon. Continue to monitor hemoglobin daily otherwise. Wound cultures from the OR growing Pseudomonas. Appreciate ID recommendations. Plan for IV cefepime 2 g Q8 hourly for overall 2 to 4 weeks. Wound dressing as per orthopedic team. Anemia: Target hemoglobin more than 7. Recently received 4 units of blood transfusion and 1 of FFP on previous admission. Overall received 4 unit of blood transfusion this admission. Repeat hemoglobin and hematocrit in afternoon. Holding off on Eliquis. Protonix 40 mg Q12 hourly. With wound VAC in place if hemoglobin remained stable for next 48 hours can give a trial of subcu heparin first and then if remains stable can plan to restart Eliquis in 2 weeks. RUDI: Resolved. Most likely in setting of septic shock. CT abdomen pelvis negative for obstructive nephropathy. Monitor BMP daily. Medical reconstruction done for nephrotoxic drugs. Septic shock: Resolved. Keep mean arterial pressure 65. Keep saturation over 90%. Wean Levophed accordingly. Component also of hemorrhagic shock. Lactic acid normal today. Received full 30 mL/kg body weight of fluid in the ER. Continue with 75 cc/h after blood transfusion. Check cortisol level. Patient does have mild bradycardia and hypothermia. Check free T3 and free T4. SIRS: Present on admission. Now resolved. Tachycardic, Febrile, Leukocytosis Source: Cellulitis and postoperative wound infection End organ damage: Shock, RUDI Lactic acid elevated. Monitor blood pressures. Keep mean artery pressure 65 mmHg. History of DVT: Hold off on home dose of Eliquis given hemorrhagic and septic shock Morbid obesity COPD: Not in exacerbation. Keep saturation over 90%. Wean off oxygen accordingly. Obstructive sleep apnea: Continue with home CPAP. Open wound of left ankle: Continue with wound care as per recent podiatry recommendations. CODE STATUS: On previous admission DNR/DNI. Currently full code. Will confirm again with the patient. Patient's will be the DPOA Cardiac diet, Protonix will be sufficient for PUD prophylaxis SCD for DVT prophylaxis. Not on medical prophylaxis given hemorrhagic and septic shock. Attestations 2 Medical Necessity Statement*: Requires further hospitalization for management of postoperative wound infection, hematoma postevacuation, wound VAC placement, anemia requiring blood transfusion, resolved RUDI in setting of septic shock while safe discharge planning is sought. Diagnoses Septic shock A41.9; R65.21 Hematoma of left hip S70.02XA Postoperative wound infection of left hip T81.49XA Acute kidney injury N17.9 Hyperkalemia E87.5 Anemia D64.9 Elevated lactic acid level R79.89 Hypertensive heart disease with heart failure I11.0 DVT (deep venous thrombosis) I82.409 Morbid obesity with BMI of 40.0-44.9, adult E66.01; Z68.41 Chronic obstructive pulmonary disease, unspecified COPD type J44.9 COPD type: unspecified COPD Chronic respiratory failure with hypoxia and hypercapnia J96.11; J96.12 Obstructive sleep apnea (adult) (pediatric) G47.33 Decubitus ulcer L89.623 Laterality: left Pressure injury location: heel Pressure injury stage: stage 3 Open wound of left ankle with tendon involvement, initial encounter S91.002A; S96.902A Encounter type: initial encounter Chronic embolism and thrombosis of left femoral vein I82.512 Closed displaced spiral fracture of shaft of left femur, initial encounter S72.342A Encounter type: initial encounter Femur location: shaft Fracture alignment: displaced Fracture morphology: spiral Fracture type: closed Closed displaced subtrochanteric fracture of left femur, initial encounter S72.22XA Encounter type: initial encounter Fracture type: closed Fracture alignment: displaced Chronic venous insufficiency I87.2
[2024-08-25 15:19] LABS: Hematocrit 31.1 % (37-53)
--- NOTE | 2024-08-25 16:26 | P.PN_ITS ---
Subjective 2 Subjective: Infectious disease progress note. No acute interim events. Tolerating cefepime. Status post wound VAC change in the OR today. Medications: Reviewed: Yes Vitals/I&O/Wt Last Vital Signs Temp 97.4 F L 08/25/24 15:41 Pulse 60 08/25/24 15:41 Resp 18 08/25/24 15:41 BP 121/63 08/25/24 15:41 Pulse Ox 99 08/25/24 15:41 O2 Del Method Nasal Cannula 08/25/24 15:41 O2 Flow Rate 4 08/25/24 13:36 08/25/24 08/25/24 08/25/24 06:59 14:59 22:59 Intake Total 100 / 530 350 / 350 Output Total 1500 / 2800 525 / 525 Balance -1400 / -2270 -175 / -175 Weight last 48 hrs Weight 130.226 kg Weight 129.898 kg Weight 130 kg Weight 129.228 kg Physical Exam 2 Narrative: General: No acute distress, morbidly obese HEENT: PERRLA, pupils bilaterally equal and reactive, pallors not present Chest: Normal vesicular breath sounds, no added sounds, equal good air entry bilaterally CVS: S1-S2 regular, no murmurs, no tachycardia, no gallops, no rubs Abdomen: Soft, nontender, no organomegaly, bowel sounds present Extremities: lymphedema B/L , woun dvac in place over left surgical site/ thigh , anterior ankle wound with Hydrofera Blue in place Urinary Catheter Management: Cage: Cath Placed During This Visit: yes Reason for Continuing Indwelling Catheter: Acute Urinary Retention or Obstruction Urinary Catheter Date of Insertion: 08/20/24 Urinary Catheter Time of Insertion: 19:28 Data 08/25/24 14:37 08/25/24 04:45 Micro: Microbiology 08/21/24 08:48 Gram Stain - Final Other Source Anaerobic Culture - Preliminary Wound Culture - Final Pseudomonas aeruginosa 08/21/24 09:00 Gram Stain - Final Hip - #1 Anaerobic Culture - Preliminary Wound Culture - Final Pseudomonas aeruginosa A&P Assessment and plan (1) Postoperative wound infection of left hip: (2) Wound dehiscence: (3) Septic shock: (4) Infected hematoma: Plan 69-year-old male with HPI as above, currently admitted on 01/19/2024 with septic shock, likely resulting from an infected hematoma over recently operated left hip complicated by wound dehiscence. Status post I&D on August 21, 2024. Currently has a wound VAC in place Cultures taken in the OR from proximal and distal hematoma showing Pseudomonas aeruginosa. Overall clinical impression that of complicated skin and soft tissue infection, infected hematoma status postevacuation. Changes do not appear to be extending down to underlying hardware at this present time. Patient has several risk factors for poor wound healing including lymphedema, morbid obesity, bedbound status with chronic dependency, peripheral artery disease, history of DVT and chronic venous insufficiency, presence of superficial ulceration over the left leg recently. Given the above risk factors, anticipate there will be difficulties in healing. Would prefer to treat this infection aggressively with IV antibiotics at this present time. Recommend to discontinue meropenem. Narrow coverage to cefepime 2 g IV every 8 hours in keeping with culture results. Unfortunately blood cultures are not available from admission. Patient appears to be responding well after the I&D and administration of IV meropenem Agree with discontinuation of vancomycin is already done. Anticipate patient will need between 2 to 4 weeks of IV antibiotics however final course and duration would remain dependent on his clinical progress going forward. Will follow 08/25/2024 Status post wound VAC change in the operating room today. Continue cefepime 2G iv every 8 hours for treatment of complicated skin and soft tissue infection, infected hematoma with Pseudomonas aeruginosa. Anticipate approximately 3 to 4 weeks of IV antibiotics, duration ultimately to be dependent on patient's progress at status of wound healing as outpatient. Picc line to facilitate above obtain weekly CBC, LFT, creat while on cefepime and fax to ID office for review. F/up ID clinic in 3 weeks thank you for this consult, please call with any further questions or concerns. Attestations 2 Medical Necessity Statement*: per admitting Coding Level of Care Code Acute Code for Chg Fwd High MDM includes number and complexity of problems actively addressed during encounter, amount and/or complexity of data reviewed/ordered and described risk of complication, morbidity or mortality of management as documented Diagnoses Postoperative wound infection of left hip T81.49XA Wound dehiscence T81.30XA Septic shock A41.9; R65.21 Infected hematoma T14.8XXA; L08.9
[2024-08-25] MEDS: HYDROcodone-acetaminophen 10-325 mg Tablet 1 TAB PO (19:29)
[2024-08-25] MEDS: magnesium hydroxide 30 mL UDC PO (20:27)
[2024-08-25] MEDS: pantoprazole 40 mg SDV IVP (20:28)
[2024-08-26] VITALS (8 sets, daily range): BP systolic 104–129; BP diastolic 61–72; PULSE 63–74; RESP 17–18; TEMP 36.6–37.2; O2SAT 93–99
[2024-08-26] MEDS: cefepime 2,000 mg SDV 2000 MG IVP ×3 (02:29→17:46)
[2024-08-26] MEDS: albumin 25 G/100 ML BAG 60 G IV ×2 (04:43→11:01)
[2024-08-26 05:23] LABS: Basophils % 0.5 %; Eosinophils # 0.4 10^3/uL (0.0-0.8); Eosinophils % 5.6 %; Hematocrit 27.2 % (37-53); Lymphocytes # 1.1 10^3/uL (0.8-4.8); Lymphocytes % 17.4 %; Mean Corpuscular HGB Conc 29.4 g/dL (30-55); Mean Corpuscular Hemoglobin 29.9 pg (27-33); Mean Corpuscular Volume 101.5 fl (82-101); Mean Platelet Volume 10.1 fL (7.4-10.4); Monocytes # 0.6 10^3/uL (0.2-0.9); Monocytes % 9.3 %; Neutrophils # 4.24 10^3/uL (1.8-7.7); Neutrophils % 65.8 %; Nucleated Red Blood Cells % 0 %; Platelet Count 291 10^3/cmm (157-399); Red Blood Count 2.68 10^6/uL (3.85-5.65); Red Cell Distribution Width 17.6 % (12.1-15.1); White Blood Count 6.44 10^3/uL (3.29-11.43)
[2024-08-26] MEDS: multivitamin therapeutic Tablet 1 TAB PO (05:30)
[2024-08-26] MEDS: sertraline 100 mg Tablet PO (05:30)
[2024-08-26 05:56] LABS: Alanine Aminotransferase 11 U/L (0-41); Albumin Level 3.7 g/dL (3.5-5.2); Alkaline Phosphatase 81 U/L (40-130); Anion Gap 13.4 (5-19); Aspartate Amino Transferase 17 U/L (0-40); Blood Urea Nitrogen 18 mg/dL (8-23); Calcium 8.6 mg/dL (8.5-10.5); Carbon Dioxide 28 mmol/L (22-29); Chloride 106 mmol/L (98-107); Creatinine Clr Calc Pharmacy 122.1736; Glomerular Filtration Rate 134.4 mL/min (90-130); Glucose 109 mg/dL (65-115); Magnesium 2.3 mg/dL (1.7-2.3); Osmolality Calculated 298 mOsm/kg (285-295); Potassium 4.4 mmol/L (3.5-5.1); Sodium 143 mmol/L (136-145); Total Bilirubin 0.7 mg/dL (0.15-1.2); Total Protein 5.7 g/dL (6.6-8.7)
[2024-08-26] MEDS: HYDROcodone-acetaminophen 10-325 mg Tablet 1 TAB PO ×2 (08:13→17:47)
[2024-08-26] MEDS: bisacodyl 5 mg Tablet 10 MG PO (08:13)
[2024-08-26] MEDS: aspirin 81 mg EC Tablet PO (08:13)
--- NOTE | 2024-08-26 09:50 | P.PN_ITS ---
Subjective 2 Subjective: Patient seen today with status post repeat washout and wound VAC change to have roughly 400 out over the past 24 hours. Patient continues to state leg feels better. Patient currently being changed by nursing staff Vitals/I&O/Wt Last Vital Signs Temp 98.2 F 08/26/24 07:39 Pulse 70 08/26/24 07:39 Resp 18 08/26/24 07:39 BP 121/67 08/26/24 07:39 Pulse Ox 97 08/26/24 07:39 O2 Del Method Nasal Cannula 08/26/24 07:39 O2 Flow Rate 3 08/26/24 08:01 08/25/24 08/26/24 08/26/24 22:59 06:59 14:59 Intake Total 1180 / 1530 580 / 2110 480 / 480 Output Total 800 / 1325 1325 / 2650 Balance 380 / 205 -745 / -540 480 / 480 Weight last 48 hrs Weight 289 lb 14.526 oz Weight 287 lb 1.6 oz Weight 286 lb 6 oz Weight 286 lb 9.615 oz Physical Exam 2 Narrative: Patient seen and examined, left lower extremity wound vacs are on in place with good seal, pressure to maintain 100mmhg. left lower extremity warm well-perfused compartments are soft compressible. No erythema around the wound VAC no signs of infection. Dressings are in place to the lower extremity wounds not taken down today. VAC has have roughly 400cc of bloody serosanguineous output over last 24hrs Urinary Catheter Management: Cage: Cath Placed During This Visit: yes Reason for Continuing Indwelling Catheter: Acute Urinary Retention or Obstruction Urinary Catheter Date of Insertion: 08/20/24 Urinary Catheter Time of Insertion: 19:28 Data 08/26/24 04:46 08/26/24 04:46 Micro: Microbiology 08/26/24 04:46 Blood Culture - Preliminary Blood SPECIMEN COLLECTED 08/21/24 08:48 Gram Stain - Final Other Source Anaerobic Culture - Preliminary Wound Culture - Final Pseudomonas aeruginosa 08/21/24 09:00 Gram Stain - Final Hip - #1 Anaerobic Culture - Preliminary Wound Culture - Final Pseudomonas aeruginosa A&P Assessment and plan (1) Hematoma of left thigh: (2) Hematoma of left hip: (3) Femur fracture, left: Qualifiers: Encounter type: initial encounter Femur location: shaft Fracture alignment: displaced Fracture morphology: spiral Fracture type: closed Qualified Code(s): S72.342A - Displaced spiral fracture of shaft of left femur, initial encounter for closed fracture (4) Subtrochanteric fracture of left femur: Qualifiers: Encounter type: initial encounter Fracture type: closed Fracture alignment: displaced Qualified Code(s): S72.22XA - Displaced subtrochanteric fracture of left femur, initial encounter for closed fracture (5) Chronic venous insufficiency: Plan Postop day 1 from left thigh/hip irrigation debridement and wound VAC change Postop day 5 from left thigh irrigation debridement with hematoma evacuation and wound VAC placement Antibiotics per primary Monitoring cultures demonstrating Pseudomonas Wound VAC roughly 400cc over last 24 hours, 100mmhg settings Pain control per primary DVT prophylaxis per primary Weight-bear as tolerated left lower extremity Range of motion left hip as tolerated PT/OT Social work for discharge planning Patient at this point in time we will begin serial wound VAC changes will discuss case with Dr. Alfonso his initial surgeon about getting plan moving forward will likely just have wound VAC changes on the floor Orthopedics will continue to follow Attestations 2 Medical Necessity Statement*: Ongoing care status post left thigh I&D with hematoma evacuation and wound VAC placement as well as now postop from a repeat irrigation debridement and wound VAC change Coding Level of Care Code Acute Code for Chg Fwd Diagnoses Hematoma of left thigh S70.12XA Hematoma of left hip S70.02XA Closed displaced spiral fracture of shaft of left femur, initial encounter S72.342A Encounter type: initial encounter Femur location: shaft Fracture alignment: displaced Fracture morphology: spiral Fracture type: closed Closed displaced subtrochanteric fracture of left femur, initial encounter S72.22XA Encounter type: initial encounter Fracture type: closed Fracture alignment: displaced Chronic venous insufficiency I87.2
[2024-08-26] MEDS: ipratropium-albuterol 3 mL Neb INHALATION (14:35)
--- NOTE | 2024-08-26 14:38 | PM.PN ---
Subjective Subjective: No acute events overnight. Today morning patient seen laying comfortably in bed. Awake and alert. Denies any nausea, vomiting, headache. Has remained hemodynamically stable and afebrile. Medications: Reviewed: Yes Vitals/I&O/Wt Last Vital Signs Temp 98 F 08/26/24 12:21 Pulse 67 08/26/24 12:21 Resp 18 08/26/24 12:21 BP 104/61 08/26/24 12:21 Pulse Ox 96 08/26/24 12:21 O2 Del Method Nasal Cannula 08/26/24 12:21 O2 Flow Rate 3 08/26/24 08:01 08/25/24 08/26/24 08/26/24 22:59 06:59 14:59 Intake Total 1180 / 1530 580 / 2110 1300 / 1300 Output Total 800 / 1325 1325 / 2650 Balance 380 / 205 -745 / -540 1300 / 1300 Weight last 48 hrs Weight 130.635 kg Weight 131.5 kg Weight 130.226 kg Weight 129.898 kg Physical Exam Narrative: General: No acute distress, AO x3, chronically sick appearing, morbidly obese HEENT: PERRLA, pupils bilaterally equal and reactive Chest: Normal disturbances oral lung sarah, decreased air entry, fine crackles present in bilateral lower zone CVS: S1-S2 regular, no murmurs, no tachycardia, no gallops, no rubs Abdomen: Soft, nontender, no organomegaly, bowel sounds present Neuro: No focal deficits, no facial deformity, AO x3, power 5/5 in all limbs Extremity: Wound VAC present. Skin: OTHER: Surgical wound on admission. Urinary Catheter Management: Cage: Cath Placed During This Visit: yes Reason for Continuing Indwelling Catheter: Acute Urinary Retention or Obstruction Urinary Catheter Date of Insertion: 08/20/24 Urinary Catheter Time of Insertion: 19:28 Data 08/26/24 04:46 08/26/24 04:46 Micro: Microbiology 08/26/24 04:46 Blood Culture - Preliminary Blood SPECIMEN COLLECTED 08/21/24 08:48 Gram Stain - Final Other Source Anaerobic Culture - Preliminary Wound Culture - Final Pseudomonas aeruginosa 08/21/24 09:00 Gram Stain - Final Hip - #1 Anaerobic Culture - Preliminary Wound Culture - Final Pseudomonas aeruginosa A&P Assessment and plan (1) Postoperative wound infection of left hip: (2) Wound dehiscence: (3) Septic shock: (4) Infected hematoma: (5) Hematoma of left hip: (6) Acute kidney injury: (7) Hyperkalemia: (8) Anemia: (9) Elevated lactic acid level: (10) Hypertensive heart disease with heart failure: (11) DVT (deep venous thrombosis): (12) Morbid obesity with BMI of 40.0-44.9, adult: (13) COPD (chronic obstructive pulmonary disease): Qualifiers: COPD type: unspecified COPD Qualified Code(s): J44.9 - Chronic obstructive pulmonary disease, unspecified (14) Chronic respiratory failure with hypoxia and hypercapnia: (15) Obstructive sleep apnea (adult) (pediatric): (16) Decubitus ulcer: Qualifiers: Laterality: left Pressure injury location: heel Pressure injury stage: stage 3 Qualified Code(s): L89.623 - Pressure ulcer of left heel, stage 3 (17) Open wound of left ankle with tendon involvement: Qualifiers: Encounter type: initial encounter Qualified Code(s): S91.002A - Unspecified open wound, left ankle, initial encounter; S96.902A - Unspecified injury of unspecified muscle and tendon at ankle and foot level, left foot, initial encounter (18) Chronic embolism and thrombosis of left femoral vein: (19) Femur fracture, left: Qualifiers: Encounter type: initial encounter Femur location: shaft Fracture alignment: displaced Fracture morphology: spiral Fracture type: closed Qualified Code(s): S72.342A - Displaced spiral fracture of shaft of left femur, initial encounter for closed fracture (20) Subtrochanteric fracture of left femur: Qualifiers: Encounter type: initial encounter Fracture type: closed Fracture alignment: displaced Qualified Code(s): S72.22XA - Displaced subtrochanteric fracture of left femur, initial encounter for closed fracture (21) Chronic venous insufficiency: Plan 69-year-old with recent history of ORIF complicated by hemorrhagic shock, multiorgan failure, respiratory failure comes in back to the ER from custodial today in septic shock with concerns for postoperative infection and hematoma of the left hip. Hematoma along with postoperative wound infection: Post left thigh irrigation and hematoma evacuation along with wound VAC placement 08/21. Underwent further debridement and wound VAC replacement on 08/25. Monitor hemoglobin and hematocrit in afternoon. Continue to monitor hemoglobin daily otherwise. Wound cultures from the OR growing Pseudomonas. Appreciate ID recommendations. Plan for IV cefepime 2 g Q8 hourly for overall 2 to 4 weeks. Wound dressing as per orthopedic team. Anemia: Target hemoglobin more than 7. Recently received 4 units of blood transfusion and 1 of FFP on previous admission. Overall received 4 unit of blood transfusion this admission. Repeat hemoglobin and hematocrit in afternoon. Holding off on Eliquis. Protonix 40 mg Q12 hourly. With wound VAC in place if hemoglobin remained stable for next 48 hours can give a trial of subcu heparin first and then if remains stable can plan to restart Eliquis in 2 weeks. RUDI: Resolved. Most likely in setting of septic shock. CT abdomen pelvis negative for obstructive nephropathy. Monitor BMP daily. Medical reconstruction done for nephrotoxic drugs. Septic shock: Resolved. Keep mean arterial pressure 65. Keep saturation over 90%. Wean Levophed accordingly. Component also of hemorrhagic shock. Lactic acid normal today. Received full 30 mL/kg body weight of fluid in the ER. Continue with 75 cc/h after blood transfusion. Check cortisol level. Patient does have mild bradycardia and hypothermia. Check free T3 and free T4. SIRS: Present on admission. Now resolved. Tachycardic, Febrile, Leukocytosis Source: Cellulitis and postoperative wound infection End organ damage: Shock, RUDI Lactic acid elevated. Monitor blood pressures. Keep mean artery pressure 65 mmHg. History of DVT: Hold off on home dose of Eliquis given hemorrhagic and septic shock Morbid obesity COPD: Not in exacerbation. Keep saturation over 90%. Wean off oxygen accordingly. Obstructive sleep apnea: Continue with home CPAP. Open wound of left ankle: Continue with wound care as per recent podiatry recommendations. CODE STATUS: On previous admission DNR/DNI. Currently full code. Will confirm again with the patient. Patient's will be the DPOA Cardiac diet, Protonix will be sufficient for PUD prophylaxis SCD for DVT prophylaxis. Not on medical prophylaxis given hemorrhagic and septic shock. Plan for the day: Appreciate ID and orthopedic recommendation. Continue with IV cefepime 2 g every 8 hourly. Monitor hemoglobin daily. PICC line placement. VAC management as per orthopedic team. Continue to hold off on Eliquis for now. Start on heparin 5000 every 12 hourly for DVT prophylaxis. Discontinue albumin. Continue with protein shakes. Attestations Medical Necessity Statement*: Requires further hospitalization for management of postsurgical Pseudomonas wound infection, hematoma, postevacuation, anemia requiring blood transfusion while safe discharge planning is sought. Diagnoses Postoperative wound infection of left hip T81.49XA Wound dehiscence T81.30XA Septic shock A41.9; R65.21 Infected hematoma T14.8XXA; L08.9 Hematoma of left hip S70.02XA Acute kidney injury N17.9 Hyperkalemia E87.5 Anemia D64.9 Elevated lactic acid level R79.89 Hypertensive heart disease with heart failure I11.0 DVT (deep venous thrombosis) I82.409 Morbid obesity with BMI of 40.0-44.9, adult E66.01; Z68.41 Chronic obstructive pulmonary disease, unspecified COPD type J44.9 COPD type: unspecified COPD Chronic respiratory failure with hypoxia and hypercapnia J96.11; J96.12 Obstructive sleep apnea (adult) (pediatric) G47.33 Decubitus ulcer L89.623 Laterality: left Pressure injury location: heel Pressure injury stage: stage 3 Open wound of left ankle with tendon involvement, initial encounter S91.002A; S96.902A Encounter type: initial encounter Chronic embolism and thrombosis of left femoral vein I82.512 Closed displaced spiral fracture of shaft of left femur, initial encounter S72.342A Encounter type: initial encounter Femur location: shaft Fracture alignment: displaced Fracture morphology: spiral Fracture type: closed Closed displaced subtrochanteric fracture of left femur, initial encounter S72.22XA Encounter type: initial encounter Fracture type: closed Fracture alignment: displaced Chronic venous insufficiency I87.2
[2024-08-26] MEDS: heparin 5,000 unit/mL INJ 1 mL 5000 UNIT SUBCUT (15:55)
[2024-08-26] MEDS: magnesium hydroxide 30 mL UDC PO (20:06)
[2024-08-26] MEDS: pantoprazole 40 mg SDV IVP (20:06)
[2024-08-27] VITALS (12 sets, daily range): BP systolic 124–145; BP diastolic 63–84; PULSE 57–86; RESP 16–19; TEMP 36.4–36.9; O2SAT 90–98
[2024-08-27] MEDS: heparin 5,000 unit/mL INJ 1 mL 5000 UNIT SUBCUT (02:23)
[2024-08-27] MEDS: cefepime 2,000 mg SDV 2000 MG IVP ×2 (02:23→11:51)
[2024-08-27 03:52] LABS: Basophils % 0.8 %; Eosinophils # 0.4 10^3/uL (0.0-0.8); Eosinophils % 7.3 %; Hematocrit 27.9 % (37-53); Lymphocytes # 1.1 10^3/uL (0.8-4.8); Mean Corpuscular HGB Conc 29.4 g/dL (30-55); Mean Corpuscular Hemoglobin 29.9 pg (27-33); Mean Corpuscular Volume 101.8 fl (82-101); Mean Platelet Volume 10.1 fL (7.4-10.4); Monocytes # 0.6 10^3/uL (0.2-0.9); Monocytes % 11.7 %; Neutrophils % 56.4 %; Nucleated Red Blood Cells % 0 %; Platelet Count 304 10^3/cmm (157-399); Red Blood Count 2.74 10^6/uL (3.85-5.65); Red Cell Distribution Width 17.7 % (12.1-15.1); White Blood Count 4.96 10^3/uL (3.29-11.43)
[2024-08-27] MEDS: HYDROcodone-acetaminophen 10-325 mg Tablet 1 TAB PO (04:12)
[2024-08-27 04:20] LABS: Alanine Aminotransferase 10 U/L (0-41); Albumin Level 3.6 g/dL (3.5-5.2); Alkaline Phosphatase 80 U/L (40-130); Anion Gap 13.5 (5-19); Aspartate Amino Transferase 15 U/L (0-40); Blood Urea Nitrogen 17 mg/dL (8-23); Calcium 8.6 mg/dL (8.5-10.5); Carbon Dioxide 27 mmol/L (22-29); Chloride 104 mmol/L (98-107); Creatinine Clr Calc Pharmacy 118.7457; Globulin 2.1 g/dL (1.3-4.6); Glomerular Filtration Rate 134.4 mL/min (90-130); Glucose 95 mg/dL (65-115); Osmolality Calculated 291 mOsm/kg (285-295); Potassium 4.5 mmol/L (3.5-5.1); Sodium 140 mmol/L (136-145); Total Bilirubin 0.6 mg/dL (0.15-1.2); Total Protein 5.7 g/dL (6.6-8.7)
[2024-08-27] MEDS: sertraline 100 mg Tablet PO (05:03)
[2024-08-27] MEDS: multivitamin therapeutic Tablet 1 TAB PO (05:03)
[2024-08-27] MEDS: ipratropium-albuterol 3 mL Neb INHALATION ×2 (07:36→14:43)
--- NOTE | 2024-08-27 07:45 | XR_ITS ---
WS: [id number] Portable AP upright chest, 08/27/2024 Clinical Data: Post PICC insertion Comparison: Portable chest, 08/20/2024 Findings: The right PICC line enters the right subclavian vein and ends in the superior vena cava. Th ere is no pneumothorax. The remainder of the chest shows no change. XR/XR chest 1V portable [id number] Impression: Satisfactory insertion of right PICC line.
--- NOTE | 2024-08-27 09:00 | PICC.NOTE ---
Single lumen PICC placed to right basilic vein. Referred to vascular access nurse for PICC placement due to need for IV antibiotics. Risks and benefits discussed and informed consent obtained from pt. Right arm assessed with right basilic vein measuring 3.3 mm, straight, and apparent best choice for placement. Using sterile technique and MST, right basilic vein accessed x 1 stick. Mid-arm circumference measured 10 cm from right AC 36 cm. Trimmed cath 49 cm with 0 cm external length noted. CXR shows tip in distal SVC, in good position for use per radiologist. Line secured with stat-lock. Insertion site covered with Biopatch and TSM. Report given to bedside nurse, JORGE Webber.
[2024-08-27] MEDS: bisacodyl 5 mg Tablet 10 MG PO (09:52)
[2024-08-27] MEDS: aspirin 81 mg EC Tablet PO (09:53)
--- NOTE | 2024-08-27 14:18 | P.DS_ITS ---
Discharge Providers Date of Admission: 08/20/24 18:13 Date of Discharge: August 27, 2024 Attending Provider at Admission: Brice Funes MD Attending Provider at Discharge: Brian Vaughn Primary Care Provider: Odalis Stewart NP Diagnoses at Discharge Discharge Diagnosis (1) Postoperative wound infection of left hip: Status: Acute (2) Wound dehiscence: Status: Acute (3) Septic shock: Status: Acute (4) Infected hematoma: Status: Acute (5) Hematoma of left hip: Status: Acute (6) Acute kidney injury: Status: Acute (7) Hyperkalemia: Status: Acute (8) Anemia: Status: Acute (9) Elevated lactic acid level: Status: Acute (10) Hypertensive heart disease with heart failure: Status: Acute (11) DVT (deep venous thrombosis): Status: Acute (12) Morbid obesity with BMI of 40.0-44.9, adult: Status: Acute (13) COPD (chronic obstructive pulmonary disease): Status: Acute Qualifiers: COPD type: unspecified COPD Qualified Code(s): J44.9 - Chronic obstructive pulmonary disease, unspecified (14) Chronic respiratory failure with hypoxia and hypercapnia: Status: Acute (15) Obstructive sleep apnea (adult) (pediatric): Status: Acute (16) Decubitus ulcer: Status: Acute Qualifiers: Laterality: left Pressure injury location: heel Pressure injury stage: stage 3 Qualified Code(s): L89.623 - Pressure ulcer of left heel, stage 3 (17) Open wound of left ankle with tendon involvement: Status: Acute Qualifiers: Encounter type: initial encounter Qualified Code(s): S91.002A - Unspecified open wound, left ankle, initial encounter; S96.902A - Unspecified injury of unspecified muscle and tendon at ankle and foot level, left foot, initial encounter (18) Chronic embolism and thrombosis of left femoral vein: Status: Acute (19) Femur fracture, left: Status: Acute Qualifiers: Encounter type: initial encounter Femur location: shaft Fracture alignment: displaced Fracture morphology: spiral Fracture type: closed Qualified Code(s): S72.342A - Displaced spiral fracture of shaft of left femur, initial encounter for closed fracture (20) Subtrochanteric fracture of left femur: Status: Acute Qualifiers: Encounter type: initial encounter Fracture alignment: displaced Fracture type: closed Qualified Code(s): S72.22XA - Displaced subtrochanteric fracture of left femur, initial encounter for closed fracture (21) Chronic venous insufficiency: Status: Acute Reason for Visit Reason for Visit: post op infection Hospital Course Hospital Course 69-year gentleman residing at retirement, recently having sustained left hip fracture status post repair on 08/07, during prior admission disheveled, reportedly has been declining some of the care. With hospitalization complicated by hemorrhagic shock, multiorgan failure. Most empirically on antibiotics including an oral course of Augmentin at discharge. Upon recovery was discharged to care home facility. Return to the hospital on 08/20 with worsening swelling of the left leg, with purulent malodorous drainage, on presentation with finding of septic shock. With finding of hematoma with infection. He underwent hematoma evacuation with wound washout by on-call orthopedic surgeon. Or cultures grew Pseudomonas. Further debridement was performed and wound VAC replaced on 08/25. Continuing on IV antibiotic with cefepime. Was assessed by infectious disease. Required additional blood transfusion during this hospitalization receiving additional 4 units. Has been off anticoagulation with Eliquis on which she was previously due to history of DVT and PE. Tolerated trial of subcutaneous heparin DVT prophylaxis. Sepsis resolved. He has otherwise been doing well with wound VAC therapy. Blood cultures remaining negative. He is to continue further 4 weeks of IV cefepime antibiotic treatment, follow-up with infectious disease in office. Per d iscussion with orthopedic surgery, additionally follow-up with wound care for additional reassessment, with continued wound VAC dressing changes. For now discharging with prophylactic Lovenox dose due to concern for risk of recurrent bleeding. Please reassess blood counts, reassess further consideration of resumption of anticoagulation if still needed. Physical Exam Const: COMMON NORMALS: patient oriented x3 and alert GENERAL APPEARANCE: cooperative NUTRITIONAL APPEARANCE: obese ORIENTATION/CONSCIOUSNESS: Yes awake HENMT: COMMON NORMALS: oropharynx normal Neck/C-Spine: COMMON NORMALS: no JVD Resp: COMMON NORMALS: normal respiratory effort and clear to auscultation bilaterally AUSCULTATION: clear to auscultation bilaterally Cardio: COMMON NORMALS: no JVD, regular rhythm, S1 normal heart sound present, S2 normal heart sound present and No murmurs present (Cardio) RHYTHM: regular rhythm HEART SOUNDS: S1 normal heart sound present and S2 normal heart sound present GI: COMMON NORMALS: Normal to inspection, nondistended, normoactive bowel sounds present, Soft to palpation and non-tender PALPATION: Yes Soft to palpation Extremity: COMMON NORMALS: no joint enlargement and no pedal edema NARRATIVE EXTREMITY EXAM: Left hip wound VAC dressing. Neuro: COMMON NORMALS: patient oriented x3 and moves all extremities SENSORIUM/ORIENTATION: Yes alert Skin: COMMON NORMALS: no rashes or lesions noted GENERAL SKIN EXAM: no rashes or lesions noted Urinary Catheter Management: Cage: Cath Placed During This Visit: yes Reason for Continuing Indwelling Catheter: Acute Urinary Retention or Obstruction Urinary Catheter Date of Insertion: 08/20/24 Urinary Catheter Time of Insertion: 19:28 Discharge Data Studies Completed and Pending Completed Studies During Hospitalization Category Date Time Status CT abdomen pelvis wo con [id number] Stat Cat Scan 08/20/24 17:[address] femur LT wo con* [id number] Stat Cat Scan 08/20/24 11:13 Completed CXRP [XR chest 1V portable [id number]] Routine Exams 08/27/24 07:45 Completed XR chest 1V [id number] Stat Exams 08/20/24 14:40 Completed XR chest 1V portable [id number] Stat Exams 08/20/24 10:56 Completed US arterial duplex lower extremity LT [CV arterial Ultrasound 08/21/24 01:01 [place] [id number]] Routine Pending at discharge Category Date Time Status Anaerobic Culture Routine Lab 08/21/24 08:48 Results Anaerobic Culture Routine Lab 08/21/24 09:00 Results Blood Culture AM LABS Lab 08/26/24 04:46 Results Wound Culture and Gram Stain Routine Lab 08/21/24 08:48 Results Wound Culture and Gram Stain Routine Lab 08/21/24 09:00 Results Radiology Impressions Femur CT 08/20/24 11:13 IMPRESSION: 1. Large high density forming collection extends over a length of 35 cm x 10 cm anterior posterior. Collection begins in the lateral upper thigh at the level of the ilium to the distal femoral diaphysis. No foci of air in the collection this is most likely hematoma. 2. Status post intramedullary tracy fixation of a comminuted fracture of the proximal diaphysis. Fracture by 2.7 cm. Abdomen/Pelvis CT 08/20/24 17:50 IMPRESSION: 1. Consolidation versus atelectasis in the posterior aspect of the right lung base. 2. Ventral hernia in the right anterior lower abdominal wall containing a portion of the cecum and appendix measuring 21 mm at the neck. This is similar to the prior examination. 3. Intramedullary tracy with proximal interlocking screw spanning a displaced fracture of the proximal left femur redemonstrated. Extensive subcutaneous fat stranding in the left groin and lateral to the left hip partially visualized within the field of view. 4. No abscess in the abdomen or pelvis. Chest X-Ray 08/27/24 07:45 Impression: Satisfactory insertion of right PICC line. Laboratory Results WBC 4.96 10^3/uL (3.29-11.43) 08/27/24 03:14 RBC 2.74 10^6/uL (3.85-5.65) L 08/27/24 03:14 Hgb 8.20 g/dL (11.27-16.99) L 08/27/24 03:14 Hct 27.9 % (37-53) L 08/27/24 03:14 MCV 101.8 fl (82-101) H 08/27/24 03:14 MCH 29.9 pg (27-33) 08/27/24 03:14 MCHC 29.4 g/dL (30-55) L 08/27/24 03:14 RDW 17.7 % (12.1-15.1) H 08/27/24 03:14 Plt Count 304 10^3/cmm (157-399) 08/27/24 03:14 MPV 10.1 fL (7.4-10.4) 08/27/24 03:14 Neut % (Auto) 56.4 % 08/27/24 03:14 Lymph % (Auto) 22.0 % 08/27/24 03:14 [place] % (Auto) 11.7 % 08/27/24 03:14 Eos % (Auto) 7.3 % 08/27/24 03:14 Baso % (Auto) 0.8 % 08/27/24 03:14 Neut # (Auto) 2.80 10^3/uL (1.8-7.7) 08/27/24 03:14 Lymph # (Auto) 1.1 10^3/uL (0.8-4.8) 08/27/24 03:14 [place] # (Auto) 0.6 10^3/uL (0.2-0.9) 08/27/24 03:14 Eos # (Auto) 0.4 10^3/uL (0.0-0.8) 08/27/24 03:14 Baso # (Auto) 0.0 10^3/uL (0.0-0.1) 08/27/24 03:14 Nucleated RBC % (auto) 0 % 08/27/24 03:14 Nucleated RBCs # 0.0 /100WBC 08/27/24 03:14 PT 16.50 SECONDS (12.1-14.9) H 08/20/24 20:55 INR 1.29 (0.8-1.2) H 08/20/24 20:55 APTT 35.0 SECONDS (23.9-36.7) 08/20/24 20:55 Sodium 140 mmol/L (136-145) 08/27/24 03:14 Potassium 4.5 mmol/L (3.5-5.1) 08/27/24 03:14 Chloride 104 mmol/L (98-107) 08/27/24 03:14 Carbon Dioxide 27 mmol/L (22-29) 08/27/24 03:14 Anion Gap 13.5 (5-19) 08/27/24 03:14 BUN 17 mg/dL (8-23) 08/27/24 03:14 Creatinine 0.6 mg/dL (0.7-1.2) L 08/27/24 03:14 GFR Calculation 134.4 mL/min (90-130) H 08/27/24 03:14 Glucose 95 mg/dL (65-115) 08/27/24 03:14 POC Glucose 122 mg/dL (70-110) H 08/20/24 15:21 Estimat Average Glucose 105 08/21/24 02:54 Hemoglobin A1c 5.3 % (4.0-6.0) 08/21/24 02:54 Calculated Osmolality 291 mOsm/kg (285-295) 08/27/24 03:14 Lactic Acid 1.1 mmol/L (0.5-2.2) 08/21/24 02:54 Lactic Acid (Sepsis) 2.5 mmol/L (0.5-2.2) H 08/20/24 15:51 Calcium 8.6 mg/dL (8.5-10.5) 08/27/24 03:14 Phosphorus 4.1 mg/dL (2.5-4.5) 08/21/24 02:54 Magnesium 2.3 mg/dL (1.7-2.3) 08/26/24 04:46 Total Bilirubin 0.6 mg/dL (0.15-1.2) 08/27/24 03:14 AST 15 U/L (0-40) 08/27/24 03:14 ALT 10 U/L (0-41) 08/27/24 03:14 Alkaline Phosphatase 80 U/L (40-130) 08/27/24 03:14 Creatine Kinase 81 U/L (39-308) 08/20/24 11:11 Total Protein 5.7 g/dL (6.6-8.7) L 08/27/24 03:14 Albumin 3.6 g/dL (3.5-5.2) 08/27/24 03:14 Globulin 2.1 g/dL (1.3-4.6) 08/27/24 03:14 Triglycerides 87 mg/dL (0-150) 08/21/24 02:54 Cholesterol 84 mg/dL (0-200) 08/21/24 02:54 LDL Cholesterol, Calc 43 mg/dL (50-129) L 08/21/24 02:54 HDL Cholesterol 24 mg/dL (60-100) L 08/21/24 02:54 LDL/HDL Ratio 1.79 RATIO (0.00-3.22) 08/21/24 02:54 Cholesterol/HDL Ratio 3.50 mg/dL (1.0-5.00) 08/21/24 02:54 Procalcitonin 2.64 ng/mL (0-0.5) H 08/21/24 02:54 TSH 6.03 uIU/mL (0.27-4.20) H 08/20/24 20:55 Free T4 1.11 ng/dL (0.82-1.77) 08/21/24 16:10 Free T3 1.3 PG/ML (2.0-4.4) L 08/21/24 16:10 Random Cortisol 2.18 ug/dL (2.47-19.5) L 08/22/24 04:12 Cortisol Response 08/22/24 11:35 Urine Color Yellow (Yellow) 08/20/24 19:16 Urine Appearance Clear (CLEAR) 08/20/24 19:16 Urine pH 5.0 (5-7) 08/20/24 19:16 Ur Specific [place] 1.013 (1.005-1.030) 08/20/24 19:16 Urine Protein Trace (Negative) A 08/20/24 19:16 Urine Glucose (UA) Negative (Normal) 08/20/24 19:16 Urine Ketones Negative (Negative) 08/20/24 19:16 Urine Blood Negative (Negative) 08/20/24 19:16 Urine Nitrate Negative (Negative) 08/20/24 19:16 Urine Bilirubin Negative (Negative) 08/20/24 19:16 Urine Urobilinogen 0.2 mg/dL (Negative) 08/20/24 19:16 Ur Leukocyte Esterase Negative (Negative) 08/20/24 19:16 Urine RBC 0-2 /hpf (0-2) 08/20/24 19:16 Urine WBC 0-5 /hpf (0-5) 08/20/24 19:16 Ur Squamous Epith Cells 0-5 /hpf (0-5) 08/20/24 19:16 Amorphous Sediment Not Reportable 08/20/24 19:16 Urine Bacteria None seen /hpf (NONE) 08/20/24 19:16 Hyaline Casts 11.57 /lpf 08/20/24 19:16 Vancomycin Trough 15.3 ug/mL (10-15) H 08/22/24 21:52 Blood Type O Positive 08/20/24 12:23 Rho(D) Type Rh positive 08/20/24 12:23 Antibody Screen Negative 08/20/24 12:23 Antibody Identification Cancelled 08/20/24 12:23 Crossmatch See Detail 08/20/24 12:23 Vitals Last Vital Signs Temp 98.3 F 08/27/24 11:55 Pulse 76 08/27/24 11:55 Resp 18 08/27/24 11:55 BP 145/72 08/27/24 11:55 Pulse Ox 90 08/27/24 11:55 O2 Del Method Nasal Cannula 08/27/24 11:55 O2 Flow Rate 2 08/27/24 07:39 Discharge Plan Discharge Patient Disposition: Xfer SNF Condition: Stable Prescriptions: New enoxaparin [Lovenox] 40 mg/0.4 mL syringe 40 mg SUBCUT Q24H Qty: 4 0RF cefepime 2 gram Recon Soln 2,000 mg IVP Q8H 28 Days Qty: 84 0RF Continued aspirin [Adult Aspirin Regimen] 81 mg tablet,delayed release (DR/EC) 81 mg PO DAILY@0800 Spiriva with HandiHaler 18 mcg capsule, w/inhalation device 1 cap inhalation DAILY Qty: 30 3RF Rx Instructions: puncture 1 cap using device; one dose = 2 inhalations cholecalciferol (vitamin D3) 125 mcg (5,000 unit) capsule 125 mcg PO DAILY@0800 bismuth subsalicylate [Pepto-Bismol] 262 mg/15 mL suspension 524 mg PO DAILY PRN (Reason: Nausea) sodium phosphates 19-7 gram/118 mL enema [address] DAILY PRN (Reason: Constipation ) loperamide [Anti-Diarrheal (loperamide)] 2 mg tablet 2 mg PO .COMPLEX PRN (Reason: Diarrhea) Rx Instructions: 2 mg orally give 2 tab for diarrhea and one tab for lose stool -max 4 in one day PRN; until patient has gone 12 hours without a bowel movement multivitamin Tablet 1 tab PO QAM acetaminophen 325 mg Tablet 650 mg PO Q4H PRN (Reason: Pain or elevated temp) bisacodyl [Dulcolax (bisacodyl)] 10 mg Suppository [address] DAILY PRN (Reason: Constipation) bisacodyl 5 mg Tablet 20 mg PO DAILY PRN (Reason: Constipation) albuterol sulfate [Ventolin HFA] 90 mcg/actuation Hfa Aerosol Inhaler 2 puff INHALATION Q6H PRN (Reason: Shortness Of Breath) bumetanide 2 mg tablet 2 mg PO BID@0800,1700 potassium chloride [Klor-Con M20] 20 mEq tablet,ER particles/crystals 20 meq PO BID@0800,1700 fluticasone propion-salmeterol [Advair HFA] 115-21 mcg/actuation HFA aerosol inhaler 2 puff inhalation Q6H PRN (Reason: wheezing ) Biofreeze (menthol) 4 % Gel 1 applic TOPICAL QID PRN (Reason: knee pain ) hydrocodone-acetaminophen 5-325 mg tablet See Rx Instructions .ROUTE .COMPLEX PRN (Reason: pain) Rx Instructions: Take 1 tablet by mouth every 8 hours as needed for mild pain and 2 tablets every 8 hours as needed for moderate to severe pain. clotrimazole-betamethasone 1-0.05 % cream 1 applic TOPICAL BID PRN (Reason: rash ) medroxyprogesterone 5 mg tablet 5 mg PO QAM magnesium hydroxide [Milk of Magnesia] 400 mg/5 mL Suspension 30 ml PO Q24H PRN (Reason: constipation ) amoxicillin-pot clavulanate 875-125 mg tablet 1 tab PO BID Qty: 20 0RF sertraline 100 mg tablet 100 mg PO QAM hydrocodone-acetaminophen 10-325 mg Tablet 1 tab PO Q6H PRN (Reason: Pain (Scale Score 1-3)) ammonium lactate 12 % Cream 1 applic TOPICAL Q8H PRN (Reason: Dry Skin) eucalyptus-menthol Lozenge 3.1 mg MUCOUS MEMBRANE Q1H PRN (Reason: Cough) Artificial Tears (PF) Dropperette 1 drp OPHTHALMIC (EYE) Q4H PRN (Reason: cataract surgery ) Discontinued apixaban 5 mg tablet 5 mg PO BID@0800,1700 Hold Instructions: Resume on 08/28/24. tramadol 50 mg tablet 50 mg PO Q12H PRN (Reason: pain from peripheral vascular disease ) Discharge Orders: Discharge Order (Routine); Ordered 08/27/24 Ordered By: Brian Vaughn Referrals: [facility] Disease [facility] [Provider Group] - 09/25/24 10:30 am Wound Care [Provider Group] - 4-7 days (We have notified your physician's clinic of the need for a follow-up appointment to be scheduled. If you have not heard from them within the next 2 business days, please call them directly. ) Justine Alfonso MD [Physician] - 09/05/24 9:45 am Odalis Stewart NP [Primary Care Provider] - 4-7 days Discharge Activity: As per PT/OT instructions Patient Instructions: Acute Wound Care (DC), Opioid Safety, Post Anesthesia Care, Pain Management Activity Restrictions/Additional Instructions: Continue wound VAC dressing. It is to be changed every 3rd day. Follow-up with wound care clinic for reassessment. Continue cefepime intravenously, follow-up with infectious disease in office for reassessment after wound infection. Discontinue PICC line once done with antibiotic therapy. Weight-bear as tolerated left lower extremity Range of motion left hip as tolerated PT/OT Maintain fall precautions. Continue Lovenox for now for DVT prophylaxis. Please follow-up with your primary provider for with reassessment of the wound, additional reassessment of blood counts, and consideration of resumption of full dose anticoagulation possibly after the next 2 weeks if no further issues. Maintain fall precautions. Please discontinue tramadol so as not to add to risk of bleeding. Please have your primary doctor reassess anemia. Please have your primary provider reassess recovery from kidney injury. Obtain weekly CBC, LFT, creat while on cefepime and fax to ID office for review. F/up ID clinic in 3 weeks Discharge Attestations Time Spent in Discharge Care*: greater than 30 min Status at Discharge: Cognitive status at discharge: cognitively intact , Behavioral status at discharge: cooperative , Quality Metrics Clinical Quality Measures [ No reported AMI, CVA or VTE this stay] Coding Level of Care Code 55404 Total time (in minutes) for Discharge: 45 Diagnoses Postoperative wound infection of left hip T81.49XA Wound dehiscence T81.30XA Septic shock A41.9; R65.21 Infected hematoma T14.8XXA; L08.9 Hematoma of left hip S70.02XA Acute kidney injury N17.9 Hyperkalemia E87.5 Anemia D64.9 Elevated lactic acid level R79.89 Hypertensive heart disease with heart failure I11.0 DVT (deep venous thrombosis) I82.409 Morbid obesity with BMI of 40.0-44.9, adult E66.01; Z68.41 Chronic obstructive pulmonary disease, unspecified COPD type J44.9 COPD type: unspecified COPD Chronic respiratory failure with hypoxia and hypercapnia J96.11; J96.12 Obstructive sleep apnea (adult) (pediatric) G47.33 Decubitus ulcer L89.623 Laterality: left Pressure injury location: heel Pressure injury stage: stage 3 Open wound of left ankle with tendon involvement, initial encounter S91.002A; S96.902A Encounter type: initial encounter Chronic embolism and thrombosis of left femoral vein I82.512 Closed displaced spiral fracture of shaft of left femur, initial encounter S72.342A Encounter type: initial encounter Femur location: shaft Fracture alignment: displaced Fracture morphology: spiral Fracture type: closed Closed displaced subtrochanteric fracture of left femur, initial encounter S72.22XA Encounter type: initial encounter Fracture alignment: displaced Fracture type: closed Chronic venous insufficiency I87.2
--- NOTE | 2024-08-27 16:14 | PC.NURSE ---
No belongings at admission to be sent at discharge
== END 2024-08-27 15:55 | disposition skilled nursing facility (03) | DRG 856 ==
LOC: ER 19:14 → ICU 19:17 → MEDSURG 08-23 16:32
PROVIDERS: Internal Medicine; Student in an Organized Health Care Education/Training Program; Admitting Provider Student in an Organized Health Care Education/Training Program; Emergency Provider Family Medicine; PCP Nurse Practitioner Family; Visit Provider Internal Medicine
PROC: 0KBP0ZZ Excision of Left Hip Muscle, Open Approach (ICD-10-PCS; 2024-08-21 07:30)
PROC: 0KBP0ZZ Excision of Left Hip Muscle, Open Approach (ICD-10-PCS; principal; 2024-08-25 08:00)
DX: T81.42XA Infection following a procedure, deep incisional surgical site, initial encounter (principal); L89.524 Pressure ulcer of left ankle, stage 4; L89.623 Pressure ulcer of left heel, stage 3; R65.21 Severe sepsis with septic shock; L76.32 Postprocedural hematoma of skin and subcutaneous tissue following other procedure; I96 Gangrene, not elsewhere classified; T81.30XA Disruption of wound, unspecified, initial encounter; N17.9 Acute kidney failure, unspecified; E87.20 Acidosis, unspecified; I82.512 Chronic embolism and thrombosis of left femoral vein; J96.12 Chronic respiratory failure with hypercapnia; J96.11 Chronic respiratory failure with hypoxia; L03.116 Cellulitis of left lower limb; T81.44XA Sepsis following a procedure, initial encounter; L76.82 Other postprocedural complications of skin and subcutaneous tissue; E87.5 Hyperkalemia; D64.9 Anemia, unspecified; I50.9 Heart failure, unspecified; I11.0 Hypertensive heart disease with heart failure; E66.01 Morbid (severe) obesity due to excess calories; Z68.39 Body mass index [BMI] 39.0-39.9, adult; J44.9 Chronic obstructive pulmonary disease, unspecified; G47.33 Obstructive sleep apnea (adult) (pediatric); Z74.01 Bed confinement status; Z66 Do not resuscitate; Z79.891 Long term (current) use of opiate analgesic; Z79.82 Long term (current) use of aspirin; Z86.711 Personal history of pulmonary embolism; B96.5 Pseudomonas (aeruginosa) (mallei) (pseudomallei) as the cause of diseases classified elsewhere; I87.2 Venous insufficiency (chronic) (peripheral); S72.22XD Displaced subtrochanteric fracture of left femur, subsequent encounter for closed fracture with routine healing; W19.XXXD Unspecified fall, subsequent encounter
CPT/HCPCS: 36415; 36416; 36430; 36573; 36592; 51702; 71045; 73700; 74176; 80048; 80053; 80061; 80202; 81001; 82533; 82550; 82962; 83036; 83605; 83735; 84100; 84145; 84439; 84443; 84481; 85014; 85018; 85025; 85610; 85730; 86850; 86900; 86920; 87040; 87070; 87075; 87077; 87186; 87205; 93005; 93926; 94640; 94664; 96365; 96366; 96367; 96372; 96375; 96376; 99291; J0131; J0330; J0692; J0834; J1100; J1171; J1644; J1815; J2020; J2185; J2371; J2405; J2470; J2543; J2704; J3010; J3370; J3490; J7030; J7050; J7060; J7613; P9016; P9045; P9046; P9047